=== PATIENT | female | born 1950 | race Caucasian/White ===

== ENCOUNTER → 2016-05-28 | Outpatient (CLI) | payer OTHER ==
[~2016-05-28] MED LIST: CITA20TA9 PO; CLOB-65 EXT; CLOB-77 TOP; DIPH-416 PO; KETO10TA PO; LAMO200T38 PO; LEVO112T2 PO; LORA-741 PO; LOSA50TA6 PO; LPT/40 PO; LSN20 PO; NITR1CAP16 PO; NRN600 PO; OMEP40CA36 PO; OMEP40CA41 PO; ONDA4TAB46 PO; ONDA8TAB12 PO; OXYC7.5T65 PO; TOPI25TA55 PO
[2016-05-28 17:25] LABS: ALT/SGPT 15 U/L (12-78); AST/SGOT 9 U/L (15-37); BLOOD UREA NITROGEN 18 mg/dl (7-18); CALCIUM 8.9 mg/dl (8.5-10.1); CARBON DIOXIDE 24 mmol/L (21-32); CHLORIDE 109 mmol/L (98-107); CHOLESTEROL 139 mg/dl (0-200); GLUCOSE 94 mg/dl (70-99); SODIUM 142 mmol/L (136-145)
[2016-05-28 17:28] LABS: HEMATOCRIT 41.9 % (37-47); MEAN CELL VOLUME 91.3 fL (80-100); MEAN CORPUSCULAR HEMOGLOBIN 28.8 pg (25-34); MEAN CORPUSCULAR HGB CONC 31.5 g/dl (32-36); MEAN PLATELET VOLUME 10.4 fL (7.4-10.4); PLATELET COUNT 156 K/uL (130-400); RED BLOOD COUNT 4.59 M/uL (4.2-5.4); WHITE BLOOD COUNT 7.18 K/uL (4.8-10.8)
[2016-05-28 17:36] LABS: ALB/GLOB RATIO 1.2 (0.9-2); ALKALINE PHOSPHATASE 97 U/L (45-117); CHOLESTEROL/HDL RATIO 3.1; HDL CHOLESTEROL 45 mg/dl; LDL CHOLESTEROL CALCULATED 78 mg/dl; TRIGLYCERIDES 80 mg/dl (0-150); VERY LOW DENSITY LIPOPROT CALC 16 mg/dl
[2016-05-28 17:59] LABS: RATIO 6.9 mcg/mg (0-30.0)
[2016-05-29 06:50] LABS: ESTIMATED AVERAGE GLUCOSE 108 mg/dl; HA1C FLAG Normal (Normal)
== END | disposition home or self-care (01) ==
LOC: C.LABBFT 12:12
PROVIDERS: ATTEND Internal Medicine
DX: I10 Essential (primary) hypertension (principal); E03.9 Hypothyroidism, unspecified; E78.5 Hyperlipidemia, unspecified; E11.9 Type 2 diabetes mellitus without complications; D69.6 Thrombocytopenia, unspecified

== ENCOUNTER → 2016-06-04 | Outpatient (CLI) | payer OTHER ==
--- NOTE | 2016-06-07 13:46 | MAMMOGRAPHY REPORT ---
BILATERAL DIGITAL SCREENING MAMMOGRAM WITH CAD: 06/04/2016 TECHNIQUE: Current study was also evaluated with a Computer Aided Detection (CAD) system. Bilatera l CC and MLO views were obtained. COMPARISON: Comparison is made to exams dated: 05/26/2015 mammogram, 04/23/2014 mammogram, 12/23/2011 mammogram, 09/24/2010 mammogram, and 11/21/2014 mammogram - [facility]. BREAST COMPOSITION: The tissue of both breasts is heterogeneously dense, which may obscure small ma sses. FINDINGS: No suspicious masses, calcifications, or areas of architectural distortion are noted in e ither breast. There has been no significant interval change compared to prior exams. Bilateral miguel gn-appearing calcifications are not significantly changed, including grouped calcifications in the l eft 12:00 breast which are stable dating back to at least the 2012 exam. Nodular asymmetry in the r ight medial breast is stable compared to prior exams dating back to 2007. IMPRESSION: ACR BI-RADS CATEGORY 2: BENIGN There is no mammographic evidence of malignancy. A 1 year screening mammogram is recommended. The p atient will receive written notification of the results. Approximately 10% of breast cancers are not detected with mammography. A negative mammographic repor t should not delay biopsy if a clinically suggestive mass is present. Roro Springer M.D. /:06/04/2016 15:29:37 Business Administration Instructor: Alina MYRICK)(James), [facility] letter sent: Normal 1/2 BI-RADS Code: ACR BI-RADS Category 2: Benign
== END | disposition home or self-care (01) ==
LOC: C.MAMM 13:16
PROVIDERS: ATTEND Internal Medicine
DX: Z12.31 Encounter for screening mammogram for malignant neoplasm of breast (principal)

== ENCOUNTER → 2016-06-08 | Outpatient (CLI) | payer OTHER ==
--- NOTE | 2016-06-08 10:44 | DIAGNOSTIC IMAGING REPORT ---
TWO VIEW CHEST CLINICAL HISTORY: Cough. FINDINGS: PA and lateral chest radiographs are compared to study dated 04/24/2015 and correlated with chest CT dated 10/02/2014. The cardiomediastinal silhouette is unremarkable. There is atherosclerotic calcification of the thoracic aorta. A large hiatal hernia is noted. The lungs and pleural spaces are clear. There is no pneumothorax. The skeletal structures are osteopenic. Degenerative change and mild hyperkyphosis are noted in the thoracic spine. IMPRESSION: 1. No active disease in the chest. 2. Hiatal hernia. Electronically signed by: Toan Conway M.D. 06/08/2016 10:43 AM Dictated Date/Time: 06/08/2016 10:39 AM
--- NOTE | 2016-06-11 07:20 | PULMONARY FUNCTION TEST ---
INTERPRETATION: The spirometry reveals mild obstruction with no change in the airflow with the use of albuterol.
== END | disposition home or self-care (01) ==
LOC: C.RC 09:27
PROVIDERS: ATTEND Internal Medicine
DX: R05 Cough (principal); K44.9 Diaphragmatic hernia without obstruction or gangrene

== ENCOUNTER → 2016-08-27 | Outpatient (CLI) | payer OTHER ==
[~2016-08-27] MED LIST changes: +AMOX875T PO; +NARA1TAB14 PO; +NF656 TD; +NRV/5 PO; +OXYC1TAB3 PO; +TPM25 PO
[2016-08-27 16:44] LABS: BASO % 0.1 %; BASO ABS # 0.01 K/uL (0-0.2); COMPLETE YES; EOS % 0.1 %; HEMATOCRIT 43.5 % (37-47); IG% 0.5 %; LYMPH % 10.2 %; LYMPH ABS # 0.82 K/uL (1.2-3.4); MEAN CORPUSCULAR HGB CONC 30.8 g/dl (32-36); MEAN PLATELET VOLUME 10.2 fL (7.4-10.4); MONO % 2.7 %; NEUT % 86.4 %; PLATELET COUNT 163 K/uL (130-400); RED BLOOD COUNT 4.78 M/uL (4.2-5.4); WHITE BLOOD COUNT 8.07 K/uL (4.8-10.8)
[2016-08-27 17:13] LABS: ALB/GLOB RATIO 1.4 (0.9-2); ALKALINE PHOSPHATASE 101 U/L (45-117); ALT/SGPT 19 U/L (12-78); AST/SGOT 8 U/L (15-37); BLOOD UREA NITROGEN 19 mg/dl (7-18); BUN/CREATININE RATIO 15.8 (10-20); CARBON DIOXIDE 27 mmol/L (21-32); CHLORIDE 113 mmol/L (98-107); GLUCOSE 127 mg/dl (70-99); POTASSIUM 4.1 mmol/L (3.5-5.1); SODIUM 145 mmol/L (136-145)
[2016-08-27 17:34] LABS: LYME DISEASE AB IGG NEG (NEG); LYME DISEASE AB IGM NEG (NEG)
[2016-09-01 12:42] LABS: GAMMA GLOBULIN 0.4 G/DL (0.8-1.7); TOTAL PROTEIN 6.1 G/DL (6.2-8.3)
== END | disposition home or self-care (01) ==
LOC: C.LABBFT 14:17
PROVIDERS: ATTEND Psychiatry & Neurology Neurology
DX: R51 Headache (principal); R26.89 Other abnormalities of gait and mobility

== ENCOUNTER → 2016-09-08 | Outpatient (CLI) | payer OTHER ==
--- NOTE | 2016-09-08 16:34 | DIAGNOSTIC IMAGING REPORT ---
LEFT LOWER EXTREMITY ULTRASOUND CLINICAL HISTORY: Left leg anterior lump. COMPARISON STUDY: No previous studies for comparison. TECHNIQUE: Sonography of the anterior left leg was performed at site of palpable abnormality. FINDINGS: No mass, fluid collection or other sonographic abnormality was identified within the left anterior leg at site of palpable abnormality. IMPRESSION: No sonographic abnormality within the left leg to correspond to the palpable abnormality. Clinical follow up to ensure stability is recommended. Electronically signed by: Yossi Chao M.D. 09/08/2016 4:32 PM Dictated Date/Time: 09/08/2016 4:19 PM
== END | disposition home or self-care (01) ==
LOC: C.ULTR 14:24
PROVIDERS: ATTEND Internal Medicine
DX: R60.0 Localized edema (principal); R22.42 Localized swelling, mass and lump, left lower limb

== ENCOUNTER → 2016-09-08 | Outpatient (CLI) | payer OTHER ==
--- NOTE | 2016-09-08 15:51 | DIAGNOSTIC IMAGING REPORT ---
MRI brain BRAIN W/O FOR SEIZURE CLINICAL HISTORY: R51 Worsening [id number] Balance [id number] seizure TECHNIQUE: Multi axial MRI acquisition COMPARISON STUDY: 02/21/2015 FINDINGS: Signal characteristics of the cerebellar as well as cerebral hemispheres are unremarkable. Ventricular system is midline. Internal auditory canals are symmetric. Sella and parasellar region is unremarkable. IMPRESSION: Negative study. No change from the prior exam. Electronically signed by: Michele Garcia M.D. 09/08/2016 3:50 PM Dictated Date/Time: 09/08/2016 3:46 PM
--- NOTE | 2016-09-16 12:37 | CODING QUERY MEDICAL NECESSITY ---
CQSUPPORTING DIAGNOSIS NEEDED A supporting diagnosis is required for the test/procedure performed on this patient in order for us to be reimbursed by the patient's insurance. Please provide a supporting diagnosis for the following test/procedure listed below next to the test name along with your signature. *If there is no additional diagnosis for this patient that would support the following test/procedure please document that below next to the test/procedure. Test(s)/Procedure(s) that require a supporting diagnosis: SHRAVAN 09/08/16 NONVASCULAR EXTREMITY ULTRASOUND Provider Signature: Date: Thank you Jesika Argueta Health Information Management Once completed, please kindly fax back to [phone] For questions please call [phone]
== END | disposition home or self-care (01) ==
LOC: C.MRI 14:20
PROVIDERS: ATTEND Psychiatry & Neurology Neurology
DX: R26.89 Other abnormalities of gait and mobility (principal); R51 Headache; R60.0 Localized edema; R22.42 Localized swelling, mass and lump, left lower limb

== ENCOUNTER → 2016-09-14 | Outpatient (CLI) | payer OTHER ==
[2016-09-14 12:40] LABS: URINE APPEARANCE CLEAR (CLEAR); URINE BILIRUBIN NEG (NEG); URINE COLOR YELLOW; URINE NITRITE NEG (NEG); URINE SPECIFIC GRAVITY 1.014 (1.000-1.030); UROBILINOGEN NEG (NEG)
[2016-09-14 12:44] LABS: MANUAL MICROSCOPIC REQUIRED? NO; REVIEW REQ? YES
== END | disposition home or self-care (01) ==
LOC: C.LABBFT 10:41
PROVIDERS: ATTEND Nurse Practitioner
DX: R39.9 Unspecified symptoms and signs involving the genitourinary system (principal); Z87.898 Personal history of other specified conditions

== ENCOUNTER 2016-09-17 13:25 | Emergency (ER) | payer OTHER ==
[~2016-09-17] VITALS: Ht 172.7 cm; Wt 97.5 kg
[~2016-09-17 13:25] MED LIST changes: -AMOX875T PO; -CLOB-77 TOP; -KETO10TA PO; -LOSA50TA6 PO; -NARA1TAB14 PO; -NF656 TD; -NITR1CAP16 PO; -NRN600 PO; -NRV/5 PO; -OMEP40CA41 PO; -ONDA8TAB12 PO; -OXYC1TAB3 PO; -OXYC7.5T65 PO; -TOPI25TA55 PO; -TPM25 PO
[2016-09-17] MEDS ORDERED: SODIUM CHLORIDE 0.9% 1000ML 1,000 ML IV STA (13:28)
[2016-09-17] MEDS ORDERED: ONDANSETRON INJ 2 MG/ML 2 ML VIAL IV STA (13:28)
[2016-09-17] MEDS ORDERED: KETOROLAC TROMETHAMINE 30 MG/ML VIAL IV STA (13:28)
[2016-09-17 13:34] VITALS: Ht 172.7 cm; Wt 97.5 kg
[2016-09-17 14:03] LABS: BASO % 0.1 %; BASO ABS # 0.01 K/uL (0-0.2); COMPLETE YES; EOS % 1.3 %; HEMATOCRIT 40.3 % (37-47); IG% 0.1 %; LYMPH % 18.2 %; LYMPH ABS # 1.23 K/uL (1.2-3.4); MEAN CELL VOLUME 91.2 fL (80-100); MEAN CORPUSCULAR HEMOGLOBIN 28.7 pg (25-34); MEAN CORPUSCULAR HGB CONC 31.5 g/dl (32-36); MEAN PLATELET VOLUME 9.4 fL (7.4-10.4); MONO % 8.2 %; NEUT % 72.1 %; PLATELET COUNT 140 K/uL (130-400); RED BLOOD COUNT 4.42 M/uL (4.2-5.4); WHITE BLOOD COUNT 6.74 K/uL (4.8-10.8)
--- NOTE | 2016-09-17 14:19 | DIAGNOSTIC IMAGING REPORT ---
ABDOMEN AND PELVIS CT WITHOUT CONTRAST CT DOSE: 1009.22 mGycm HISTORY: Flank pain flank pain TECHNIQUE: Multiaxial CT images of the abdomen and pelvis were performed without the use of intravenous and oral contrast according to the standard department stone protocol. COMPARISON STUDY: 04/24/2015 FINDINGS: Lung bases are clear. Fixed hiatal hernia. Gallstones within a somewhat contracted gallbladder. Bilateral extrarenal pelves of the kidneys. No evidence for hydronephrosis. Nonobstructive bowel pattern. Bladder is midline. Patient is status post total right arthroplasty the hip. IMPRESSION: No acute process of the abdomen or pelvis. Gallstones. Hiatal hernia. Electronically signed by: Michele Garcia M.D. 09/17/2016 2:18 PM Dictated Date/Time: 09/17/2016 2:13 PM
[2016-09-17 14:24] LABS: ALT/SGPT 24 U/L (12-78); BLOOD UREA NITROGEN 19 mg/dl (7-18); BUN/CREATININE RATIO 14.5 (10-20); CARBON DIOXIDE 24 mmol/L (21-32); CHLORIDE 111 mmol/L (98-107); GLUCOSE 127 mg/dl (70-99); POTASSIUM 3.9 mmol/L (3.5-5.1); SODIUM 144 mmol/L (136-145)
[2016-09-17 14:26] LABS: ALKALINE PHOSPHATASE 106 U/L (45-117); AST/SGOT 12 U/L (15-37)
[2016-09-17] MEDS ORDERED: KETO10TA PO (15:01)
--- NOTE | 2016-09-17 15:02 | EMERGENCY ROOM VISIT NOTE ---
History Report prepared by [place]: Stella Rizvi Under the Supervision of: Dr. Miguel Suarez D.O. First contact with patient: 13:27 Chief Complaint: FLANK PAIN Stated Complaint: FLANK PAIN History of Present Illness The patient is a 66 year old female who presents to the Emergency Room with complaints of severe and worsening left sided back pain starting 2 weeks ago. She has worsening pain with walking. 2 days ago, the patient was evaluated by her PCP and had a urinalysis which was negative for a UTI. She denies any urinary symptoms, or any other complaints. She denies any recent injuries, lifting, or straining. The patient has shingles on the left side of chest starting about 2 weeks ago. Source of History: patient Onset: 2 weeks ago Position: back (left sided) Symptom Intensity: severe Timing: worsening Modifying Factors (Worsening): other (walking) Associated Symptoms: No urinary symptoms Review of Systems See HPI for pertinent positives & negatives. A total of 10 systems reviewed and were otherwise negative. Past Medical & Surgical Medical Problems: (1) Anxiety State Nos (2) Arthritis of right hip (3) Esophageal Reflux (4) Migraine Unspecified W/O Intractable Migraine (5) Panic Disorder Without Agoraphobia Family History No significant family history Social History Smoking Status: Former Smoker Alcohol Use: occasionally Marital Status: Housing Status: lives with family Current/Historical Medications Scheduled Atorvastatin (Lipitor), 40 MG PO QPM Citalopram Hydrobromide (Celexa), 30 MG PO HS Clobetasol Propionate (Temovate), 1 APPLN TOP BID Gabapentin (Gabapentin), 1 TAB PO TID Lamotrigine (Lamictal), 200 MG PO BID Levothyroxine Sodium (Synthroid), 112 MCG PO QAM Losartan Potassium (Cozaar), 50 MG PO DAILY Nitrofurantoin Monohyd Macro (Macrobid), 100 MG PO BID Omeprazole (Prilosec), 40 MG PO DAILY Ondansetron Hcl (Zofran), 8 MG PO PRN Topiramate (Topamax), 75 MG PO BID Scheduled PRN Diphenoxylate/Atropine (Lomotil), 1 TAB PO BID PRN for PRN Ketorolac (Toradol), 10 MG PO Q6H PRN for Pain Lorazepam (Ativan), 0.5 MG PO BID PRN for Anxiety Ondansetron Hcl (Zofran), 4 MG PO Q6H PRN for Nausea Oxycodone/Acetaminophen 7.5MG/325MG (Percocet 7.5MG/325MG), 1 TAB PO Q12 PRN for Pain Allergies Coded Allergies: NO KNOWN DRUG ALLERGIES (Verified Allergy, Unknown, ., 09/17/16) Physical Exam Vital Signs Date Time Temp Pulse Resp B/P (MAP) Pulse Ox O2 Delivery O2 Flow Rate FiO2 09/17/16 15:20 36.6 64 18 105/54 94 09/17/16 13:34 36.6 72 18 108/49 97 Room Air Physical Exam CONSTITUTIONAL/VITAL SIGNS: Reviewed / noted above. GENERAL: Non-toxic in appearance. INTEGUMENTARY: Warm, dry, and [place]. HEAD: Normocephalic. EYES: without scleral icterus or trauma. ENT/OROPHARYNX: clear and moist. LYMPHADENOPATHY/NECK: Is supple without lymphadenopathy or meningismus. RESPIRATORY: Lungs clear and equal. CARDIOVASCULAR: Regular rate and rhythm. GI/ABDOMEN: Soft and nontender. No organomegaly or pulsatile mass. No rebound or guarding. Normal bowel sounds. EXTREMITIES: Warm and well perfused. BACK: No CVA tenderness. Tenderness to palpation of the paraspinal musculature of the left mid back. NEUROLOGICAL: Intact without focal deficits. PSYCHIATRIC: normal affect. MUSCULOSKELETAL: Normally developed with good muscle tone. Medical Decision & Procedures ER Provider Diagnostic Interpretation: CT results as stated below per my review and radiologist interpretation: ABDOMEN AND PELVIS CT WITHOUT CONTRAST CT DOSE: 1009.22 mGycm HISTORY: Flank pain flank pain TECHNIQUE: Multiaxial CT images of the abdomen and pelvis were performed without the use of intravenous and oral contrast according to the standard department stone protocol. COMPARISON STUDY: 04/24/2015 FINDINGS: Lung bases are clear. Fixed hiatal hernia. Gallstones within a somewhat contracted gallbladder. Bilateral extrarenal pelves of the kidneys. No evidence for hydronephrosis. Nonobstructive bowel pattern. Bladder is midline. Patient is status post total right arthroplasty the hip. IMPRESSION: No acute process of the abdomen or pelvis. Gallstones. Hiatal hernia. Electronically signed by: Michele Garcia M.D. 09/17/2016 2:18 PM Dictated Date/Time: 09/17/2016 2:13 PM Laboratory Results 09/17/16 13:30 Red Blood Count 4.42, Mean Corpuscular Volume 91.2, Mean Corpuscular Hemoglobin 28.7, Mean Corpuscular Hemoglobin Concent 31.5, Mean Platelet Volume 9.4, Neutrophils (%) (Auto) 72.1, Lymphocytes (%) (Auto) 18.2, Monocytes (%) (Auto) 8.2, Eosinophils (%) (Auto) 1.3, Basophils (%) (Auto) 0.1, Neutrophils # (Auto) 4.85, Lymphocytes # (Auto) 1.23, Monocytes # (Auto) 0.55, Eosinophils # (Auto) 0.09, Basophils # (Auto) 0.01 09/17/16 13:30 Test 09/17/16 13:30 White Blood Count 6.74 K/uL (4.8-10.8) Red Blood Count 4.42 M/uL (4.2-5.4) Hemoglobin 12.7 g/dL (12.0-16.0) Hematocrit 40.3 % (37-47) Mean Corpuscular Volume 91.2 fL (80-100) Mean Corpuscular Hemoglobin 28.7 pg (25-34) Mean Corpuscular Hemoglobin Concent 31.5 g/dl (32-36) Platelet Count 140 K/uL (130-400) Mean Platelet Volume 9.4 fL (7.4-10.4) Neutrophils (%) (Auto) 72.1 % Lymphocytes (%) (Auto) 18.2 % Monocytes (%) (Auto) 8.2 % Eosinophils (%) (Auto) 1.3 % Basophils (%) (Auto) 0.1 % Neutrophils # (Auto) 4.85 K/uL (1.4-6.5) Lymphocytes # (Auto) 1.23 K/uL (1.2-3.4) Monocytes # (Auto) 0.55 K/uL (0.11-0.59) Eosinophils # (Auto) 0.09 K/uL (0-0.5) Basophils # (Auto) 0.01 K/uL (0-0.2) RDW Standard Deviation 46.8 fL (36.4-46.3) RDW Coefficient of Variation 14.2 % (11.5-14.5) Immature Granulocyte % (Auto) 0.1 % Immature Granulocyte # (Auto) 0.01 K/uL (0.00-0.02) Anion Gap 9.0 mmol/L (3-11) Est Creatinine Clear Calc Drug Dose 50.6 ml/min Estimated GFR () 48.8 Estimated GFR (Non- 42.1 BUN/Creatinine Ratio 14.5 (10-20) Total Bilirubin 0.5 mg/dl (0.2-1) Direct Bilirubin < 0.1 mg/dl (0-0.2) Aspartate Amino Transf (AST/SGOT) 12 U/L (15-37) Alanine Aminotransferase (ALT/SGPT) 24 U/L (12-78) Alkaline Phosphatase 106 U/L (45-117) Total Protein 6.6 gm/dl (6.4-8.2) Albumin 3.5 gm/dl (3.4-5.0) Lipase 220 U/L (73-393) Laboratory results as stated above per my review. Medications Administered Medications (Trade) Dose Ordered Sig/Srikanth Route Start Time Stop Time Status Last Admin Dose Admin Sodium Chloride 1,000 ml @ 999 mls/hr Q1H1M STAT IV 09/17/16 13:28 09/17/16 14:28 DC 09/17/16 13:28 999 MLS/HR Ondansetron HCl (Zofran Inj) 4 mg NOW STAT IV 09/17/16 13:28 09/17/16 13:30 DC 09/17/16 13:51 4 MG Ketorolac Tromethamine (Toradol Inj) 30 mg NOW STAT IV 09/17/16 13:28 09/17/16 13:30 DC 09/17/16 13:51 30 MG ED Course 1327: Previous medical records were reviewed. The patient was evaluated in room B08. A complete history and physical examination was performed. 1328: Toradol Inj 30 mg IV, Zofran Inj 4 mg IV, Sodium Chloride 1000 ml @ 999 mls/hr IV 1504: On reevaluation, the patient is resting comfortably. I discussed the results and findings with the patient. She verbalized agreement of the treatment plan. She was discharged home. Medical Decision Differential considered: pancreatitis, hepatitis, acute cholecystitis, AAA, UTI , pyelonephritis, kidney stones, appendicitis, diverticulitis, shingles, bowel obstruction, mesenteric ischemia, intussusception,hernia. Medication Reconciliation: I attest that I have personally reviewed the patient' s current medication list. Blood pressure Screening: Patient was found to have normal blood pressure on screening and does not require follow-up. This is a 66-year-old female who presents to the ED with a chief complaint of side effects pain. The patient is currently undergoing treatment for shingles of her left breast. She states that she's been having some left-sided flank pain for the past couple of weeks. It seems to be worse with certain movements. It is progressively worsening little by little over time. Her vital signs are normal. The patient's exam was relatively unremarkable other than some tenderness to palpation the musculature of the left mid back region. CT scan of the an and pelvis did not reveal any left-sided abnormalities. She does have gallstones. CBC and complete metabolic panel were unremarkable. The BUN is 19 and creatinine is 1.3. Lipase was negative. She was treated with IV fluids and IV Toradol and IV Zofran. She will be discharged on Toradol. She was told to follow-up with her PCP for recheck and return for worsening. Impression Primary Impression: Left flank pain Additional Impression: Back muscle spasm Scribe Attestation The scribe's documentation has been prepared under my direction and personally reviewed by me in its entirety. I confirm that the note above accurately reflects all work, treatment, procedures, and medical decision making performed by me. Departure Information Dispostion Home / Self-Care Prescriptions Ketorolac (Toradol) 10 Mg Tab 10 MG PO Q6H Y for Pain, #20 TAB Prov: Miguel Suarez D.O. 09/17/16 Referrals Geovanni Riggs M.D. (PCP) Forms HOME CARE DOCUMENTATION FORM, IMPORTANT VISIT INFORMATION Patient Instructions Back Pain - [facility] Additional Instructions Follow-up with your doctor for further care and evaluation in 1-2 days. Return to the emergency department for worsening or new symptoms or any concerns. You have been examined and treated today on an emergency basis only. This is not a substitute for, or an effort to provide, complete comprehensive medical care. It is impossible to recognize and treat all injuries or illnesses in a single emergency department visit. It is therefore important that you follow up closely with your doctor. Call as soon as possible for an appointment. Toradol as prescribed. Problem Qualifiers
[2016-09-17] MEDS ORDERED: OXYC7.5T65 PO (15:12)
[2016-09-17] MEDS ORDERED: OMEP40CA41 PO (15:12)
[2016-09-17] MEDS ORDERED: LOSA50TA6 PO (15:12)
[2016-09-17] MEDS ORDERED: TOPI25TA55 PO (15:12)
[2016-09-17] MEDS ORDERED: NITR1CAP16 PO (15:12)
[2016-09-17] MEDS ORDERED: CLOB-77 TOP (15:12)
[2016-09-17] MEDS ORDERED: ONDA8TAB12 PO (15:12)
[2016-09-17] MEDS ORDERED: NRN600 PO (15:12)
[2016-09-17 15:20] VITALS: BP 105/54; PULSE 64; TEMP 36.6; O2SAT 94
[2016-09-17 17:15] LABS: CALCIUM 9.1 mg/dl (8.5-10.1)
[2017-02-07] MEDS ORDERED: NRV/5 PO (19:14)
[2017-02-07] MEDS ORDERED: NARA1TAB14 PO (19:14)
[2017-02-07] MEDS ORDERED: TPM25 PO (19:23)
[2017-02-07] MEDS ORDERED: OXYC1TAB3 PO (21:43)
[2017-02-07] MEDS ORDERED: NF656 TD (21:43)
[2017-02-08] MEDS ORDERED: AMOX875T PO (00:16)
== END 2016-09-17 15:21 | disposition home or self-care (01) ==
LOC: EDBD 13:25 → C.EDB 13:26
DX: R10.9 Unspecified abdominal pain (principal); M62.830 Muscle spasm of back; M16.11 Unilateral primary osteoarthritis, right hip; K21.9 Gastro-esophageal reflux disease without esophagitis; G43.909 Migraine, unspecified, not intractable, without status migrainosus; F41.0 Panic disorder [episodic paroxysmal anxiety]; Z87.891 Personal history of nicotine dependence; Z79.899 Other long term (current) drug therapy

== ENCOUNTER → 2016-09-21 | Outpatient (CLI) | payer OTHER ==
[~2016-09-21] MED LIST changes: +AMOX875T PO; -CLOB-65 EXT; +CLOB-77 TOP; +KETO10TA PO; +LOSA50TA6 PO; -LSN20 PO; +NARA1TAB14 PO; +NF656 TD; +NITR1CAP16 PO; +NRN600 PO; +NRV/5 PO; -OMEP40CA36 PO; +OMEP40CA41 PO; +ONDA8TAB12 PO; +OXYC1TAB3 PO; +OXYC7.5T65 PO; +TOPI25TA55 PO; +TPM25 PO
--- NOTE | 2016-09-21 14:25 | DIAGNOSTIC IMAGING REPORT ---
L-SPINE MIN 4 VIEWS ROUTINE CLINICAL HISTORY: M54.40 low back pain with sciatica COMPARISON STUDY: 08/26/2015 FINDINGS: There are 5 lumbar type vertebral bodies present. There are moderately advanced multilevel degenerative changes with disc space narrowing most pronounced the L1-2 level. No acute fractures are visualized. There is a grade 1 spondylolisthesis of L5 on S1. Incidental note is made of cholelithiasis. There is no pathologic bowel dilatation. IMPRESSION: 1. Moderate multilevel degenerative change. No acute fractures or traumatic subluxations 2. Cholelithiasis Electronically signed by: Ganesh Bennett M.D. 09/21/2016 2:23 PM Dictated Date/Time: 09/21/2016 2:23 PM
--- NOTE | 2016-09-21 14:25 | DIAGNOSTIC IMAGING REPORT ---
THORACIC SPINE 3 VIEWS ROUTINE CLINICAL HISTORY: M54.40 back pain with sciatica COMPARISON STUDY: No previous studies for comparison. FINDINGS: There are moderate multilevel degenerative changes. No acute fractures of genetic subluxations are visualized. The paraspinal line is not displaced. No destructive lesions are visualized on conventional radiographic imaging IMPRESSION: Moderate multilevel degenerative change. No fractures, subluxations, or destructive lesions are visualized Electronically signed by: Ganesh Bennett M.D. 09/21/2016 2:24 PM Dictated Date/Time: 09/21/2016 2:24 PM
[2016-09-21 15:33] LABS: BLOOD UREA NITROGEN 23 mg/dl (7-18); BUN/CREATININE RATIO 19.3 (10-20); CALCIUM 8.5 mg/dl (8.5-10.1); CARBON DIOXIDE 27 mmol/L (21-32); CHLORIDE 111 mmol/L (98-107); GLUCOSE 98 mg/dl (70-99); POTASSIUM 4.1 mmol/L (3.5-5.1); SODIUM 145 mmol/L (136-145)
== END | disposition home or self-care (01) ==
LOC: C.LAB 12:58
PROVIDERS: ATTEND Physician Assistant Medical
DX: M54.40 Lumbago with sciatica, unspecified side (principal)

== ENCOUNTER → 2016-10-07 | Outpatient (CLI) | payer OTHER ==
[~2016-10-07] MED LIST changes: -AMOX875T PO; -NARA1TAB14 PO; -NF656 TD; -NRV/5 PO; -OXYC1TAB3 PO; -TPM25 PO
[2016-10-07 16:37] LABS: BLOOD UREA NITROGEN 17 mg/dl (7-18); BUN/CREATININE RATIO 14.1 (10-20); CARBON DIOXIDE 24 mmol/L (21-32); CHLORIDE 112 mmol/L (98-107); GLUCOSE 89 mg/dl (70-99); POTASSIUM 3.9 mmol/L (3.5-5.1); SODIUM 143 mmol/L (136-145)
== END | disposition home or self-care (01) ==
LOC: C.LABBFT 13:05
PROVIDERS: ATTEND Physician Assistant Medical
DX: M54.40 Lumbago with sciatica, unspecified side (principal); N23 Unspecified renal colic

== ENCOUNTER → 2016-10-14 | Outpatient (CLI) | payer OTHER ==
[2016-10-14 17:30] LABS: BLOOD UREA NITROGEN 15 mg/dl (7-18); BUN/CREATININE RATIO 12.5 (10-20); CALCIUM 8.9 mg/dl (8.5-10.1); CARBON DIOXIDE 25 mmol/L (21-32); CHLORIDE 109 mmol/L (98-107); GLUCOSE 90 mg/dl (70-99); SODIUM 142 mmol/L (136-145)
== END | disposition home or self-care (01) ==
LOC: C.LABBFT 09:43
PROVIDERS: ATTEND Physician Assistant Medical
DX: I10 Essential (primary) hypertension (principal)

== ENCOUNTER → 2016-10-15 | Outpatient (CLI) | payer OTHER ==
--- NOTE | 2016-10-21 12:36 | CODING QUERY MEDICAL NECESSITY ---
SUPPORTING DIAGNOSIS NEEDED A supporting diagnosis is required for the test/procedure performed on this patient in order for us to be reimbursed by the patient's insurance. Please provide a supporting diagnosis for the following test/procedure listed below next to the test name along with your signature. *If there is no additional diagnosis for this patient that would support the following test/procedure please document that below next to the test/procedure. Test(s)/Procedure(s) that require a supporting diagnosis: * VITAMIN B12 DIAGNOSIS: Provider Signature: Date: Thank you Cira Waterford [employer] Information Management Once completed, please kindly fax back to [phone] For questions please call [phone]
== END | disposition home or self-care (01) ==
LOC: C.LABBFT 11:54
PROVIDERS: ATTEND Physician Assistant Medical
DX: G62.9 Polyneuropathy, unspecified (principal)

== ENCOUNTER → 2016-10-20 | Outpatient (CLI) | payer OTHER ==
--- NOTE | 2016-10-20 11:34 | DIAGNOSTIC IMAGING REPORT ---
(RENAL)RETROPERITON COMP HISTORY: 66 years Female N28.9 Renal insufficiency COMPARISON: CT abdomen and pelvis 09/17/2016 TECHNIQUE: Multiple real-time sonographic images of the bilateral kidneys and urinary bladder were obtained assessing grayscale appearance and color flow. FINDINGS: Right kidney measures 12.8 x 4.0 x 4.3 cm and is unremarkable without shadowing calculus or hydronephrosis. Extrarenal pelvis is redemonstrated. The left kidney measures 14.0 x 5.9 x 6.3 cm and is within normal limits without renal calculi or hydronephrosis. Extrarenal pelvis is again seen. Urinary bladder is mostly collapsed with ureteral jets not identified. Straightedge Machine Operator Helper reports patient tenderness over the region of the urinary bladder. IMPRESSION: 1. Normal sonographic appearance of the bilateral kidneys without renal calculi or hydronephrosis. 2. Collapsed urinary bladder. The above report was generated using voice recognition software. It may contain grammatical, syntax or spelling errors. Electronically signed by: Lev Ramey M.D. 10/20/2016 11:32 AM Dictated Date/Time: 10/20/2016 11:30 AM
== END | disposition home or self-care (01) ==
LOC: C.ULTR 10:41
PROVIDERS: ATTEND Physician Assistant Medical
DX: N28.9 Disorder of kidney and ureter, unspecified (principal)

== ENCOUNTER → 2016-11-19 | Outpatient (CLI) | payer OTHER ==
[2016-11-19 12:26] LABS: URINE APPEARANCE CLEAR (CLEAR); URINE BILIRUBIN NEG (NEG); URINE COLOR YELLOW; URINE EPITHELIAL CELL AUTO >30 /lpf (0-5); URINE NITRITE NEG (NEG); URINE PH 6.5 (4.5-7.5); URINE SPECIFIC GRAVITY 1.015 (1.000-1.030); UROBILINOGEN NEG (NEG)
[2016-11-19 12:31] LABS: MANUAL MICROSCOPIC REQUIRED? NO; REVIEW REQ? YES
== END | disposition home or self-care (01) ==
LOC: C.LABBFT 09:11
PROVIDERS: ATTEND Nurse Practitioner
DX: R39.9 Unspecified symptoms and signs involving the genitourinary system (principal)

== ENCOUNTER → 2016-12-02 | Outpatient (CLI) | payer OTHER ==
[2016-12-02 17:49] LABS: BASO % 0.3 %; BASO ABS # 0.02 K/uL (0-0.2); COMPLETE YES; EOS % 1.1 %; HEMATOCRIT 44.5 % (37-47); IG% 0.6 %; LYMPH % 16.2 %; LYMPH ABS # 1.13 K/uL (1.2-3.4); MEAN CELL VOLUME 92.7 fL (80-100); MEAN CORPUSCULAR HEMOGLOBIN 27.3 pg (25-34); MEAN CORPUSCULAR HGB CONC 29.4 g/dl (32-36); MEAN PLATELET VOLUME 10.3 fL (7.4-10.4); MONO % 6.9 %; NEUT % 74.9 %; PLATELET COUNT 165 K/uL (130-400); WHITE BLOOD COUNT 6.98 K/uL (4.8-10.8)
[2016-12-02 17:58] LABS: ALT/SGPT 15 U/L (12-78); AST/SGOT 6 U/L (15-37); BLOOD UREA NITROGEN 13 mg/dl (7-18); BUN/CREATININE RATIO 12.2 (10-20); CALCIUM 8.7 mg/dl (8.5-10.1); CARBON DIOXIDE 25 mmol/L (21-32); CHLORIDE 112 mmol/L (98-107); CHOLESTEROL 135 mg/dl (0-200); GLUCOSE 130 mg/dl (70-99); POTASSIUM 3.6 mmol/L (3.5-5.1); SODIUM 143 mmol/L (136-145); TRIGLYCERIDES 122 mg/dl (0-150); VERY LOW DENSITY LIPOPROT CALC 24 mg/dl
[2016-12-02 18:09] LABS: ALB/GLOB RATIO 1.3 (0.9-2); ALKALINE PHOSPHATASE 105 U/L (45-117); CHOLESTEROL/HDL RATIO 3.5; HDL CHOLESTEROL 39 mg/dl; LDL CHOLESTEROL CALCULATED 72 mg/dl
[2016-12-03 06:16] LABS: ESTIMATED AVERAGE GLUCOSE 111 mg/dl; HA1C FLAG Normal (Normal)
--- NOTE | 2016-12-13 10:05 | CODING QUERY MEDICAL NECESSITY ---
CQSUPPORTING DIAGNOSIS NEEDED A supporting diagnosis is required for the test/procedure performed on this patient in order for us to be reimbursed by the patient's insurance. Please provide a supporting diagnosis for the following test/procedure listed below next to the test name along with your signature. *If there is no additional diagnosis for this patient that would support the following test/procedure please document that below next to the test/procedure. Test(s)/Procedure(s) that require a supporting diagnosis: DOS 12/02/16 VITAMIN B12 ORDERED BY SHAHEEN HOLDEN (SEPARATE ACCOUNT FROM PREVIOUS QUERY) Provider Signature: Date: Thank you Jesika Argueta Health Information Management Once completed, please kindly fax back to [phone] For questions please call [phone]
== END | disposition home or self-care (01) ==
LOC: C.LABBFT 12:17
PROVIDERS: ATTEND Physician Assistant Medical
DX: R79.9 Abnormal finding of blood chemistry, unspecified (principal); E11.9 Type 2 diabetes mellitus without complications

== ENCOUNTER 2017-05-12 14:13 | Emergency (ER) | payer OTHER ==
[~2017-05-12] VITALS: Ht 172.7 cm; Wt 91.7 kg
[~2017-05-12 14:13] MED LIST changes: -CLOB-77 TOP; -KETO10TA PO; +LAMO200T35 PO; -LAMO200T38 PO; -LOSA50TA6 PO; +NARA1TAB14 PO; +NF656 TD; -NITR1CAP16 PO; -NRN600 PO; +NRV/5 PO; -ONDA8TAB12 PO; +OXYC1TAB3 PO; -OXYC7.5T65 PO; -TOPI25TA55 PO; +TPM25 PO
[2017-05-12 14:19] VITALS: TEMP 36.6; Ht 172.7 cm; Wt 91.7 kg
[2017-05-12] MEDS ORDERED: OSEL75CA16 PO (14:42)
[2017-05-12] MEDS ORDERED: KETOROLAC TROMETHAMINE 15 MG/ML VIAL IV ONE (14:45)
[2017-05-12] MEDS ORDERED: ACETAMINOPHEN IV 1,000 MG in EMPTY BAG 0 ML IV ONE (14:45)
[2017-05-12] MEDS ORDERED: ALBUT/IPRATROP 3MG/0.5MG NEB 3 ML VIAL INH ONE (14:45)
[2017-05-12] MEDS ORDERED: SODIUM CHLORIDE 0.9% 1000ML 1,000 ML IV ONE (14:45)
[2017-05-12] MEDS ORDERED: ONDANSETRON INJ 2 MG/ML 2 ML VIAL IV STA (14:52)
--- NOTE | 2017-05-12 15:34 | EMERGENCY ROOM VISIT NOTE ---
ED Visit Note First contact with patient: 14:34 This Patient was discussed with the physician senior office assistant, Nicolas Astorga PA-C. The pertinent historical and physical exam findings were confirmed. I agree with the studies ordered and with the interpretations of these studies. I agree with the disposition and care plan.
[2017-05-12 15:38] LABS: BASO % 0.3 %; BASO ABS # 0.01 K/uL (0-0.2); EOS % 1.6 %; EOS ABS # 0.06 K/uL (0-0.5); HEMATOCRIT 42.8 % (37-47); HEMOGLOBIN 13.8 g/dL (12.0-16.0); IG# 0.01 K/uL (0.00-0.02); LYMPH % 28.6 %; LYMPH ABS # 1.08 K/uL (1.2-3.4); MEAN CELL VOLUME 89.4 fL (80-100); MEAN CORPUSCULAR HEMOGLOBIN 28.8 pg (25-34); MEAN CORPUSCULAR HGB CONC 32.2 g/dl (32-36); MEAN PLATELET VOLUME 9.4 fL (7.4-10.4); MONO % 10.9 %; MONO ABS # 0.41 K/uL (0.11-0.59); NEUT % 58.3 %; PLATELET COUNT 115 K/uL (130-400); RED CELL DISTRIBUTION WIDTH CV 13.5 % (11.5-14.5); RED CELL DISTRIBUTION WIDTH SD 44.4 fL (36.4-46.3); WHITE BLOOD COUNT 3.77 K/uL (4.8-10.8)
[2017-05-12] MEDS ORDERED: DEXAMETHASONE **PF** INJ 10 MG/ML VIAL ONE (15:40)
[2017-05-12] MEDS ORDERED: KETOROLAC TROMETHAMINE 30 MG/ML VIAL ONE (15:40)
[2017-05-12 16:01] LABS: CREATININE 1.05 mg/dl (0.60-1.20)
[2017-05-12 16:02] LABS: ALBUMIN 3.4 gm/dl (3.4-5.0); CALCIUM 8.7 mg/dl (8.5-10.1); POTASSIUM 3.6 mmol/L (3.5-5.1)
[2017-05-12 16:04] LABS: TOTAL PROTEIN 6.3 gm/dl (6.4-8.2)
--- NOTE | 2017-05-12 16:51 | DIAGNOSTIC IMAGING REPORT ---
CHEST 2 VIEWS ROUTINE CLINICAL HISTORY: 66 years-old Female presenting with Cough. Flu like. . TECHNIQUE: PA and lateral views of the chest were obtained. COMPARISON: 06/08/[address] from 10/02/2014. FINDINGS: Atherosclerosis of the aortic arch. Cardiac silhouette top normal in size. Lungs and pleural spaces clear. Degenerative changes of the thoracic spine. Hiatal hernia suspected. IMPRESSION: 1. No acute cardiopulmonary disease. 2. Hiatal hernia. Electronically signed by: Rupesh Lees M.D. 05/12/2017 4:50 PM Dictated Date/Time: 05/12/2017 4:48 PM
[2017-05-12 17:24] VITALS: BP 131/78; PULSE 90; O2SAT 98
--- NOTE | 2017-05-12 21:44 | EMERGENCY ROOM VISIT NOTE ---
History First contact with patient: 14:34 Chief Complaint: FLU LIKE SX Stated Complaint: FLU History of Present Illness The patient is a 66 year old female who presents to the Emergency Room with complaints of persistent flu symptoms of weakness and fatigue for the past 3 days. The patient was diagnosed with influenza A at her primary care physician' s office 3 days ago. Since then she has felt weak and nauseated. She did start Tamiflu for the flu. She has had a fever at home, however this is generally controlled with Advil and Tylenol. She has decreased appetite but no significant pains otherwise. She rates her overall discomfort a 6/10. Review of Systems More than 10 systems were reviewed and otherwise negative with the exception of history of present illness. Past Medical/Surgical History Medical Problems: (1) Anxiety State Nos (2) Arthritis of right hip (3) Esophageal Reflux (4) Migraine Unspecified W/O Intractable Migraine (5) Panic Disorder Without Agoraphobia Family History No significant family history Social History Smoking Status: Former Smoker Alcohol Use: occasionally Marital Status: Housing Status: lives with family Current/Historical Medications Scheduled Amlodipine Besylate (Amlodipine Besylate), 5 MG PO DAILY Atorvastatin (Lipitor), 40 MG PO QPM Citalopram Hydrobromide (Celexa), 30 MG PO HS Lamotrigine (Lamictal), 200 MG PO BID Levothyroxine Sodium (Synthroid), 112 MCG PO QAM Naratriptan Hcl (Amerge), 2.5 MG PO DIRECTED Omeprazole (Prilosec), 40 MG PO DAILY Oseltamivir Phosphate (Oseltamivir Phosphate), 75 MG PO DAILY Topiramate (Topiramate), 75 MG PO BID Scheduled PRN Lorazepam (Ativan), 0.5 MG PO BID PRN for Anxiety Ondansetron Hcl (Zofran), 4 MG PO Q6H PRN for Nausea Physical Exam Vital Signs Date Time Temp Pulse Resp B/P (MAP) Pulse Ox O2 Delivery O2 Flow Rate FiO2 05/12/17 17:24 90 20 131/78 98 05/12/17 14:19 36.6 51 20 135/77 95 Room Air Physical Exam VITALS: Vitals are noted on the nurse's note and reviewed by myself. Vital signs stable. GENERAL: Well-developed, well-nourished, white female who appears ill but nontoxic. NECK: Supple without nuchal rigidity. No lymphadenopathy. No thyromegaly. Cervical spine is nontender. HEART: Regular rate and rhythm without murmurs gallops or rubs. LUNGS: Clear to auscultation bilaterally without wheezes, rales or rhonchi. No retractions or accessory muscle use. ABDOMEN: Positive normal bowel sounds x 4. Soft, nontender, without masses or organomegaly. No guarding or rebound tenderness. MUSCULOSKELETAL: No muscle atrophy, erythema, or edema noted. Full range of motion without joint tenderness in all extremities. Medical Decision & Procedures ER Provider Diagnostic Interpretation: CHEST 2 VIEWS ROUTINE CLINICAL HISTORY: 66 years-old Female presenting with Cough. Flu like. . TECHNIQUE: PA and lateral views of the chest were obtained. COMPARISON: 06/08/[address] from 10/02/2014. FINDINGS: Atherosclerosis of the aortic arch. Cardiac silhouette top normal in size. Lungs and pleural spaces clear. Degenerative changes of the thoracic spine. Hiatal hernia suspected. IMPRESSION: 1. No acute cardiopulmonary disease. 2. Hiatal hernia. Laboratory Results 05/12/17 15:30 Red Blood Count 4.79, Mean Corpuscular Volume 89.4, Mean Corpuscular Hemoglobin 28.8, Mean Corpuscular Hemoglobin Concent 32.2, Mean Platelet Volume 9.4, Neutrophils (%) (Auto) 58.3, Lymphocytes (%) (Auto) 28.6, Monocytes (%) (Auto) 10.9, Eosinophils (%) (Auto) 1.6, Basophils (%) (Auto) 0.3, Neutrophils # (Auto ) 2.20, Lymphocytes # (Auto) 1.08, Monocytes # (Auto) 0.41, Eosinophils # (Auto ) 0.06, Basophils # (Auto) 0.01 05/12/17 15:30 Test 05/12/17 15:30 05/12/17 16:00 White Blood Count 3.77 K/uL (4.8-10.8) Red Blood Count 4.79 M/uL (4.2-5.4) Hemoglobin 13.8 g/dL (12.0-16.0) Hematocrit 42.8 % (37-47) Mean Corpuscular Volume 89.4 fL (80-100) Mean Corpuscular Hemoglobin 28.8 pg (25-34) Mean Corpuscular Hemoglobin Concent 32.2 g/dl (32-36) Platelet Count 115 K/uL (130-400) Mean Platelet Volume 9.4 fL (7.4-10.4) Neutrophils (%) (Auto) 58.3 % Lymphocytes (%) (Auto) 28.6 % Monocytes (%) (Auto) 10.9 % Eosinophils (%) (Auto) 1.6 % Basophils (%) (Auto) 0.3 % Neutrophils # (Auto) 2.20 K/uL (1.4-6.5) Lymphocytes # (Auto) 1.08 K/uL (1.2-3.4) Monocytes # (Auto) 0.41 K/uL (0.11-0.59) Eosinophils # (Auto) 0.06 K/uL (0-0.5) Basophils # (Auto) 0.01 K/uL (0-0.2) RDW Standard Deviation 44.4 fL (36.4-46.3) RDW Coefficient of Variation 13.5 % (11.5-14.5) Immature Granulocyte % (Auto) 0.3 % Immature Granulocyte # (Auto) 0.01 K/uL (0.00-0.02) Anion Gap 9.0 mmol/L (3-11) Est Creatinine Clear Calc Drug Dose 60.7 ml/min Estimated GFR () 63.2 Estimated GFR (Non- 54.5 BUN/Creatinine Ratio 14.4 (10-20) Calcium Level 8.7 mg/dl (8.5-10.1) Total Bilirubin 0.4 mg/dl (0.2-1) Aspartate Amino Transf (AST/SGOT) 12 U/L (15-37) Alanine Aminotransferase (ALT/SGPT) 16 U/L (12-78) Alkaline Phosphatase 92 U/L (45-117) Total Protein 6.3 gm/dl (6.4-8.2) Albumin 3.4 gm/dl (3.4-5.0) Globulin 2.9 gm/dl (2.5-4.0) Albumin/Globulin Ratio 1.2 (0.9-2) Urine Color YELLOW Urine Appearance CLOUDY (CLEAR) Urine pH 7.5 (4.5-7.5) Urine Specific [place] 1.015 (1.000-1.030) Urine Protein NEG (NEG) Urine Glucose (UA) NEG (NEG) Urine Ketones NEG (NEG) Urine Occult Blood NEG (NEG) Urine Nitrite NEG (NEG) Urine Bilirubin NEG (NEG) Urine Urobilinogen NEG (NEG) Urine Leukocyte Esterase NEG (NEG) Urine WBC (Auto) 0 /hpf (0-5) Urine RBC (Auto) 0-4 /hpf (0-4) Urine Hyaline Casts (Auto) 1-5 /lpf (0-5) Urine Epithelial Cells (Auto) 10-20 /lpf (0-5) Urine Bacteria (Auto) NEG (NEG) Medications Administered Medications (Trade) Dose Ordered Sig/Srikanth Route Start Time Stop Time Status Last Admin Dose Admin Sodium Chloride 1,000 ml @ 999 mls/hr Q1H1M ONCE IV 05/12/17 14:45 05/12/17 15:45 DC 05/12/17 15:47 999 MLS/HR Acetaminophen 1000 mg/Empty Bag 100 ml @ 400 mls/hr NOW ONCE IV 05/12/17 14:45 05/12/17 14:59 DC 05/12/17 15:56 400 MLS/HR Albuterol/ Ipratropium (Duoneb) 3 ml NOW ONCE INH 05/12/17 14:45 05/12/17 14:47 DC 05/12/17 15:49 3 ML Ondansetron HCl (Zofran Inj) 4 mg NOW STAT IV 05/12/17 14:52 05/12/17 14:53 DC 05/12/17 15:48 4 MG Ketorolac Tromethamine (Toradol Inj) 30 mg STK-MED ONCE .ROUTE 05/12/17 15:40 05/12/17 15:41 DC 05/12/17 15:48 30 MG ED Course Physical exam and history were performed. Nursing notes, EMR, and Medication List were personally reviewed. Patient appears to have been diagnosed with the flu as an outpatient earlier this week. She does have a coarse cough on examination today. IV access was established and labs were obtained. Patient was hydrated and medicated as above. X-ray was performed. The patient does not have a significantly elevated white blood cell count, worsening anemia, bandemia, or significant electrolyte imbalance. X-ray does not show significant acute findings. She did feel much better after medication and a breathing treatment here in the department. I did review her case with my attending physician, Dr. Cavazos, who also independently evaluated the patient. We feel that she is well for discharge home, and is likely experiencing residual flu symptoms. They should improve over the next few days. The patient was invited back to the ER with any new, worsening, or concerning symptoms. She should otherwise follow with her primary care physician after the weekend. The patient was understanding and rated her discomfort a 2/10 at departure. The chart was completed utilizing [employer] English Speech Voice Recognition Software. Grammatical errors, random word insertions, pronoun errors, and incomplete sentences are an occasional consequence of this system due to software limitations, ambient noise, and hardware issues. Any formal questions or concerns about the content, text, or information contained within the body of this dictation should be directly addressed to the provider for clarification. . Medical Decision Differential diagnosis: Etiologies such as viral syndrome, otitis, pharyngitis, pneumonia, influenza, meningitis, urinary tract infection, sepsis, bacteremia, as well as others were entertained. Impression Primary Impression: Influenza-like symptoms Additional Impression: Upper respiratory infection Departure Information Dispostion Home / Self-Care Condition GOOD Referrals Geovanni Riggs M.D. (PCP) Forms HOME CARE DOCUMENTATION FORM, IMPORTANT VISIT INFORMATION Patient Instructions [facility] Additional Instructions You were seen and evaluated today on an emergency basis only. This is not a substitute for, or an effort to provide, complete comprehensive medical care. It is not possible to recognize and treat all injuries or illnesses in a single emergency department visit. For this reason it is recommended that you followup with your primary care physician on Tuesday or Tuesday for recheck of your condition. For baseline pain relief you may alternate ibuprofen and acetaminophen every 4 hours for pain control. Take 600 mg ibuprofen (Advil) and then 4 hours later take 1000 mg acetaminophen (Tylenol). Do not take more than 3000 mg acetaminophen in a single day. Drink plenty of fluids and remain well hydrated. You are welcome to return to the emergency department anytime with new, worsening, or concerning symptoms. Problem Qualifiers
== END 2017-05-12 17:26 | disposition home or self-care (01) ==
LOC: C.EDB 14:15
DX: J06.9 Acute upper respiratory infection, unspecified (principal); M16.11 Unilateral primary osteoarthritis, right hip; K21.9 Gastro-esophageal reflux disease without esophagitis; F41.0 Panic disorder [episodic paroxysmal anxiety]; Z87.891 Personal history of nicotine dependence; Z79.899 Other long term (current) drug therapy

== ENCOUNTER → 2017-06-06 | Outpatient (CLI) | payer OTHER ==
[~2017-06-06] MED LIST changes: -DIPH-416 PO; -NF656 TD; +OSEL75CA16 PO; -OXYC1TAB3 PO
--- NOTE | 2017-06-06 15:41 | MAMMOGRAPHY REPORT ---
BILATERAL DIGITAL SCREENING MAMMOGRAM TOMOSYNTHESIS WITH CAD: 06/06/2017 CLINICAL HISTORY: Routine screening. Patient has no complaints. TECHNIQUE: Breast tomosynthesis in addition to standard 2D mammography was performed. Current study was also evaluated with a Computer Aided Detection (CAD) system. COMPARISON: Comparison is made to exams dated: 06/04/2016 mammogram, 05/26/2015 mammogram, 11/21/2014 ma mmogram, 05/13/2014 mammogram, 04/23/2014 mammogram, and 12/23/2011 mammogram - [facility] ter. BREAST COMPOSITION: The tissue of both breasts is heterogeneously dense, which may obscure small mas ses. FINDINGS: There is a stable metallic biopsy marker clip in the lateral, posterior left breast. Scatt ered and grouped somewhat coarse calcifications throughout the left breast appear similar dating back to at least 2012, therefore likely benign. No new suspicious mass, architectural distortion or clus ter of new, suspicious microcalcifications is seen. IMPRESSION: ACR BI-RADS CATEGORY 1: NEGATIVE There is no mammographic evidence of malignancy. A 1 year screening mammogram is recommended. The pa tient will receive written notification of the results. Approximately 10% of breast cancers are not detected with mammography. A negative mammographic report should not delay biopsy if a clinically suggestive mass is present. Madeline Correa M.D. ay/:06/06/2017 12:41:33 Mechanical Manufacturing Engineer: Arleen Major, [facility] letter sent: Normal 1/2 BI-RADS Code: ACR BI-RADS Category 1: Negative
== END | disposition home or self-care (01) ==
LOC: C.MAMM 11:11
PROVIDERS: ATTEND Internal Medicine
DX: Z12.31 Encounter for screening mammogram for malignant neoplasm of breast (principal)

== ENCOUNTER → 2017-06-15 | Outpatient (CLI) | payer OTHER ==
[2017-06-15 12:16] LABS: BASO % 0.3 %; BASO ABS # 0.02 K/uL (0-0.2); EOS % 1.7 %; EOS ABS # 0.12 K/uL (0-0.5); HEMATOCRIT 42.8 % (37-47); HEMOGLOBIN 13.6 g/dL (12.0-16.0); IG# 0.03 K/uL (0.00-0.02); LYMPH % 17.5 %; LYMPH ABS # 1.23 K/uL (1.2-3.4); MEAN CELL VOLUME 89.7 fL (80-100); MEAN CORPUSCULAR HEMOGLOBIN 28.5 pg (25-34); MEAN CORPUSCULAR HGB CONC 31.8 g/dl (32-36); MEAN PLATELET VOLUME 9.7 fL (7.4-10.4); MONO ABS # 0.56 K/uL (0.11-0.59); NEUT % 72.1 %; NEUT ABS # 5.08 K/uL (1.4-6.5); PLATELET COUNT 153 K/uL (130-400); RED CELL DISTRIBUTION WIDTH CV 13.7 % (11.5-14.5); WHITE BLOOD COUNT 7.04 K/uL (4.8-10.8)
[2017-06-15 12:24] LABS: HEMOGLOBIN A1C 5.5 % (4.5-5.6)
[2017-06-15 12:26] LABS: ALBUMIN 3.7 gm/dl (3.4-5.0); ALT/SGPT 19 U/L (12-78); AST/SGOT 8 U/L (15-37); BLOOD UREA NITROGEN 17 mg/dl (7-18); CARBON DIOXIDE 24 mmol/L (21-32); CREATININE 1.12 mg/dl (0.60-1.20); GLUCOSE 101 mg/dl (70-99); POTASSIUM 3.7 mmol/L (3.5-5.1); SODIUM 142 mmol/L (136-145)
[2017-06-15 12:37] LABS: ALKALINE PHOSPHATASE 107 U/L (45-117); CHOLESTEROL 142 mg/dl (0-200); LDL CHOLESTEROL CALCULATED 78 mg/dl; TOTAL PROTEIN 6.6 gm/dl (6.4-8.2)
== END | disposition home or self-care (01) ==
LOC: C.LABBFT 10:17
PROVIDERS: ATTEND Internal Medicine
DX: D72.819 Decreased white blood cell count, unspecified (principal); E78.5 Hyperlipidemia, unspecified; E03.9 Hypothyroidism, unspecified; E11.9 Type 2 diabetes mellitus without complications

== ENCOUNTER 2017-07-04 18:39 | Inpatient (IN) | payer OTHER ==
[~2017-07-04] VITALS: Ht 172.7 cm; Wt 91.6 kg
[2017-07-04] MEDS ORDERED: ALBUT/IPRATROP 3MG/0.5MG NEB 3 ML VIAL INH STA ×3 (19:22→20:47)
[2017-07-04 19:47] LABS: BASO % 0.2 %; BASO ABS # 0.01 K/uL (0-0.2); EOS % 1.8 %; HEMATOCRIT 42.5 % (37-47); HEMOGLOBIN 13.7 g/dL (12.0-16.0); IG# 0.03 K/uL (0.00-0.02); LYMPH ABS # 1.52 K/uL (1.2-3.4); MEAN CELL VOLUME 88.9 fL (80-100); MEAN CORPUSCULAR HEMOGLOBIN 28.7 pg (25-34); MEAN CORPUSCULAR HGB CONC 32.2 g/dl (32-36); MEAN PLATELET VOLUME 9.2 fL (7.4-10.4); MONO % 10.5 %; MONO ABS # 0.59 K/uL (0.11-0.59); NEUT ABS # 3.39 K/uL (1.4-6.5); PLATELET COUNT 152 K/uL (130-400); RED CELL DISTRIBUTION WIDTH CV 13.5 % (11.5-14.5); RED CELL DISTRIBUTION WIDTH SD 43.9 fL (36.4-46.3); WHITE BLOOD COUNT 5.64 K/uL (4.8-10.8)
[2017-07-04 20:02] LABS: CALCIUM 8.3 mg/dl (8.5-10.1); CREATININE 1.31 mg/dl (0.60-1.20); POTASSIUM 3.5 mmol/L (3.5-5.1)
[2017-07-04 20:14] LABS: INFLUENZA B ANTIGEN Neg for Influ B (NEG)
--- NOTE | 2017-07-04 20:25 | DIAGNOSTIC IMAGING REPORT ---
CHEST 2 VIEWS ROUTINE CLINICAL HISTORY: Cough. Wheezing. COMPARISON STUDY: Chest radiograph May 12, 2017. FINDINGS: A large hiatal hernia is noted. No pneumothorax or pleural effusion is noted. There is no consolidation. Pulmonary vascularity is normal. There is no evidence for pulmonary edema. Appearance of the chest is unchanged. IMPRESSION: 1. No acute cardiopulmonary findings. 2. Large hiatal hernia. Electronically signed by: Yossi Chao M.D. 07/04/2017 8:24 PM Dictated Date/Time: 07/04/2017 8:23 PM
[2017-07-04] MEDS ORDERED: CLBPO15 TOP (21:01)
[2017-07-04] MEDS ORDERED: CLOB-77 TOP (21:01)
[2017-07-04] MEDS ORDERED: DIPH-416 PO (21:03)
--- NOTE | 2017-07-04 23:01 | History and Physical ---
History & Physical Date & Time of Service: Jul 04, 2017 at 23:01 Chief Complaint: Cough,Mucus Primary Care Physician: Geovanni Riggs M.D. History of Present Illness Source: patient, spouse The patient is a 66-year-old female presents to the emergency department with complaint of persistent severe cough that began about 1 week prior to arrival. The patient was seen by her PCP last week, who prescribed a Z-Russ, without significant improvement. She reports that she has pain across her chest and toward her shoulders when her coughing is severe, and can lose her breath at that time as well. She reports that she has not been told that she has COPD or asthma, but she does have an albuterol rescue inhaler which he has tried and has not helped. Past Medical/Surgical History Medical Problems: (1) Abdominal pain (2) Altered mental status (3) Anxiety State Nos (4) Arthritis of right hip (5) Back muscle spasm (6) Broken nose (7) Bronchitis (8) Constipation (9) COPD with acute exacerbation (10) Delusions (11) Depression (12) Epistaxis (13) Esophageal Reflux (14) Fall (15) Headache (16) Hiatal hernia (17) Hypoxia (18) Influenza-like symptoms (19) Influenza-like symptoms (20) Left flank pain (21) Low back pain with right-sided sciatica (22) Migraine Unspecified W/O Intractable Migraine (23) Nasal fracture (24) Neck injury (25) Neck pain (26) Panic Disorder Without Agoraphobia (27) Paranoia (28) Pneumonia (29) Upper respiratory infection (30) Upper respiratory infection Family History No significant family history Social History Smoking Status: Former Smoker Smokeless Tobacco Use: No Alcohol Use: none Drug Use: none Marital Status: Housing status: lives with family Occupational Status: retired ([employer]) Immunizations History of Influenza Vaccine: No History of Tetanus Vaccine?: Unknown History of Pneumococcal: No History of Hepatitis B Vaccine: No Allergies Coded Allergies: Gabapentin (Unverified Allergy, Unknown, BURNING OF FEET AND ANKLES, ) Lisinopril (Verified Adverse Reaction, Intermediate, COUGH, 07/04/17) Home Medications Scheduled Amlodipine Besylate (Amlodipine Besylate), 5 MG PO DAILY Atorvastatin (Lipitor), 40 MG PO QPM Citalopram Hydrobromide (Celexa), 30 MG PO HS Clobetasol Propionate (Clobetasol Propionate), 1 APPLN TOP BID Lamotrigine (Lamictal), 200 MG PO BID Levothyroxine Sodium (Synthroid), 112 MCG PO QAM Naratriptan Hcl (Amerge), 2.5 MG PO DIRECTED Omeprazole (Prilosec), 40 MG PO DAILY Oseltamivir Phosphate (Oseltamivir Phosphate), 75 MG PO DAILY Topiramate (Topiramate), 75 MG PO BID Scheduled PRN Diphenoxylate/Atropine (Lomotil), 1 TAB PO BID PRN for Diarrhea Lorazepam (Ativan), 0.5 MG PO BID PRN for Anxiety Ondansetron Hcl (Zofran), 4 MG PO Q6H PRN for Nausea Review of Systems The patient denies chest pain, palpitatiions, lower extremity swelling, sore throat, fevers, chills, sweats, weight change, fatigue, nausea, vomiting, diarrhea , constipation, abdominal pain, pelvic pain, blood in urine or stool, dysuria, urinary frequency or urgency, lightheadedness, dizziness, headache, memory loss, loss of consciousness, rash, abnormal bruising or bleeding, imbalance, focal or generalized weakness, numbness or tingling in arms or legs, generalized arthralgias or myalgias, back or neck pain, or night sweats. The review of systems is otherwise negative other than for that already noted above, and at least 10 systems have been reviewed. Physical Exam Vital Signs Date Time Temp Pulse Resp B/P (MAP) Pulse Ox O2 Delivery O2 Flow Rate FiO2 07/04/17 22:47 82 18 103/66 95 Room Air 07/04/17 21:00 78 22 117/61 96 Room Air 07/04/17 20:32 82 07/04/17 19:59 98 Room Air 07/04/17 19:41 79 18 129/76 93 Room Air 07/04/17 18:51 36.5 85 18 131/77 95 Room Air 07/04/17 18:51 95 Room Air The patient is awake, alert and oriented 3, well developed and well nourished, normocephalic and atraumatic, sitting upright in bed and in moderately severe distress during paroxysmal coughing. HEENT--PERRL, EOMI, mucous membranes and oropharynx normal. Neck--supple. No JVD. No bruits. Thyroid normal, trachea midline, no adenopathy. Heart--normal S1 and S2. No murmurs, rubs or gallops. Lungs--significantly decreased breath sounds throughout, no respiratory distress , no accessory muscle use unless she is coughing. Abdomen--normal bowel sounds and soft. Nontender. Nondistended, no hernias or masses, no organomegaly. Extremities--no cyanosis or clubbing. No edema. There are good distal pulses b/ l. Dermatologic--normal skin turgor, normal color, no abnormal lymph nodes, no rash. Neurologic--cranial nerves II through XII grossly intact. Rheumatologic--normal range of motion. Psychiatric--normal affect. Diagnostics Laboratory Results Results Past 24 Hours Test 07/04/17 19:31 07/04/17 19:35 07/04/17 19:53 Range/Units White Blood Count 5.64 4.8-10.8 K/uL Red Blood Count 4.78 4.2-5.4 M/uL Hemoglobin 13.7 12.0-16.0 g/dL Hematocrit 42.5 37-47 % Mean Corpuscular Volume 88.9 80-100 fL Mean Corpuscular Hemoglobin 28.7 25-34 pg Mean Corpuscular Hemoglobin Concent 32.2 32-36 g/dl Platelet Count 152 130-400 K/uL Mean Platelet Volume 9.2 7.4-10.4 fL Neutrophils (%) (Auto) 60.0 % Lymphocytes (%) (Auto) 27.0 % Monocytes (%) (Auto) 10.5 % Eosinophils (%) (Auto) 1.8 % Basophils (%) (Auto) 0.2 % Neutrophils # (Auto) 3.39 1.4-6.5 K/uL Lymphocytes # (Auto) 1.52 1.2-3.4 K/uL Monocytes # (Auto) 0.59 0.11-0.59 K/uL Eosinophils # (Auto) 0.10 0-0.5 K/uL Basophils # (Auto) 0.01 0-0.2 K/uL RDW Standard Deviation 43.9 36.4-46.3 fL RDW Coefficient of Variation 13.5 11.5-14.5 % Immature Granulocyte % (Auto) 0.5 % Immature Granulocyte # (Auto) 0.03 0.00-0.02 K/uL Sodium Level 144 136-145 mmol/L Potassium Level 3.5 3.5-5.1 mmol/L Chloride Level 111 98-107 mmol/L Carbon Dioxide Level 24 21-32 mmol/L Anion Gap 8.0 3-11 mmol/L Blood Urea Nitrogen 17 7-18 mg/dl Creatinine 1.31 0.60-1.20 mg/dl Est Creatinine Clear Calc Drug Dose 48.7 ml/min Estimated GFR () 48.4 Estimated GFR (Non- 41.7 BUN/Creatinine Ratio 13.0 10-20 Random Glucose 126 70-99 mg/dl Lactic Acid Level 1.4 0.4-2.0 mmol/L Calcium Level 8.3 8.5-10.1 mg/dl Influenza Type A Antigen Neg for Influ A NEG Influenza Type B Antigen Neg for Influ B NEG Venous Blood pH 7.39 7.36-7.41 Venous Blood Partial Pressure CO2 41 38.0-50.0 mmHg Venous Blood Partial Pressure O2 39 mmHg Venous Blood HCO3 25 mmol/L Venous Blood Oxygen Saturation 70.6 % Venous Blood Base Excess -0.4 mEq/L Diagnostic Radiology Patient Name: EVONNE SILVERIO Unit Number: [id number] Dictated: 07/04/172022 Transcribed: 07/04/172022 JA Printed Date/Time: [~ rep prt dt]/[~ rep prt tm] [~ rep ct labl] - [~ rep ct ivnm] [facility] Radiology Department [place] [id number] Dictated: 07/04/172022 Transcribed: 07/04/172022 JA Printed Date/Time: [~ rep prt dt]/[~ rep prt tm] [~ rep ct labl] - [~ rep ct ivnm] CHEST 2 VIEWS ROUTINE CLINICAL HISTORY: Cough. Wheezing. COMPARISON STUDY: Chest radiograph May 12, 2017. FINDINGS: A large hiatal hernia is noted. No pneumothorax or pleural effusion is noted. There is no consolidation. Pulmonary vascularity is normal. There is no evidence for pulmonary edema. Appearance of the chest is unchanged. IMPRESSION: 1. No acute cardiopulmonary findings. 2. Large hiatal hernia. Electronically signed by: Yossi Chao M.D. 07/04/2017 8:24 PM Dictated Date/Time: 07/04/2017 8:23 PM The status of this report is Signed. Draft = Not yet reviewed or approved by Radiologist. Signed = Reviewed and approved by Radiologist. <AttendingPhy></AttendingPhy> <FamilyPhy>Geovanni Riggs M.D.</FamilyPhy> < PrimaryPhy>Geovanni Riggs M.D.</PrimaryPhy> <UnitNumber>[id number]</UnitNumber > <VisitNumber>[id number]</VisitNumber> <PatientName>NUSRATEVONNE Shireen</ PatientName> <DateOfBirth>1950</DateOfBirth> <Location>[facility]</Location> < ServiceDate>07/04/17</ServiceDate> <MNE>ESINDI</MNE> <OrderingPhy>Poncho Sawyer M.D.</OrderingPhy> <OrderingPhyMNE>f rep ord dr addison</OrderingPhyMNE> < DictatingPhyMNE>f rep dict dr addison</DictatingPhyMNE> <CCListMNE>f rep ct azael</ CCListMNE> <AdmittingPhyMNE>f pt admit dr addison</AdmittingPhyMNE> <AttendingPhyMNE >f pt attend dr addison</AttendingPhyMNE> <ConsultingPhyMNE>f pt consult dr addison</ConsultingPhyMNE> <FamilyPhyMNE>f pt fam dr addison</FamilyPhyMNE> <OtherPhyMNE>f pt other dr addison</OtherPhyMNE> < PrimaryPhyMNE>f pt prim care dr addison</PrimaryPhyMNE> <ReferringPhyMNE>f pt referring dr addison</ReferringPhyMNE> EKG EKG shows normal sinus rhythm at 80 bpm, there are no acute ST-T changes. Impression Assessment and Plan COPD exacerbation/acute on chronic bronchitis-- Patient did later report that she has had a chronic cough intermittently for a long time, but this cough is significantly worse. Xopenex/Atrovent high flow nebulizer every 6 hours while awake and every 2 hours as needed. Guaifenesin extended release 600 mg p.o. twice daily. Pulmicort Restoril 0.5 mg inhaled twice daily. She did receive prednisone 60 mg orally in the ED. Solu-Medrol 40 mg IV every 8 hours. Ceftriaxone 1 g IV daily. I suspect that the patient will require nebulizers in the outpatient setting, as her symptoms at baseline are significantly worse than she would like to admit to and she cannot take a deep enough breath for albuterol HFA to work. Hypertension-- Continue amlodipine 5 mg daily. GERD-- Change omeprazole to pantoprazole 40 mg daily. Panic disorder without agoraphobia-- Continue citalopram 30 mg at bedtime, lamotrigine 200 mg p.o. twice daily, topiramate 75 mg p.o. twice daily. Migraine headache-- Continue Amerge or substitute as needed. Hypothyroidism-- Continue levothyroxine sodium 112 mcg p.o. every morning. Hyperlipidemia-- Continue atorvastatin 40 mg at bedtime. Advanced Directives Existing Advance Directive: No Existing Living Will: No Existing Power of Sky [place]iver: No Resuscitation Status VTE Prophylaxis Will order VTE Prophylaxis: Yes Social Service Consult None Apply
[2017-07-04] MEDS ORDERED: LEVALBUTEROL 1.25MG/0.5ML NEB INH PRN (23:15)
[2017-07-04] MEDS ORDERED: ACETAMINOPHEN 325 MG TAB PO PRN (23:15)
[2017-07-04] MEDS ORDERED: MAGNESIUM HYDROXIDE SUSP 30 ML UDC PO PRN (23:15)
[2017-07-04] MEDS ORDERED: IPRATROPIUM BROMIDE NEB SOLN 0.02% 2.5 ML VIAL INH PRN (23:15)
[2017-07-04] MEDS ORDERED: POLYETHYLENE (MIRALAX) 17 GM PACK PO PRN (23:15)
[2017-07-04] MEDS ORDERED: ALUMINUM/MAGNESIUM/SIMETH (MAALOX MAX) 30 ML UDC PO PRN (23:15)
[2017-07-04] MEDS ORDERED: LORAZEPAM 0.5 MG TAB PO PRN (23:15)
[2017-07-04 23:45] VITALS: BP 127/68; PULSE 85; TEMP 36.9; O2SAT 93; Ht 172.7 cm; Wt 91.6 kg
[2017-07-05] VITALS (10 sets, daily range): BP systolic 117–138; BP diastolic 51–80; PULSE 65–89; TEMP 36.3–36.7; O2SAT 91–97
[2017-07-05] MEDS ORDERED: CEFTRIAXONE SOD INJ 1 GM in DEXTROSE 5% ADD-VANTAGE 50ML 50 ML IV SCH ×2
--- NOTE | 2017-07-05 00:15 | EMERGENCY ROOM VISIT NOTE ---
History Report prepared by Isreal: Lonny Rice Under the Supervision of: Dr. Poncho Sawyer M.D. First contact with patient: 19:13 Chief Complaint: COUGH Stated Complaint: COUGH,MUCUS Nursing Triage Summary: Patient ambulatory to triage for evaluation of productive cough that began last week. Was seen by PCP and has completed a Z-Pack. Patient states, "I just feel like it's worse now." History of Present Illness The patient is a 66 year old female who presents to the Emergency Room with complaints of a persistent and severe cough that began one week ago. The patient states that when the cough is at its worst it causes associated pain across her chest into her shoulders, as well as in her bilateral sides. She does feel like she cannot get her breath when the cough onsets. The patient did visit with her PCP last week who prescribed her with a Z-Pac. There were no signs of pneumonia on this visit, but she has had pneumonia in the past. The cough does produce a mucous that is clear to dark yellow. There has not been any blood. The patient is a former smoker; she smoked 2 packs per day for 20 years. She denies any recent long travels or estrogen supplements. There is no reported history of COPD or Asthma, however she does have an albuterol rescue inhaler which she states has not been helping her cough or breathing.. Source of History: patient Onset: One week ago Position: chest Symptom Intensity: severe Quality: other (Cough) Timing: other (Persistent) Associated Symptoms: + chest pain, + abdominal pain (Bilateral side pain with cough) Review of Systems See HPI for pertinent positives and negatives. A total of ten systems were reviewed and were otherwise negative. Past Medical & Surgical Medical Problems: (1) Anxiety State Nos (2) Arthritis of right hip (3) Bronchitis (4) COPD with acute exacerbation (5) Esophageal Reflux (6) Migraine Unspecified W/O Intractable Migraine (7) Panic Disorder Without Agoraphobia Family History No significant family history Social History Smoking Status: Former Smoker Alcohol Use: occasionally Marital Status: Housing Status: lives with family Current/Historical Medications Scheduled Amlodipine Besylate (Amlodipine Besylate), 5 MG PO DAILY Atorvastatin (Lipitor), 40 MG PO QPM Citalopram Hydrobromide (Celexa), 30 MG PO HS Clobetasol Propionate (Clobetasol Propionate), 1 APPLN TOP BID Lamotrigine (Lamictal), 200 MG PO BID Levothyroxine Sodium (Synthroid), 112 MCG PO QAM Naratriptan Hcl (Amerge), 2.5 MG PO DIRECTED Omeprazole (Prilosec), 40 MG PO DAILY Oseltamivir Phosphate (Oseltamivir Phosphate), 75 MG PO DAILY Topiramate (Topiramate), 75 MG PO BID Scheduled PRN Diphenoxylate/Atropine (Lomotil), 1 TAB PO BID PRN for Diarrhea Lorazepam (Ativan), 0.5 MG PO BID PRN for Anxiety Ondansetron Hcl (Zofran), 4 MG PO Q6H PRN for Nausea Allergies Coded Allergies: Gabapentin (Unverified Allergy, Unknown, BURNING OF FEET AND ANKLES, ) Lisinopril (Verified Adverse Reaction, Intermediate, COUGH, 07/04/17) Physical Exam Vital Signs Date Time Temp Pulse Resp B/P (MAP) Pulse Ox O2 Delivery O2 Flow Rate FiO2 07/04/17 22:47 82 18 103/66 95 Room Air 07/04/17 21:00 78 22 117/61 96 Room Air 07/04/17 20:32 82 07/04/17 19:59 98 Room Air 07/04/17 19:41 79 18 129/76 93 Room Air 07/04/17 18:51 36.5 85 18 131/77 95 Room Air 07/04/17 18:51 95 Room Air Physical Exam Physical Exam GENERAL: She is oriented to person, place, and time. She appears well- developed and well-nourished. She does not appear distressed. ____ HENT: Exam performed. Head: Normocephalic and atraumatic. Right Ear: External ear normal. No mastoid tenderness. Left Ear: External ear normal. No mastoid tenderness. Mouth/Throat: The oropharynx is clear and moist. No trismus in the jaw. No dental abscesses or uvula swelling. No oropharyngeal exudate or tonsillar abscesses. ____ EYES: Conjunctivae and EOM are normal. Pupils are equal, round, and reactive to light. Right eye exhibits no discharge. Left eye exhibits no discharge. No scleral icterus. ____ NECK: Normal range of motion. Neck supple. No JVD present. No spinous process tenderness present. No carotid bruit present. No rigidity. No tracheal deviation and normal range of motion present. No Brudzinski's sign and no Kernig 's sign noted. ____ CV: Normal rate, regular rhythm, normal heart sounds and intact distal pulses. There is no peripheral edema. Palpable radial pulses bue. ____ PULM/CHEST: She has diffuse expiratory wheezes bilaterally. No respiratory distress. No stridor. She has no rales. Chest Wall: She exhibits no tenderness. ____ ABD: The abdomen is soft. Bowel sounds are normal. She has no distension. No mass is present. There is no tenderness. There is no rebound, no guarding, no Nino's sign and no tenderness at McBurney's point. Rovsig negative MUSC/SKEL: Normal range of motion. There is no peripheral edema, tenderness or deformity. LYMPH: No cervical adenopathy. ____ NEURO: She is alert and oriented to person, place, and time. She has normal strength. No cranial nerve deficit or sensory deficit. Coordination and gait normal. GCS eye subscore is 4. GCS verbal subscore is 5. GCS motor subscore is 6. Cerebellar tests wnl. ____ SKIN: Skin is warm and dry. Sh is not diaphoretic. ____ PSYCH: She has a normal mood and affect. She behavior is normal. Judgment and thought content normal. ____ Medical Decision & Procedures ER Provider Diagnostic Interpretation: Radiology results as stated below per my review and radiologist interpretation: CHEST 2 VIEWS ROUTINE CLINICAL HISTORY: Cough. Wheezing. COMPARISON STUDY: Chest radiograph May 12, 2017. FINDINGS: A large hiatal hernia is noted. No pneumothorax or pleural effusion is noted. There is no consolidation. Pulmonary vascularity is normal. There is no evidence for pulmonary edema. Appearance of the chest is unchanged. IMPRESSION: 1. No acute cardiopulmonary findings. 2. Large hiatal hernia. Electronically signed by: Yossi Chao M.D. 07/04/2017 8:24 PM Dictated Date/Time: 07/04/2017 8:23 PM Laboratory Results 07/04/17 19:31 Red Blood Count 4.78, Mean Corpuscular Volume 88.9, Mean Corpuscular Hemoglobin 28.7, Mean Corpuscular Hemoglobin Concent 32.2, Mean Platelet Volume 9.2, Neutrophils (%) (Auto) 60.0, Lymphocytes (%) (Auto) 27.0, Monocytes (%) (Auto) 10.5, Eosinophils (%) (Auto) 1.8, Basophils (%) (Auto) 0.2, Neutrophils # (Auto ) 3.39, Lymphocytes # (Auto) 1.52, Monocytes # (Auto) 0.59, Eosinophils # (Auto ) 0.10, Basophils # (Auto) 0.01 07/04/17 19:31 Test 07/04/17 19:31 07/04/17 19:35 07/04/17 19:53 White Blood Count 5.64 K/uL (4.8-10.8) Red Blood Count 4.78 M/uL (4.2-5.4) Hemoglobin 13.7 g/dL (12.0-16.0) Hematocrit 42.5 % (37-47) Mean Corpuscular Volume 88.9 fL (80-100) Mean Corpuscular Hemoglobin 28.7 pg (25-34) Mean Corpuscular Hemoglobin Concent 32.2 g/dl (32-36) Platelet Count 152 K/uL (130-400) Mean Platelet Volume 9.2 fL (7.4-10.4) Neutrophils (%) (Auto) 60.0 % Lymphocytes (%) (Auto) 27.0 % Monocytes (%) (Auto) 10.5 % Eosinophils (%) (Auto) 1.8 % Basophils (%) (Auto) 0.2 % Neutrophils # (Auto) 3.39 K/uL (1.4-6.5) Lymphocytes # (Auto) 1.52 K/uL (1.2-3.4) Monocytes # (Auto) 0.59 K/uL (0.11-0.59) Eosinophils # (Auto) 0.10 K/uL (0-0.5) Basophils # (Auto) 0.01 K/uL (0-0.2) RDW Standard Deviation 43.9 fL (36.4-46.3) RDW Coefficient of Variation 13.5 % (11.5-14.5) Immature Granulocyte % (Auto) 0.5 % Immature Granulocyte # (Auto) 0.03 K/uL (0.00-0.02) Anion Gap 8.0 mmol/L (3-11) Est Creatinine Clear Calc Drug Dose 48.7 ml/min Estimated GFR () 48.4 Estimated GFR (Non- 41.7 BUN/Creatinine Ratio 13.0 (10-20) Lactic Acid Level 1.4 mmol/L (0.4-2.0) Calcium Level 8.3 mg/dl (8.5-10.1) Influenza Type A Antigen Neg for Influ A (NEG) Influenza Type B Antigen Neg for Influ B (NEG) Venous Blood pH 7.39 (7.36-7.41) Venous Blood Partial Pressure CO2 41 mmHg (38.0-50.0) Venous Blood Partial Pressure O2 39 mmHg Venous Blood HCO3 25 mmol/L Venous Blood Oxygen Saturation 70.6 % Venous Blood Base Excess -0.4 mEq/L Laboratory results reviewed by me Medications Administered Medications (Trade) Dose Ordered Sig/Srikanth Route Start Time Stop Time Status Last Admin Dose Admin Albuterol/ Ipratropium (Duoneb) 3 ml NOW STAT INH 07/04/17 19:22 07/04/17 19:24 DC 07/04/17 19:43 3 ML Prednisone (PredniSONE TAB) 60 mg NOW STAT PO 07/04/17 19:22 07/04/17 19:24 DC 07/04/17 19:43 60 MG Albuterol/ Ipratropium (Duoneb) 3 ml NOW STAT INH 07/04/17 20:47 07/04/17 20:48 DC 07/04/17 20:59 3 ML Albuterol/ Ipratropium (Duoneb) 3 ml NOW STAT INH 07/04/17 20:47 07/04/17 20:48 DC 07/04/17 20:59 3 ML ECG Per My Interpretation Indication: chest pain Rate (beats per minute): 80 Rhythm: sinus rhythm Findings: other (No DONELL/STD, QRS, QTC, OR intervals within normal limits. ) ED Course 1914: The patient was evaluated in room C2B. A complete history and physical exam was performed. 1921: Ordered Prednisone 60 mg PO, Duoneb 3 mL INH. 2043: I updated the patient at this time. She is still wheezing, and still feeling short of breath. I will order further breathing treatments. 2046: Ordered Duoneb 3 mL INH. 2123: Labs and imaging within normal limits. I updated the patient. After breathing treatments she is not feeling any better and continues to have diffuse expiratory wheezing. Given the patient's long history of tobacco abuse , she is most likely having a COPD exacerbation even though COPD has never been formally diagnosed with pulmonary function tests. She does not feel comfortable going home and feels as though she will need further treatments. Will contact [facility] Hospitalist. 2132: I [facility] the [facility] He will evaluate the patient for further treatment. Medical Decision Labs and imaging within normal limits. I updated the patient. After breathing treatments she is not feeling any better and continues to have diffuse expiratory wheezing. Given the patient's long history of tobacco abuse, she is most likely having a COPD exacerbation even though COPD has never been formally diagnosed with pulmonary function tests. She does not feel comfortable going home and feels as though she will need further treatments. Will contact [facility] Hospitalist. Medication Reconcilliation Current Medication List: was personally reviewed by me Blood Pressure Screening Patient's blood pressure: Normal blood pressure Consults Time Called: 2129 Consulting Physician: [facility] Returned Call: 2132 I discussed the case with Dr. Dory CANNON Hospitalist. He will evaluate the patient for further treatment. Impression Primary Impression: COPD with acute exacerbation Scribe Attestation The scribe's documentation has been prepared under my direction and personally reviewed by me in its entirety. I confirm that the note above accurately reflects all work, treatment, procedures, and medical decision making performed by me. The chart was completed utilizing [employer] Speech voice recognition software. Grammatical errors, random word insertions, pronoun errors, and incomplete sentences are an occasional consequence of this system due to software limitations, ambient noise, and hardware issues. Any formal questions or concerns about the content, text, or information contained within the body of this dictation should be directly addressed to the physician for clarification. Departure Information Dispostion Being Evaluated By Hospitalist Referrals Geovanni Riggs M.D. (PCP) Patient Instructions [facility]
[2017-07-05] MEDS: METHYLPREDNISOLONE IV 40 MG in SYRINGE 0 ML IV SCH ×3 (00:45→16:01)
[2017-07-05] MEDS: ONDANSETRON 8MG OD TAB PO PRN ×3 (01:06→17:04)
[2017-07-05] MEDS: LEVALBUTEROL 1.25MG/0.5ML NEB INH SCH ×4 (01:39→19:19)
[2017-07-05] MEDS: IPRATROPIUM BROMIDE NEB SOLN 0.02% 2.5 ML VIAL INH SCH ×4 (01:39→19:19)
[2017-07-05] MEDS ORDERED: LEVALBUTEROL/IPRATROPIUM NEB INH SCH (03:00)
[2017-07-05] MEDS: LEVOTHYROXINE 112 MCG TAB PO SCH (07:06)
[2017-07-05] MEDS: BUDESONIDE 0.5 MG/2 ML VIAL (PULMICORT) INH SCH ×2 (07:10→19:19)
[2017-07-05 07:25] LABS: HEMATOCRIT 41.1 % (37-47); MEAN CELL VOLUME 89.2 fL (80-100); MEAN CORPUSCULAR HEMOGLOBIN 28.2 pg (25-34); MEAN CORPUSCULAR HGB CONC 31.6 g/dl (32-36); MEAN PLATELET VOLUME 9.6 fL (7.4-10.4); PLATELET COUNT 154 K/uL (130-400); RED CELL DISTRIBUTION WIDTH CV 13.5 % (11.5-14.5); WHITE BLOOD COUNT 6.36 K/uL (4.8-10.8)
[2017-07-05] MEDS: TOPIRAMATE 25 MG TAB PO SCH ×2 (07:32→20:43)
[2017-07-05] MEDS: GUAIFENESIN 600 MG TABCR PO SCH ×2 (07:33→20:42)
[2017-07-05] MEDS: AMLODIPINE BESYLATE 5 MG TAB PO SCH (07:33)
[2017-07-05 07:36] LABS: PTT PATIENT 24.6 SECONDS (21.0-31.0)
[2017-07-05 07:49] LABS: CALCIUM 8.5 mg/dl (8.5-10.1); CREATININE 1.25 mg/dl (0.60-1.20); POTASSIUM 3.8 mmol/L (3.5-5.1)
[2017-07-05 07:52] LABS: BASO % 0.2 %; BASO ABS # 0.01 K/uL (0-0.2); IG# 0.05 K/uL (0.00-0.02); LYMPH % 7.2 %; LYMPH ABS # 0.46 K/uL (1.2-3.4); MONO % 0.8 %; MONO ABS # 0.05 K/uL (0.11-0.59); NEUT ABS # 5.79 K/uL (1.4-6.5)
--- NOTE | 2017-07-05 08:34 | Hospitalist Progress Note ---
Hospitalist Progress Note Date of Service Jul 05, 2017. (Nadia Mg PA-C) Subjective Pt evaluation today including: conversation w/ patient, physical exam, chart review, lab review, review of studies Pain: Headache PO Intake: Good Voiding: no voiding problems The patient was seen and examined this morning. Pt reports doing slightly better this morning compared to yesterday. She does c/o headache, but reports hx of migraines at home. She thinks her breathing is slightly improved today: wore CPAP overnight, feels her mouth is dry from this. Pt admits to smoking for 20-25 years 1 ppd, and that her also smoked for 40+ years - both smoked in the home. She had PFTs done about 1 year ago and thinks results were "fine". Pt notes still having some shortness of breath when she is up ambulating, typically has no SOB at baseline. Additional Comments: Constitutional: No fever, sweats or chills, + headache Eyes: No diplopia, no worsening or blurred vision ENT: normal hearing, no trouble swallowing Respiratory: See HPI Cardiovascular: No chest pain, tightness or palpitations Abdomen: No pain, nausea, vomiting, diarrhea or constipation Musculoskeletal: No joint pain, calf pain, swelling Neurologic: No weakness, numbness/tingling, or balance problems Skin: No rash or itch (Nadia Mg, SHERRY) Objective Vital Signs Date Time Temp Pulse Resp B/P (MAP) Pulse Ox O2 Delivery O2 Flow Rate FiO2 07/05/17 07:11 71 16 96 Room Air 07/05/17 04:26 36.5 86 18 131/69 (89) 95 CPAP 07/05/17 04:00 Room Air 07/05/17 01:43 86 16 95 BiPAP/CPAP 07/05/17 00:16 21 07/04/17 23:45 36.9 85 18 127/68 93 Room Air 07/04/17 23:32 78 18 128/58 95 Room Air 07/04/17 22:47 82 18 103/66 95 Room Air 07/04/17 21:00 78 22 117/61 96 Room Air 07/04/17 20:32 82 07/04/17 19:59 98 Room Air 07/04/17 19:41 79 18 129/76 93 Room Air 07/04/17 18:51 36.5 85 18 131/77 95 Room Air 07/04/17 18:51 95 Room Air (Nadia Mg PA-C) Physical Exam Notes: General: awake, alert, no apparent distress, obese Head: Normocephalic, atraumatic ENT: PERRL, EOMI, no pharyngeal exudate, mucous membranes moist Chest: + Slightly diminished breath sounds throughout, expiratory wheeze heard in the left lower lobe, on room air Cardiac: Regular rate and rhythm, no murmur, no JVD, normal peripheral pulses, good capillary refill Abdominal: NABS x 4 quadrants, soft, nontender to palpation, no rebound, guarding or tenderness Extremities: Normal inspection, + BLE trace edema, no erythema, calfs slightly tender to palpation but patient reports is chronic Psych: Normal mood and affect Neuro: AAO x 3, speech is clear, no peripheral sensory deficits (Nadia Mg PA-C) Laboratory Results Last 24 Hours Test 07/04/17 19:31 07/04/17 19:35 07/04/17 19:53 07/05/17 07:02 White Blood Count 5.64 K/uL 6.36 K/uL Red Blood Count 4.78 M/uL 4.61 M/uL Hemoglobin 13.7 g/dL 13.0 g/dL Hematocrit 42.5 % 41.1 % Mean Corpuscular Volume 88.9 fL 89.2 fL Mean Corpuscular Hemoglobin 28.7 pg 28.2 pg Mean Corpuscular Hemoglobin Concent 32.2 g/dl 31.6 g/dl Platelet Count 152 K/uL 154 K/uL Mean Platelet Volume 9.2 fL 9.6 fL Neutrophils (%) (Auto) 60.0 % 91.0 % Lymphocytes (%) (Auto) 27.0 % 7.2 % Monocytes (%) (Auto) 10.5 % 0.8 % Eosinophils (%) (Auto) 1.8 % 0.0 % Basophils (%) (Auto) 0.2 % 0.2 % Neutrophils # (Auto) 3.39 K/uL 5.79 K/uL Lymphocytes # (Auto) 1.52 K/uL 0.46 K/uL Monocytes # (Auto) 0.59 K/uL 0.05 K/uL Eosinophils # (Auto) 0.10 K/uL 0.00 K/uL Basophils # (Auto) 0.01 K/uL 0.01 K/uL RDW Standard Deviation 43.9 fL 44.0 fL RDW Coefficient of Variation 13.5 % 13.5 % Immature Granulocyte % (Auto) 0.5 % 0.8 % Immature Granulocyte # (Auto) 0.03 K/uL 0.05 K/uL Sodium Level 144 mmol/L 141 mmol/L Potassium Level 3.5 mmol/L 3.8 mmol/L Chloride Level 111 mmol/L 109 mmol/L Carbon Dioxide Level 24 mmol/L 23 mmol/L Anion Gap 8.0 mmol/L 9.0 mmol/L Blood Urea Nitrogen 17 mg/dl 17 mg/dl Creatinine 1.31 mg/dl 1.25 mg/dl Est Creatinine Clear Calc Drug Dose 48.7 ml/min 51.0 ml/min Estimated GFR () 48.4 51.2 Estimated GFR (Non- 41.7 44.2 BUN/Creatinine Ratio 13.0 13.4 Random Glucose 126 mg/dl 212 mg/dl Lactic Acid Level 1.4 mmol/L Calcium Level 8.3 mg/dl 8.5 mg/dl Influenza Type A Antigen Neg for Influ A Influenza Type B Antigen Neg for Influ B Venous Blood pH 7.39 Venous Blood Partial Pressure CO2 41 mmHg Venous Blood Partial Pressure O2 39 mmHg Venous Blood HCO3 25 mmol/L Venous Blood Oxygen Saturation 70.6 % Venous Blood Base Excess -0.4 mEq/L Prothrombin Time 10.4 SECONDS Prothromb Time International Ratio 1.0 Activated Partial Thromboplast Time 24.6 SECONDS Partial Thromboplastin Ratio 0.9 Magnesium Level 2.2 mg/dl (Nadia Mg, PAShelbyC) Assessment and Plan 66 yo F with PMHx of COPD, HTN, GERD, hx of tobacco smoking (20-25 yrs 1ppd, quit 12 yrs ago), HLD, hypothyroidism, COPD exacerbation/acute on chronic bronchitis Hx chronic tobacco abuse/second hand exposure - Xopenex/Atrovent high flow nebulizer QID and Q2H prn, Guaifenesin, Pulmicort Restoril 0.5 mg inhaled BID - Transition from Solu-Medrol to oral prednisone 60 mg starting tomorrow - dc Ceftriaxone 1 g IV - recently finished 5d azithromycin course on Monday 07/03 - Patient seems to be in denial that she has any chronic pulmonary disease, last PFTs were completed [address] Baumann and showed mild obstruction. There are no specific FEV, FEV TV, etc that I am able to find in her outpatient records. Likely will require nebulizers in the outpatient setting, as her symptoms at baseline are significantly worse than she would like to admit to Will ask pulmonology to see the patient. Hypertension-- Continue amlodipine 5 mg daily GERD-- Change omeprazole to pantoprazole 40 mg daily Panic disorder without agoraphobia-- Continue citalopram 30 mg at bedtime, lamotrigine 200 mg p.o. twice daily, topiramate 75 mg p.o. twice daily. Migraine headache- - Amerge not on formulary - Given one dose of Fioricet this morning as tylenol was not enough Hypothyroidism-- Continue levothyroxine sodium 112 mcg p.o. QAM Hyperlipidemia-- Continue atorvastatin 40 mg at bedtime DVT ppx: heparin subq Code Status: Full code Disposition: From home, move off [place], dc possibly tomorrow. (Nadia Mg PA-C) Reviewed: Pt Seen/Exam by Me (Cira Forrest DO) History Pt feels a bit improved. I saw her just after coming back from the bathroom and she says that she was SOB with this exertion, but better than [employer]. No SOB at rest. No chest pain. Tolerating PO without issue after having poor appetite [employer]. Pt states she has never been told she has COPD or had inhalers prescribed. She states she had some sort of PFTs done with PCP and they were "fine" but this was several years ago. She smoked until about 16 years ago. also smokes and quit in the last few years, but smoked in the home. Agree with HPI/ROS as noted by PA. (Cira Forrest DO) General Appearance: WD/WN, no apparent distress Eye Exam: bilateral eye normal inspection, bilateral eye other (nml sclera) Respiratory: no respiratory distress, wheezing (scant) Cardiovascular: normal peripheral pulses, regular rate, rhythm Gastrointestinal: non tender, soft Extremities: non-tender, no pedal edema Neurologic/Psychiatric: alert, normal mood/affect, oriented x 3 Skin Characteristics: normal color, warm/dry (Cira Forrest, DO) Assessment/Plan Agree with plan as outlined above COPD exacerbation, improving Denies hx of COPD and will need PFTs once recovered from acute illness d/c ceftriaxone given no PNA noted, afebrile, WBC WNL Seen by pulm. Concern for possible interference from hiatal hernia CT surg c/s pending (Cira Forrest, DO)
[2017-07-05] MEDS ORDERED: PANTOprazole SOD 40 MG TAB PO SCH (09:00)
[2017-07-05] MEDS: HEPARIN SOD 5000 UNIT/0.5 ML CARP SQ SCH ×2 (10:32→20:47)
[2017-07-05] MEDS ORDERED: BUTALBITAL/ACETAMIN/CAFFEINE TAB PO ONE (10:45)
[2017-07-05] MEDS: METOCLOPRAMIDE HCL 10 MG TAB PO SCH ×2 (16:15→17:02)
[2017-07-05] MEDS ORDERED: METOCLOPRAMIDE HCL 5 MG TAB PO SCH (16:15)
--- NOTE | 2017-07-05 16:19 | Pulmonary Consultation ---
History General Date of Service: Jul 05, 2017. Stated Complaint: Bronchitis, Copd W/ Acute Exacerbation HPI Dear Dr. Forrest: Thank you for your kind referral of Mrs. reyes to pulmonary service. This is a 66-year-old female with a history of COPD, has been treated by Dr. Riggs as an outpatient, the patient was given an inhaler in the past but she did not use it, the patient had similar episode 2 years ago for COPD exacerbation as well. Patient presented to the hospital after a prolonged course and outpatient settings with influenza bronchitis, her and her both had similar symptoms. The patient after she took Tamiflu, she started to have increasing cough without any sputum production. The cough was worsened in supine position. She did not have any nocturnal symptoms. No increased swelling in her lower extremities was reported. But she did have occasional heartburn treated with lansoprazole. The patient did not have any chest pain, minimal epigastric pain, she could not tolerate the food and she felt nauseous but without any vomiting. No hematemesis or hematochezia. No sputum production and no hemoptysis. She had pulmonary function test done as an outpatient which I do not have the results of it. The rest of her review of system was unremarkable. Historian: patient, other (Records) Onset: just prior to arrival Complaint Status: persistent Review of Systems Constitutional: reports: malaise, weakness, denies: no symptoms, as stated in HPI, chills, diaphoresis, fever, weight gain, weight loss, other Eyes: denies: no symptoms, as stated in HPI, eye pain, tearing, itching, redness, discharge, double vision, visual changes, blurred vision, photophobia, other ENT: reports: nasal pain, nasal congestion Cardiovascular: denies: no symptoms, as stated in HPI, chest pain, chest pressure, chest tightness, diaphoresis, edema, intermittent claudication, orthopnea, palpitations, syncope, other Respiratory: reports: cough, other (The patient walks over half a mile a day, her exercise tolerance has been great.) Gastrointestinal: reports: nausea, other (Epigastric pain.) Genitourinary - Female: reports: no symptoms Musculoskeletal: reports: no symptoms Integumentary: reports: no symptoms Neurologic: reports: no symptoms Psychiatric: reports: no symptoms Allergic / Immunologic: no symptoms Past Medical History Past Medical History: See H&P. Family History No significant family history Social History Hx Tobacco Use In Past Year?: No (QUIT OVER 10 YEARS AGO) Smoking Status: Former Smoker Marital status: Housing status: lives with family Occupational Status: retired ([employer]) Immunizations History of Influenza Vaccine: No History of Tetanus Vaccine?: Unknown History of Pneumococcal: No History of Hepatitis B Vaccine: No History of MDRO History of MDRO: No Allergies Coded Allergies: Gabapentin (Unverified Allergy, Unknown, BURNING OF FEET AND ANKLES, ) Lisinopril (Verified Adverse Reaction, Intermediate, COUGH, 07/04/17) Current Medications Reported Home Medications Medications Dose Route/Sig Max Daily Dose Days Date Category Dose Instructions Lomotil (Diphenoxylate HCl/Atropine) Tab 1 Tab PO BID PRN 07/04/17 Reported Clobetasol Propionate 45 Appln/15 Gm Oint 1 Appln TOP BID 07/04/17 Reported Oseltamivir Phosphate 75 Mg Cap 75 Mg PO DAILY 05/12/17 Reported Topiramate 25 Mg Tab 75 Mg PO BID 02/07/17 Reported Amerge (Naratriptan Hcl) 2.5 Mg Tab 2.5 Mg PO DIRECTED 02/07/17 Reported TAKE ONE TABLET AT ONSET OF HEADACHE,MAY REPEAT ONCE IN 4 HOURS. LIMIT TO 3 DAYS PER WEEK. Amlodipine Besylate 5 Mg Tab 5 Mg PO DAILY 02/07/17 Reported Prilosec (Omeprazole) 40 Mg Cap 40 Mg PO DAILY 09/17/16 Reported Lamictal (Lamotrigine) 200 Mg Tab 200 Mg PO BID 03/30/16 Reported Zofran (Ondansetron HCl) 4 Mg Tab 4 Mg PO Q6H PRN 09/17/15 Reported Ativan (Lorazepam) 0.5 Mg Tab 0.5 Mg PO BID PRN 02/16/14 Reported Lipitor (Atorvastatin) 40 Mg Tab 40 Mg PO QPM 02/16/14 Reported Synthroid (Levothyroxine Sodium) 112 Mcg Tab 112 Mcg PO QAM 02/16/14 Reported Celexa (Citalopram Hydrobromide) 20 Mg Tab 30 Mg PO HS 10/23/12 Reported TAKES 1 1/2 TABS. Physical Physical Exam Vital Signs: Date Time Temp Pulse Resp B/P (MAP) Pulse Ox O2 Delivery O2 Flow Rate FiO2 07/05/17 15:54 36.5 82 20 120/51 (74) 91 Room Air 07/05/17 14:18 88 16 96 Room Air 07/05/17 12:00 Room Air 07/05/17 10:59 36.3 65 20 121/68 (85) 92 Room Air 07/05/17 08:00 Room Air 07/05/17 07:39 36.4 84 20 117/73 (88) 93 Room Air 07/05/17 07:11 71 16 96 Room Air 07/05/17 04:26 36.5 86 18 131/69 (89) 95 CPAP 07/05/17 04:00 Room Air 07/05/17 01:43 86 16 95 BiPAP/CPAP 07/05/17 00:16 21 07/04/17 23:45 36.9 85 18 127/68 93 Room Air 07/04/17 23:32 78 18 128/58 95 Room Air 07/04/17 22:47 82 18 103/66 95 Room Air 07/04/17 21:00 78 22 117/61 96 Room Air 07/04/17 20:32 82 07/04/17 19:59 98 Room Air 07/04/17 19:41 79 18 129/76 93 Room Air 07/04/17 18:51 36.5 85 18 131/77 95 Room Air 07/04/17 18:51 95 Room Air General Appearance: WELL-APPEARING, NO APPARENT DISTRESS Eyes: PERRLA, EOMI ENT: NORMAL NASAL EXAM, NORMAL MOUTH EXAM, NORMAL THROAT EXAM Neck: NO TENDERNESS Respiratory: BREATH SOUNDS NORMAL, CLEAR TO AUSCULTATION Cardiovasular: REGULAR RATE/RHYTHM, NORMAL S1S2, NO M/G/R, NO MURMUR, NO GALLOP Abdomen: NON TENDER, NO MASSES, NO GUARDING, NO ORGANOMEGALY Lower Extremities: NO EDEMA Neuro: ALERT, ORIENTED x 3, NORMAL MOTOR EXAM, other (Somewhat anxious) Psychiatric: NORMAL AFFECT Diagnostics Labs Results Past 24 Hours Test 07/04/17 19:31 07/04/17 19:35 07/04/17 19:53 07/05/17 07:02 Range/Units White Blood Count 5.64 6.36 4.8-10.8 K/uL Red Blood Count 4.78 4.61 4.2-5.4 M/uL Hemoglobin 13.7 13.0 12.0-16.0 g/dL Hematocrit 42.5 41.1 37-47 % Mean Corpuscular Volume 88.9 89.2 80-100 fL Mean Corpuscular Hemoglobin 28.7 28.2 25-34 pg Mean Corpuscular Hemoglobin Concent 32.2 31.6 32-36 g/dl Platelet Count 152 154 130-400 K/uL Mean Platelet Volume 9.2 9.6 7.4-10.4 fL Neutrophils (%) (Auto) 60.0 91.0 % Lymphocytes (%) (Auto) 27.0 7.2 % Monocytes (%) (Auto) 10.5 0.8 % Eosinophils (%) (Auto) 1.8 0.0 % Basophils (%) (Auto) 0.2 0.2 % Neutrophils # (Auto) 3.39 5.79 1.4-6.5 K/uL Lymphocytes # (Auto) 1.52 0.46 1.2-3.4 K/uL Monocytes # (Auto) 0.59 0.05 0.11-0.59 K/uL Eosinophils # (Auto) 0.10 0.00 0-0.5 K/uL Basophils # (Auto) 0.01 0.01 0-0.2 K/uL RDW Standard Deviation 43.9 44.0 36.4-46.3 fL RDW Coefficient of Variation 13.5 13.5 11.5-14.5 % Immature Granulocyte % (Auto) 0.5 0.8 % Immature Granulocyte # (Auto) 0.03 0.05 0.00-0.02 K/uL Sodium Level 144 141 136-145 mmol/L Potassium Level 3.5 3.8 3.5-5.1 mmol/L Chloride Level 111 109 98-107 mmol/L Carbon Dioxide Level 24 23 21-32 mmol/L Anion Gap 8.0 9.0 3-11 mmol/L Blood Urea Nitrogen 17 17 7-18 mg/dl Creatinine 1.31 1.25 0.60-1.20 mg/dl Est Creatinine Clear Calc Drug Dose 48.7 51.0 ml/min Estimated GFR () 48.4 51.2 Estimated GFR (Non- 41.7 44.2 BUN/Creatinine Ratio 13.0 13.4 10-20 Random Glucose 126 212 70-99 mg/dl Lactic Acid Level 1.4 0.4-2.0 mmol/L Calcium Level 8.3 8.5 8.5-10.1 mg/dl Influenza Type A Antigen Neg for Influ A NEG Influenza Type B Antigen Neg for Influ B NEG Venous Blood pH 7.39 7.36-7.41 Venous Blood Partial Pressure CO2 41 38.0-50.0 mmHg Venous Blood Partial Pressure O2 39 mmHg Venous Blood HCO3 25 mmol/L Venous Blood Oxygen Saturation 70.6 % Venous Blood Base Excess -0.4 mEq/L Prothrombin Time 10.4 9.0-12.0 SECONDS Prothromb Time International Ratio 1.0 0.9-1.1 Activated Partial Thromboplast Time 24.6 21.0-31.0 SECONDS Partial Thromboplastin Ratio 0.9 Magnesium Level 2.2 1.8-2.4 mg/dl Hepatitis C Antibody Screen NEG NEG Diagnostic Radiology Chest x-ray has been reviewed, showing mild hyperinflation, cardiac silhouette appeared normal, hiatal hernia noted also on previous chest x-rays from 2015. The patient had a CAT scan of the chest in 2014 which was reviewed personally, showing hiatal hernia that appeared to be paraesophageal extending up to the level of T4. Previous CAT scan showed left lower lobe infiltrate likely from aspiration. Impression Assessment and Plan 1. Although the patient might have COPD, I do not have the actual PFT to confirm it. Patient is not on any medications. 2. The patient current symptoms explained by the presence of significant hiatal hernia causing the patient chronic cough. 3. Recent influenza bronchitis. 4. GERD. Plan: 1. I will start the patient empirically on twice a day PPI. 2. I will start the patient on Reglan 10 mg before meals. 3. Continue with current bronchodilators. 4. Keep prednisone only for 5 days given her reactive airways. Then stop it. 5. Consult Dr. Lehman for evaluation of Bridgette procedure. 6. I will attempt to obtain a copy of her PFTs. 7. Case discussed with the staff and details. Thank you for the kind referral , will follow.
--- NOTE | 2017-07-05 16:35 | DIAGNOSTIC IMAGING REPORT ---
(CHEST) THORAX WITHOUT CT DOSE: 451.90 mGy.cm HISTORY: progressing hiatal hernia TECHNIQUE: Multiaxial CT images of the chest were performed without contrast. A dose lowering technique was utilized adhering to the principles of ALARA. COMPARISON: Chest CT 10/02/2014. FINDINGS: No pneumothorax. No pleural effusions. The central airways are patent. Calcified right hilar lymph node. Few punctate calcified granulomas within the right middle lobe. A few tiny nodular densities within the right lower lobe in a tree-in-bud pattern. These also remain unchanged and are consistent with chronic inflammatory change. This is of doubtful clinical significance. Mild emphysema. No new focal lung consolidations. No suspicious lytic or blastic osseous lesions. A few calcified granulomas within the liver. There are 2 hypodense lesions within the liver the largest measuring 13 mm in the right hepatic lobe. These favor cysts. There are few calcified granulomas within the spleen. Cholelithiasis. Normal adrenal glands. There is again noted a large hiatus hernia containing the proximal two thirds of the stomach. Technically, this hernia is unchanged in size. However, this is more distended at this time due to the increased gastric contents. The heart is normal in size. Normal caliber thoracic aorta with mild calcified plaque. No mediastinal or hilar lymphadenopathy. IMPRESSION: 1. There is again noted a large hiatus hernia containing the proximal two thirds of the stomach. Technically, this hernia is unchanged in size. However, this is more distended at this time due to the increased gastric contents compared to the prior study. 2. Cholelithiasis. 3. Mild emphysema. Electronically signed by: Jorge Luis Manuel M.D. 07/05/2017 4:34 PM Dictated Date/Time: 07/05/2017 4:20 PM
[2017-07-05] MEDS ORDERED: COUGH DROP (SUGAR FREE) LOZ 24 LOZ/1 BOX LOZ ONE (16:43)
[2017-07-05] MEDS ORDERED: COUGH DROP (SUGAR FREE) LOZ 24 LOZ/1 BOX LOZ PRN (17:15)
[2017-07-05] MEDS ORDERED: NARATRIPTAN HCL 2.5 MG PO PRN (18:15)
[2017-07-05] MEDS: PANTOprazole SOD 40 MG TAB PO SCH (20:43)
[2017-07-05] MEDS ORDERED: CITALOPRAM 20 MG TAB PO SCH (21:00)
[2017-07-05] MEDS ORDERED: ATORVASTATIN 20 MG TAB PO SCH (21:00)
[2017-07-06 01:48] VITALS: PULSE 78; O2SAT 96
[2017-07-06] MEDS: LEVALBUTEROL 1.25MG/0.5ML NEB INH SCH ×3 (01:48→14:22)
[2017-07-06] MEDS: IPRATROPIUM BROMIDE NEB SOLN 0.02% 2.5 ML VIAL INH SCH ×3 (01:48→14:22)
[2017-07-06] MEDS: LEVOTHYROXINE 112 MCG TAB PO SCH (06:25)
[2017-07-06] MEDS: METOCLOPRAMIDE HCL 10 MG TAB PO SCH ×2 (06:25→10:25)
[2017-07-06 06:49] LABS: BASO % 0.1 %; BASO ABS # 0.01 K/uL (0-0.2); HEMATOCRIT 39.8 % (37-47); HEMOGLOBIN 12.8 g/dL (12.0-16.0); IG# 0.08 K/uL (0.00-0.02); LYMPH % 9.8 %; LYMPH ABS # 1.15 K/uL (1.2-3.4); MEAN CORPUSCULAR HEMOGLOBIN 28.6 pg (25-34); MEAN CORPUSCULAR HGB CONC 32.2 g/dl (32-36); MEAN PLATELET VOLUME 9.3 fL (7.4-10.4); MONO % 7.2 %; MONO ABS # 0.84 K/uL (0.11-0.59); NEUT % 82.2 %; PLATELET COUNT 151 K/uL (130-400); RED CELL DISTRIBUTION WIDTH CV 13.9 % (11.5-14.5); RED CELL DISTRIBUTION WIDTH SD 45.3 fL (36.4-46.3); WHITE BLOOD COUNT 11.68 K/uL (4.8-10.8)
[2017-07-06 07:00] LABS: PTT PATIENT 23.7 SECONDS (21.0-31.0)
[2017-07-06 07:06] VITALS: PULSE 68; O2SAT 96
[2017-07-06] MEDS: BUDESONIDE 0.5 MG/2 ML VIAL (PULMICORT) INH SCH (07:06)
[2017-07-06 07:26] LABS: CALCIUM 9.2 mg/dl (8.5-10.1); CREATININE 1.12 mg/dl (0.60-1.20); POTASSIUM 3.8 mmol/L (3.5-5.1)
[2017-07-06 08:00] VITALS: BP 134/82; PULSE 78; TEMP 36.7; O2SAT 95
[2017-07-06 08:23] VITALS: O2SAT 95
[2017-07-06] MEDS: HEPARIN SOD 5000 UNIT/0.5 ML CARP SQ SCH (08:49)
--- NOTE | 2017-07-06 10:05 | DIAGNOSTIC IMAGING REPORT ---
(BARIUM SWALLOW) ESOPHAGUS CLINICAL HISTORY: Hiatal hernia. COMPARISON STUDY: Chest CT July 05, 2017. FLUOROSCOPY TIME: 2 minutes. FINDINGS: A large sliding type hiatal hernia with partially intrathoracic stomach is noted. The gastroesophageal junction, gastric cardia, fundus and proximal to mid body of the stomach were located above the diaphragm. There was moderate esophageal dysmotility. Gastroesophageal reflux was elicited. No esophageal mass or stricture was identified. IMPRESSION: 1. Large sliding type hiatal hernia with partially intrathoracic stomach. 2. Moderate esophageal dysmotility. 3. Moderate gastroesophageal reflux. Electronically signed by: Yossi Chao M.D. 07/06/2017 10:03 AM Dictated Date/Time: 07/06/2017 10:02 AM
[2017-07-06] MEDS: GUAIFENESIN 600 MG TABCR PO SCH (10:15)
[2017-07-06] MEDS: TOPIRAMATE 25 MG TAB PO SCH (10:16)
[2017-07-06] MEDS: AMLODIPINE BESYLATE 5 MG TAB PO SCH (10:16)
[2017-07-06] MEDS: PANTOprazole SOD 40 MG TAB PO SCH (10:17)
[2017-07-06] MEDS: ONDANSETRON 8MG OD TAB PO PRN (10:24)
[2017-07-06] MEDS ORDERED: PRT40 PO (13:54)
[2017-07-06] MEDS ORDERED: PRD20 PO (13:54)
[2017-07-06] MEDS ORDERED: ATRINS INH (13:54)
--- NOTE | 2017-07-06 14:03 | Discharge Instructions ---
Discharge Instructions Date of Service Jul 06, 2017. Admission Reason for Admission: Bronchitis, Copd W/ Acute Exacerbation Discharge Discharge Diagnosis / Problem: COPD w acute exacerbation, bronchitis Discharge Goals Goal(s): Decrease discomfort, Improve function, Increase independence, Improve disease control Activity Recommendations Activity Limitations: resume your previous activity Lifting Limitations: no more than 25 pounds, gradually increase as tolerated Exercise/Sports Limitations: as tolerated, rest today May Resume Sexual Activity: when tolerated Shower/Bathe: no limitations Driving or Machine Use: no limitations . Instructions / Follow-Up Instructions / Follow-Up You were admitted to [facility] with shortness of breath, cough, and hypoxia and diagnosed with COPD acute exacerbation and bronchitis. During your stay here you were treated with supportive care including oxygen, steroids, antibiotics, and nebulizer treatments. You were evaluated by Pulmonology and thoracic surgery during your stay here. Formal PFTs (pulmonary function tests) should be done as an outpatient, please discuss this with pulmonology at follow up appointment. Thoracic surgery saw you for large hiatal hernia, and will possible perform surgical fixation in the future. Please discuss this at follow up appointment. Medications: Continue taking your medications as prescribed. Continue prednisone taper as follows: Take 40 mg (2tabs) x 2 days, then 20 mg (1 tab) x 2 days and stop. Finish on 07/10. Continue Reglan before meals to help with bowel motility. Continue Symbicort inhaler as directed. You have been set up to have a nebulizer and duonebs sent to your home through [facility], please use the nebulizer four times daily. Continue using medication until seen by pulmonology. Appointments: Follow up with PCP within 1 week. Follow up with pulmonology within 1-2 weeks. Follow up with thoracic surgery within 1-2 weeks. Current Hospital Diet Patient's current hospital diet: Regular Diet Discharge Diet Recommended Diet: Regular Diet Pending Studies Studies pending at discharge: no Laboratory Results Hemoglobin A1c Test 06/15/17 10:37 Range/Units Estimated Average Glucose 111 mg/dl Hemoglobin A1c 5.5 4.5-5.6 % Lipid Panel Test 06/15/17 10:37 Range/Units Triglycerides Level 111 0-150 mg/dl Cholesterol Level 142 0-200 mg/dl HDL Cholesterol 42 mg/dl Cholesterol/HDL Ratio 3.4 LDL Cholesterol, Calculated 78 mg/dl Medical Emergencies . Who to Call and When: Medical Emergencies: If at any time you feel your situation is an emergency, please call 911 immediately. . Non-Emergent Contact Non-Emergency issues call your: Primary Care Provider Call Non-Emergent contact if: you have a fever, temperature is above 100.5, your pain is not controlled, your pain is worsening, your pain is unusual for you, your pain is concerning you, you have any medication questions other concerns with your health. Call 911 or go directly to the Emergency Department if you experience any of the following: Chest pain, chest tightness, shortness of breath, abdominal pain , lightheadedness, dizziness, gastrointestinal bleeding, or have any other concerns regarding your health. . Past History Medical & Surgical History: (1) COPD with acute exacerbation (2) Hiatal hernia (3) Hypoxia (4) Bronchitis (5) Esophageal Reflux . "Provider Documentation" section prepared by Jessie Mg. . [place] Drug Monitoring Program Search Results: no issues identified
[2017-07-06 14:24] VITALS: PULSE 88; O2SAT 93
--- NOTE | 2017-07-06 14:28 | Pulmonology Progress Note ---
Pulmonary Progress Note Date of Service Jul 06, 2017. Attending Dr. Hope Subjective No events overnight, the patient continued to have cough, denies any increased shortness of breath, minimal sputum production, no hemoptysis. Objective Physical exam revealed S1-S2, regular rate and rhythm, distant breath sounds bilaterally, abdomen is benign, no epigastric pain, no edema in the periphery. No new imaging. Assessment & Plan 1. Cough secondary to hiatal hernia. 2. Significant hiatal hernia that has been chronic and causing the patient's above symptoms. 3. Mild COPD, gold level 1. 4. GERD. Plan: 1. I would continue with PPI twice daily for at least 28 days then once daily at at bedtime. 2. I will continue with Reglan 10 mg before meals. 3. Given the patient had mild history of COPD, I will start her on maintenance inhaler with Symbicort 2 puffs twice daily or comparable inhaler based on her insurability. 4. Appreciate Dr. Lehman input. 5. Patient can be discharged home. 6. Follow-up with pulmonary and with thoracic surgery. 7. Definitive therapy for her hiatal hernia per thoracic. And GI. Thank you for the kind referral. Will follow as needed. Data Medications: Current Inpatient Medications Medications (Trade) Dose Ordered Sig/Srikanth Route Start Time Stop Time Status Last Admin Dose Admin Heparin Sodium (Porcine) (Heparin Sq 5000 Unit/0.5ml) 5,000 unit Q12 SQ 07/05/17 09:00 08/04/17 08:59 07/06/17 08:49 5,000 UNIT Acetaminophen (Tylenol Tab) 650 mg Q4H PRN PO 07/04/17 23:15 08/03/17 23:14 07/05/17 07:27 650 MG Al Hydrox/Mg Hydrox/Simethicone (Maalox Max Susp) 15 ml Q4H PRN PO 07/04/17 23:15 08/03/17 23:14 Magnesium Hydroxide (Milk Of Magnesia Susp) 30 ml Q12H PRN PO 07/04/17 23:15 08/03/17 23:14 Polyethylene (Miralax Powder Packet) 17 gm DAILY PRN PO 07/04/17 23:15 08/03/17 23:14 Amlodipine Besylate (Norvasc Tab) 5 mg DAILY PO 4/3/18 09:00 08/04/17 08:59 07/06/17 10:16 5 MG Atorvastatin Calcium (Lipitor Tab) 40 mg QPM PO 07/05/17 21:00 08/04/17 20:59 07/05/17 20:42 40 MG Citalopram Hydrobromide (celeXA TAB) 30 mg HS PO 07/05/17 21:00 08/04/17 20:59 07/05/17 21:12 30 MG Lamotrigine (Lamictal Tab) 200 mg BID PO 07/05/17 09:00 08/04/17 08:59 07/06/17 10:16 200 MG Levothyroxine Sodium (Synthroid Tab) 112 mcg DAILYBB PO 07/05/17 06:00 08/04/17 05:59 07/06/17 06:25 112 MCG Lorazepam (Ativan Tab) 0.5 mg BID PRN PO 07/04/17 23:15 08/03/17 23:14 Topiramate (Topamax Tab) 75 mg BID PO 07/05/17 09:00 08/04/17 08:59 07/06/17 10:16 75 MG Ondansetron HCl (Zofran Odt) 8 mg Q6H PRN PO 07/04/17 23:15 08/03/17 23:14 07/06/17 10:24 8 MG Budesonide (Pulmicort Respules 0.5MG/ 2ML Neb Soln) 0.5 mg BIDR INH 07/05/17 08:00 08/04/17 07:59 07/06/17 07:06 0.5 MG Guaifenesin (Mucinex Contr Rel Tab) 600 mg Q12 PO 07/05/17 09:00 08/04/17 08:59 07/06/17 10:15 600 MG Ipratropium Jefferson (Atrovent 0.02% 0.5MG/2.5ML Neb) 0.5 mg Q6R INH 07/05/17 03:00 08/04/17 02:59 07/06/17 14:22 0.5 MG Levalbuterol (Xopenex 1.25MG/ 0.5ML Neb) 1.25 mg Q6R INH 07/05/17 03:00 08/04/17 02:59 07/06/17 14:22 1.25 MG Ipratropium Jefferson (Atrovent 0.02% 0.5MG/2.5ML Neb) 0.5 mg Q2H PRN INH 07/04/17 23:15 08/03/17 23:14 Levalbuterol (Xopenex 1.25MG/ 0.5ML Neb) 1.25 mg Q2H PRN INH 07/04/17 23:15 08/03/17 23:14 Prednisone (PredniSONE TAB) 60 mg QAM PO 07/06/17 08:00 08/05/17 08:59 07/06/17 10:15 60 MG Pantoprazole Sodium (Protonix Tab) 40 mg BID PO 07/05/17 20:00 08/04/17 08:59 07/06/17 10:17 40 MG Metoclopramide HCl (Reglan Tab) 10 mg AC PO 07/05/17 16:15 08/04/17 16:14 07/06/17 10:25 10 MG Menthol (Nice Makayla) 1 makayla PRN PRN MAKAYLA 07/05/17 17:15 08/04/17 17:14 Naratriptan HCl (Naratriptan HCl) 2.5 mg UD PRN PO 07/05/17 18:15 08/04/17 18:14 I & O: 24-Hour Column 07/07/17 08:00 Intake Total 880 ml Balance 880 ml Vital Signs: Date Time Temp Pulse Resp B/P (MAP) Pulse Ox O2 Delivery O2 Flow Rate FiO2 07/06/17 08:23 95 Room Air 07/06/17 08:00 36.7 78 12 134/82 (99) 95 Room Air 07/06/17 07:06 68 20 96 Room Air 07/06/17 01:48 78 20 96 BiPAP/CPAP 21 07/06/17 00:00 Room Air 07/05/17 23:16 36.7 69 16 123/76 (92) 95 Room Air 07/05/17 21:00 Room Air 07/05/17 19:19 89 20 96 Room Air 07/05/17 17:10 Room Air 07/05/17 16:31 36.5 72 20 138/80 (99) 97 Room Air 07/05/17 15:54 36.5 82 20 120/51 (74) 91 Room Air Laboratory Results: Last 24 Hours Test 07/06/17 06:04 White Blood Count 11.68 K/uL Red Blood Count 4.47 M/uL Hemoglobin 12.8 g/dL Hematocrit 39.8 % Mean Corpuscular Volume 89.0 fL Mean Corpuscular Hemoglobin 28.6 pg Mean Corpuscular Hemoglobin Concent 32.2 g/dl Platelet Count 151 K/uL Mean Platelet Volume 9.3 fL Neutrophils (%) (Auto) 82.2 % Lymphocytes (%) (Auto) 9.8 % Monocytes (%) (Auto) 7.2 % Eosinophils (%) (Auto) 0.0 % Basophils (%) (Auto) 0.1 % Neutrophils # (Auto) 9.60 K/uL Lymphocytes # (Auto) 1.15 K/uL Monocytes # (Auto) 0.84 K/uL Eosinophils # (Auto) 0.00 K/uL Basophils # (Auto) 0.01 K/uL RDW Standard Deviation 45.3 fL RDW Coefficient of Variation 13.9 % Immature Granulocyte % (Auto) 0.7 % Immature Granulocyte # (Auto) 0.08 K/uL Prothrombin Time 10.1 SECONDS Prothromb Time International Ratio 1.0 Activated Partial Thromboplast Time 23.7 SECONDS Partial Thromboplastin Ratio 0.9 Sodium Level 145 mmol/L Potassium Level 3.8 mmol/L Chloride Level 114 mmol/L Carbon Dioxide Level 24 mmol/L Anion Gap 7.0 mmol/L Blood Urea Nitrogen 19 mg/dl Creatinine 1.12 mg/dl Est Creatinine Clear Calc Drug Dose 56.9 ml/min Estimated GFR () 58.5 Estimated GFR (Non- 50.4 BUN/Creatinine Ratio 16.6 Random Glucose 122 mg/dl Calcium Level 9.2 mg/dl Magnesium Level 2.5 mg/dl
--- NOTE | 2017-07-06 14:33 | Discharge Summary ---
Discharge Summary Date of Service Jul 06, 2017. Discharge Summary Admission Date: Jul 04, 2017 at 23:01 Discharge Date: Jul 06, 2017 Discharge Disposition: Home Principal Diagnosis: COPD exacerbation, bronchitis Problems/Secondary Diagnoses: Medical Problems: (1) Anxiety State Nos (2) Arthritis of right hip (3) Esophageal Reflux (4) Hiatal hernia (5) Migraine Unspecified W/O Intractable Migraine (6) Panic Disorder Without Agoraphobia Immunizations: Have You Had Influenza Vaccine: No History of Tetanus Vaccine?: Unknown History of Pneumococcal: No History of Hepatitis B Vaccine: No Procedures: CHEST 2 VIEWS ROUTINE 07/04/17 IMPRESSION: 1. No acute cardiopulmonary findings. 2. Large hiatal hernia. (CHEST) THORAX WITHOUT 07/05/17 IMPRESSION: 1. There is again noted a large hiatus hernia containing the proximal two thirds of the stomach. Technically, this hernia is unchanged in size. However, this is more distended at this time due to the increased gastric contents compared to the prior study. 2. Cholelithiasis. 3. Mild emphysema. (BARIUM SWALLOW) ESOPHAGUS 07/06/17 IMPRESSION: 1. Large sliding type hiatal hernia with partially intrathoracic stomach. 2. Moderate esophageal dysmotility. 3. Moderate gastroesophageal reflux. Consultations: Pulmonology Thoracic surgery Medication Reconciliation New Medications: Ipratropium-Albuterol (Duoneb) 3 Ml Nebu 1 TREATMENT INH QID for 30 Days, #120 VIAL Budesonide (Inhalation) (Pulmicort Respules 0.5MG/2ML) 0.5 Mg/2 Ml Diana 0.5 MG INH BIDR for 30 Days, #60 DOSE Metoclopramide HCl (Metoclopramide HCl) 10 Mg Tab 10 MG PO AC for 30 Days, #90 TAB Pantoprazole (Pantoprazole Sodium) 40 Mg Tab 40 MG PO BID for 30 Days, #60 TAB Prednisone (Prednisone) 20 Mg Tab 60 MG PO QAM for 4 Days, #6 TAB Take 40 mg (2tabs) x 2 days, then 20 mg (1 tab) x 2 days and stop. Finish on 07/10. Continued Medications: Amlodipine Besylate (Amlodipine Besylate) 5 Mg Tab 5 MG PO DAILY Atorvastatin (Lipitor) 40 Mg Tab 40 MG PO QPM Citalopram Hydrobromide (Celexa) 20 Mg Tab 30 MG PO HS TAKES 1 1/2 TABS. Clobetasol Propionate (Clobetasol Propionate) 45 Appln/15 Gm Oint 1 APPLN TOP BID, GM Diphenoxylate/Atropine (Lomotil) Tab 1 TAB PO BID PRN for Diarrhea, TAB Lamotrigine (Lamictal) 200 Mg Tab 200 MG PO BID, TAB Levothyroxine Sodium (Synthroid) 112 Mcg Tab 112 MCG PO QAM Lorazepam (Ativan) 0.5 Mg Tab 0.5 MG PO BID PRN for Anxiety Naratriptan Hcl (Amerge) 2.5 Mg Tab 2.5 MG PO DIRECTED TAKE ONE TABLET AT ONSET OF HEADACHE,MAY REPEAT ONCE IN 4 HOURS. LIMIT TO 3 DAYS PER WEEK. Omeprazole (Prilosec) 40 Mg Cap 40 MG PO DAILY, CAP Ondansetron Hcl (Zofran) 4 Mg Tab 4 MG PO Q6H PRN for Nausea, TAB Topiramate (Topiramate) 25 Mg Tab 75 MG PO BID Discontinued Medications: Oseltamivir Phosphate (Oseltamivir Phosphate) 75 Mg Cap 75 MG PO DAILY Discharge Exam The patient was seen and examined this morning. Pt reports doing better today. She underwent the barium swallow study this morning and was told that she would likely need hiatal hernia to be surgically corrected later. She occasionally has difficulty with swallowing foods like pasta. She denies choking on food or aspiration hx. She reports her breathing overall is improved, and that she does not feel like she is wheezing. Pt has been ambulating about the room without difficulty, and has not required supplemental O2, overnight she tolerated her cpap without difficulty. Pt denies fever, chills or sweats. ROS: Constitutional: No fever, sweats or chills Eyes: No diplopia, no worsening or blurred vision ENT: normal hearing, no trouble swallowing Respiratory: See HPI Cardiovascular: No chest pain, tightness or palpitations Abdomen: No pain, nausea, vomiting, diarrhea or constipation Musculoskeletal: No joint pain, calf pain, swelling Neurologic: No weakness, numbness/tingling, or balance problems Skin: No rash or itch PE: General: awake, alert, no apparent distress, obese Head: Normocephalic, atraumatic ENT: PERRL, EOMI, no pharyngeal exudate, mucous membranes moist Chest: Improved aeration, faint expiratory wheeze heard in the left lower lobe, on room air, no other adventitious breath sounds Cardiac: Regular rate and rhythm, no murmur, no JVD, normal peripheral pulses, good capillary refill Abdominal: NABS x 4 quadrants, soft, nontender to palpation, no rebound, guarding or tenderness Extremities: Normal inspection, + BLE trace edema, no erythema, calfs nontender. Psych: Normal mood and affect Neuro: AAO x 3, speech is clear, no peripheral sensory deficits Hospital Course 66 yo F with PMHx of COPD, HTN, GERD, hx of tobacco smoking (20-25 yrs 1ppd, quit 12 yrs ago), HLD, hypothyroidism, COPD exacerbation, mild COPD Acute on chronic bronchitis Hx chronic tobacco abuse/second hand exposure - Xopenex/Atrovent high flow nebulizer QID and Q2H prn, Guaifenesin, Pulmicort Restoril 0.5 mg inhaled BID Pt set up with [facility] for home nebulizer and duoneb treatmets QID with CM. This service will deliver the nebulizer to her home. - Transition from Solu-Medrol to oral prednisone during hospital stay: Continue total 5d prednisone taper with 40 mg x 2d, then 20 mg x 2 days. Finish on 07/10. - dc Ceftriaxone 1 g IV - recently finished 5d azithromycin course on Monday 07/03 - no need for further abx - Patient seems to be in denial that she has any chronic pulmonary disease, last PFTs were completed June [address] Baumann and showed mild obstruction. There are no specific FEV, FEV TV, etc that I am able to find in her outpatient records. Pulm consulted - follow up arranged, should have PFTs conducted as an outpatient Large Hiatal Hernia - Thoracic surgery consulted and pt was determined to have a large hiatal hernia , pt will ultimately need surgical fixation in the future. F/u with thoracic surg as an outpatient. - Continue on PPI and reglan as started during this admission Hypertension-- Continue amlodipine 5 mg daily GERD-- Change omeprazole to pantoprazole 40 mg daily Panic disorder without agoraphobia-- Continue citalopram 30 mg at bedtime, lamotrigine 200 mg p.o. twice daily, topiramate 75 mg p.o. twice daily. Migraine headache- - Amerge not on formulary - Given one dose of Fioricet this morning as tylenol was not enough Hypothyroidism-- Continue levothyroxine sodium 112 mcg p.o. QAM Hyperlipidemia-- Continue atorvastatin 40 mg at bedtime DVT ppx: heparin subq Code Status: Full code Disposition: From home, discharge today. Total Time Spent: Greater than 30 minutes This includes examination of the patient, discharge planning, medication reconciliation, and communication with other providers. Discharge Instructions Please refer to the electronic Patient Visit Report (Discharge Instructions) for additional information. Follow-Up Follow up with your Primary Care Provider within 1 week. Follow up with pulmonology within 1-2 weeks. Follow up with thoracic surgery within 1-2 weeks. Additional Copies To Geovanni Riggs M.D.
[2017-07-06 14:37] VITALS: BP 134/82; PULSE 88; TEMP 36.7; O2SAT 93
[2017-07-06] MEDS ORDERED: PLMINS INH (14:53)
[2017-07-06] MEDS ORDERED: RGL10 PO (14:53)
--- NOTE | 2017-07-06 15:09 | SURGICAL CONSULTATION ---
DATE OF CONSULTATION: 07/06/2017 REASON FOR CONSULTATION: Large hiatal hernia. HISTORY OF PRESENT ILLNESS: Shi Govea is a very nice 66-year-old female who has a history of cigarette smoking in the past. She presented with signs and symptoms consistent with bronchitis and acute exacerbation of underlying chronic obstructive pulmonary disease. It is felt she probably had an episode of influenza bronchitis and took Tamiflu. She does have gastroesophageal reflux disease and a hiatal hernia. She has been treated with proton pump inhibitors. She denied chest pain but came in with a persistent cough. I was asked to see her after CT scan showed a large hiatal hernia. The patient does not sleep in upright position. She has been using the proton pump inhibitors but really does not have terrible reflux, although she does describe pain in her epigastric area recently after eating. I have been asked to comment on this hiatal hernia. PAST MEDICAL HISTORY: 1. History of cigarette smoking (quit several years ago). 2. Gastroesophageal reflux disease. 3. Hypothyroidism. 4. Hyperlipidemia. 5. Chronic obstructive pulmonary disease. 6. Migraine headaches. 7. Depression. 8. Anxiety. 9. Herpes zoster with involvement of left eye. 10. Hypertension. PAST SURGICAL HISTORY: 1. Keratectomy with EDTA chelation, left eye. 2. Total hip arthroplasty. 3. Right cataract extraction with lens implantation. 4. Left cataract extraction with lens implant. 5. 2, para 2. MEDICATIONS: 1. Amlodipine. 2. Lipitor. 3. Celexa. 4. Lamictal. 5. Synthroid. 6. Ativan. 7. Amerge. 8. Zofran. 9. Prilosec. 10. Oseltamivir. 11. Pantoprazole. 12. Prednisone (tapering dose). 13. Topiramate. ALLERGIES: 1. LISINOPRIL. 2. GABAPENTIN. SOCIAL HISTORY: The patient lives with her of many years. She grew up in [place], in the [employer]. She smoked cigarettes but quit more than 10 years ago. She has had multiple jobs and worked at [employer] for 18 years. She lives at home with her . She has 2 daughters and a single granddaughter and a great granddaughter. She is independent in her activities of daily living, although she does not drive. FAMILY MEDICAL HISTORY: The patient's father at 63 from a stroke and her mother from myocardial infarction in her mid 70s. Her 2 daughters are healthy as are her granddaughter and great granddaughter. She does have a sister and developed multiple sclerosis in her late 40s. REVIEW OF SYSTEMS: The patient's weight has been relatively stable. She does complain of some fatigue. 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 She has been treated for this by [facility]. She has had no nasal drainage. She denies any epistaxis. She denies pharyngitis type symptoms. She really does not have much in the way of dyspnea. She can walk over half a mile and puts upon herself to move. She denies chest pain or palpitations. She had some nausea with some epigastric pain and lower pain above her xiphoid area but no sweating or nausea with these symptoms. She denies any vomiting or diarrhea. She has had no focal deficits. She has had no skin breakdown. She has had no claudication. She denies any hearing abnormalities. Her left eye has been relatively stable since she lost sight. PHYSICAL EXAMINATION: GENERAL: This is a 5 feet 8 inches, 202-pound female who is awake, alert and oriented. HEENT: Her extraocular movements are intact. Her left eye has some injection on the sclera, but the lens is completely opacified. She has no nasolabial flattening. She has denture plates top and bottom, but I see no pharyngeal lesions. There are no oral mucosal lesions. NECK: Supple. She has no neck vein distention or thyromegaly. I detect no carotid bruits. She is actually moving air fairly well. HEART: She has regular rate and rhythm of her heart. ABDOMEN: Obese but soft, nontender with no surgical incisions. She has good femoral pulses. She has easily palpable dorsalis pedis pulses bilaterally and has no joint effusions or peripheral edema. NEUROLOGIC: She is awake, alert and oriented. IMAGING DATA: I reviewed a CT scan which was impressive and that there is a large hiatal hernia with about 2/3 of the stomach in her chest. She also had some cholelithiasis. In addition, we ordered a barium swallow today which was interesting that showed some esophageal dysmotility with reflux and a large hiatal hernia with intrathoracic stomach. ASSESSMENT AND PLAN: Large type 1 sliding esophageal hernia. There is no evidence of volvulus. I had a long discussion with the patient. We are going to have her see Dr. Beach, again as she has seen him in the past. I would like for her to get an upper endoscopy. I will see her back in the office to make a decision about whether or not to offer her any type of antireflux procedure. We will also have her see Dr. Rodney, as an outpatient from a pulmonary standpoint to see whether he thinks this hiatal hernia is contributing to her respiratory symptoms.
[2017-07-06] MEDS ORDERED: IPRASOL4 INH (15:46)
== END 2017-07-06 15:20 | disposition home or self-care (01) | DRG 392 ==
LOC: C.EDB 18:40 → C.2T 23:01 → ENRESERV 23:22 → C.4E 07-05 16:24
PROVIDERS: ADMIT Hospitalist; ATTEND Internal Medicine
DX: K44.9 Diaphragmatic hernia without obstruction or gangrene (principal); J44.1 Chronic obstructive pulmonary disease with (acute) exacerbation; J44.0 Chronic obstructive pulmonary disease with (acute) lower respiratory infection; J20.9 Acute bronchitis, unspecified; I10 Essential (primary) hypertension; K21.9 Gastro-esophageal reflux disease without esophagitis; F41.0 Panic disorder [episodic paroxysmal anxiety]; G43.909 Migraine, unspecified, not intractable, without status migrainosus; E03.9 Hypothyroidism, unspecified; E78.5 Hyperlipidemia, unspecified; Z87.891 Personal history of nicotine dependence; Z77.22 Contact with and (suspected) exposure to environmental tobacco smoke (acute) (chronic); Z79.899 Other long term (current) drug therapy; Z88.8 Allergy status to other drugs, medicaments and biological substances; Z96.649 Presence of unspecified artificial hip joint; Z98.41 Cataract extraction status, right eye; Z98.42 Cataract extraction status, left eye; Z82.3 Family history of stroke; Z82.49 Family history of ischemic heart disease and other diseases of the circulatory system; Z82.0 Family history of epilepsy and other diseases of the nervous system

== ENCOUNTER → 2017-07-28 | Day surgery (SDC) | payer OTHER ==
[2017-07-26 13:51] VITALS: Ht 172.7 cm; Wt 93.2 kg
[~2017-07-28] VITALS: Ht 172.7 cm; Wt 93.2 kg
[~2017-07-28] MED LIST changes: +CLBPO15 TOP; +DIPH-416 PO; +IPRASOL4 INH; +LIDOCAINE HCL 2% 2 ML VIAL (20MG/ML) ONE; -OMEP40CA41 PO; -OSEL75CA16 PO; +PLMINS INH; +PROPOFOL IV EMULSION 10 MG/ML 20 ML VIAL IV ONE; +PRT40 PO; +RGL10 PO; +SODIUM CHLORIDE 0.9% 500ML 500 ML IV ONE
--- NOTE | 2017-07-28 13:51 | Endo History and Physical ---
History & Physical Date of Service: Jul 28, 2017. Chief Complaint: GERD, Dysphagia Referring Physician: Dr. Riggs History of Present Illness 66 yo CF who presents for EGD secondary to GERD and dysphagia. Past Medical History Reflux, Hypertension, Thyroid Disease Past Surgical History Hx Cardiac Surgery: No Hx Internal Defibrillator: No Hx Pacemaker: No Hx Abdominal Surgery: Yes (TUBAL LIGATION, APPY, HYSTERECTOMY) Hx of Implantable Prosthesis: No Hx Post-Op Nausea and Vomiting: No Hx Cancer Surgery: No Hx Thoracic Surgery: No Hx Orthopedic: Yes (B/L FEET BUNIONECTOMY, RTHA) Hx Urinary Tract Surgery: Yes (BLADDER TACK) Family History None Social History Smoking Status: Former Smoker Hx Substance Use: No Hx Alcohol Use: No Allergies Coded Allergies: Gabapentin (Verified Allergy, Unknown, BURNING OF FEET AND ANKLES, 07/26/17 ) Lisinopril (Verified Adverse Reaction, Intermediate, COUGH, 07/26/17) Current Medications Reported Home Medications Medications Dose Route/Sig Max Daily Dose Days Date Category Dose Instructions Duoneb (Ipratropium-Albuterol) 3 Ml Nebu 1 Treatment INH QID 30 07/06/17 Rx Pulmicort Respules 0.5MG/2ML (Budesonide (Inhalation)) 0.5 Mg/2 Ml Diana 0.5 Mg INH BIDR 30 07/06/17 Rx Metoclopramide HCl 10 Mg Tab 10 Mg PO AC 30 07/06/17 Rx Pantoprazole Sodium (Pantoprazole) 40 Mg Tab 40 Mg PO BID 30 07/06/17 Rx Lomotil (Diphenoxylate HCl/Atropine) Tab 1 Tab PO BID PRN 07/04/17 Reported Clobetasol Propionate 45 Appln/15 Gm Oint 1 Appln TOP BID 07/04/17 Reported Topiramate 25 Mg Tab 75 Mg PO BID 02/07/17 Reported Amerge (Naratriptan Hcl) 2.5 Mg Tab 2.5 Mg PO DIRECTED 02/07/17 Reported TAKE ONE TABLET AT ONSET OF HEADACHE,MAY REPEAT ONCE IN 4 HOURS. LIMIT TO 3 DAYS PER WEEK. Amlodipine Besylate 5 Mg Tab 5 Mg PO DAILY 02/07/17 Reported Lamictal (Lamotrigine) 200 Mg Tab 200 Mg PO BID 03/30/16 Reported Zofran (Ondansetron HCl) 4 Mg Tab 4 Mg PO Q6H PRN 09/17/15 Reported Ativan (Lorazepam) 0.5 Mg Tab 0.5 Mg PO BID PRN 02/16/14 Reported Lipitor (Atorvastatin) 40 Mg Tab 40 Mg PO QPM 02/16/14 Reported Synthroid (Levothyroxine Sodium) 112 Mcg Tab 112 Mcg PO QAM 02/16/14 Reported Celexa (Citalopram Hydrobromide) 20 Mg Tab 30 Mg PO HS 10/23/12 Reported TAKES 1 1/2 TABS. Vital Signs Weight (Kilograms): 93.18 Height (Feet): 5 Height (Inches): 8 Physical Exam General Appearance: WD/WN, no apparent distress Respiratory/Chest: Auscultation: breath sounds normal Cardiovascular: Heart Auscultation: RRR Abdomen: Bowel Sounds: normal Inspection & Palpation: soft, non-distended, no tenderness, guarding & rebound Assessment and Plan Assessment: 66 yo CF who presents for EGD secondary to GERD and dysphagia. Plan: Proceed with colonoscopy.
--- NOTE | 2017-07-28 14:50 | Discharge Instructions ---
Endoscopy Patient Instructions Date / Procedure(s) Performed Jul 28, 2017. EGD Allergy Information Coded Allergies: Gabapentin (Verified Allergy, Unknown, BURNING OF FEET AND ANKLES, 07/26/17 ) Lisinopril (Verified Adverse Reaction, Intermediate, COUGH, 07/26/17) Discharge Date / Findings Jul 28, 2017. Fixed hiatal hernia Schatzki's ring s/p dilation Medication Instructions OK to resume all medications today as prescribed Reported Home Medications Medications Dose Route/Sig Max Daily Dose Days Date Category Dose Instructions Duoneb (Ipratropium-Albuterol) 3 Ml Nebu 1 Treatment INH QID 30 07/06/17 Rx Pulmicort Respules 0.5MG/2ML (Budesonide (Inhalation)) 0.5 Mg/2 Ml Diana 0.5 Mg INH BIDR 30 07/06/17 Rx Metoclopramide HCl 10 Mg Tab 10 Mg PO AC 30 07/06/17 Rx Pantoprazole Sodium (Pantoprazole) 40 Mg Tab 40 Mg PO BID 30 07/06/17 Rx Lomotil (Diphenoxylate HCl/Atropine) Tab 1 Tab PO BID PRN 07/04/17 Reported Clobetasol Propionate 45 Appln/15 Gm Oint 1 Appln TOP BID 07/04/17 Reported Topiramate 25 Mg Tab 75 Mg PO BID 02/07/17 Reported Amerge (Naratriptan Hcl) 2.5 Mg Tab 2.5 Mg PO DIRECTED 02/07/17 Reported TAKE ONE TABLET AT ONSET OF HEADACHE,MAY REPEAT ONCE IN 4 HOURS. LIMIT TO 3 DAYS PER WEEK. Amlodipine Besylate 5 Mg Tab 5 Mg PO DAILY 02/07/17 Reported Lamictal (Lamotrigine) 200 Mg Tab 200 Mg PO BID 03/30/16 Reported Zofran (Ondansetron HCl) 4 Mg Tab 4 Mg PO Q6H PRN 09/17/15 Reported Ativan (Lorazepam) 0.5 Mg Tab 0.5 Mg PO BID PRN 02/16/14 Reported Lipitor (Atorvastatin) 40 Mg Tab 40 Mg PO QPM 02/16/14 Reported Synthroid (Levothyroxine Sodium) 112 Mcg Tab 112 Mcg PO QAM 02/16/14 Reported Celexa (Citalopram Hydrobromide) 20 Mg Tab 30 Mg PO HS 10/23/12 Reported TAKES 1 1/2 TABS. Provider Instructions Activity Restrictions - No exercising or heavy lifting for 24 hours. - Do not drink alcohol the day of the procedure. - Do not drive a car or operate machinery until the day after the procedure. - Do not make any important decisions or sign important papers in 24 hours after the procedure. Following Day: - Return to full activity which may include returning to work/school. Diet Start your diet with liquids and light foods (jello, soup, juice, toast). Then eat your usual diet if not nauseated. Treatment For Common After Affects For mild abdominal pain, bloating, or excessive gas: - Rest - Eat lightly - Lie on right side Follow-Up Information Follow-up with Dr Dominik Gonsalves as scheduled Anesthesia Information What You Should Know You have had a procedure that required some medicine to reduce anxiety and discomfort. This treatment is called moderate sedation. After receiving the treatment, you may be sleepy, but you will be able to breathe on your own. The effects of the treatment may last for several hours. Follow these instructions along with Activity/Diet recommendations noted above: * Do NOT do anything where dizziness or clumsiness would be dangerous. * Rest quietly at home today, then you can be up and about tomorrow. * Have a responsible person stay with you the rest of today. * You may have had an I.V. today. If so, you may take the dressing off later today. Recommendations Call your doctor if: * Trouble breathing * Continuous vomiting for more than 24 hours * Temperature above 101 degrees * Severe abdominal pain or bloating * Pain not relieved by pain medicine ordered * There is increased drainage or redness from any incision * A large amount of rectal bleeding greater than 2-3 tablespoons. (If you had a polyp/s removed or have hemorrhoids, a small amount of blood - from the rectum is to be expected.) * You have any unanswered questions or concerns. IN THE EVENT OF A SERIOUS EMERGENCY, GO TO THE NEAREST EMERGENCY ROOM Your discharge instructions were prepared by provider Jemal Betts. Patient Instructions Signature Page Shi Govea Patient (or Guardian) Signature/Date: I have read and understand the instructions given to me by my caregivers. Caregiver/RN/Doctor Signature/Date: The above-named patient and/or guardian has received patient instructions on this date. + Original Patient Signature Page (only) stays with chart. Please make copy for patient.
--- NOTE | 2017-07-28 14:54 | GI REPORT ---
Patient Name: Shi Govea Procedure Date: 07/28/2017 1:59 PM Date of : 1950 Admit Type: Outpatient Age: 66 Gender: Female Attending MD: Jemal Betts DO Procedure: Upper GI endoscopy Providers: Jemal Betts DO Referring MD: Renee Ge Indications: Dysphagia, Unexplained chest pain Medicines: Monitored Anesthesia Care Complications: No immediate complications. Estimated Blood Loss: Estimated blood loss: none. Procedure: Pre-Anesthesia Assessment: - Prior to the procedure, a History and Physical was performed, and patient medications and allergies were reviewed. The patient's tolerance of previous anesthesia was also reviewed. The risks and benefits of the procedure and the sedation options and risks were discussed with the patient. All questions were answered, and informed consent was obtained. Prior Anticoagulants: The patient has taken no previous anticoagulant or antiplatelet agents. ASA Grade Assessment: III - A patient with severe systemic disease. After reviewing the risks and benefits, the patient was deemed in satisfactory condition to undergo the procedure. After obtaining informed consent, the endoscope was passed under direct vision. Throughout the procedure, the patient's blood pressure, pulse, and oxygen saturations were monitored continuously. The scope was introduced through the mouth, and advanced to the second part of duodenum. The upper GI endoscopy was accomplished without difficulty. The patient tolerated the procedure well. Findings: A non-obstructing Schatzki ring (acquired) was found at the gastroesophageal junction. A TTS dilator was passed through the scope. Dilation with an 18-19-20 mm balloon dilator was performed to 20 mm. The dilation site was examined and showed no change. A large hiatal hernia was present. The examined duodenum was normal. Impression: - Non-obstructing Schatzki ring. Dilated. - Large hiatal hernia. - Normal examined duodenum. - No specimens collected. Recommendation: - Resume previous diet. - Continue present medications. - Return to primary care physician as previously scheduled. - Refer to a surgeon at appointment to be scheduled. Jemal Betts DO 07/28/2017 2:53:40 PM This report has been signed electronically. Note Initiated On: 07/28/2017 1:59 PM Number of Addenda: 0 I attest to the content of the Intraoperative Record and orders documented therein, exceptions below {[id number]}
[2017-07-28 15:16] VITALS: BP 129/73; PULSE 67; O2SAT 99
--- NOTE | 2017-07-28 15:36 | Anesthesiology Progress Note ---
Anesthesia Post Op Note Date & Time Jul 28, 2017 at 15:36 Vital Signs Pain Intensity: 0 Vital Signs Past 12 Hours Date Time Temp Pulse Resp B/P (MAP) Pulse Ox O2 Delivery O2 Flow Rate FiO2 07/28/17 15:16 67 18 129/73 (91) 99 Room Air 07/28/17 15:01 65 18 110/77 (88) 98 Room Air 07/28/17 14:46 67 16 107/58 (74) 96 Room Air 07/28/17 14:08 37.2 67 18 152/80 (104) 95 Room Air Notes Mental Status: alert / awake / arousable, participated in evaluation Pt Amnestic to Procedure: Yes Nausea / Vomiting: adequately controlled Pain: adequately controlled Airway Patency, RR, SpO2: stable & adequate BP & HR: stable & adequate Hydration State: stable & adequate Anesthetic Complications: no major complications apparent
== END | disposition home or self-care (01) ==
LOC: C.GI 13:18
PROVIDERS: ATTEND Internal Medicine
DX: R13.10 Dysphagia, unspecified (principal); K22.2 Esophageal obstruction; K21.9 Gastro-esophageal reflux disease without esophagitis; J44.9 Chronic obstructive pulmonary disease, unspecified; K44.9 Diaphragmatic hernia without obstruction or gangrene; I10 Essential (primary) hypertension; E78.5 Hyperlipidemia, unspecified; Z90.49 Acquired absence of other specified parts of digestive tract; Z90.710 Acquired absence of both cervix and uterus; Z96.641 Presence of right artificial hip joint; Z87.891 Personal history of nicotine dependence

== ENCOUNTER → 2017-08-03 | Outpatient (CLI) | payer OTHER ==
[~2017-08-03] MED LIST changes: -LIDOCAINE HCL 2% 2 ML VIAL (20MG/ML) ONE; -PROPOFOL IV EMULSION 10 MG/ML 20 ML VIAL IV ONE; -SODIUM CHLORIDE 0.9% 500ML 500 ML IV ONE
== END | disposition home or self-care (01) ==
LOC: C.LABBFT 15:13
PROVIDERS: ATTEND Internal Medicine
DX: E03.9 Hypothyroidism, unspecified (principal)

== ENCOUNTER 2017-08-26 12:24 | Emergency (ER) | payer OTHER ==
[~2017-08-26] VITALS: Ht 172.7 cm; Wt 92.0 kg
[~2017-08-26 12:24] MED LIST changes: +B-COTAB18 PO; +CYAN500T13 PO; -IPRASOL4 INH; +OMEP-334 PO; -PLMINS INH; -PRT40 PO; +PRVIN525 NEB
[2017-08-26 12:34] VITALS: Ht 172.7 cm; Wt 92.0 kg
[2017-08-26 13:33] LABS: BASO % 0.2 %; BASO ABS # 0.01 K/uL (0-0.2); EOS % 0.9 %; EOS ABS # 0.06 K/uL (0-0.5); HEMOGLOBIN 13.3 g/dL (12.0-16.0); IG# 0.01 K/uL (0.00-0.02); LYMPH % 17.8 %; LYMPH ABS # 1.14 K/uL (1.2-3.4); MEAN CELL VOLUME 88.6 fL (80-100); MEAN CORPUSCULAR HEMOGLOBIN 28.7 pg (25-34); MEAN CORPUSCULAR HGB CONC 32.4 g/dl (32-36); MEAN PLATELET VOLUME 9.3 fL (7.4-10.4); MONO % 5.9 %; MONO ABS # 0.38 K/uL (0.11-0.59); NEUT ABS # 4.81 K/uL (1.4-6.5); PLATELET COUNT 132 K/uL (130-400); RED CELL DISTRIBUTION WIDTH CV 13.6 % (11.5-14.5); WHITE BLOOD COUNT 6.41 K/uL (4.8-10.8)
[2017-08-26 13:41] LABS: PTT PATIENT 25.6 SECONDS (21.0-31.0)
[2017-08-26 13:53] LABS: ALBUMIN 3.6 gm/dl (3.4-5.0); CALCIUM 8.7 mg/dl (8.5-10.1); CREATININE 1.12 mg/dl (0.60-1.20); POTASSIUM 3.8 mmol/L (3.5-5.1); TOTAL PROTEIN 6.6 gm/dl (6.4-8.2)
--- NOTE | 2017-08-26 14:12 | DIAGNOSTIC IMAGING REPORT ---
ABDOMEN 2VIEW W/PA CHEST RTN CLINICAL HISTORY: 66 years-old Female presenting with eval for obstruction, abdominal pain, weakness. TECHNIQUE: PA view of the chest and supine and upright views of the abdomen were obtained. COMPARISON: Portable chest 05/2017. FINDINGS: Atherosclerosis of the aortic arch. Cardiac silhouette normal in size. No focal opacity. No large effusion or pneumothorax. White hernia suggested. Cholelithiasis. Nonobstructive bowel gas pattern. No gross pneumoperitoneum. The spleen shadow is mildly enlarged. Allowing for bowel gas and stool, no calcifications to suggest nephrolithiasis. Multiple pelvic phleboliths. Degenerative changes of the spine. Total right hip arthroplasty. IMPRESSION: 1. No acute cardiopulmonary disease. 2. No radiographic evidence of acute intra-abdominal pathology. 3. Cholelithiasis. 4. Possible splenomegaly though this could be affected by magnification due to technique. Electronically signed by: Rupesh Lees M.D. 08/26/2017 2:10 PM Dictated Date/Time: 08/26/2017 2:08 PM
--- NOTE | 2017-08-26 15:25 | DIAGNOSTIC IMAGING REPORT ---
ABDOMEN AND PELVIS CT WITHOUT CONTRAST CT DOSE: 749.21 mGy.cm HISTORY: Weakness. Generalized abdominal pain. eval for obstruction/divertic TECHNIQUE: Multiaxial CT images of the abdomen and pelvis were performed without contrast. A dose lowering technique was utilized adhering to the principles of ALARA. COMPARISON STUDY: Abdomen and pelvis CT 09/17/2016. FINDINGS: Small nodular density within the base of the lingula which measures 7 mm. This likely represents a small focus of atelectasis. Large hiatus hernia again noted. Punctate focus of gas within the bladder lumen. No pneumoperitoneum. No pneumatosis. Right hip prosthesis is noted. No acute fractures within the visualized osseous structures. Tiny fat-containing umbilical hernia. Cholelithiasis. The unenhanced liver demonstrates a stable 1.9 cm hypodense lesion within the right hepatic lobe. This favors a cyst. The spleen, adrenal glands, and pancreas are unremarkable. No renal or ureteral stones. No hydronephrosis. No retroperitoneal lymphadenopathy. Stable small linear calcification with in the mid abdominal aorta suggestive of a chronic dissection. The aorta is normal in caliber. Pelvic floor collapse. Hysterectomy. Suboptimal evaluation for bowel pathology due to the lack of intravenous and oral contrast. However, there is no definite bowel wall thickening or obstruction. The appendix is not identified and is likely surgically absent. Tiny fat-containing umbilical hernia. IMPRESSION: 1. No bowel wall thickening or obstruction. 2. No renal or ureteral calculi. No hydronephrosis. 3. Cholelithiasis. 4. Punctate focus of gas within the bladder. This is nonspecific but may be secondary to prior catheterization. 5. Large hiatus hernia, unchanged. 6. A 7 mm nodular density within the base of the lingula. This favors atelectasis. This was not present on the recent chest CT. 8. 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 Electronically signed by: Jorge Luis Manuel M.D. 08/26/2017 3:23 PM Dictated Date/Time: 08/26/2017 3:06 PM
[2017-08-26 15:47] VITALS: BP 126/69; PULSE 68; TEMP 37; O2SAT 91
--- NOTE | 2017-08-26 18:29 | EMERGENCY ROOM VISIT NOTE ---
History Report prepared by [place]: Deena Roy Under the Supervision of: Dr. Selvin Briones M.D. First contact with patient: 12:40 Chief Complaint: WEAKNESS Stated Complaint: WEAK,SICK History of Present Illness The patient is a 66 year old female who presents to the Emergency Room with complaints of weakness over the last two days. The patient states that she has been leaking stool since the end of July and that she is having a colonoscopy done in 5 days. She denies having black or bloody stool, and states that she has not had a full bowel movement since she has been leaking stool. She states that she has been very fatigued over the last 3 weeks, which worsened over the last 2 days. The patient states that she has not been eating that much and has lost weight. She reports having crampy abdominal pain but denies having chest pain and fevers. She also reports having some shortness of breath but states that she takes Albuterol as needed and that she has COPD. She reports that she does not wear oxygen at home. The patient also states that she is having surgery for a hiatal hernia. The patient states that she has not smoked in 13 years. Source of History: patient Onset: the last 2 days Position: other (generalized ) Quality: other (weakness) Associated Symptoms: + SOB, + abdominal pain (crampy), + fatigue, No fevers , No chest pain Note: additional symptom: leaking stool denies: black or bloody stool Review of Systems See HPI for pertinent positives & negatives. A total of 10 systems reviewed and were otherwise negative. Past Medical & Surgical Medical Problems: (1) Anxiety State Nos (2) Arthritis of right hip (3) COPD (chronic obstructive pulmonary disease) (4) Esophageal Reflux (5) Hiatal hernia (6) Migraine Unspecified W/O Intractable Migraine (7) Panic Disorder Without Agoraphobia Family History No significant family history Social History Smoking Status: Former Smoker Alcohol Use: occasionally Drug Use: none Marital Status: Housing Status: lives with family Occupation Status: retired Current/Historical Medications Scheduled Amlodipine Besylate (Amlodipine Besylate), 5 MG PO QAM Atorvastatin (Lipitor), 40 MG PO HS B-Complex Vitamins (Vitamin B Complex), 1 TAB PO QAM Citalopram Hydrobromide (Celexa), 30 MG PO HS Cyanocobalamin (Vitamin B12 500MCG), 500 MCG PO BID Lamotrigine (Lamictal), 200 MG PO BID Levothyroxine Sodium (Synthroid), 112 MCG PO QAM Metoclopramide HCl (Metoclopramide HCl), 10 MG PO AC Naratriptan Hcl (Amerge), 2.5 MG PO DIRECTED Omeprazole (Omeprazole Dr), 40 MG PO BID Topiramate (Topiramate), 75 MG PO BID Scheduled PRN Albuterol Sulf (Albuterol Sulfate), 1 DOSE NEB BID PRN for Shortness of Breath Diphenoxylate/Atropine (Lomotil), 1 TAB PO BID PRN for Diarrhea Lorazepam (Ativan), 0.5 MG PO BID PRN for Anxiety Ondansetron Hcl (Zofran), 4 MG PO Q6H PRN for Nausea Allergies Coded Allergies: Gabapentin (Verified Allergy, Unknown, BURNING OF FEET AND ANKLES, 08/26/17 ) Lisinopril (Verified Adverse Reaction, Intermediate, COUGH, 08/26/17) Physical Exam Vital Signs Date Time Temp Pulse Resp B/P (MAP) Pulse Ox O2 Delivery O2 Flow Rate FiO2 08/26/17 15:47 37.0 68 17 126/69 91 08/26/17 15:31 68 17 126/69 91 Room Air 08/26/17 14:01 67 131/78 95 Room Air 69 126/71 79 124/70 08/26/17 13:03 63 08/26/17 12:34 37.0 71 20 125/74 97 Room Air Physical Exam Constitutional: Vital signs reviewed. Eyes: Left eye shows post-surgical changes. Right pupil round and reactive. Conjunctiva are noninjected. ENT: Pharynx is clear without erythema or exudate. Mucous membranes are moist. Neck supple without meningeal signs. Respiratory: Clear to auscultation bilaterally. Breath sounds are equal bilaterally. Cardiovascular: Regular rate and rhythm. No rubs or gallops. GI: Soft, nondistended. Minimal suprapubic tenderness. Bowel sounds are present. Musculoskeletal: No peripheral edema. No lower extremity tenderness. Integumentary: No cyanosis. Neurological: The patient is awake and alert. Blind left eye and hearing impairment. Psychiatric: Normal affect. Medical Decision & Procedures ER Provider Diagnostic Interpretation: Radiology results as stated below per my review and the radiologist's interpretation: ABDOMEN 2VIEW W/PA CHEST RTN CLINICAL HISTORY: 66 years-old Female presenting with eval for obstruction, abdominal pain, weakness. TECHNIQUE: PA view of the chest and supine and upright views of the abdomen were obtained. COMPARISON: Portable chest 05/2017. FINDINGS: Atherosclerosis of the aortic arch. Cardiac silhouette normal in size. No focal opacity. No large effusion or pneumothorax. White hernia suggested. Cholelithiasis. Nonobstructive bowel gas pattern. No gross pneumoperitoneum. The spleen shadow is mildly enlarged. Allowing for bowel gas and stool, no calcifications to suggest nephrolithiasis. Multiple pelvic phleboliths. Degenerative changes of the spine. Total right hip arthroplasty. IMPRESSION: 1. No acute cardiopulmonary disease. 2. No radiographic evidence of acute intra-abdominal pathology. 3. Cholelithiasis. 4. Possible splenomegaly though this could be affected by magnification due to technique. Electronically signed by: Rupesh Lees M.D. 08/26/2017 2:10 PM Dictated Date/Time: 08/26/2017 2:08 PM ABDOMEN AND PELVIS CT WITHOUT CONTRAST CT DOSE: 749.21 mGy.cm HISTORY: Weakness. Generalized abdominal pain. eval for obstruction/divertic TECHNIQUE: Multiaxial CT images of the abdomen and pelvis were performed without contrast. A dose lowering technique was utilized adhering to the principles of ALARA. COMPARISON STUDY: Abdomen and pelvis CT 09/17/2016. FINDINGS: Small nodular density within the base of the lingula which measures 7 mm. This likely represents a small focus of atelectasis. Large hiatus hernia again noted. Punctate focus of gas within the bladder lumen. No pneumoperitoneum. No pneumatosis. Right hip prosthesis is noted. No acute fractures within the visualized osseous structures. Tiny fat-containing umbilical hernia. Cholelithiasis. The unenhanced liver demonstrates a stable 1.9 cm hypodense lesion within the right hepatic lobe. This favors a cyst. The spleen, adrenal glands, and pancreas are unremarkable. No renal or ureteral stones. No hydronephrosis. No retroperitoneal lymphadenopathy. Stable small linear calcification with in the mid abdominal aorta suggestive of a chronic dissection. The aorta is normal in caliber. Pelvic floor collapse. Hysterectomy. Suboptimal evaluation for bowel pathology due to the lack of intravenous and oral contrast. However, there is no definite bowel wall thickening or obstruction. The appendix is not identified and is likely surgically absent. Tiny fat-containing umbilical hernia. IMPRESSION: 1. No bowel wall thickening or obstruction. 2. No renal or ureteral calculi. No hydronephrosis. 3. Cholelithiasis. 4. Punctate focus of gas within the bladder. This is nonspecific but may be secondary to prior catheterization. 5. Large hiatus hernia, unchanged. 6. A 7 mm nodular density within the base of the lingula. This favors atelectasis. This was not present on the recent chest CT. 8. 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 Electronically signed by: Jorge Luis Manuel M.D. 08/26/2017 3:23 PM Dictated Date/Time: 08/26/2017 3:06 PM Laboratory Results 08/26/17 13:15 Red Blood Count 4.63, Mean Corpuscular Volume 88.6, Mean Corpuscular Hemoglobin 28.7, Mean Corpuscular Hemoglobin Concent 32.4, Mean Platelet Volume 9.3, Neutrophils (%) (Auto) 75.0, Lymphocytes (%) (Auto) 17.8, Monocytes (%) (Auto) 5.9, Eosinophils (%) (Auto) 0.9, Basophils (%) (Auto) 0.2, Neutrophils # (Auto) 4.81, Lymphocytes # (Auto) 1.14, Monocytes # (Auto) 0.38, Eosinophils # (Auto) 0.06, Basophils # (Auto) 0.01 08/26/17 13:15 Test 08/26/17 13:15 08/26/17 13:26 White Blood Count 6.41 K/uL (4.8-10.8) Red Blood Count 4.63 M/uL (4.2-5.4) Hemoglobin 13.3 g/dL (12.0-16.0) Hematocrit 41.0 % (37-47) Mean Corpuscular Volume 88.6 fL (80-100) Mean Corpuscular Hemoglobin 28.7 pg (25-34) Mean Corpuscular Hemoglobin Concent 32.4 g/dl (32-36) Platelet Count 132 K/uL (130-400) Mean Platelet Volume 9.3 fL (7.4-10.4) Neutrophils (%) (Auto) 75.0 % Lymphocytes (%) (Auto) 17.8 % Monocytes (%) (Auto) 5.9 % Eosinophils (%) (Auto) 0.9 % Basophils (%) (Auto) 0.2 % Neutrophils # (Auto) 4.81 K/uL (1.4-6.5) Lymphocytes # (Auto) 1.14 K/uL (1.2-3.4) Monocytes # (Auto) 0.38 K/uL (0.11-0.59) Eosinophils # (Auto) 0.06 K/uL (0-0.5) Basophils # (Auto) 0.01 K/uL (0-0.2) RDW Standard Deviation 44.0 fL (36.4-46.3) RDW Coefficient of Variation 13.6 % (11.5-14.5) Immature Granulocyte % (Auto) 0.2 % Immature Granulocyte # (Auto) 0.01 K/uL (0.00-0.02) Prothrombin Time 10.4 SECONDS (9.0-12.0) Prothromb Time International Ratio 1.0 (0.9-1.1) Activated Partial Thromboplast Time 25.6 SECONDS (21.0-31.0) Partial Thromboplastin Ratio 1.0 Urine Color YELLOW Urine Appearance CLEAR (CLEAR) Urine pH 7.5 (4.5-7.5) Urine Specific [place] 1.011 (1.000-1.030) Urine Protein NEG (NEG) Urine Glucose (UA) NEG (NEG) Urine Ketones NEG (NEG) Urine Occult Blood NEG (NEG) Urine Nitrite NEG (NEG) Urine Bilirubin NEG (NEG) Urine Urobilinogen NEG (NEG) Urine Leukocyte Esterase NEG (NEG) Anion Gap 6.0 mmol/L (3-11) Est Creatinine Clear Calc Drug Dose 57.0 ml/min Estimated GFR () 58.5 Estimated GFR (Non- 50.4 BUN/Creatinine Ratio 12.7 (10-20) Calcium Level 8.7 mg/dl (8.5-10.1) Magnesium Level 2.2 mg/dl (1.8-2.4) Total Bilirubin 0.4 mg/dl (0.2-1) Direct Bilirubin 0.1 mg/dl (0-0.2) Aspartate Amino Transf (AST/SGOT) 13 U/L (15-37) Alanine Aminotransferase (ALT/SGPT) 19 U/L (12-78) Alkaline Phosphatase 98 U/L (45-117) Total Protein 6.6 gm/dl (6.4-8.2) Albumin 3.6 gm/dl (3.4-5.0) Bedside Troponin I < 0.030 ng/ml (0-0.045) Laboratory results as reviewed by me. ECG Per My Interpretation Indication: weakness Rate (beats per minute): 63 Rhythm: normal sinus Findings: other (no ST elevation, no PVCs) ED Course 1243: The patient was evaluated in room B11B. A complete history and physical exam was performed. 1308: I checked on the patient. 1420: I spoke to the patient about her test results. I recommended a rectal examination for ruling out disimpaction. I brought the nurse Terence in and we had a discussion with the patient. She refused the procedure because she is too embarrassed that she may have stool all over the bed. We tried to reassure her but she refused the rectal exam. She is still having pain in her abdomen. I offered a CT scan to rule out diverticulitis. She understands the risks of ionizing radiation and would have rather have a CT than a diagnostic rectal exam at this time. 1530: Upon reevaluation, the patient appeared to have improvement of her symptoms. I discussed carlitos's findings with her. She verbalized agreement of the treatment plan. She was discharged home. Medical Decision This is a 66-year-old female presents with lower abdominal pain and generalized weakness. Differential diagnosis includes partial bowel obstruction, mass, diverticulitis, food intolerance, UTI, metabolic derangement, pneumonia, cardiac. I did perform a limited focused review of portions of the patient's old chart on the electronic medical record. The patient had an EGD done on July 28 and had a nonobstructive Schatzki ring which was dilated. She was admitted on July 04 for a COPD exacerbation and bronchitis. I did evaluate the patient as noted above. The patient is presenting with generalized fatigue and weakness. She states that she has been sleeping a lot and does not have energy but she also states that she has not been eating very much. She has been having issues with anal leakage and is scheduled for a colonoscopy in 5 days. She does complain of some lower abdominal pain. IV access was established. The patient was placed on a continuous teletypesetter monitor. I did order and personally review the patient's 12-lead EKG and abdominal/chest x-ray as described above. Her x-ray does not show any signs of obstruction. I did order and review the patient's blood work as noted in the electronic medical record. She is not anemic. Electrolytes are unremarkable. Troponin is negative. I did wish to perform a rectal examination to evaluate for fecal impaction. She did not wish to have this done. After discussion, I did order a CT of the abdomen and pelvis. I did review the images myself as well as the radiology report as described above. There is no evidence of fecal impaction, obstruction or diverticulitis. I did discuss the test results with the patient. She was advised to follow-up closely with her doctor to continue with her colonoscopy. She was discharged in good condition and given return instructions as outlined below. Medication Reconcilliation Current Medication List: was personally reviewed by me Blood Pressure Screening Patient's blood pressure: Normal blood pressure Impression Primary Impression: Lower abdominal pain Additional Impression: Generalized weakness Scribe Attestation The scribe's documentation has been prepared under my direct and personally reviewed by me in its entirety. I confirm that the note above accurately reflects all work, treatment, procedures, and medical decision making performed by me. Departure Information Dispostion Home / Self-Care Referrals Geovanni Riggs M.D. (PCP) Forms HOME CARE DOCUMENTATION FORM, IMPORTANT VISIT INFORMATION Patient Instructions ED Abdominal Pain Unkn Cause, ED Weakness [facility], My [facility] Additional Instructions You have been examined and treated today on an emergency basis only. This is not a substitute for, or an effort to provide, complete comprehensive medical care. It is impossible to recognize and treat all injuries or illnesses in a single emergency department visit. It is therefore important that you follow up closely with your physician. Call as soon as possible for an appointment. Return for worsening symptoms or if you develop fever, vomiting, rectal bleeding , chest pain or any other concerning symptoms. Problem Qualifiers
== END 2017-08-26 15:48 | disposition home or self-care (01) ==
LOC: C.EDB 12:25
DX: R10.30 Lower abdominal pain, unspecified (principal); R53.1 Weakness; F41.9 Anxiety disorder, unspecified; J44.9 Chronic obstructive pulmonary disease, unspecified; K21.9 Gastro-esophageal reflux disease without esophagitis; Z87.891 Personal history of nicotine dependence; Z88.8 Allergy status to other drugs, medicaments and biological substances

== ENCOUNTER → 2017-10-20 | Outpatient (CLI) | payer OTHER ==
[~2017-10-20] MED LIST changes: +ACET-1047 PO; -CLBPO15 TOP; -RGL10 PO
--- NOTE | 2017-10-20 08:57 | DIAGNOSTIC IMAGING REPORT ---
CHEST 2 VIEWS ROUTINE CLINICAL HISTORY: GERD without esophagitis. Dysphagia. COMPARISON STUDY: Chest CT September 20, 2017 and chest radiograph September 23, 2017. FINDINGS: Bilateral pleural effusions shown on exam of September 23, 2017 have resolved. There is no pneumothorax or evidence for pulmonary edema. Cardiac size is normal. Lateral view demonstrates possible hazy opacity posterior to the heart and anterior to the thoracic spine. IMPRESSION: 1. Interval resolution of bilateral pleural effusions. No pneumothorax. 2. Possible hazy opacity anterior to the thoracic spine shown on the lateral projection. This may reflect artifact, airspace opacity or mediastinal abnormality. Electronically signed by: Yossi Chao M.D. 10/20/2017 8:55 AM Dictated Date/Time: 10/20/2017 8:45 AM
== END | disposition home or self-care (01) ==
LOC: C.RAD 08:24
PROVIDERS: ATTEND Physician Assistant
DX: K21.9 Gastro-esophageal reflux disease without esophagitis (principal); R13.10 Dysphagia, unspecified

== ENCOUNTER → 2017-11-18 | Outpatient (CLI) | payer OTHER | END | disposition home or self-care (01) | LOC: C.LABBFT 08:13 | PROVIDERS: ATTEND Registered Nurse | DX: R19.7 Diarrhea, unspecified (principal) ==

== ENCOUNTER 2022-03-17 13:40 | Observation (INO) ==
--- NOTE | 2022-03-17 14:38 | Emergency Department Note ---
History of Present Illness General Chief complaint: Fall Stated complaint: FALL, NECK & HEAD PAIN, L HAND ABRASION Time Seen by Provider: 03/17/22 14:08 History of Present Illness This is a 71-year-old female that presents to the emergency department via EMS with complaints of "fall, head/neck pain, left hand abrasion". The patient notes that earlier today just prior to arrival she was at [facility]. She was gett ing out of the car and then as she went to step around the car and walk towards the store and she felt like she was "staggering" as if she was "drunk". Patient denies being intoxicated or drinking alcohol. Patient states that she was not necessarily dizzy but is not entirely sure why she fell. She had trouble walking in a straight line. She notes that she fell at the entrance to the store striking the wall. She notes pain to the front of her head, neck, left shoulder, left hip, left hand. Patient notes all of her discomfort is pretty much on the left-hand side. Patient denies any speech trouble or weakness. Patient notes recent UTI but notes she has finished appropriate antibiotic th erapy without issue. Home Medications Medication Instructions Recorded Confirmed Type bromfenac 0.09 % eye drops 1 drp OPR UD PRN Eye Irritation 12/20/19 03/17/22 History mupirocin 2 % topical ointment 1 applic topical BID PRN nasal sore 07/18/20 03/17/22 History ondansetron 4 mg disintegrating 4 mg PO Q6H PRN Nausea #30 tabs 12/15/20 03/17/22 Rx tablet ipratropium 0.5 mg-albuterol 3 mg 3 ml inhalation Q6H PRN Shortness 03/30/21 03/17/22 Rx (2.5 mg base)/3 mL nebulization Of Breath Or Wheezing #360 mL soln atorvastatin 40 mg tablet 40 mg PO HS #90 tabs 05/04/21 03/17/22 Rx diaper,brief,adult,disposable #180 ea 06/10/21 03/04/22 Rx omeprazole 40 mg capsule,delayed 40 mg PO DAILY #90 caps 07/06/21 03/17/22 Rx release Wheeled Walker #1 ea 07/23/21 03/04/22 Rx levothyroxine 112 mcg tablet 112 mcg PO QAM #90 tabs 08/12/21 03/17/22 Rx lorazepam 0.5 mg tablet 0.5 mg PO DAILY PRN Anxiety #30 10/09/21 03/17/22 Rx tabs linaclotide 145 mcg capsule 145 mcg PO DAILY #30 caps 10/26/21 03/17/22 Rx (Linzess) lamotrigine 200 mg tablet 200 mg PO BID 90 days #180 tabs 11/04/21 03/17/22 Rx aripiprazole 2 mg tablet 2 mg PO DAILY 11/26/21 03/17/22 History losartan 25 mg tablet 25 mg PO DAILY #90 tabs 12/15/21 03/17/22 Rx metoprolol succinate 25 mg 25 mg PO DAILY #30 tabs 12/15/21 03/17/22 Rx tablet,extended release 24 hr erenumab-aooe 140 mg/mL 140 mg subcut MONTHLY 30 days #1 mL 12/17/21 03/17/22 Rx subcutaneous auto-injector (Aimovig Autoinjector) [id number] 2 tab PO Q6H PRN pain #12 tabs 01/26/22 03/17/22 Rx 50 mg-325 mg-40 mg tablet citalopram 20 mg tablet 20 mg PO HS #90 tabs 02/10/22 03/17/22 Rx citalopram 10 mg tablet 10 mg PO HS 03/17/22 03/17/22 History rimegepant 75 mg disintegrating 75 mg PO PRN PRN Migraine Headache 03/17/22 03/17/22 History tablet (Nurtec ODT) Allergies Allergy/AdvReac Type Severity Reaction Status Date / Time sumatriptan [From Imitrex] Allergy Severe itching Verified 03/17/22 17:48 gabapentin Allergy Intermediate BURNING OF Verified 03/17/22 17:48 FEET AND ANKLES lisinopril AdvReac Intermediate COUGH Verified 03/17/22 17:48 Past Med/Surg History Medical History Arthritis of right hip Blindness of left eye CKD (chronic kidney disease) stage 3, GFR 30-59 ml/min Common migraine without aura Complex partial seizure "mini seizure" last was 02/08/19--"stand and stare, can hear people talking but I can't respond", never had a grand mal--follows with Dr. Kinsey Betts--on lamictal (Pt stable per 03/2019 neuro note) COPD (chronic obstructive pulmonary disease) nebulizer prn Deafness in right ear Difficulty swallowing Esophageal dysphagia GERD (gastroesophageal reflux disease) Hiatal hernia History of esophageal dilatation Hypercholesteremia Hypertension (Unknown) Hypothyroidism Memory loss ? had for awhile Neuropathy Osteoarthritis Paranoia Schatzki's ring Sleep apnea cpap Tremor Urinary incontinence Vertigo Surgical History History of appendectomy History of bilateral cataract extraction History of bilateral tubal ligation History of bladder suspension procedure History of bunionectomy of left great toe History of bunionectomy of right great toe History of colonoscopy (~08/31/17) repeat in 5 years History of dilatation and curettage History of esophagogastroduodenoscopy (EGD) (~09/03/19) History of intraocular lens implant right eye History of left breast biopsy benign History of repair of hiatal hernia History of total hysterectomy with bilateral salpingo-oophorectomy (BSO) History of total replacement of right hip Status post laparoscopic Bridgette fundoplication (~09/14/17) Family History Father Myocardial infarction Sister Multiple sclerosis Mother Stroke Other No family history of adverse response to anesthesia Denies family history of Ovarian cancer Prostate cancer Breast cancer Colorectal cancer Social History Smoking Status: Former smoker Tobacco Type: Cigarettes Age Started Using Tobacco: 30; Age Quit Using Tobacco: 55; packs per day: 1.5; Cigarettes Per Day: 1 Pack A Day; Second Hand Exposure: No; Hx Alcohol Use: No Hx Substance Use: No Preferred Language: Stateless Communication Ability: Effective Visual Impairment: No Limitations Hearing Ability: Use of Hearing Aid Building Certifier Required: No Beliefs That Will Affect Care: None marital status: Current Living Situation: Spouse current occupational status: retired Feels Safe at Home: Yes Dental Care, Regularly: No Physical Activity Frequency: Does not Exercise Seatbelt Use: always Assistive Devices: Cane, CPAP, Denture - Upper, Glasses, Hearing Aid - Bilateral and Nebulizer Review of Systems A total of 10 systems reviewed and were otherwise negative Physical Exam Vital Signs Vital Signs - 24 hr 03/17/22 13:45 03/17/22 15:04 03/17/22 15:10 Temperature 36.2 C L Temperature Source Temporal Artery Scan Pulse Rate 63 56 L 58 L Pulse Rate from SpO2 Sensor 57 L 57 L Pulse Rhythm Regular Pulse Strength Normal Respiratory Rate 20 14 21 Respiratory Effort / Characteristics Non-Labored Spontaneous Respiratory Depth Normal Respiratory Pattern Regular Blood Pressure 142/89 H Blood Pressure Mean 106 Blood Pressure Position Sitting Pulse Oximetry 100 98 98 Oxygen Delivery Method Room Air Room Air Room Air Sepsis Recent Fever Within 48 Hours No Sepsis New/Unexplained Change in Mental Status No Sepsis Action Taken by Nursing No Action Required 03/17/22 15:20 03/17/22 15:30 03/17/22 15:40 Temperature Temperature Source Pulse Rate 58 L 58 L 57 L Pulse Rate from SpO2 Sensor 58 L 57 L 57 L Pulse Rhythm Pulse Strength Respiratory Rate 15 16 17 Respiratory Effort / Characteristics Respiratory Depth Respiratory Pattern Blood Pressure 163/86 H Blood Pressure Mean 111 Blood Pressure Position Pulse Oximetry 98 98 98 Oxygen Delivery Method Room Air Room Air Room Air Sepsis Recent Fever Within 48 Hours Sepsis New/Unexplained Change in Mental Status Sepsis Action Taken by Nursing 03/17/22 15:50 03/17/22 16:00 03/17/22 16:10 Temperature Temperature Source Pulse Rate 52 L 54 L 54 L Pulse Rate from SpO2 Sensor Pulse Rhythm Pulse Strength Respiratory Rate 13 19 Respiratory Effort / Characteristics Respiratory Depth Respiratory Pattern Blood Pressure Blood Pressure Mean Blood Pressure Position Pulse Oximetry Oxygen Delivery Method Sepsis Recent Fever Within 48 Hours Sepsis New/Unexplained Change in Mental Status Sepsis Action Taken by Nursing 03/17/22 16:20 Temperature Temperature Source Pulse Rate 55 L Pulse Rate from SpO2 Sensor Pulse Rhythm Pulse Strength Respiratory Rate 13 Respiratory Effort / Characteristics Respiratory Depth Respiratory Pattern Blood Pressure Blood Pressure Mean Blood Pressure Position Pulse Oximetry Oxygen Delivery Method Sepsis Recent Fever Within 48 Hours Sepsis New/Unexplained Change in Mental Status Sepsis Action Taken by Nursing VITAL SIGNS - Vital signs and nursing notes were reviewed. Stable and afebrile. GENERAL -71-year-old female appearing her stated age who is in no acute distress. Communicates well with provider and answers questions appropriately. SKIN -small contusion to the forehead as well as abrasions to the left hand without evidence of repairable laceration. Small bandage overlying finger. 2 rings are present on the left hand HEAD - No Alvarez's Sign or Raccoon's Eyes. No depressed skull fractures palpable. EYES - PERRL with EOMI bilaterally. Without subconjunctival hemorrhage. Palpebral conjunctiva pink and moist with no injection. EARS - No deformities of external structures noted on gross examination bilaterally. No hemotympanum present. No tympanic perforation noted. Handle of malleus, umbo, cone of light, pars tensa/flaccid all easily visualized. NOSE - Midline and without cyanosis. No epistaxis or clear watery discharge noted. Septum midline without deviation. No septal hematoma noted. No overlying ecchymosis noted. MOUTH/OROPHARYNX - Without perioral cyanosis. Tongue midline with equal elevation of palate bilaterally. No blood noted in the oropharynx. No tonsillar hypertrophy, erythema, or exudates noted. No dental fractures noted. NECK - No tenderness to palpation over the cervical spinous processes. Mild cervical paraspinal muscle tenderness noted. LUNGS - Chest wall symmetric without accessory muscle use, intercostals retractions, or central cyanosis. No flail chest or depressed fractures noted. Normal vesicular breath sounds CTA B/L. No wheezes, rales, or rhonchi appreciated. CARDIAC - RRR with S1/S2. No murmur, rubs, or gallops appreciated. EXTREMITIES - No gross deformities noted of the extremities. Left lateral shoulder tenderness to palpation, mild tenderness to the left lateral hip. +5/5 strength noted in UE/LE bilaterally. NEUROLOGIC - Cranial nerves II through XII grossly intact. PSYCH - A&O, and cooperates fully with examiner. Pt is very pleasant and interacts well with examiner. Course Administered Medications Acetaminophen (Acetaminophen 325 Mg Tab) 650 mg PO Q6 GEORGINA Stop: 04/16/22 21:29 Last Admin: 03/18/22 05:52 Dose: 650 mg Documented By: Admin: 03/17/22 23:27 Dose: 650 mg Documented By: TMD Aripiprazole (Aripiprazole 1 Mg/Ml Oral Soln 150 Ml Btl) 2 mg PO DAILY GEORGINA Stop: 04/17/22 08:59 Last Admin: 03/18/22 08:06 Dose: 2 mg Documented By: BT Atorvastatin Calcium (Atorvastatin 40 Mg Tab) 40 mg PO HS GEORGINA Stop: 04/16/22 21:17 Last Admin: 03/17/22 23:25 Dose: 40 mg Documented By: TMD Citalopram Hydrobromide (Citalopram 20 Mg Tab) 30 mg PO HS [facility] Stop: 04/16/22 22:59 Last Admin: 03/18/22 00:44 Dose: 30 mg Documented By: TMD Lamotrigine (Lamotrigine 100 Mg Tab) 200 mg PO BID GEORGINA Stop: 04/16/22 21:17 Last Admin: 03/18/22 08:06 Dose: 200 mg Documented By: Admin: 03/17/22 23:26 Dose: 200 mg Documented By: TMD Levothyroxine Sodium (Levothyroxine Sodium 112 Mcg Tablet) 112 mcg PO DAILYBB [facility] Stop: 04/17/22 06:29 Last Admin: 03/18/22 05:53 Dose: 112 mcg Documented By: TMD Lidocaine (Lidocaine 5% 1 Patch) 1 patch TD HS [facility] Stop: 04/16/22 21:29 Last Admin: 03/18/22 00:06 Dose: Not Given Documented By: TMD Linaclotide (Linaclotide 145 Mcg Capsule) 145 mcg PO DAILY GEORGINA Stop: 04/17/22 08:59 Last Admin: 03/18/22 08:06 Dose: 145 mcg Documented By: BT Losartan Potassium (Losartan Potassium 25 Mg Tab) 25 mg PO DAILY [facility] Stop: 04/17/22 08:59 Last Admin: 03/18/22 08:06 Dose: 25 mg Documented By: BT Metoprolol Succinate (Metoprolol Succ 25mg Ext Rel Tab) 25 mg PO DAILY GEORGINA Stop: 04/17/22 08:59 Last Admin: 03/18/22 08:06 Dose: 25 mg Documented By: NHI Miscellaneous (Remove Lidoderm Patch) 1 each N/A QAM GEORGINA Stop: 04/17/22 08:59 Last Admin: 03/18/22 08:07 Dose: 1 each Documented By: NHI Miscellaneous (Nurtec~Order Awaiting Action) 1 each N/A QS [facility] Stop: 04/17/22 00:00 Last Admin: 03/18/22 08:07 Dose: Not Given Documented By: Admin: 03/18/22 00:44 Dose: Not Given Documented By: TMD Pantoprazole Sodium (Pantoprazole 40 Mg Tab) 40 mg PO DAILY GEORGINA Stop: 04/17/22 08:59 Last Admin: 03/18/22 08:06 Dose: 40 mg Documented By: BT Discontinued Medications Acetaminophen (Acetaminophen 500 Mg Tab) 500 mg PO NOW STA Stop: 03/17/22 16:19 Last Admin: 03/17/22 16:38 Dose: 500 mg Documented By: [id number] Fentanyl Citrate (Fentanyl Citrate 100 Mcg/2 Ml Vial) 25 mcg IV NOW STA Stop: 03/17/22 15:05 Last Admin: 03/17/22 15:16 Dose: 25 mcg Documented By: [id number] Fentanyl Citrate (Fentanyl Citrate 100 Mcg/2 Ml Vial) 25 mcg IV NOW ONE Stop: 03/17/22 16:19 Last Admin: 03/17/22 16:39 Dose: 25 mcg Documented By: [id number] Ibuprofen (Ibuprofen 600 Mg Tab) 600 mg PO NOW STA Stop: 03/18/22 01:16 Last Admin: 03/18/22 02:35 Dose: 600 mg Documented By: LALO Lidocaine (Lidocaine 5% 1 Patch) 1 patch TD ONE STA Stop: 03/17/22 20:18 Last Admin: 03/17/22 23:22 Dose: 1 patch Documented By: LALO Medical Decision Making Laboratory Data Result diagrams: 03/18/22 09:15 03/18/22 09:15 Lab Results 03/17/22 03/17/22 03/17/22 Range/Units 14:58 14:58 15:02 WBC 9.06 (4.8-10.8) K/ul RBC 4.93 (3.93-5.22) M/uL Hgb 14.3 (12.0-16.0) g/dl Hct 44.4 (34.1-44.9) % MCV 90.1 (80.0-100.0) fL MCH 29.0 (25.0-34.0) pg MCHC 32.2 (32.0-36.0) g/dL RDW Std Deviation 46.2 (36.4-46.3) fL RDW Coeff of Taisha 14.0 (11.5-14.5) % Plt Count 218 (130-400) K/uL MPV 9.7 (9.4-12.3) fL Immature Gran % (Auto) 0.9 % Neut % (Auto) 73.5 % Lymph % (Auto) 15.0 % [place] % (Auto) 8.5 % Eos % (Auto) 1.7 % Baso % (Auto) 0.4 % Neut # (Auto) 6.66 H (1.4-6.5) K/uL Lymph # (Auto) 1.36 (1.2-3.4) K/uL [place] # (Auto) 0.77 (0.24-0.82) K/uL Eos # (Auto) 0.15 (0-0.50) K/uL Baso # (Auto) 0.04 (0-0.2) K/uL Immature Gran # (Auto) 0.08 H (0.00-0.02) K/uL Sodium (136-145) mmol/L Potassium (3.5-5.1) mmol/L Chloride (98-107) mmol/L Carbon Dioxide (21-32) mmol/L Anion Gap (3-11) BUN (6-23) mg/dl Creatinine (0.6-1.2) mg/dl Est Cr Clr Drug Dosing Est GFR ( Amer) ml/min Est GFR (Non-Af Amer) ml/min BUN/Creatinine Ratio (10-20) Glucose (70-99(Fasting)) mg/dl Calcium (8.5-10.1) mg/dl Total Bilirubin (0.2-1.0) mg/dl AST (13-39) U/L ALT (7-52) U/L Alkaline Phosphatase (34-104) U/L Troponin I High Sens (0-14) pg/ml Total Protein (6.0-8.3) gm/dl Albumin (3.4-5.0) gm/dl Globulin (2.5-4.0) gm/dl Albumin/Globulin Ratio (0.9-2) Urine Color Yellow Urine Appearance Clear (Clear) Urine pH 7.5 (4.5-7.5) Ur Specific [place] 1.008 (1.000-1.030) Urine Protein Negative (Negative) Urine Glucose (UA) Negative (Negative) Urine Ketones Negative (Negative) Urine Blood Negative (Negative) Urine Nitrite Negative (Negative) Urine Bilirubin Negative (Negative) Urine Urobilinogen Negative (Negative) Ur Leukocyte Esterase Negative (Negative) Urine Opiates Screen Neg (Neg) Ur Methadone, Qual Neg (Neg) Urine Barbiturates Pos H (Neg) Ur Phencyclidine (PCP) Neg (Neg) U Amphetamin/Meth Scrn Neg (Neg) MDMA (Ecstasy) Screen Neg (Neg) U Benzodiazepines Scrn Neg (Neg) Ur Cocaine Metabolite Neg (Neg) U Marijuana (THC) Screen Neg (Neg) SARS-CoV-2, RNA, NAAT (NEGATIVE) 03/17/22 03/17/22 Range/Units 15:02 17:50 WBC (4.8-10.8) K/ul RBC (3.93-5.22) M/uL Hgb (12.0-16.0) g/dl Hct (34.1-44.9) % MCV (80.0-100.0) fL MCH (25.0-34.0) pg MCHC (32.0-36.0) g/dL RDW Std Deviation (36.4-46.3) fL RDW Coeff of Taisha (11.5-14.5) % Plt Count (130-400) K/uL MPV (9.4-12.3) fL Immature Gran % (Auto) % Neut % (Auto) % Lymph % (Auto) % [place] % (Auto) % Eos % (Auto) % Baso % (Auto) % Neut # (Auto) (1.4-6.5) K/uL Lymph # (Auto) (1.2-3.4) K/uL [place] # (Auto) (0.24-0.82) K/uL Eos # (Auto) (0-0.50) K/uL Baso # (Auto) (0-0.2) K/uL Immature Gran # (Auto) (0.00-0.02) K/uL Sodium 141 (136-145) mmol/L Potassium 4.2 (3.5-5.1) mmol/L Chloride 106 (98-107) mmol/L Carbon Dioxide 26 (21-32) mmol/L Anion Gap 9 (3-11) BUN 17 (6-23) mg/dl Creatinine 1.16 (0.6-1.2) mg/dl Est Cr Clr Drug Dosing Not Reportable Est GFR ( Amer) 54.1 ml/min Est GFR (Non-Af Amer) 46.7 ml/min BUN/Creatinine Ratio 14.7 (10-20) Glucose 93 (70-99(Fasting)) mg/dl Calcium 8.9 (8.5-10.1) mg/dl Total Bilirubin 0.7 (0.2-1.0) mg/dl AST 15 (13-39) U/L ALT 13 (7-52) U/L Alkaline Phosphatase 114 H (34-104) U/L Troponin I High Sens 7.3 (0-14) pg/ml Total Protein 7.1 (6.0-8.3) gm/dl Albumin 4.2 (3.4-5.0) gm/dl Globulin 2.9 (2.5-4.0) gm/dl Albumin/Globulin Ratio 1.4 (0.9-2) Urine Color Urine Appearance (Clear) Urine pH (4.5-7.5) Ur Specific [place] (1.000-1.030) Urine Protein (Negative) Urine Glucose (UA) (Negative) Urine Ketones (Negative) Urine Blood (Negative) Urine Nitrite (Negative) Urine Bilirubin (Negative) Urine Urobilinogen (Negative) Ur Leukocyte Esterase (Negative) Urine Opiates Screen (Neg) Ur Methadone, Qual (Neg) Urine Barbiturates (Neg) Ur Phencyclidine (PCP) (Neg) U Amphetamin/Meth Scrn (Neg) MDMA (Ecstasy) Screen (Neg) U Benzodiazepines Scrn (Neg) Ur Cocaine Metabolite (Neg) U Marijuana (THC) Screen (Neg) SARS-CoV-2, RNA, NAAT NEGATIVE (NEGATIVE) Imaging Data Radiologist's Impression: Cervical Spine CT 03/17/22 14:21 CT cervical spine wo con CT DOSE: 1001.85 mGy.cm CLINICAL HISTORY: 71 years-old Female with fall. Acute neck pain status post fall COMPARISON: Head CT of same day, CTA neck 03/08/2022 TECHNIQUE: Multiple axial CT images of the cervical spine were obtained without contrast. A dose lowering technique was utilized adhering to the principles of ALARA. FINDINGS: Demineralized appearance of the bones. Mild to moderate multilevel intervertebral disc space narrowing and spondylitic spurring with severe facet arthrosis. Severe degeneration at C1-C2 articulation. Multilevel neural foraminal narrowing. 1.7 x 1.4 x 4.0 cm lipoma is noted within the left longus colli muscle. Atherosclerosis of the carotid bulbs. No prevertebral edema. The visualized lung apices appear clear. IMPRESSION: No acute cervical spine fracture or subluxation identified. ACT 112: Negative or not required by law. The above report was generated using voice recognition software. It may contain grammatical, syntax or spelling errors. Electronically signed by: Rohan Ramey M.D. 03/17/2022 3:06 PM Chest X-Ray 03/17/22 14:21 XR chest 1V portable HISTORY: fall COMPARISON: Chest 03/07/2022. FINDINGS: No pneumothorax. No pleural effusions. The cardiac silhouette remains mildly enlarged. There are calcifications within the aortic knob. No acute fractures identified. No focal lung consolidations to suggest a pneumonia. No evidence for pulmonary edema. IMPRESSION: No significant change compared to the prior study. No acute process. ACT 112: Negative or not required by law. Electronically signed by: Jorge Luis Manuel M.D. 03/17/2022 3:[address] 03/17/22 14:21 CT OF THE HEAD WITHOUT CONTRAST CLINICAL HISTORY: Fall. COMPARISON STUDY: Head CT March 08, 2022. TECHNIQUE: Helical axial images of the head were obtained without IV contrast. Automated exposure control was utilized for the study. A dose lowering technique was utilized adhering to the principles of ALARA. FINDINGS: No acute intracranial hemorrhage, midline shift or mass effect is present. The ventricular system is unremarkable. The basal cisterns are patent. No extra-axial collections are present. There are no findings to suggest acute dural sinus thrombosis or acute territorial infarct. Frontal scalp contusion is present. There is no acute calvarial fracture. Left posterior ethmoid air cell is opacified. This is unchanged. IMPRESSION: 1. No acute intracranial findings. 2. Frontal scalp contusion. No acute calvarial fracture. ACT 112: Negative or not required by law. Electronically signed by: Yossi Chao M.D. 03/17/2022 3:03 PM Hip/Pelvis X-Ray 03/17/22 14:21 XR hip LT 2V w pelvis CLINICAL HISTORY: fall. Hip pain. COMPARISON STUDY: Pelvis and left hip 01/15/2020. FINDINGS: No acute fracture or dislocation within the pelvis or hips. There is a right total hip arthroplasty again noted. The hardware is intact. Mild deformity within the left medial pubic bones remains stable. The sacrum appears intact. Mild osteoarthritis within the left hip. Mild vascular calcifications. IMPRESSION: No acute fracture or dislocation within the pelvis or hips. ACT 112: Negative or not required by law. Electronically signed by: Jorge Luis Manuel M.D. 03/17/2022 3:57 PM Shoulder X-Ray 03/17/22 14:21 XR shoulder LT min 2V routine CLINICAL HISTORY: fall. Left shoulder pain. COMPARISON STUDY: Left shoulder 11/25/2018. FINDINGS: No acute fracture or dislocation within the left shoulder. The left clavicle is intact. Moderate AC joint and mild glenohumeral joint osteoarthritis again noted. This is similar to the prior study. Soft tissues are unremarkable. IMPRESSION: No fracture or dislocation within the left shoulder. ACT 112: Negative or not required by law. Electronically signed by: Jorge Luis Manuel M.D. 03/17/2022 3:50 PM Hand X-Ray 03/17/22 16:18 XR hand LT min 3V routine HISTORY: 71 years-old Female Fall, pain acute left hand pain status post fall COMPARISON: None TECHNIQUE: 3 views of the left and FINDINGS: No acute fracture, dislocation, osseous erosion or opaque foreign body. Multifocal osteoarthritis, moderate to severe within the first carpal metacarpal joint. IMPRESSION: No acute fracture or dislocation. ACT 112: Negative or not required by law. The above report was generated using voice recognition software. It may contain grammatical, syntax or spelling errors. Electronically signed by: Rohan Ramey M.D. 03/17/2022 4:53 PM [facility] Narrative Patient was seen and evaluated as above in room D05. Review was performed of nursing notes and vital signs. I did review pertinent previous visits and patient history. After obtaining a thorough history and physical examination the above work up was performed. Patient presents to us today for evaluation of injury status post fall. She notes that she was having trouble walking in a straight line when this occurred. She clinically appears well and nontoxic. No deficits on examination. Options of care were discussed with the patient. IV access was established. Labs were drawn. CT imaging of the head and C-spine were obtained. No indication for CTAs at this time but will note she had CTAs performed about 10 days ago. Left hand x-ray negative for acute process. Left shoulder x-ray negative for acute process. Left hip x-ray negative for acute process. Chest x-ray negative for acute process. Patient did ask for some pain medication. She was provided IV fentanyl x2 with some relief of her symptoms. Acetaminophen was also ordered. Laboratory studies are without significant process or emergent disturbance. Urinalysis does not suggest infection. COVID testing negative. Options in regard to inpatient versus outpatient management discussed with the patient. With the patient having some ambulatory issues that led to her fall today from a safety standpoint I do believe that further evaluation and management is warranted in the inpatient setting. Patient in agreement with this plan. Do not suspect CVA at this time from a clinical standpoint. Case discussed with the hospitalist service. Please refer to further documentation regarding her stay. In regard to the abrasions, I did place an order for clean and bandaged wounds and also verbally relayed this to RN. EKG reveals sinus bradycardia at a rate of 59 bpm. QTc 461. QRS 88. No ST elevation. Case was discussed with the attending physician. GCS: 15 In the evaluation and treatment of this patient the following differential diagnoses were entertained: CVA, TIA, dehydration, UTI, electrolyte disturbance, fracture, dislocation, subluxation, contusion, intracranial hemorrhage, among others. Impression & Plan Balance problems, Headache, Fall, Acute pain of left shoulder, Abrasion of hand, left Discharge Plan Visit Data Chief Complaint: Fall Stated Complaint: FALL, NECK & HEAD PAIN, L HAND ABRASION ED Provider: Matthew Cavazos ED Midlevel Provider: Ezio Fam Discharge Problem: Balance problems, Headache, Fall, Acute pain of left shoulder, Abrasion of hand, left Patient Disposition: Admitted As Inpatient Condition: Good Discharge Instructions Interventions: ED Discharge Assessment Last Done: 03/17/22 19:44
[2022-03-17] MEDS ORDERED: fentaNYL citrate 100 MCG/2 ML VIAL IV STA (15:04)
--- NOTE | 2022-03-17 15:04 | CT Scan Report ---
CT OF THE HEAD WITHOUT CONTRAST CLINICAL HISTORY: Fall. COMPARISON STUDY: Head CT March 08, 2022. TECHNIQUE: Helical axial images of the head were obtained without IV contrast. Automated exposure con trol was utilized for the study. A dose lowering technique was utilized adhering to the principles o f ALARA. FINDINGS: No acute intracranial hemorrhage, midline shift or mass effect is present. The ventricular system is unremarkable. The basal cisterns are patent. No extra-axial collections are present. There are no findings to suggest acute dural sinus thrombosis or acute territorial infarct. Frontal scalp c ontusion is present. There is no acute calvarial fracture. Left posterior ethmoid air cell is opacifi ed. This is unchanged. IMPRESSION: 1. No acute intracranial findings. 2. Frontal scalp contusion. No acute calvarial fracture. ACT 112: Negative or not required by law. Electronically signed by: Yossi Chao M.D. 03/17/2022 3:03 PM
--- NOTE | 2022-03-17 15:08 | CT Scan Report ---
CT cervical spine wo con CT DOSE: 1001.85 mGy.cm CLINICAL HISTORY: 71 years-old Female with fall. Acute neck pain status post fall COMPARISON: Head CT of same day, CTA neck 03/08/2022 TECHNIQUE: Multiple axial CT images of the cervical spine were obtained without contrast. A dose low ering technique was utilized adhering to the principles of ALARA. FINDINGS: Demineralized appearance of the bones. Mild to moderate multilevel intervertebral disc spac e narrowing and spondylitic spurring with severe facet arthrosis. Severe degeneration at C1-C2 articu lation. Multilevel neural foraminal narrowing. 1.7 x 1.4 x 4.0 cm lipoma is noted within the left longus consuelo i muscle. Atherosclerosis of the carotid bulbs. No prevertebral edema. The visualized lung apices ap pear clear. IMPRESSION: No acute cervical spine fracture or subluxation identified. ACT 112: Negative or not required by law. The above report was generated using voice recognition software. It may contain grammatical, syntax o r spelling errors. Electronically signed by: Rohan Ramey M.D. 03/17/2022 3:06 PM
[2022-03-17 15:15] LABS: Basophils # (auto) 0.04 K/uL (0-0.2); Basophils % (auto) 0.4 %; Eosinophils # (auto) 0.15 K/uL (0-0.50); Eosinophils % (auto) 1.7 %; Hematocrit (blood only) 44.4 % (34.1-44.9); Hemoglobin 14.3 g/dl (12.0-16.0); Immature Granulocytes # (auto) 0.08 K/uL (0.00-0.02); Immature Granulocytes % (auto) 0.9 %; Lymphocytes # (auto) 1.36 K/uL (1.2-3.4); Mean Corpuscular Hgb Conc 32.2 g/dL (32.0-36.0); Mean Corpuscular Volume 90.1 fL (80.0-100.0); Mean Platelet Volume 9.7 fL (9.4-12.3); Monocytes # (auto) 0.77 K/uL (0.24-0.82); Monocytes % (auto) 8.5 %; Neutrophils # (auto) 6.66 K/uL (1.4-6.5); Neutrophils % (auto) 73.5 %; Platelet Count 218 K/uL (130-400); RDW Standard Deviation 46.2 fL (36.4-46.3); Red Blood Count 4.93 M/uL (3.93-5.22); White Blood Count 9.06 K/ul (4.8-10.8)
[2022-03-17 15:35] LABS: Alanine Aminotransferase 13 U/L (7-52); Albumin Globulin Ratio 1.4 (0.9-2); Albumin Level 4.2 gm/dl (3.4-5.0); Alkaline Phosphatase 114 U/L (34-104); Anion Gap 9 (3-11); Aspartate Aminotransferase 15 U/L (13-39); BUN Creatinine Ratio 14.7 (10-20); Bilirubin,Total 0.7 mg/dl (0.2-1.0); Blood Urea Nitrogen 17 mg/dl (6-23); Calcium 8.9 mg/dl (8.5-10.1); Carbon Dioxide 26 mmol/L (21-32); Chloride 106 mmol/L (98-107); Est GFR (African American) 54.1 ml/min; Est GFR (Non-African American) 46.7 ml/min; Globulin 2.9 gm/dl (2.5-4.0); Glucose 93 mg/dl (70-99(Fasting)); Potassium 4.2 mmol/L (3.5-5.1); Sodium 141 mmol/L (136-145); Total Protein 7.1 gm/dl (6.0-8.3)
[2022-03-17 15:40] LABS: Troponin I High Sensitivity 7.3 pg/ml (0-14)
--- NOTE | 2022-03-17 15:52 | XRay Report ---
XR shoulder LT min 2V routine CLINICAL HISTORY: fall. Left shoulder pain. COMPARISON STUDY: Left shoulder 11/25/2018. FINDINGS: No acute fracture or dislocation within the left shoulder. The left clavicle is intact. Mod erate AC joint and mild glenohumeral joint osteoarthritis again noted. This is similar to the prior s tudy. Soft tissues are unremarkable. IMPRESSION: No fracture or dislocation within the left shoulder. ACT 112: Negative or not required by law. Electronically signed by: Jorge Luis Manuel M.D. 03/17/2022 3:50 PM
--- NOTE | 2022-03-17 15:54 | XRay Report ---
XR chest 1V portable HISTORY: fall COMPARISON: Chest 03/07/2022. FINDINGS: No pneumothorax. No pleural effusions. The cardiac silhouette remains mildly enlarged. Ther e are calcifications within the aortic knob. No acute fractures identified. No focal lung consolidati ons to suggest a pneumonia. No evidence for pulmonary edema. IMPRESSION: No significant change compared to the prior study. No acute process. ACT 112: Negative or not required by law. Electronically signed by: Jorge Luis Manuel M.D. 03/17/2022 3:52 PM
--- NOTE | 2022-03-17 15:58 | XRay Report ---
XR hip LT 2V w pelvis CLINICAL HISTORY: fall. Hip pain. COMPARISON STUDY: Pelvis and left hip 01/15/2020. FINDINGS: No acute fracture or dislocation within the pelvis or hips. There is a right total hip arth roplasty again noted. The hardware is intact. Mild deformity within the left medial pubic bones remai ns stable. The sacrum appears intact. Mild osteoarthritis within the left hip. Mild vascular calcific ations. IMPRESSION: No acute fracture or dislocation within the pelvis or hips. ACT 112: Negative or not required by law. Electronically signed by: Jorge Luis Manuel M.D. 03/17/2022 3:57 PM
[2022-03-17] MEDS ORDERED: ACETAMINOPHEN 500 MG TAB PO STA (16:18)
[2022-03-17] MEDS ORDERED: fentaNYL citrate 100 MCG/2 ML VIAL IV ONE (16:18)
--- NOTE | 2022-03-17 16:27 | Electrocardiogram Report ---
Test Reason : Blood Pressure : / mmHG Vent. Rate : 059 BPM Atrial Rate : 059 BPM P-R Int : 150 ms QRS Dur : 088 ms QT Int : 466 ms P-R-T Axes : 047 030 052 degrees QTc Int : 461 ms Poor data quality, interpretation may be adversely affected Sinus bradycardia Normal ECG When compared with ECG of 08-MAR-2022 00:00, No significant change was found Confirmed by Ezekiel Denney ([id number]) on 03/17/2022 4:26:59 PM Referred By: REFERRED SELF Confirmed By:Ezekiel Denney
--- NOTE | 2022-03-17 16:55 | XRay Report ---
XR hand LT min 3V routine HISTORY: 71 years-old Female Fall, pain acute left hand pain status post fall COMPARISON: None TECHNIQUE: 3 views of the left and FINDINGS: No acute fracture, dislocation, osseous erosion or opaque foreign body. Multifocal osteoarthritis, mo derate to severe within the first carpal metacarpal joint. IMPRESSION: No acute fracture or dislocation. ACT 112: Negative or not required by law. The above report was generated using voice recognition software. It may contain grammatical, syntax o r spelling errors. Electronically signed by: Rohan Ramey M.D. 03/17/2022 4:53 PM
[2022-03-17 17:44] LABS: Appearance Urine Clear (Clear); Bilirubin Urine Negative (Negative); Blood Urine Negative (Negative); Color Urine Yellow; Glucose Urine UA Negative (Negative); Ketones Urine Negative (Negative); Leukocyte Esterase Urine Negative (Negative); Nitrite Urine Negative (Negative); Protein Urine Negative (Negative); Specific Gravity Urine 1.008 (1.000-1.030); Urobilinogen Urine Negative (Negative); pH Urine 7.5 (4.5-7.5)
--- NOTE | 2022-03-17 18:56 | History & Physical Report ---
Date of Service March 17, 2022 Assessment & Plan (1) Ambulatory dysfunction: Plan: -Admit to med/tele -Patient is currently afebrile, hemodynamically stable, and stable on RA -The etiology of the patient's sensation of being off balance and fall today are unknown at this time but the differential includes but is not limited to vertigo, orthostatic hypotension, stroke, mechanical fall, anxiety, and arrhythmia -Large trauma workup in the ED was negative, patient had recent TTE and CTA of the head/neck without major complications, patient was noted to be bradycardic on ECG today so there may be a component of symptomatic bradycardia? -Will obtain MRI of the brain WO contrast as she has no contraindications, will also obtain orthostatic vitals -PT/OT consults placed -Will order PRN meclizine for recurrent dizziness to see if it helps her symptoms -Tylenol, lidocaine patch, heat, and morphine for pain -AM CBC and CMP -DVT PPX with BL SCDs (2) Recurrent major depression resistant to treatment: Plan: -Continue ativan, lamictal, citalopram, and abilify (3) Hypothyroidism: Plan: -Continue levothyroxine (4) Hypertension: Plan: -Continue metoprolol but monitor for bradycardia on tele -Continue losartan (5) Hypercholesteremia: Plan: -Continue statin (6) COPD (chronic obstructive pulmonary disease): Plan: -Continue breathing treatments (7) GERD (gastroesophageal reflux disease): Plan: -Continue omeprazole Plan The patient was discussed with Dr. Valenzuela at the time of the admission History of Present Illness Chief Complaint: Fall from standing Primary Care Provider: Krysta Donald MD Shi is a 71 year old female with a PMH significant for HTN, hypothyroidism, hyperlipidemia, CKD, complex partial seizures, COPD, GERD, esophageal dysphagia, memory loss, BARBARA, and vertigo who presented to the [facility] ED on 03/17/22 after sustaining a fall walking into [employer]. In the Ed the patient was found to be afebrile, hemodynamically stable, and stable on RA. Labs including CBC, CMP, troponin, UA, and covid swab were unrema rkable. They patient underwent extensive imaging. CT of the head showed her frontal scalp contusion otherwise no acute findings. CT of the cervical spine was negative for acute findings. Xrays of the left shoulder and left hand were also negative. Finally, xray of the hips/pelvis and chest xray were negative for acute findings. The patient recently underwent CTA of the head and neck on 03/08/22 for atypical headache and nausea. They showed "1. Mild to moderate atherosclerotic plaque. No stenosis or dissection within the major vessels of the neck. 2. Mild fusiform dilatation of the distal right cervical internal carotid artery, measuring 7 mm. This is unchanged since CTA of July 04, 2015.". The patient underwent an ambulation trial after her workup but still felt uneasy on her feet, we were asked to admit for further evaluation of her ambulatory dysfunction. At the time of the exam the patient was resting comfortably in bed in no acute distress. She states that she was in her normal state of health this am when her dropped her off in front of [employer]. She states that she got out of the car and felt fine initially but as she started to walk towards the store she started feeling off balance, she states "it felt like I was drunk, I kept wobbling from side to side". She denies having the sensation that the world around her was spinning and denies chest pain, lightheadedness, dizziness, and any changes in her vision during this episode. She eventually fell forward, hitting the right side of her head and torso on the store window. She is unsure if she actually lost consciousness and denies being on anticoagulants. I asked her about a history of vertigo and she states that she had it in the past but this does not feel like her previous episodes of vertigo. She told me that when she was changing positions down at CT she experienced the sensation of being off balance again. We discussed code status, the patient is a full code and her would make decisions for her if she could not make them herself. Per chart review, the patient had a TTE performed on 12/14/21 due to a recent history of convulsions. She was found to have a LVEF of 40-45%, mild global hypokinesis, grade I diastolic dysfunction, and no significant valvular pathology. Please reder to Dr. Parsons's attestation for any changes to the treatment plan. Allergies Allergy/AdvReac Type Severity Reaction Status Date / Time sumatriptan [From Imitrex] Allergy Severe itching Verified 03/23/22 10:24 gabapentin Allergy Intermediate BURNING OF Verified 03/23/22 10:24 FEET AND ANKLES lisinopril AdvReac Intermediate COUGH Verified 03/23/22 10:24 prochlorperazine AdvReac Verified 03/23/22 10:24 [From Compazine] Home Medications Medication Instructions Recorded Confirmed Type mupirocin 2 % topical ointment 1 applic topical BID PRN nasal sore 07/18/20 03/23/22 History ondansetron 4 mg disintegrating 4 mg PO Q6H PRN Nausea #30 tabs 12/15/20 03/23/22 Rx tablet ipratropium 0.5 mg-albuterol 3 mg 3 ml inhalation Q6H PRN Shortness 03/30/21 03/23/22 Rx (2.5 mg base)/3 mL nebulization Of Breath Or Wheezing #360 mL soln atorvastatin 40 mg tablet 40 mg PO HS #90 tabs 05/04/21 03/23/22 Rx diaper,brief,adult,disposable #180 ea 06/10/21 03/23/22 Rx omeprazole 40 mg capsule,delayed 40 mg PO DAILY #90 caps 07/06/21 03/23/22 Rx release Wheeled Walker #1 ea 07/23/21 03/23/22 Rx levothyroxine 112 mcg tablet 112 mcg PO QAM #90 tabs 08/12/21 03/23/22 Rx lorazepam 0.5 mg tablet 0.5 mg PO DAILY PRN Anxiety #30 10/09/21 03/23/22 Rx tabs linaclotide 145 mcg capsule 145 mcg PO DAILY #30 caps 10/26/21 03/23/22 Rx (Linzess) lamotrigine 200 mg tablet 200 mg PO BID 90 days #180 tabs 11/04/21 03/23/22 Rx aripiprazole 2 mg tablet 2 mg PO DAILY 11/26/21 03/23/22 History losartan 25 mg tablet 25 mg PO DAILY #90 tabs 12/15/21 03/23/22 Rx metoprolol succinate 25 mg 25 mg PO DAILY #30 tabs 12/15/21 03/23/22 Rx tablet,extended release 24 hr erenumab-aooe 140 mg/mL 140 mg subcut MONTHLY 30 days #1 mL 12/17/21 03/23/22 Rx subcutaneous auto-injector (Aimovig Autoinjector) mbgktbfwic-hvbcxkbwvcanq-oshhxktc 2 tab PO Q6H PRN pain #12 tabs 01/26/22 03/23/22 Rx 50 mg-325 mg-40 mg tablet citalopram 20 mg tablet 20 mg PO HS #90 tabs 02/10/22 03/23/22 Rx citalopram 10 mg tablet 10 mg PO HS 03/17/22 03/23/22 History rimegepant 75 mg disintegrating 75 mg PO PRN PRN Migraine Headache 03/17/22 03/23/22 History tablet (Nurtec ODT) tramadol 50 mg tablet 50 mg PO Q12H PRN pain #10 tabs 03/22/22 03/23/22 Rx Past Med/Surg History Medical History Arthritis of right hip Blindness of left eye CKD (chronic kidney disease) stage 3, GFR 30-59 ml/min Common migraine without aura Complex partial seizure "mini seizure" last was 02/08/19--"stand and stare, can hear people talking but I can't respond", never had a grand mal--follows with Dr. Kinsey Betts--on lamictal (Pt stable per 03/2019 neuro note) COPD (chronic obstructive pulmonary disease) nebulizer prn Deafness in right ear Difficulty swallowing Esophageal dysphagia GERD (gastroesophageal reflux disease) Hiatal hernia History of esophageal dilatation Hypercholesteremia Hypertension (Unknown) Hypothyroidism Memory loss ? had for awhile Neuropathy Osteoarthritis Paranoia Schatzki's ring Sleep apnea cpap Tremor Urinary incontinence Vertigo Surgical History History of appendectomy History of bilateral cataract extraction History of bilateral tubal ligation History of bladder suspension procedure History of bunionectomy of left great toe History of bunionectomy of right great toe History of colonoscopy (~08/31/17) repeat in 5 years History of dilatation and curettage History of esophagogastroduodenoscopy (EGD) (~09/03/19) History of intraocular lens implant right eye History of left breast biopsy benign History of repair of hiatal hernia History of total hysterectomy with bilateral salpingo-oophorectomy (BSO) History of total replacement of right hip Status post laparoscopic Bridgette fundoplication (~09/14/17) Family History Father Myocardial infarction Sister Multiple sclerosis Mother Stroke Other No family history of adverse response to anesthesia Denies family history of Ovarian cancer Prostate cancer Breast cancer Colorectal cancer Social History Smoking Status: Former smoker Tobacco Type: Cigarettes Age Started Using Tobacco: 30; Age Quit Using Tobacco: 55; packs per day: 1.5; Cigarettes Per Day: 1 Pack A Day; Second Hand Exposure: No; Hx Alcohol Use: No Hx Substance Use: No Preferred Language: Kyrgyz Communication Ability: Effective Visual Impairment: No Limitations Hearing Ability: Use of Hearing Aid Pre Planning Advisor Required: No Beliefs That Will Affect Care: Muslim marital status: Current Living Situation: Spouse current occupational status: retired Feels Safe at Home: Yes Dental Care, Regularly: No Physical Activity Frequency: Does not Exercise Seatbelt Use: always Assistive Devices: Cane, CPAP and Walker Review of Systems Review of Systems: Denies current fever, chills, headache, changes in vision, hearing, taste, and smell, chest pain, SOB, cough, abdominal pain, nausea, vomiting, diarrhea, hematemesis, melena, dysuria, hematuria All systems have been reviewed and are otherwise negative. Physical Exam Physical Exam: Physical Exam: General: In no acute distress, stated age, well-nourished, good hygiene HEENT: Normocephalic, atraumatic, no scleral icterus, patient with hazy left pupil/cornea due to previous shingles infection, right pupil is round and reactive to light, moist mucus membranes, trachea midline, no thyromegaly Chest/Pulm: No respiratory distress, symmetrical chest expansion, clear breath sounds throughout Cardiac: RRR, no murmurs noted Abdomen: Negative for ascites and bruising, normoactive bowel sounds, soft, non-tender to palpation throughout Musculoskeletal: patient wihtout trauma to the face, intact ROM of the neck, UE's, and LE's. Patient with non-bleeding skin abrasions on the BL hands Extremities: Radial, dorsalis pedis, and posterior tibial pulses are intact and symmetrical, no edema noted in the BL LE's Skin: Warm, dry, no rashes , lesions, or scars noted Neuro: Alert and oriented to person, place, month, year, and president, no focal defects, CN II-XII tested and intact, finger to nose test negative, no tremors noted Psych: No acute distress, calm and cooperative during the exam Results & Data Results & Data ([facility]) Vital Signs (Past 12 Hours) Vital Signs Temp Pulse Resp BP Pulse Ox O2 Del Method 03/17/22 16:20 55 L 13 03/17/22 16:10 54 L 03/17/22 16:00 54 L 19 03/17/22 15:50 52 L 13 03/17/22 15:40 57 L 17 163/86 H 98 Room Air 03/17/22 15:30 58 L 16 98 Room Air 03/17/22 15:20 58 L 15 98 Room Air 03/17/22 15:10 58 L 21 98 Room Air 03/17/22 15:04 56 L 14 98 Room Air 03/17/22 13:45 36.2 C L 63 20 142/89 H 100 Room Air Laboratory Results Abnormal lab results 03/17/22 03/17/22 Range/Units 15:02 15:02 Neut # (Auto) 6.66 H (1.4-6.5) K/uL Immature Gran # (Auto) 0.08 H (0.00-0.02) K/uL Alkaline Phosphatase 114 H (34-104) U/L Diagnostic Findings Cervical Spine CT 03/17/22 14:21 CT cervical spine wo con CT DOSE: 1001.85 mGy.cm CLINICAL HISTORY: 71 years-old Female with fall. Acute neck pain status post fall COMPARISON: Head CT of same day, CTA neck 03/08/2022 TECHNIQUE: Multiple axial CT images of the cervical spine were obtained without contrast. A dose lowering technique was utilized adhering to the principles of ALARA. FINDINGS: Demineralized appearance of the bones. Mild to moderate multilevel intervertebral disc space narrowing and spondylitic spurring with severe facet arthrosis. Severe degeneration at C1-C2 articulation. Multilevel neural foraminal narrowing. 1.7 x 1.4 x 4.0 cm lipoma is noted within the left longus colli muscle. Atherosclerosis of the carotid bulbs. No prevertebral edema. The visualized lung apices appear clear. IMPRESSION: No acute cervical spine fracture or subluxation identified. ACT 112: Negative or not required by law. The above report was generated using voice recognition software. It may contain grammatical, syntax or spelling errors. Electronically signed by: Rohan Ramey M.D. 03/17/2022 3:06 PM Chest X-Ray 03/17/22 14:21 XR chest 1V portable HISTORY: fall COMPARISON: Chest 03/07/2022. FINDINGS: No pneumothorax. No pleural effusions. The cardiac silhouette remains mildly enlarged. There are calcifications within the aortic knob. No acute fractures identified. No focal lung consolidations to suggest a pneumonia. No evidence for pulmonary edema. IMPRESSION: No significant change compared to the prior study. No acute process. ACT 112: Negative or not required by law. Electronically signed by: Jorge Luis Manuel M.D. 03/17/2022 3:[address] 03/17/22 14:21 CT OF THE HEAD WITHOUT CONTRAST CLINICAL HISTORY: Fall. COMPARISON STUDY: Head CT March 08, 2022. TECHNIQUE: Helical axial images of the head were obtained without IV contrast. Automated exposure control was utilized for the study. A dose lowering technique was utilized adhering to the principles of ALARA. FINDINGS: No acute intracranial hemorrhage, midline shift or mass effect is present. The ventricular system is unremarkable. The basal cisterns are patent. No extra-axial collections are present. There are no findings to suggest acute dural sinus thrombosis or acute territorial infarct. Frontal scalp contusion is present. There is no acute calvarial fracture. Left posterior ethmoid air cell is opacified. This is unchanged. IMPRESSION: 1. No acute intracranial findings. 2. Frontal scalp contusion. No acute calvarial fracture. ACT 112: Negative or not required by law. Electronically signed by: Yossi Chao M.D. 03/17/2022 3:03 PM Hip/Pelvis X-Ray 03/17/22 14:21 XR hip LT 2V w pelvis CLINICAL HISTORY: fall. Hip pain. COMPARISON STUDY: Pelvis and left hip 01/15/2020. FINDINGS: No acute fracture or dislocation within the pelvis or hips. There is a right total hip arthroplasty again noted. The hardware is intact. Mild deformity within the left medial pubic bones remains stable. The sacrum appears intact. Mild osteoarthritis within the left hip. Mild vascular calcifications. IMPRESSION: No acute fracture or dislocation within the pelvis or hips. ACT 112: Negative or not required by law. Electronically signed by: Jorge Luis Manuel M.D. 03/17/2022 3:57 PM Shoulder X-Ray 03/17/22 14:21 XR shoulder LT min 2V routine CLINICAL HISTORY: fall. Left shoulder pain. COMPARISON STUDY: Left shoulder 11/25/2018. FINDINGS: No acute fracture or dislocation within the left shoulder. The left clavicle is intact. Moderate AC joint and mild glenohumeral joint osteoarthritis again noted. This is similar to the prior study. Soft tissues are unremarkable. IMPRESSION: No fracture or dislocation within the left shoulder. ACT 112: Negative or not required by law. Electronically signed by: Jorge Luis Manuel M.D. 03/17/2022 3:50 PM Hand X-Ray 03/17/22 16:18 XR hand LT min 3V routine HISTORY: 71 years-old Female Fall, pain acute left hand pain status post fall COMPARISON: None TECHNIQUE: 3 views of the left and FINDINGS: No acute fracture, dislocation, osseous erosion or opaque foreign body. Multifocal osteoarthritis, moderate to severe within the first carpal metacarpal joint. IMPRESSION: No acute fracture or dislocation. ACT 112: Negative or not required by law. The above report was generated using voice recognition software. It may contain grammatical, syntax or spelling errors. Electronically signed by: Rohan Ramey M.D. 03/17/2022 4:53 PM ECG Additional Comments: Poor data quality, interpretation may be adversely affected Sinus bradycardia Normal ECG When compared with ECG of 08-MAR-2022 00:00, No significant change was found Confirmed by Ezekiel Denney ([id number]) on 03/17/2022 4:26:59 PM Code Status & VTE Plan Code Status Full code VTE Prophylaxis Plan VTE Prophylaxis will be ordered: Yes Supervising Physician Co-Signing Physician Notes Patient seen and examined by bedside. I obtained a history and physical examination during face to face encounter. I discussed plan of care with patient and APC Peno. I reviewed above note and agree with it. Patient will be admitted for ambulatory dysfunction. will obtain PT/OT, and possible neurology consult. PG Care Time/CCT Total # of Minutes Spent Total Time Spent with Patient: Total time spent is greater than 50% in coordination of care (as documented) at patient's floor/unit and/or counseling patient: Coding Level of Care Code Established Pt INT OBSERVATION CARE 50M LVL 2 Patient Type Established Medical Decision Making Moderate Complexity Diagnoses Ambulatory dysfunction R26.2 Recurrent major depression resistant to treatment F33.9 Hypothyroidism E03.9 Hypothyroidism type: unspecified Hypertension I10 Hypercholesteremia E78.00 COPD (chronic obstructive pulmonary disease) J44.9 GERD (gastroesophageal reflux disease) K21.9 (1) Hypothyroidism Hypothyroidism type: unspecified Qualified Code(s): E03.9 - Hypothyroidism, unspecified
[2022-03-17] MEDS ORDERED: LIDOCAINE 5% 1 PATCH TD STA (20:17)
[2022-03-17] MEDS ORDERED: ALBUT/IPRATROP 3MG/0.5MG NEB 3 ML VIAL INH PRN (21:18)
[2022-03-17 21:52] LABS: Amphetamines+Metham, Urine Neg (Neg); Barbiturates, Urine Pos (Neg); Benzodiazepine, Urine Neg (Neg); Cocaine, Urine Neg (Neg); MDMA (Ecstacy), Urine Neg (Neg); Methadone, Urine Neg (Neg); Opiate, Urine Neg (Neg); Phencyclidine, Urine Neg (Neg)
[2022-03-17] MEDS: ATORVASTATIN 40 MG TAB PO SCH (23:25)
[2022-03-17] MEDS: lamoTRIgine 100 MG TAB PO SCH (23:26)
[2022-03-17] MEDS: ACETAMINOPHEN 325 MG TAB PO SCH (23:27)
[2022-03-18] MEDS: LIDOCAINE 5% 1 PATCH TD SCH ×2 (00:06→20:20)
[2022-03-18] MEDS: CITALOPRAM 20 MG TAB PO SCH ×2 (00:44→20:16)
[2022-03-18] MEDS ORDERED: IBUPROFEN 600 MG TAB PO STA (01:15)
[2022-03-18] MEDS: ACETAMINOPHEN 325 MG TAB PO SCH ×4 (05:52→23:38)
[2022-03-18] MEDS: LEVOTHYROXINE SODIUM 112 MCG TABLET PO SCH (05:53)
--- NOTE | 2022-03-18 07:54 | Magnetic Resonance Report ---
MR brain wo con HISTORY: 71 years-old Female dizziness acute dizziness with loss of consciousness and head trauma COMPARISON: Head CT 03/17/2022 TECHNIQUE: Multiplanar multisequence MRI of the brain was obtained without the use of IV contrast. FINDINGS: The horticultural technical officer localizer images demonstrate no gross extracranial abnormality. No restricted diffusion to suggest acute or subacute infarct. The midline structures appear unremarkable with a partially empty sella. Degenerative changes of the cervical spine. No acute intracranial hemorrhage, midline shift, a bnormal extra-axial collection, hydrocephalus or intracranial mass. No pathologic blooming artifact. Mild involutional changes. Minimal T2/FLAIR hyperintense foci throughout the white matter may represe nt a degree of chronic microvascular ischemic disease. No acute calvarial fracture identified. Prior bilateral lens repair. Small left frontal scalp contusi on anteriorlyr measuring up to approximately 3.5 cm. The mastoid air cells and paranasal sinuses are clear. IMPRESSION: 1. No acute intracranial abnormality. No acute or subacute infarct. 2. Small frontal scalp contusion. ACT 112: Negative or not required by law. The above report was generated using voice recognition software. It may contain grammatical, syntax o r spelling errors. Electronically signed by: Rohan Ramey M.D. 03/18/2022 7:53 AM
[2022-03-18] MEDS: LINACLOTIDE 145 MCG CAPSULE PO SCH (08:06)
[2022-03-18] MEDS: lamoTRIgine 100 MG TAB PO SCH ×2 (08:06→20:18)
[2022-03-18] MEDS: LOSARTAN POTASSIUM 25 MG TAB PO SCH (08:06)
[2022-03-18] MEDS: PANTOprazole 40 MG TAB PO SCH (08:06)
[2022-03-18] MEDS: METOPROLOL SUCC 25MG EXT REL TAB PO SCH (08:06)
[2022-03-18] MEDS: ARIPIprazole 1 MG/ML ORAL SOLN 150 ML BTL PO SCH (08:06)
[2022-03-18 09:51] LABS: Hematocrit (blood only) 40.7 % (34.1-44.9); Hemoglobin 12.9 g/dl (12.0-16.0); Mean Corpuscular Hemoglobin 29.1 pg (25.0-34.0); Mean Corpuscular Hgb Conc 31.7 g/dL (32.0-36.0); Mean Corpuscular Volume 91.9 fL (80.0-100.0); Mean Platelet Volume 9.9 fL (9.4-12.3); Platelet Count 160 K/uL (130-400); RDW Coefficient of Variation 14.1 % (11.5-14.5); RDW Standard Deviation 47.6 fL (36.4-46.3); Red Blood Count 4.43 M/uL (3.93-5.22)
[2022-03-18 10:23] LABS: Albumin Globulin Ratio 1.9 (0.9-2); Albumin Level 3.7 gm/dl (3.4-5.0); Bilirubin,Total 0.7 mg/dl (0.2-1.0); Calcium 8.9 mg/dl (8.5-10.1); Creatinine Clr Calc Pharmacy 49.7 ml/min; Est GFR (African American) 48.5 ml/min; Est GFR (Non-African American) 41.8 ml/min; Globulin 1.9 gm/dl (2.5-4.0); Potassium 4.4 mmol/L (3.5-5.1); Total Protein 5.6 gm/dl (6.0-8.3)
[2022-03-18] MEDS ORDERED: LACTATED RINGER'S 1,000 ML IV SCH (12:45)
[2022-03-18] MEDS ORDERED: KETOROLAC TROMETHAMINE 15 MG/ML VIAL IV ONE (17:13)
[2022-03-18] MEDS: ATORVASTATIN 40 MG TAB PO SCH (20:17)
--- NOTE | 2022-03-18 22:32 | Hospitalist Progress Note ---
Date of Service March 18, 2022 Assessment & Plan (1) Ambulatory dysfunction: Plan: -Admit to med/tele -Patient is currently afebrile, hemodynamically stable, and stable on RA -The etiology of the patient's sensation of being off balance and fall today are unknown at this time but the differential includes but is not limited to vertigo, orthostatic hypotension, stroke, mechanical fall, anxiety, and arrhythmia -Large trauma workup in the ED was negative, patient had recent TTE and CTA of the head/neck without major complications, patient was noted to be bradycardic on ECG today so there may be a component of symptomatic bradycardia? -MR brain is negative. -likely peripheral vertigo. -Patient requests to consult neurology. -PT/OT consults placed -Will order PRN meclizine for recurrent dizziness to see if it helps her symptoms (2) Recurrent major depression resistant to treatment: Plan: -Continue ativan, lamictal, citalopram, and abilify (3) Hypothyroidism: Plan: -Continue levothyroxine (4) Hypertension: Plan: -Continue metoprolol but monitor for bradycardia on tele -Continue losartan (5) Hypercholesteremia: Plan: -Continue statin (6) COPD (chronic obstructive pulmonary disease): Plan: -Continue breathing treatments (7) GERD (gastroesophageal reflux disease): Plan: -Continue omeprazole Plan The patient was discussed with Dr. Valenzuela at the time of the admission Admission and Anticipated Discharge Date Admission Date: March 17, 2022 Subjective 71 yo female reports feeling well. She still drifts towards the left when she ambulates. Review of Systems Review of Systems: All systems reviewed & are unremarkable except as noted in HPI & below Physical Exam Physical Exam: General: In no acute distress, stated age, well-nourished, good hygiene HEENT: Normocephalic, atraumatic, no scleral icterus, patient with hazy left pupil/cornea due to previous shingles infection, right pupil is round and reactive to light, moist mucus membranes, trachea midline, no thyromegaly Chest/Pulm: No respiratory distress, symmetrical chest expansion, clear breath sounds throughout Cardiac: RRR, no murmurs noted Abdomen: Negative for ascites and bruising, normoactive bowel sounds, soft, non- tender to palpation throughout Musculoskeletal: patient wihtout trauma to the face, intact ROM of the neck, UE's, and LE's. Patient with non-bleeding skin abrasions on the BL hands Extremities: Radial, dorsalis pedis, and posterior tibial pulses are intact and symmetrical, no edema noted in the BL LE's Skin: Warm, dry, no rashes , lesions, or scars noted Neuro: Alert and oriented to person, place, month, year, and president, no focal defects, CN II-XII tested and intact, finger to nose test negative, no tremors noted Psych: No acute distress, calm and cooperative during the exam Results & Data Results & Data ([facility]) Vital Signs (Past 12 Hours) Vital Signs Temp Pulse Pulse Resp BP Pulse Ox O2 Del Method 03/18/22 19:50 36.8 C 55 L 18 132/77 93 Room Air 03/18/22 15:23 58 L 03/18/22 15:12 36.8 C 53 L 20 129/83 96 Room Air 03/18/22 11:38 36.5 C 56 L 20 161/94 H 95 Room Air PG Care Time/CCT Total # of Minutes Spent Total Time Spent with Patient: Total time spent is greater than 50% in coordination of care (as documented) at patient's floor/unit and/or counseling patient: Coding Level of Care Code 59624 Subseq Obs Care Lvl 3 Diagnoses Ambulatory dysfunction R26.2 Recurrent major depression resistant to treatment F33.9 Hypothyroidism E03.9 Hypothyroidism type: unspecified Hypertension I10 Hypercholesteremia E78.00 COPD (chronic obstructive pulmonary disease) J44.9 GERD (gastroesophageal reflux disease) K21.9 (1) Hypothyroidism Hypothyroidism type: unspecified Qualified Code(s): E03.9 - Hypothyroidism, unspecified
[2022-03-18] MEDS ORDERED: BACITRACIN OINT 15 GM TUBE EXT ONE (23:12)
[2022-03-19] MEDS: ACETAMINOPHEN 325 MG TAB PO SCH ×4 (06:10→23:14)
[2022-03-19] MEDS: LEVOTHYROXINE SODIUM 112 MCG TABLET PO SCH (06:11)
--- NOTE | 2022-03-19 08:35 | Neurology Consultation ---
Date of Consultation March 19, 2022 Assessment & Plan (1) BPPV (benign paroxysmal positional vertigo): Plan Neurology Consultation Assessment: overall appears to be peripheral vertigo problem, likely improving BPPV. Recommendations: -no further work up needed from neurology at this point. -avoid sudden positional change. no bending down. try to sleep with head position up at least 30 degrees. -she can f/u with her planned neurology appointment as before. will sign off. please call again if new question. todd aguilar MD neurologist [facility] neurology HPI: pt this morning feeling better. still some positional dizziness but not spinning anymore. able to sit up without much problem. MRI brain negative. no other complaints. Admission/prior HPI note:Shi is a 71 year old female with a PMH significant for HTN, hypothyroidism, hyperlipidemia, CKD, complex partial seizures, COPD, GERD, esophageal dysphagia, memory loss, BARBARA, and vertigo who presented to the [facility] ED on 03/17/22 after sustaining a fall walking into [employer]. In the Ed the patient was found to be afebrile, hemodynamically stable, and stable on RA. Labs including CBC, CMP, troponin, UA, and covid swab were unremarkable. They patient underwent extensive imaging. CT of the head showed her frontal scalp contusion otherwise no acute findings. CT of the cervical spine was negative for acute findings. Xrays of the left shoulder and left hand were also negative. Finally, xray of the hips/pelvis and chest xray were negative for acute findings. The patient recently underwent CTA of the head and neck on 03/08/22 for atypical headache and nausea. They showed "1. Mild to moderate atherosclerotic plaque. No stenosis or dissection within the major vessels of the neck. 2. Mild fusiform dilatation of the distal right cervical internal carotid artery, measuring 7 mm. This is unchanged since CTA of July 04, 2015.". The patient underwent an ambulation trial after her workup but still felt uneasy on her feet, we were asked to admit for further evaluation of her ambulatory dysfunction. At the time of the exam the patient was resting comfortably in bed in no acute distress. She states that she was in her normal state of health this am when her dropped her off in front of [employer]. She states that she got out of the car and felt fine initially but as she started to walk towards the store she started feeling off balance, she states "it felt like I was drunk, I kept wobbling from side to side". She denies having the sensation that the world around her was spinning and denies chest pain, lightheadedness, dizziness, and any changes in her vision during this episode. She eventually fell forward, hitting the right side of her head and torso on the store window. She is unsure if she actually lost consciousness and denies being on anticoagulants. I asked her about a history of vertigo and she states that she had it in the past but this does not feel like her previous episodes of vertigo. She told me that when she was changing positions down at CT she experienced the sensation of being off balance again. We discussed code status, the patient is a full code and her would make decisions for her if she could not make them herself. Per chart review, the patient had a TTE performed on 12/14/21 due to a recent history of convulsions. She was found to have a LVEF of 40-45%, mild global hypokinesis, grade I diastolic dysfunction, and no significant valvular pathology. ROS: per HPI Med list: see chart PMHx/SHx: see chart Neuro Exam: Mental: AOx3, Fluent speech, normal comprehension, no apraxia, no neglect. CN: PERRL, Full EOM, symmetric face, tongue midline. SCM/Traps 5/5 angeles-hallpike: slight feeling dizzy to rt side head turning. Motor: 5/5 t/o symmetric bilaterally. Normal tone and bulk. No abnormal movements. Sens: intact to touch b/l Coord: intact DTR: toes down b/l History of Present Illness Attending Physician: Brant Valenzuela Allergies Allergy/AdvReac Type Severity Reaction Status Date / Time sumatriptan [From Imitrex] Allergy Severe itching Verified 03/17/22 17:48 gabapentin Allergy Intermediate BURNING OF Verified 03/17/22 17:48 FEET AND ANKLES lisinopril AdvReac Intermediate COUGH Verified 03/17/22 17:48 Home Medications Medication Instructions Recorded Confirmed Type bromfenac 0.09 % eye drops 1 drp OPR UD PRN Eye Irritation 12/20/19 03/17/22 History mupirocin 2 % topical ointment 1 applic topical BID PRN nasal sore 07/18/20 03/17/22 History ondansetron 4 mg disintegrating 4 mg PO Q6H PRN Nausea #30 tabs 12/15/20 03/17/22 Rx tablet ipratropium 0.5 mg-albuterol 3 mg 3 ml inhalation Q6H PRN Shortness 03/30/21 03/17/22 Rx (2.5 mg base)/3 mL nebulization Of Breath Or Wheezing #360 mL soln atorvastatin 40 mg tablet 40 mg PO HS #90 tabs 05/04/21 03/17/22 Rx diaper,brief,adult,disposable #180 ea 06/10/21 03/04/22 Rx omeprazole 40 mg capsule,delayed 40 mg PO DAILY #90 caps 07/06/21 03/17/22 Rx release Wheeled Walker #1 ea 07/23/21 03/04/22 Rx levothyroxine 112 mcg tablet 112 mcg PO QAM #90 tabs 08/12/21 03/17/22 Rx lorazepam 0.5 mg tablet 0.5 mg PO DAILY PRN Anxiety #30 10/09/21 03/17/22 Rx tabs linaclotide 145 mcg capsule 145 mcg PO DAILY #30 caps 10/26/21 03/17/22 Rx (Linzess) lamotrigine 200 mg tablet 200 mg PO BID 90 days #180 tabs 11/04/21 03/17/22 Rx aripiprazole 2 mg tablet 2 mg PO DAILY 11/26/21 03/17/22 History losartan 25 mg tablet 25 mg PO DAILY #90 tabs 12/15/21 03/17/22 Rx metoprolol succinate 25 mg 25 mg PO DAILY #30 tabs 12/15/21 03/17/22 Rx tablet,extended release 24 hr erenumab-aooe 140 mg/mL 140 mg subcut MONTHLY 30 days #1 mL 12/17/21 03/17/22 Rx subcutaneous auto-injector (Aimovig Autoinjector) [id number] 2 tab PO Q6H PRN pain #12 tabs 01/26/22 03/17/22 Rx 50 mg-325 mg-40 mg tablet citalopram 20 mg tablet 20 mg PO HS #90 tabs 02/10/22 03/17/22 Rx citalopram 10 mg tablet 10 mg PO HS 03/17/22 03/17/22 History rimegepant 75 mg disintegrating 75 mg PO PRN PRN Migraine Headache 03/17/22 03/17/22 History tablet (Nurtec ODT) Patient History Medical History Arthritis of right hip Blindness of left eye CKD (chronic kidney disease) stage 3, GFR 30-59 ml/min Common migraine without aura Complex partial seizure "mini seizure" last was 02/08/19--"stand and stare, can hear people talking but I can't respond", never had a grand mal--follows with Dr. Kinsey Betts--on lamictal (Pt stable per 03/2019 neuro note) COPD (chronic obstructive pulmonary disease) nebulizer prn Deafness in right ear Difficulty swallowing Esophageal dysphagia GERD (gastroesophageal reflux disease) Hiatal hernia History of esophageal dilatation Hypercholesteremia Hypertension (Unknown) Hypothyroidism Memory loss ? had for awhile Neuropathy Osteoarthritis Paranoia Schatzki's ring Sleep apnea cpap Tremor Urinary incontinence Vertigo Surgical History History of appendectomy History of bilateral cataract extraction History of bilateral tubal ligation History of bladder suspension procedure History of bunionectomy of left great toe History of bunionectomy of right great toe History of colonoscopy (~08/31/17) repeat in 5 years History of dilatation and curettage History of esophagogastroduodenoscopy (EGD) (~09/03/19) History of intraocular lens implant right eye History of left breast biopsy benign History of repair of hiatal hernia History of total hysterectomy with bilateral salpingo-oophorectomy (BSO) History of total replacement of right hip Status post laparoscopic Bridgette fundoplication (~09/14/17) Family History Father Myocardial infarction Sister Multiple sclerosis Mother Stroke Other No family history of adverse response to anesthesia Denies family history of Ovarian cancer Prostate cancer Breast cancer Colorectal cancer Social History Smoking Status: Former smoker Tobacco Type: Cigarettes Age Started Using Tobacco: 30; Age Quit Using Tobacco: 55; packs per day: 1.5; Cigarettes Per Day: 1 Pack A Day; Second Hand Exposure: No; Hx Alcohol Use: No Hx Substance Use: No Preferred Language: Swedish Communication Ability: Effective Visual Impairment: No Limitations Hearing Ability: Use of Hearing Aid Retrofit Installer Required: No Beliefs That Will Affect Care: Sabianism marital status: Current Living Situation: Spouse current occupational status: retired Feels Safe at Home: Yes Dental Care, Regularly: No Physical Activity Frequency: Does not Exercise Seatbelt Use: always Assistive Devices: Cane, CPAP and Walker Results & Data ([facility]) Vital Signs (Past 12 Hours) Vital Signs Temp Pulse Pulse Resp BP Pulse Ox O2 Del Method 03/19/22 08:00 36.5 C 59 L 20 116/62 93 Room Air 03/19/22 02:46 36.3 C L 55 L 18 133/81 94 Room Air 03/19/22 00:35 58 L 03/18/22 23:14 36.6 C 55 L 18 113/55 L 95 Room Air
[2022-03-19] MEDS: METOPROLOL SUCC 25MG EXT REL TAB PO SCH (09:05)
[2022-03-19] MEDS: PANTOprazole 40 MG TAB PO SCH (09:05)
[2022-03-19] MEDS: LINACLOTIDE 145 MCG CAPSULE PO SCH ×2 (09:05→09:13)
[2022-03-19] MEDS: lamoTRIgine 100 MG TAB PO SCH ×2 (09:05→20:43)
[2022-03-19] MEDS: LOSARTAN POTASSIUM 25 MG TAB PO SCH (09:05)
[2022-03-19] MEDS: ARIPIprazole 1 MG/ML ORAL SOLN 150 ML BTL PO SCH (09:07)
[2022-03-19 09:08] LABS: Hematocrit (blood only) 44.7 % (34.1-44.9); Hemoglobin 14.2 g/dl (12.0-16.0); Mean Corpuscular Hgb Conc 31.8 g/dL (32.0-36.0); Mean Corpuscular Volume 91.2 fL (80.0-100.0); Platelet Count 175 K/uL (130-400); RDW Standard Deviation 47.5 fL (36.4-46.3); White Blood Count 10.51 K/ul (4.8-10.8)
[2022-03-19 09:40] LABS: Alanine Aminotransferase 16 U/L (7-52); Albumin Globulin Ratio 1.5 (0.9-2); Alkaline Phosphatase 98 U/L (34-104); Anion Gap 6 (3-11); BUN Creatinine Ratio 14.5 (10-20); Bilirubin,Total 0.7 mg/dl (0.2-1.0); Blood Urea Nitrogen 18 mg/dl (6-23); Calcium 8.8 mg/dl (8.5-10.1); Carbon Dioxide 29 mmol/L (21-32); Chloride 106 mmol/L (98-107); Creatinine Clr Calc Pharmacy 51.1 ml/min; Est GFR (African American) 49.9 ml/min; Est GFR (Non-African American) 43.1 ml/min; Globulin 2.7 gm/dl (2.5-4.0); Glucose 109 mg/dl (70-99(Fasting)); Sodium 141 mmol/L (136-145); Total Protein 6.7 gm/dl (6.0-8.3)
--- NOTE | 2022-03-19 10:06 | Cardiology Consultation ---
Date of Consultation March 19, 2022 Assessment & Plan (1) Fall: This does not seem to represent a syncopal episode. No evidence of CVA. Neurology suspects vertigo. Minimal trauma based on imaging. Also, patient states this is different than prior neurologic events. However, arrhythmia at the time of the event cannot be excluded. Holter was previously unrevealing. At this time, I feel it is reasonable for her to undergo implantable loop recorder so that we may monitor her cardiac rhythm for the next 3 years. We should then be able to identify or exclude cardiac arrhythmia which may be precipitating these events. This has been discussed with Dr. Lorenzo from electrophysiology. (2) Cardiomyopathy: Mild LV systolic dysfunction with grade 1 diastolic dysfunction. Last ejection fraction noted to be 40 to 45%. She was placed on losartan and metoprolol succinate to initiate chronic therapy for systolic heart failure. She has been on this treatment for 3 months. We should reassess her LV function by echocardiogram. Plan Loop recorder and echocardiogram. Then, she will be appropriate for discharge from a cardiovascular standpoint. History of Present Illness Reason for Consultation: Possible syncope Attending Physician: Brant Valenzuela History of Present Illness 71-year-old female known to me from the office. I was recently asked to see her in December for newly identified cardiomyopathy and possible syncope. I had her undergo limited echo to evaluate for PFO/intracardiac shunt and this was found to be negative. She previously had a Holter in November which showed rare PACs and rare PVCs. There were no significant arrhythmias. No bradycardia, pauses, or high-grade AV block. Her "staring" episodes were not consistent with syncope. She follows regularly with neurology ([facility]) and is reported to have complex partial seizures, migraines, polyneuropathy, and vertigo. Most often seen by Cornelia Nino. I am asked to see her at this time for an episode of loss of balance where she struck her head and cannot recall if she lost consciousness. Patient describes walking into a department store but "zigzagging", stumbling, and feeling like she was "top-heavy". She hit her head on a window or wall and then slid down onto the concrete. She states she did not feel like the earth was spinning. She also did not feel like she developed tunnel vision or closing in of her peripheral vision. She denies chest pain, heaviness, or tightness. There was no associated shortness of breath or diaphoresis. No nausea or vomiting. She denies racing heartbeat or palpitations. She does not believe she lost consciousness but is not certain regarding this. She has had no edema and we have never needed to utilize loop diuretic for volume overload. She has been on the monitor while hospitalized and this demonstrates sinus rhythm with significant artifact. No significant tachycardia or bradycardia arrhythmias. CT scan of the head was performed and did not show bleed. Was within normal limits. MRI of the head was also performed and was also within normal limits. She was seen by neurology who felt this represented a vertigo episode. Previous "staring episodes" were observed while she was at [facility]. At that time she did not lose consciousness but could hear others speaking. However, she was unable to respond for up to about 1 minute. Neurology there felt that this did not represent absence seizure's. Today she voices no other complaints or concerns. Allergies Allergy/AdvReac Type Severity Reaction Status Date / Time sumatriptan [From Imitrex] Allergy Severe itching Verified 03/17/22 17:48 gabapentin Allergy Intermediate BURNING OF Verified 03/17/22 17:48 FEET AND ANKLES lisinopril AdvReac Intermediate COUGH Verified 03/17/22 17:48 Home Medications Medication Instructions Recorded Confirmed Type bromfenac 0.09 % eye drops 1 drp OPR UD PRN Eye Irritation 12/20/19 03/17/22 History mupirocin 2 % topical ointment 1 applic topical BID PRN nasal sore 07/18/20 03/17/22 History ondansetron 4 mg disintegrating 4 mg PO Q6H PRN Nausea #30 tabs 12/15/20 03/17/22 Rx tablet ipratropium 0.5 mg-albuterol 3 mg 3 ml inhalation Q6H PRN Shortness 03/30/21 03/17/22 Rx (2.5 mg base)/3 mL nebulization Of Breath Or Wheezing #360 mL soln atorvastatin 40 mg tablet 40 mg PO HS #90 tabs 05/04/21 03/17/22 Rx diaper,brief,adult,disposable #180 ea 06/10/21 03/04/22 Rx omeprazole 40 mg capsule,delayed 40 mg PO DAILY #90 caps 07/06/21 03/17/22 Rx release Wheeled Walker #1 ea 07/23/21 03/04/22 Rx levothyroxine 112 mcg tablet 112 mcg PO QAM #90 tabs 08/12/21 03/17/22 Rx lorazepam 0.5 mg tablet 0.5 mg PO DAILY PRN Anxiety #30 10/09/21 03/17/22 Rx tabs linaclotide 145 mcg capsule 145 mcg PO DAILY #30 caps 10/26/21 03/17/22 Rx (Linzess) lamotrigine 200 mg tablet 200 mg PO BID 90 days #180 tabs 11/04/21 03/17/22 Rx aripiprazole 2 mg tablet 2 mg PO DAILY 11/26/21 03/17/22 History losartan 25 mg tablet 25 mg PO DAILY #90 tabs 12/15/21 03/17/22 Rx metoprolol succinate 25 mg 25 mg PO DAILY #30 tabs 12/15/21 03/17/22 Rx tablet,extended release 24 hr erenumab-aooe 140 mg/mL 140 mg subcut MONTHLY 30 days #1 mL 12/17/21 03/17/22 Rx subcutaneous auto-injector (Aimovig Autoinjector) [id number] 2 tab PO Q6H PRN pain #12 tabs 01/26/22 03/17/22 Rx 50 mg-325 mg-40 mg tablet citalopram 20 mg tablet 20 mg PO HS #90 tabs 02/10/22 03/17/22 Rx citalopram 10 mg tablet 10 mg PO HS 03/17/22 03/17/22 History rimegepant 75 mg disintegrating 75 mg PO PRN PRN Migraine Headache 03/17/22 03/17/22 History tablet (Nurtec ODT) Patient History Medical History Arthritis of right hip Blindness of left eye CKD (chronic kidney disease) stage 3, GFR 30-59 ml/min Common migraine without aura Complex partial seizure "mini seizure" last was 02/08/19--"stand and stare, can hear people talking b ut I can't respond", never had a grand mal--follows with Dr. Kinsey Betts--on lamictal (Pt stable per 03/2019 neuro note) COPD (chronic obstructive pulmonary disease) nebulizer prn Deafness in right ear Difficulty swallowing Esophageal dysphagia GERD (gastroesophageal reflux disease) Hiatal hernia History of esophageal dilatation Hypercholesteremia Hypertension (Unknown) Hypothyroidism Memory loss ? had for awhile Neuropathy Osteoarthritis Paranoia Schatzki's ring Sleep apnea cpap Tremor Urinary incontinence Vertigo Surgical History History of appendectomy History of bilateral cataract extraction History of bilateral tubal ligation History of bladder suspension procedure History of bunionectomy of left great toe History of bunionectomy of right great toe History of colonoscopy (~08/31/17) repeat in 5 years History of dilatation and curettage History of esophagogastroduodenoscopy (EGD) (~09/03/19) History of intraocular lens implant right eye History of left breast biopsy benign History of repair of hiatal hernia History of total hysterectomy with bilateral salpingo-oophorectomy (BSO) History of total replacement of right hip Status post laparoscopic Bridgette fundoplication (~09/14/17) Family History Father Myocardial infarction Sister Multiple sclerosis Mother Stroke Other No family history of adverse response to anesthesia Denies family history of Ovarian cancer Prostate cancer Breast cancer Colorectal cancer Social History Smoking Status: Former smoker Tobacco Type: Cigarettes Age Started Using Tobacco: 30; Age Quit Using Tobacco: 55; packs per day: 1.5; Cigarettes Per Day: 1 Pack A Day; Second Hand Exposure: No; Hx Alcohol Use: No Hx Substance Use: No Preferred Language: Indonesian Communication Ability: Effective Visual Impairment: No Limitations Hearing Ability: Use of Hearing Aid Insurance Counsel Required: No Beliefs That Will Affect Care: Yazidi marital status: Current Living Situation: Spouse current occupational status: retired Feels Safe at Home: Yes Dental Care, Regularly: No Physical Activity Frequency: Does not Exercise Seatbelt Use: always Assistive Devices: Cane, CPAP and Walker Review of Systems Review of Systems: Recent UTI completed antibiotic therapy. Denies fevers, chills, cough, sputum production, hemoptysis, hematemesis, hematochezia, melena, dysuria, hematuria, GI complaints. The remainder of her 12 point review of systems is negative except as per HPI. Physical Exam Constitutional: WD/WN, vitals as above Eyes: Extraocular muscles intact. ENMT: Oral mucosa is pink, moist, and intact. Neck: Thick. No JVD. Respiratory: Clear to auscultation bilaterally. No wheezing, rhonchi, or rales. Cardiovascular: Regular rate and rhythm. S4 gallop. No rubs or murmurs. 2+ pulses. No edema. Gastrointestinal (Abdomen): Normal active bowel sounds Musculoskeletal: no cyanosis or clubbing, extremities motor strength 5/5 Neurologic: Cognition is intact. Speech is fluent. No focal deficits. Mildly tremulous. Psychiatric: A+Ox3, euthymic affect Results & Data ([facility]) Vital Signs (Past 12 Hours) Vital Signs Temp Pulse Pulse Resp BP Pulse Ox O2 Del Method 03/19/22 08:00 36.5 C 59 L 20 116/62 93 Room Air 03/19/22 02:46 36.3 C L 55 L 18 133/81 94 Room Air 03/19/22 00:35 58 L 03/18/22 23:14 36.6 C 55 L 18 113/55 L 95 Room Air PG Care Time/CCT Total # of Minutes Spent Total Time Spent with Patient: Total time spent is greater than 50% in coordination of care (as documented) at patient's floor/unit and/or counseling patient: [place] [address] Initial Inpt Care Lvl 2 Patient Type New History Comprehensive Exam Comprehensive Medical Decision Making Moderate Complexity Diagnoses Fall W19.XXXA Cardiomyopathy I42.9
[2022-03-19 11:00] LABS: Potassium 4.2 mmol/L (3.5-5.1)
--- NOTE | 2022-03-19 13:17 | Electrophysiology Report ---
Date of Service March 19, 2022 Electrophysiology Procedure Electrophysiology Procedure Report The procedure performed: Implantation of patient activated loop recorder Staff barrel rifler hook: Oracio Lorenzo MD Indication: the patient is a 71-year-old woman with repeated episodes of falling, dizziness and possible syncope. Despite outpatient monitoring no specific diagnosis has been made. Procedure in detail: The patient was informed of the risks benefits and alternatives to the intended procedure. They understood such and wished to proceed. The patient was taken to the electrophysiology suite where the upper chest area was prepped and draped in the usual sterile fashion. An area left lateral to the sternum in the 4th intercostal space was subsequently anesthetized using subcutaneous administration of lidocaine solution. A small incision was made at this site and implantation of the loop recorder was accomplished using a proprietary implantation tool. The small incision was subsequently closed using a single 4 0 Vicryl suture. Steri-Strips and a sterile dressing were then applied. The patient tolerated the procedure well. There were no immediate complications. The device was tested noninvasively prior to conclusion of the procedure. Equipment used: Patient activated loop recorder: Active Directory Specialist [employer]. Model number LNQ2. Serial number [id number] Electrophysiology codes Implantable Monitors Procedure 1: Implantable Monitors: [id number] Loop Recorder Implant
--- NOTE | 2022-03-19 15:18 | XCELERA ---
[id number]
[2022-03-19] MEDS: MoRPHine SULFATE 2 MG/ML CARP IV PRN (16:15)
--- NOTE | 2022-03-19 16:48 | XRay Report ---
KUB CLINICAL HISTORY: Diarrhea. FINDINGS: 2 AP supine abdominal radiographs are compared to study dated 02/22/2022 and correlated wit h abdominal CT dated 12/02/2017. There is a nonobstructed abdominal bowel gas pattern. Moderate fecal retention is seen throughout the colon. No evidence of intraperitoneal free air is seen on these supi ne images. Calcified gallstones are again seen in the right upper quadrant. Phlebolith are noted in t he pelvis. The skeletal structures are osteopenic and appear intact. There is lumbosacral spondylosis . A right hip arthroplasty is in place. IMPRESSION: 1. Moderate constipation. 2. Cholelithiasis. Electronically signed by: Toan Conway M.D. 03/19/2022 4:46 PM
[2022-03-19] MEDS ORDERED: Nursing to Pharmacy Communication SCH ×2 (17:00→17:15)
[2022-03-19] MEDS: POLYETHYLENE (MIRALAX) 17 GM PACK PO SCH (17:55)
[2022-03-19] MEDS ORDERED: ONDANSETRON INJ 2 MG/ML 2 ML VIAL IV PRN (19:54)
[2022-03-19] MEDS ORDERED: BACITRACIN OINT 0.9 GM PKT EXT PRN (20:00)
[2022-03-19] MEDS: ATORVASTATIN 40 MG TAB PO SCH (20:43)
[2022-03-19] MEDS: CITALOPRAM 20 MG TAB PO SCH (20:43)
[2022-03-19] MEDS: LIDOCAINE 5% 1 PATCH TD SCH (20:45)
--- NOTE | 2022-03-19 22:40 | Hospitalist Progress Note ---
Date of Service March 19, 2022 Assessment & Plan (1) Ambulatory dysfunction: Plan: -Admit to med/tele -Patient is currently afebrile, hemodynamically stable, and stable on RA -The etiology of the patient's sensation of being off balance and fall today are unknown at this time but the differential includes but is not limited to vertigo, orthostatic hypotension, stroke, mechanical fall, anxiety, and arrhythmia -Large trauma workup in the ED was negative, patient had recent TTE and CTA of the head/neck without major complications, patient was noted to be bradycardic on ECG today so there may be a component of symptomatic bradycardia? -MR brain is negative. -likely peripheral vertigo. -Patient requests to consult neurology. -confirm BPPV. _patient on 03/19 does not feel steady on her feet. -Patient reports she is having diarrhea. KUB: shows large amount of stool in her colon. -Patient will be treated with miralax and linzess and will monitor. (2) Recurrent major depression resistant to treatment: Plan: -Continue ativan, lamictal, citalopram, and abilify (3) Hypothyroidism: Plan: -Continue levothyroxine (4) Hypertension: Plan: -Continue metoprolol but monitor for bradycardia on tele -Continue losartan (5) Hypercholesteremia: Plan: -Continue statin (6) COPD (chronic obstructive pulmonary disease): Plan: -Continue breathing treatments (7) GERD (gastroesophageal reflux disease): Plan: -Continue omeprazole Plan The patient was discussed with Dr. Valenzuela at the time of the admission Admission and Anticipated Discharge Date Admission Date: March 19, 2022 Subjective 71 yo female reports feeling better today. Her main complaint is that she is having diarrhea and with her recent syncope episode is worried about discharge. Review of Systems Review of Systems: All systems reviewed & are unremarkable except as noted in HPI & below Physical Exam Physical Exam: General: In no acute distress, stated age, well-nourished, good hygiene HEENT: Normocephalic, atraumatic, no scleral icterus, patient with hazy left pupil/cornea due to previous shingles infection, right pupil is round and react chelsey to light, moist mucus membranes, trachea midline, no thyromegaly Chest/Pulm: No respiratory distress, symmetrical chest expansion, clear breath sounds throughout Cardiac: RRR, no murmurs noted Abdomen: Negative for ascites and bruising, normoactive bowel sounds, soft, non- tender to palpation throughout Musculoskeletal: patient wihtout trauma to the face, intact ROM of the neck, UE's, and LE's. Patient with non-bleeding skin abrasions on the BL hands Extremities: Radial, dorsalis pedis, and posterior tibial pulses are intact and symmetrical, no edema noted in the BL LE's Skin: Warm, dry, no rashes , lesions, or scars noted Neuro: Alert and oriented to person, place, month, year, and president, no focal defects, CN II-XII tested and intact, finger to nose test negative, no tremors noted Psych: No acute distress, calm and cooperative during the exam Results & Data Results & Data ([facility]) Vital Signs (Past 12 Hours) Vital Signs Temp Pulse Pulse Resp BP BP Pulse Ox 03/19/22 19:24 36.8 C 73 20 132/80 94 03/19/22 14:06 60 03/19/22 15:00 36.6 C 61 18 127/64 93 03/19/22 12:00 03/19/22 12:34 70 18 143/59 H 97 03/19/22 11:41 36.6 C 61 18 134/60 95 O2 Del Method 03/19/22 19:24 Room Air 03/19/22 14:06 03/19/22 15:00 Room Air 03/19/22 12:00 Room Air 03/19/22 12:34 Room Air 03/19/22 11:41 Room Air PG Care Time/CCT Total # of Minutes Spent Total Time Spent with Patient: Total time spent is greater than 50% in coordination of care (as documented) at patient's floor/unit and/or counseling patient: Coding Level of Care Code 86804 Subseq Hosp Care Lvl 2 Diagnoses Ambulatory dysfunction R26.2 Recurrent major depression resistant to treatment F33.9 Hypothyroidism E03.9 Hypothyroidism type: unspecified Hypertension I10 Hypercholesteremia E78.00 COPD (chronic obstructive pulmonary disease) J44.9 GERD (gastroesophageal reflux disease) K21.9 Time Spent (min) 25 (1) Hypothyroidism Hypothyroidism type: unspecified Qualified Code(s): E03.9 - Hypothyroidism, unspecified
[2022-03-20] MEDS: BUTALBITAL/ACETAMIN/CAFFEINE TAB PO PRN ×3 (02:19→22:24)
[2022-03-20 05:56] LABS: Hematocrit (blood only) 39.9 % (34.1-44.9); Hemoglobin 12.7 g/dl (12.0-16.0); Mean Corpuscular Hemoglobin 28.7 pg (25.0-34.0); Mean Corpuscular Hgb Conc 31.8 g/dL (32.0-36.0); Mean Corpuscular Volume 90.3 fL (80.0-100.0); Mean Platelet Volume 9.8 fL (9.4-12.3); Platelet Count 155 K/uL (130-400); RDW Standard Deviation 46.4 fL (36.4-46.3); Red Blood Count 4.42 M/uL (3.93-5.22); White Blood Count 7.78 K/ul (4.8-10.8)
[2022-03-20 06:27] LABS: Albumin Globulin Ratio 1.8 (0.9-2); Albumin Level 3.7 gm/dl (3.4-5.0); BUN Creatinine Ratio 15.4 (10-20); Bilirubin,Total 0.6 mg/dl (0.2-1.0); Calcium 8.2 mg/dl (8.5-10.1); Creatinine Clr Calc Pharmacy 51.6 ml/min; Est GFR (African American) 50.4 ml/min; Est GFR (Non-African American) 43.5 ml/min; Globulin 2.1 gm/dl (2.5-4.0); Potassium 4.2 mmol/L (3.5-5.1); Total Protein 5.8 gm/dl (6.0-8.3)
[2022-03-20] MEDS: ACETAMINOPHEN 325 MG TAB PO SCH ×3 (06:33→18:59)
[2022-03-20] MEDS: LEVOTHYROXINE SODIUM 112 MCG TABLET PO SCH (06:33)
[2022-03-20] MEDS: PANTOprazole 40 MG TAB PO SCH (08:18)
[2022-03-20] MEDS: LINACLOTIDE 145 MCG CAPSULE PO SCH ×2 (08:18→08:23)
[2022-03-20] MEDS: LOSARTAN POTASSIUM 25 MG TAB PO SCH (08:18)
[2022-03-20] MEDS: METOPROLOL SUCC 25MG EXT REL TAB PO SCH (08:18)
[2022-03-20] MEDS: ARIPIprazole 1 MG/ML ORAL SOLN 150 ML BTL PO SCH (08:18)
[2022-03-20] MEDS: lamoTRIgine 100 MG TAB PO SCH ×2 (08:18→20:29)
[2022-03-20] MEDS: POLYETHYLENE (MIRALAX) 17 GM PACK PO SCH (08:19)
[2022-03-20 11:45] LABS: Amobarbital, Urine Conf NEGATIVE ng/mL (<100); Butalbital, Urine 549 ng/mL (<100); Pentobarbital, Urine Conf NEGATIVE ng/mL (<100); Phenobarbital, Urine NEGATIVE ng/mL (<100); Secobarbital, Urine Conf NEGATIVE ng/mL (<100)
[2022-03-20] MEDS: LORazepam 0.5 MG TAB PO PRN (14:07)
--- NOTE | 2022-03-20 17:09 | XRay Report ---
KUB CLINICAL HISTORY: Diarrhea. FINDINGS: 2 AP supine abdominal radiographs are compared to study dated 03/19/2022 and correlated wit h abdominal CT dated 12/02/2017. There is a nonobstructed abdominal bowel gas pattern. There is only m ild fecal retention noted in the colon. No evidence of intraperitoneal free air is seen on these supi ne images. Calcified gallstones are again seen in the right upper quadrant. Phlebolith are noted in t he pelvis. The skeletal structures are osteopenic and appear intact. There is lumbosacral spondylosis . A right hip arthroplasty is in place. IMPRESSION: 1. Nonobstructed bowel gas pattern. Fecal retention has decreased from yesterday. 2. Cholelithiasis. Electronically signed by: Toan Conway M.D. 03/20/2022 5:07 PM
[2022-03-20] MEDS: LIDOCAINE 5% 1 PATCH TD SCH (20:28)
[2022-03-20] MEDS: ATORVASTATIN 40 MG TAB PO SCH (20:29)
[2022-03-20] MEDS: CITALOPRAM 20 MG TAB PO SCH (20:30)
--- NOTE | 2022-03-20 22:09 | Hospitalist Progress Note ---
Date of Service March 20, 2022 Assessment & Plan (1) Ambulatory dysfunction: Plan: -Admit to med/tele -Patient is currently afebrile, hemodynamically stable, and stable on RA -The etiology of the patient's sensation of being off balance and fall today are unknown at this time but the differential includes but is not limited to vertigo, orthostatic hypotension, stroke, mechanical fall, anxiety, and arrhythmia -Large trauma workup in the ED was negative, patient had recent TTE and CTA of the head/neck without major complications, patient was noted to be bradycardic on ECG today so there may be a component of symptomatic bradycardia? -MR brain is negative. -likely peripheral vertigo. -Patient requests to consult neurology. -confirm BPPV. _patient on 03/19 does not feel steady on her feet. On 03/20 -Patient reports she is having diarrhea. -she received miralax as her KUB showed large amount of stool. -Patient will be treated with miralax and linzess. carlota need to followup with GI as an outpatient. (2) Recurrent major depression resistant to treatment: Plan: -Continue ativan, lamictal, citalopram, and abilify (3) Hypothyroidism: Plan: -Continue levothyroxine (4) Hypertension: Plan: -Continue metoprolol but monitor for bradycardia on tele -Continue losartan (5) Hypercholesteremia: Plan: -Continue statin (6) COPD (chronic obstructive pulmonary disease): Plan: -Continue breathing treatments (7) GERD (gastroesophageal reflux disease): Plan: -Continue omeprazole Admission and Anticipated Discharge Date Admission Date: March 19, 2022 Subjective 71 yo female reports having diarrhea today. SHe does not feel ready for discharge. She blames this on her miralax. Review of Systems Review of Systems: All systems reviewed & are unremarkable except as noted in HPI & below Physical Exam Physical Exam: General: In no acute distress, stated age, well-nourished, good hygiene HEENT: Normocephalic, atraumatic, no scleral icterus, patient with hazy left pupil/cornea due to previous shingles infection, right pupil is round and reactive to light, moist mucus membranes, trachea midline, no thyromegaly Chest/Pulm: No respiratory distress, symmetrical chest expansion, clear breath sounds throughout Cardiac: RRR, no murmurs noted Abdomen: Negative for ascites and bruising, normoactive bowel sounds, soft, non- tender to palpation throughout Musculoskeletal: patient wihtout trauma to the face, intact ROM of the neck, UE's, and LE's. Patient with non-bleeding skin abrasions on the BL hands Extremities: Radial, dorsalis pedis, and posterior tibial pulses are intact and symmetrical, no edema noted in the BL LE's Skin: Warm, dry, no rashes , lesions, or scars noted Neuro: Alert and oriented to person, place, month, year, and president, no focal defects, CN II-XII tested and intact, finger to nose test negative, no tremors noted Psych: No acute distress, calm and cooperative during the exam Results & Data Results & Data ([facility]) Vital Signs (Past 12 Hours) Vital Signs Temp Pulse Pulse Resp BP BP Pulse Ox 03/20/22 19:14 36.4 C L 59 L 18 138/84 97 03/20/22 15:43 64 03/20/22 15:38 36.8 C 61 20 127/79 94 03/20/22 11:44 36.3 C L 58 L 20 168/84 H 93 O2 Del Method 03/20/22 19:14 Room Air 03/20/22 15:43 03/20/22 15:38 Room Air 03/20/22 11:44 Room Air PG Care Time/CCT Total # of Minutes Spent Total Time Spent with Patient: Total time spent is greater than 50% in coordination of care (as documented) at patient's floor/unit and/or counseling patient: Coding Level of Care Code 72572 Subseq Hosp Care Lvl 2 Diagnoses Ambulatory dysfunction R26.2 Recurrent major depression resistant to treatment F33.9 Hypothyroidism E03.9 Hypothyroidism type: unspecified Hypertension I10 Hypercholesteremia E78.00 COPD (chronic obstructive pulmonary disease) J44.9 GERD (gastroesophageal reflux disease) K21.9 (1) Hypothyroidism Hypothyroidism type: unspecified Qualified Code(s): E03.9 - Hypothyroidism, unspecified
[2022-03-21] MEDS: ACETAMINOPHEN 325 MG TAB PO SCH ×5 (01:18→23:44)
[2022-03-21] MEDS: BUTALBITAL/ACETAMIN/CAFFEINE TAB PO PRN ×2 (05:10→21:24)
[2022-03-21] MEDS: LEVOTHYROXINE SODIUM 112 MCG TABLET PO SCH (05:41)
[2022-03-21] MEDS: LINACLOTIDE 145 MCG CAPSULE PO SCH (08:09)
[2022-03-21] MEDS: POLYETHYLENE (MIRALAX) 17 GM PACK PO SCH (08:09)
[2022-03-21] MEDS: LOSARTAN POTASSIUM 25 MG TAB PO SCH (08:10)
[2022-03-21] MEDS: ARIPIprazole 1 MG/ML ORAL SOLN 150 ML BTL PO SCH (08:10)
[2022-03-21] MEDS: METOPROLOL SUCC 25MG EXT REL TAB PO SCH (08:10)
[2022-03-21] MEDS: PANTOprazole 40 MG TAB PO SCH (08:10)
[2022-03-21] MEDS: lamoTRIgine 100 MG TAB PO SCH ×2 (08:10→21:27)
--- NOTE | 2022-03-21 08:14 | Hospitalist Progress Note ---
Date of Service March 21, 2022 Assessment & Plan (1) Ambulatory dysfunction: Plan: -Admit to med/tele -Patient is currently afebrile, hemodynamically stable, and stable on RA -The etiology of the patient's sensation of being off balance and fall today are unknown at this time but the differential includes but is not limited to vertigo, orthostatic hypotension, stroke, mechanical fall, anxiety, and arrhythmia -Large trauma workup in the ED was negative, patient had recent TTE and CTA of the head/neck without major complications, patient was noted to be bradycardic on ECG today so there may be a component of symptomatic bradycardia? -MR brain is negative. -likely peripheral vertigo. -Patient requests to consult neurology. -confirm BPPV. _patient on 03/19 does not feel steady on her feet. On 03/20 -Patient reports she is having diarrhea. -she received miralax as her KUB showed large amount of stool. -Patient will be treated with miralax and linzess. will need to followup with GI as an outpatient. On 03/21 -Diarrhea resolved last night -Decreased Firicet to q 12 hours for severe pain -Patient to take Tylenol routine q 6 hours today - could bring in Nurtec (not available here in hosptial) -Long discussion with patient regarding healthier diet choices, increasing po water intake, decreasing diet soda, taking a daily fiber supplement -Hope to have PT evaluate later today or tomorrow AM and anticipate discharge to home (2) Recurrent major depression resistant to treatment: Plan: -Continue ativan, lamictal, citalopram, and abilify (3) Hypothyroidism: Plan: -Continue levothyroxine (4) Hypertension: Plan: -Continue metoprolol but monitor for bradycardia on tele -Continue losartan (5) Hypercholesteremia: Plan: -Continue statin (6) COPD (chronic obstructive pulmonary disease): Plan: -Continue breathing treatments (7) GERD (gastroesophageal reflux disease): Plan: -Continue omeprazole Admission and Anticipated Discharge Date Admission Date: March 19, 2022 Subjective Patient was awake in bed. She is still complaining or a headache in the top of her head. She denies any vision changes (she is blind in left eye) or photophobia. She has a history of migraine HAs and takes Amovig monthly on the and also Nurtec as needed. She states that she doesn't feel she can go home today with her headache. Per nursing she has been refusing the routine tylenol. I advised the patient that the fioricet will make her constipation worse so I wanted her to do the Tylenol routine today. She denies any nausea or vomiting. She tells me she had 10+ loose stools yesterday after the miralax. She has not had any further diarrhea since 8 PM last night. She admits to not drinking any water and only drinks diet soda and gatorade at home along with alot of "junk" food. Review of Systems Review of Systems: All other ROS negative unless stated above Constitutional: + body aches and + fatigue; no fever and no chills Eyes: no diplopia, no eye pain and no photophobia Ear, Nose, Mouth, Throat: blind left eye Respiratory: + cough; no chest congestion, no dyspnea, no pain on inspiration and no pain with cough Cardiovascular: no chest pain, no palpitations and no edema Gastrointestinal: + constipation; no abdominal pain, no nausea, no vomiting and no blood in stools Genitourinary: no dysuria, no urinary frequency, no urinary hesitancy and no flank pain Musculoskeletal: + back pain, + neck pain, + joint pain and + stiffness Integumentary: no rash, no lesions and no new lesions Neurologic: + falls and + headache(s); no numbness, no paresthesia, no syncope and no confusion Psychiatric: + anxiety; no confusion, no hallucinations and no auditory hallucinations Physical Exam Constitutional: WD/WN, vitals as above Eyes: ecchymoses left eye secondary to fall ENMT: external ear and nose normal, oropharynx normal Neck: trachea midline, no thyromegaly Respiratory: normal respiratory effort, lungs clear to auscultation Cardiovascular: RRR, no murmur, no edema Gastrointestinal (Abdomen): normal bowel sounds, soft, nontender, no hepatosplenomegaly Musculoskeletal: Head/Neck/Chest: neck supple and + scalp tenderness Spine: + cervical muscular tenderness, + cervical spasm, thoracic spine normal to inspection and lumbar spine normal to inspection; normal cervical ROM, normal thoraco-lumbar ROM and no pain with cervical ROM Neurologic: patellar DTR's 2+ bilat, sensation intact and PERRL, EOMI, accommodation nl, no face palsy, no dysarthria Psychiatric: Orientation: alert, oriented x 3 and cooperative Eye Contact: good eye contact Affect: + anxious affect and + tearful affect Results & Data Results & Data ([facility]) Vital Signs (Past 12 Hours) Vital Signs Temp Pulse Resp BP Pulse Ox O2 Del Method 03/21/22 07:53 36.5 C 65 20 135/82 95 Room Air 03/21/22 03:45 36.4 C L 64 18 101/70 96 Room Air 03/20/22 22:15 36.4 C L 61 18 140/79 92 Room Air Laboratory Results Abnormal lab results 03/17/22 Range/Units 14:58 Urine Butalbital 549 H (<100) ng/mL Diagnostic Findings KUB X-Ray 03/20/22 15:46 KUB CLINICAL HISTORY: Diarrhea. FINDINGS: 2 AP supine abdominal radiographs are compared to study dated 03/19/2022 and correlated with abdominal CT dated 12/02/2017. There is a nonobstructed abdominal bowel gas pattern. There is only mild fecal retention noted in the colon. No evidence of intraperitoneal free air is seen on these supine images. Calcified gallstones are again seen in the right upper quadrant. Phlebolith are noted in the pelvis. The skeletal structures are osteopenic and appear intact. There is lumbosacral spondylosis. A right hip arthroplasty is in place. IMPRESSION: 1. Nonobstructed bowel gas pattern. Fecal retention has decreased from yesterday. 2. Cholelithiasis. Electronically signed by: Toan Conway M.D. 03/20/2022 5:07 PM PG Care Time/CCT Total # of Minutes Spent Total Time Spent with Patient: Total time spent is greater than 50% in coordination of care (as documented) at patient's floor/unit and/or counseling patient: Coding Level of Care Code 56774 Subseq Hosp Care Lvl 2 Diagnoses Ambulatory dysfunction R26.2 Recurrent major depression resistant to treatment F33.9 Hypothyroidism E03.9 Hypothyroidism type: unspecified Hypertension I10 Hypercholesteremia E78.00 COPD (chronic obstructive pulmonary disease) J44.9 GERD (gastroesophageal reflux disease) K21.9 Time Spent (min) 20 (1) Hypothyroidism Hypothyroidism type: unspecified Qualified Code(s): E03.9 - Hypothyroidism, unspecified
[2022-03-21] MEDS: LORazepam 0.5 MG TAB PO PRN (09:34)
[2022-03-21] MEDS: MoRPHine SULFATE 2 MG/ML CARP IV PRN (13:22)
[2022-03-21] MEDS: CITALOPRAM 20 MG TAB PO SCH (21:26)
[2022-03-21] MEDS: LIDOCAINE 5% 1 PATCH TD SCH (21:26)
[2022-03-21] MEDS: ATORVASTATIN 40 MG TAB PO SCH (21:27)
[2022-03-22] MEDS: MoRPHine SULFATE 2 MG/ML CARP IV PRN (00:20)
[2022-03-22] MEDS: LEVOTHYROXINE SODIUM 112 MCG TABLET PO SCH (05:59)
[2022-03-22] MEDS: ACETAMINOPHEN 325 MG TAB PO SCH ×2 (05:59→11:27)
[2022-03-22 07:39] LABS: Hemoglobin 12.7 g/dl (12.0-16.0); Mean Corpuscular Hgb Conc 31.8 g/dL (32.0-36.0); Mean Corpuscular Volume 91.3 fL (80.0-100.0); Mean Platelet Volume 9.9 fL (9.4-12.3); Platelet Count 144 K/uL (130-400); RDW Coefficient of Variation 13.9 % (11.5-14.5); RDW Standard Deviation 46.7 fL (36.4-46.3); Red Blood Count 4.38 M/uL (3.93-5.22); White Blood Count 6.28 K/ul (4.8-10.8)
[2022-03-22 08:05] LABS: BUN Creatinine Ratio 16.1 (10-20); Calcium 8.1 mg/dl (8.5-10.1); Creatinine Clr Calc Pharmacy 55.6 ml/min; Est GFR (African American) 56.4 ml/min; Est GFR (Non-African American) 48.7 ml/min; Potassium 3.9 mmol/L (3.5-5.1)
[2022-03-22] MEDS: PANTOprazole 40 MG TAB PO SCH (08:32)
[2022-03-22] MEDS: LOSARTAN POTASSIUM 25 MG TAB PO SCH (08:32)
[2022-03-22] MEDS: lamoTRIgine 100 MG TAB PO SCH (08:32)
[2022-03-22] MEDS: ARIPIprazole 1 MG/ML ORAL SOLN 150 ML BTL PO SCH (08:32)
[2022-03-22] MEDS: METOPROLOL SUCC 25MG EXT REL TAB PO SCH (08:33)
[2022-03-22] MEDS: POLYETHYLENE (MIRALAX) 17 GM PACK PO SCH (08:36)
[2022-03-22] MEDS: LINACLOTIDE 145 MCG CAPSULE PO SCH (08:37)
[2022-03-22] MEDS: BUTALBITAL/ACETAMIN/CAFFEINE TAB PO PRN (10:21)
--- NOTE | 2022-03-22 11:45 | Discharge Summary ---
Date of Service March 22, 2022 Admission HPI Per Admitting Provider Shi is a 71 year old female with a PMH significant for HTN, hypothyroidism, hyperlipidemia, CKD, complex partial seizures, COPD, GERD, esophageal dysphagia, memory loss, BARBARA, and vertigo who presented to the [facility] ED on 03/17/22 after sustaining a fall walking into [employer]. In the Ed the patient was found to be afebrile, hemodynamically stable, and stable on RA. Labs including CBC, CMP, troponin, UA, and covid swab were unremarkable. They patient underwent extensive imaging. CT of the head showed her frontal scalp contusion otherwise no acute findings. CT of the cervical spine was negative for acute findings. Xrays of the left shoulder and left hand were also negative. Finally, xray of the hips/pelvis and chest xray were negative for acute findings. The patient recently underwent CTA of the head and neck on 03/08/22 for atypical headache and nausea. They showed "1. Mild to moderate atherosclerotic plaque. No stenosis or dissection within the major vessels of the neck. 2. Mild fusiform dilatation of the distal right cervical internal carotid artery, measuring 7 mm. This is unchanged since CTA of July 04, 2015.". The patient underwent an ambulation trial after her workup but still felt uneasy on her feet, we were asked to admit for further evaluation of her ambulatory dysfunction. At the time of the exam the patient was resting comfortably in bed in no acute distress. She states that she was in her normal state of health this am when her dropped her off in front of [employer]. She states that she got out of the car and felt fine initially but as she started to walk towards the store she started feeling off balance, she states "it felt like I was drunk, I kept wobbling from side to side". She denies having the sensation that the world around her was spinning and denies chest pain, lightheadedness, dizziness, and any changes in her vision during this episode. She eventually fell forward, hitting the right side of her head and torso on the store window. She is unsure if she actually lost consciousness and denies being on anticoagulants. I asked her about a history of vertigo and she states that she had it in the past but this does not feel like her previous episodes of vertigo. She told me that when she was changing positions down at CT she experienced the sensation of being off balance again. We discussed code status, the patient is a full code and her would make decisions for her if she could not make them herself. Per chart review, the patient had a TTE performed on 12/14/21 due to a recent history of convulsions. She was found to have a LVEF of 40-45%, mild global hypokinesis, grade I diastolic dysfunction, and no significant valvular pathology. Admission Exam Per Admitting Provider General:In no acute distress, stated age, well-nourished, good hygiene HEENT:Normocephalic, atraumatic, no scleral icterus, patient with hazy left pupil/cornea due to previous shingles infection, right pupil is round and reactive to light, moist mucus membranes, trachea midline, no thyromegaly Chest/Pulm:No respiratory distress, symmetrical chest expansion, clear breath sounds throughout Cardiac:RRR, no murmurs noted Abdomen:Negative for ascites and bruising, normoactive bowel sounds, soft, non-tender to palpation throughout Musculoskeletal:patient wihtout trauma to the face, intact ROM of the neck, UE's, and LE's. Patient with non-bleeding skin abrasions on the BL hands Extremities:Radial, dorsalis pedis, and posterior tibial pulses are intact and symmetrical, no edema noted in the BL LE's Skin:Warm, dry, no rashes , lesions, or scars noted Neuro:Alert and oriented to person, place, month, year, and president, no focal defects, CN II-XII tested and intact, finger to nose test negative, no tremors noted Psych:No acute distress, calm and cooperative during the exam Principal Diagnosis ambulatory dysfunction Discharge Exam Constitutional WD/WN, vitals as above ENMT external ear and nose normal, oropharynx normal Neck trachea midline, no thyromegaly Respiratory normal respiratory effort, lungs clear to auscultation Cardiovascular RRR, no murmur, no edema Gastrointestinal (Abdomen) normal bowel sounds, soft, nontender, no hepatosplenomegaly Musculoskeletal Head/Neck/Chest: neck supple and + scalp tenderness Spine: + cervical muscular tenderness, + cervical spasm, thoracic spine normal to inspection and lumbar spine normal to inspection; normal cervical ROM, normal thoraco-lumbar ROM and no pain with cervical ROM Skin no rashes, warm and dry Neurologic patellar DTR's 2+ bilat, sensation intact and PERRL, EOMI, accommodation nl, no face palsy, no dysarthria Psychiatric Orientation: alert, oriented x 3 and cooperative Eye Contact: good eye contact Discharge Data Allergies Allergy/AdvReac Type Severity Reaction Status Date / Time sumatriptan [From Imitrex] Allergy Severe itching Verified 03/17/22 17:48 gabapentin Allergy Intermediate BURNING OF Verified 03/17/22 17:48 FEET AND ANKLES lisinopril AdvReac Intermediate COUGH Verified 03/17/22 17:48 Consultations 03/17/22 17:37 ED Decision to Admit Stat 03/18/22 15:55 Consult Cardiology Routine -Consult for possible syncope Placed a loop recorder Echo 03/19/22 EF 50-55% Continue Losartan and Metoprolol Succinate 03/18/22 16:49 Consult Neurology Routine [place] that patient had a peripheral vertigo problem, likely improving BPPV Recommended to avoid sudden positional change, no bending down, and try to sleep with head at least 30 degrees. Patient to follow up with her planned outpatient neurology visit Procedures Performed Operation Date: 03/19/22 13:00 Actual Procedures p Implant Cardiac Event Recorder - Oracio Lorenzo MD Ordered Studies 03/17/22 14:21 CT cervical spine wo con Stat CT head/brain wo con Stat IMPRESSION: 1. No acute intracranial findings. 2. Frontal scalp contusion. No acute calvarial fracture. IMPRESSION: No acute cervical spine fracture or subluxation identified. 03/17/22 Xray left hand, Hip/pelvis and left shoulder 03/17/22 19:17 MRI Brain [MR brain wo con] Urgent FINDINGS: The oil scout localizer images demonstrate no gross extracranial abnormality. No restricted diffusion to suggest acute or subacute infarct. The midline structures appear unremarkable with a partially empty sella. Degenerative changes of the cervical spine. No acute intracranial hemorrhage, midline shift, abnormal extra-axial collection, hydrocephalus or intracranial mass. No pathologic blooming artifact. Mild involutional changes. Minimal T2/FLAIR hyperintense foci throughout the white matter may represent a degree of chronic microvascular ischemic disease. No acute calvarial fracture identified. Prior bilateral lens repair. Small left frontal scalp contusion anteriorlyr measuring up to approximately 3.5 cm. The mastoid air cells and paranasal sinuses are clear. IMPRESSION: 1. No acute intracranial abnormality. No acute or subacute infarct. 2. Small frontal scalp contusion. 03/19/22 KUB FINDINGS: 2 AP supine abdominal radiographs are compared to study dated 03/19/2022 and correlated with abdominal CT dated 12/02/2017. There is a nonobstructed abdominal bowel gas pattern. There is only mild fecal retention noted in the colon. No evidence of intraperitoneal free air is seen on these supine images. Calcified gallstones are again seen in the right upper quadrant. Phlebolith are noted in the pelvis. The skeletal structures are osteopenic and appear intact. There is lumbosacral spondylosis. A right hip arthroplasty is in place. IMPRESSION: 1. Nonobstructed bowel gas pattern. Fecal retention has decreased from yesterday. Hospital Course (1) Ambulatory dysfunction: -Admit to med/tele -Patient continued to be afebrile, hemodynamically stable, and stable on RA -Large trauma workup in the ED was negative, patient had recent TTE and CTA of the head/neck without major complications, patient was noted to be bradycardic on ECG today so there may be a component of symptomatic bradycardia? -MR brain was negative. -likely peripheral vertigo per cardiology and neurology (2) BPPV (benign paroxysmal positional vertigo): -Encouraged patient to have slower position changes, avoid sudden positional change, no bending down, and try to sleep with head at least 30 degrees. -Patient to follow up with her planned outpatient neurology visit (3) Recurrent major depression resistant to treatment: -Continue ativan, lamictal, citalopram, and abilify (4) Hypothyroidism: -Continue levothyroxine (5) Hypertension: -Continue metoprolol succinate -Continue losartan (6) Hypercholesteremia: -Continue statin (7) COPD (chronic obstructive pulmonary disease): -Continue breathing treatments (8) GERD (gastroesophageal reflux disease): -Continue omeprazole (9) Irritable bowel syndrome with predominant constipation: -Miralax as needed. Also has Linzess rx by GI at home and to take as directed. -Long discussion with patient regarding healthier diet choices, increasing po water intake, decreasing diet soda and diet iced tea, taking a daily fiber supplement (10) Headache: Patient has a history of migraine headaches for many years Continue to follow with neurology Suggest to follow up also with headache clinic Continue Amovig injections monthly Nurtec, Tylenol and Tramadol as needed Discussed diet, good sleep hygiene with patient Total Time Total Time Spent Total Time Spent (In Minutes): 35 Discharge Plan Discharge Items Patient Disposition: Home - Self-Care Reason For Visit: FALL, NECK & HEAD PAIN, L HAND ABRASION Discharge Diagnosis: ambulatory dysfunction peripheral vertigo Condition on Discharge: Good Activity: Per Instructions section Activity Comment: Increase activity slowly. Slow position changes, no bending down Lifting: Gradually increase as tolerated and No more than 5 pounds Bathing: Keep incision dry Bathing Comment: keep wound dry and Steri-Strips intact until follow-up Exercise/Sports: None Exercise Comment: wait till has follow up with neurology Weightbearing: Full weightbearing Non-emergency contact: Primary Care Provider Call non-emergency contact if: you have any medication questions, your symptoms worsen, your wound has increased redness, your wound has increased drainage and your wound pain has increased Follow-up/Referrals: Krysta Donald MD [Primary Care Provider] - 03/31/22 3:00 pm Diet: Heart Healthy Addtl Attending Provider Instructions: may remove outer bulky dressing in the morning Pending Studies at Discharge: Yes Studies:: Has loop recorder in place Stand-Alone Forms: My [facility] Dick or Bro Medications and DC Order Prescriptions: New tramadol 50 mg tablet 50 mg PO Q12H MDD 100mg PRN (Reason: pain) Qty: 10 0RF Continued ondansetron 4 mg tablet,disintegrating 4 mg PO Q6H PRN (Reason: Nausea) Qty: 30 5RF ipratropium-albuterol 0.5 mg-3 mg(2.5 mg base)/3 mL solution for nebulization 3 ml Inhalation Q6H PRN (Reason: Shortness Of Breath Or Wheezing) Qty: 360 5RF atorvastatin 40 mg tablet 40 mg PO HS Qty: 90 3RF (DME) diaper,brief,adult,disposable Misc See Rx Instructions .Route Qty: 180 11RF Rx Instructions: Pullups Size M - 2 per day omeprazole 40 mg capsule,delayed release(DR/EC) 40 mg PO DAILY Qty: 90 3RF levothyroxine 112 mcg tablet 112 mcg PO QAM Qty: 90 3RF lorazepam 0.5 mg tablet 0.5 mg PO DAILY PRN (Reason: Anxiety) Qty: 30 0RF Linzess 145 mcg capsule 145 mcg PO DAILY Qty: 30 2RF lamotrigine 200 mg tablet 200 mg PO BID 90 Days Qty: 180 1RF kcvlxlstou-foespfxihbovu-cfwd 50-325-40 mg tablet 2 tab PO Q6H PRN (Reason: pain) Qty: 12 0RF citalopram 20 mg tablet 20 mg PO HS Qty: 90 3RF Label Comments: with 10mg to equal 30mg Rx Instructions: TOTAL DOSE 30 MG--TAKE WITH 10 MG TAB Aimovig Autoinjector 140 mg/mL auto-injector 140 mg subcut MONTHLY 30 Days Qty: 1 5RF aripiprazole 2 mg tablet 2 mg PO DAILY metoprolol succinate 25 mg tablet extended release 24 hr 25 mg PO DAILY Qty: 30 11RF losartan 25 mg tablet 25 mg PO DAILY Qty: 90 3RF (DME) [facility] [place] See Rx Instructions .MEDSUPPLY Qty: 1 0RF Rx Instructions: As directed bromfenac 0.09 % drops 1 drp OPR UD PRN (Reason: Eye Irritation) mupirocin 2 % ointment 1 applic topical BID PRN (Reason: nasal sore) Rx Instructions: APPLY TO BOTH NOSTRILS TWICE DAILY FOR 2 WEEKS citalopram 10 mg tablet 10 mg PO HS Rx Instructions: TOTAL DOSE 30 MG--TAKES WITH 20 MG TAB. Nurtec ODT 75 mg tablet,disintegrating 75 mg PO PRN PRN (Reason: Migraine Headache) Discharge Orders: Discharge Order (Routine); Ordered 03/22/22 Ordered By: Sharee Raymond Admission Data Admit Date/Time: 03/19/22 15:36 Attending Provider: Selvin Sanchez Admit Provider: Brant Valenzuela Primary Care Provider: Krysta Donald Other Providers: Ruperto Thomas ; Ezekiel Denney ; Matthew Toscano ; Nicolas Shelby ; Singh Lewis ; Ronald Kennedy Jr ; Jeremie Banuelos ; Julia Zuniga ; Madeline Trent ; Kanu Boland ; Oracio Lorenzo ; Dharmesh Whipple ; Chanell Jackson ; Angeli Navarrete ; Jose De Souza ; Cooper Fuentes ; Javier Guaman ; Nicolas Arenas V. ; Duane Hernandez ; Brant Valenzuela ; [facility] Other Interventions: Discharge Summary Assessment (RN) Last Done: 03/22/22 11:01 Coding Level of Care Code D/C DAY MANAGEMENT >30 MINS Diagnoses Ambulatory dysfunction R26.2 BPPV (benign paroxysmal positional vertigo) H81.10 Recurrent major depression resistant to treatment F33.9 Hypothyroidism E03.9 Hypothyroidism type: unspecified Hypertension I10 Hypercholesteremia E78.00 COPD (chronic obstructive pulmonary disease) J44.9 GERD (gastroesophageal reflux disease) K21.9 Irritable bowel syndrome with predominant constipation K58.1 Headache R51.9 Time Spent (min) 40
[2022-03-22] MEDS: LORazepam 0.5 MG TAB PO PRN (12:43)
[2022-03-22] MEDS ORDERED: MAGNESIUM SULFATE / D5W 1 GM/100 ML BAG IV ONE (13:49)
[2022-03-22] MEDS ORDERED: MoRPHine SULFATE 2 MG/ML CARP IV STA (13:52)
== END 2022-03-22 17:20 | disposition home or self-care (01) ==
LOC: 2N 13:40 → ED 13:40 → 2N 19:44 → SUATTDRO 03-19 15:36
DX: Z20.822 Contact with and (suspected) exposure to COVID-19; Z79.899 Other long term (current) drug therapy; Z79.890 Hormone replacement therapy; I13.0 Hypertensive heart and chronic kidney disease with heart failure and stage 1 through stage 4 chronic kidney disease, or unspecified chronic kidney disease; G47.33 Obstructive sleep apnea (adult) (pediatric); G43.909 Migraine, unspecified, not intractable, without status migrainosus; I50.20 Unspecified systolic (congestive) heart failure; R00.1 Bradycardia, unspecified; E78.00 Pure hypercholesterolemia, unspecified; Z87.891 Personal history of nicotine dependence; M25.512 Pain in left shoulder; W01.198A Fall on same level from slipping, tripping and stumbling with subsequent striking against other object, initial encounter; J44.9 Chronic obstructive pulmonary disease, unspecified; S60.512A Abrasion of left hand, initial encounter; Z88.6 Allergy status to analgesic agent; Y93.01 Activity, walking, marching and hiking; K58.1 Irritable bowel syndrome with constipation; R41.9 Unspecified symptoms and signs involving cognitive functions and awareness; I42.9 Cardiomyopathy, unspecified; Y92.512 Supermarket, store or market as the place of occurrence of the external cause; S00.03XA Contusion of scalp, initial encounter; G40.209 Localization-related (focal) (partial) symptomatic epilepsy and epileptic syndromes with complex partial seizures, not intractable, without status epilepticus; Z88.8 Allergy status to other drugs, medicaments and biological substances; M25.552 Pain in left hip; K21.9 Gastro-esophageal reflux disease without esophagitis; H81.10 Benign paroxysmal vertigo, unspecified ear; F33.9 Major depressive disorder, recurrent, unspecified; N18.9 Chronic kidney disease, unspecified; E03.9 Hypothyroidism, unspecified

== ENCOUNTER 2022-10-26 08:27 | Observation (INO) ==
--- NOTE | 2022-10-18 12:12 | PAT Medication Instructions ---
Medication Instructions Date of Service October 18, 2022 Home Medications Medication Instructions Recorded ipratropium 0.5 mg-albuterol 3 mg 3 ml inhalation Q6H PRN Shortness 03/30/21 (2.5 mg base)/3 mL nebulization Of Breath Or Wheezing #360 mL soln diaper,brief,adult,disposable #180 ea 06/10/21 Wheeled Walker #1 ea 07/23/21 citalopram 20 mg tablet 20 mg PO HS #90 tabs 02/10/22 lamotrigine 200 mg tablet 200 mg PO BID #180 tabs 04/15/22 atorvastatin 40 mg tablet 40 mg PO HS #90 tabs 05/07/22 nystatin 100,000 unit/gram topical 1 applic topical BID #15 grams 06/08/22 powder hydroxyzine HCl 50 mg tablet 50 mg PO ONCE anxiety #30 tabs 07/29/22 citalopram 10 mg tablet 10 mg PO HS #90 tabs 08/09/22 erenumab-aooe 140 mg/mL 140 mg subcut MONTHLY 30 days #1 mL 08/17/22 subcutaneous auto-injector (Aimovig Autoinjector) rimegepant 75 mg disintegrating 75 mg PO ONCE PRN Migraine 08/17/22 tablet (Nurtec ODT) Headache #9 tabs aiqbhqljyh-udlsmnbnfosdi-fayfcajq 1 tab PO DAILY PRN pain #10 tabs 08/23/22 50 mg-325 mg-40 mg tablet levothyroxine 112 mcg tablet 112 mcg PO QAM #90 tabs 08/24/22 ipratropium 0.5 mg-albuterol 3 mg (2.5 mg base)/3 mL nebulization soln 3 ml inhalation Q6H PRN citalopram 20 mg tablet 20 mg PO HS lamotrigine 200 mg tablet 200 mg PO BID atorvastatin 40 mg tablet 40 mg PO HS nystatin 100,000 unit/gram topical powder 1 applic topical BID hydroxyzine HCl 50 mg tablet 50 mg PO ONCE citalopram 10 mg tablet 10 mg PO HS erenumab-aooe 140 mg/mL subcutaneous auto-injector (Aimovig Autoinjector) 140 mg subcut MONTHLY rimegepant 75 mg disintegrating tablet (Nurtec ODT) 75 mg PO ONCE PRN rucombkjpf-qqgbwerplteie-vmexuxub 50 mg-325 mg-40 mg tablet 1 tab PO DAILY PRN levothyroxine 112 mcg tablet 112 mcg PO QAM aripiprazole 2 mg tablet 2 mg PO QAM cholecalciferol (vitamin D3) 25 mcg (1,000 unit) tablet (Vitamin D3) 25 mcg PO QAM linaclotide 145 mcg capsule (Linzess) 145 mcg PO DAILY PRN lorazepam 0.5 mg tablet 0.5 mg PO DAILY PRN losartan 25 mg tablet 25 mg PO QAM metoprolol succinate 25 mg tablet,extended release 24 hr 25 mg PO QAM omeprazole 40 mg capsule,delayed release 40 mg PO QAM peg [id number] 1 %-0.2 %-0.2 % eye drops (Dry Eye Relief) 1 drp ophthalmic (eye) BID PRN topiramate 50 mg tablet 50 mg PO QAM Check if prescriber provider has ana-operative recommendations, otherwise continue as normal aripiprazole 2 mg tablet 2 mg PO QAM Continue as directed hydroxyzine HCl 50 mg tablet 50 mg PO ONCE erenumab-aooe 140 mg/mL subcutaneous auto-injector (Aimovig Autoinjector) 140 mg subcut MONTHLY lorazepam 0.5 mg tablet 0.5 mg PO DAILY PRN(if needed) rimegepant 75 mg disintegrating tablet (Nurtec ODT) 75 mg PO ONCE PRN(if needed) ASK your surgeon for instructions xvmqwrioiy-wzrydyirwcirh-sgphdktt 50 mg-325 mg-40 mg tablet 1 tab PO DAILY PRN STOP taking 24 hours before surgery nystatin 100,000 unit/gram topical powder 1 applic topical BID DO NOT take the morning of surgery cholecalciferol (vitamin D3) 25 mcg (1,000 unit) tablet (Vitamin D3) 25 mcg PO QAM linaclotide 145 mcg capsule (Linzess) 145 mcg PO DAILY PRN losartan 25 mg tablet 25 mg PO QAM Take morning of surgery With a small sip of water, OTHERWISE NOTHING TO EAT OR DRINK AFTER MIDNIGHT: ipratropium 0.5 mg-albuterol 3 mg (2.5 mg base)/3 mL nebulization soln 3 ml inhalation Q6H PRN(if needed) lamotrigine 200 mg tablet 200 mg PO BID levothyroxine 112 mcg tablet 112 mcg PO QAM metoprolol succinate 25 mg tablet,extended release 24 hr 25 mg PO QAM omeprazole 40 mg capsule,delayed release 40 mg PO QAM peg [id number]-ogrjkiqa 1 %-0.2 %-0.2 % eye drops (Dry Eye Relief) 1 drp ophthalmic (eye) BID PRN(if needed) topiramate 50 mg tablet 50 mg PO QAM Take evening before surgery ipratropium 0.5 mg-albuterol 3 mg (2.5 mg base)/3 mL nebulization soln 3 ml inhalation Q6H PRN(if needed) citalopram 20 mg tablet 20 mg PO HS lamotrigine 200 mg tablet 200 mg PO BID atorvastatin 40 mg tablet 40 mg PO HS citalopram 10 mg tablet 10 mg PO HS peg [id number] 1 %-0.2 %-0.2 % eye drops (Dry Eye Relief) 1 drp ophthalmic (eye) BID PRN(if needed) Other Notes If you have any questions please call us at [phone] or [phone] or [phone] or [phone]
--- NOTE | 2022-10-21 14:07 | Anesthesiology Consultation ---
Date of Service October 21, 2022 Assessment & Plan (1) Encounter for pre-operative examination: - awaiting neurology pre-op notation. - case discussed with Dr. Gillette who advised patient will need neurology to comment if patient is acceptable to undergo surgery or if further evaluation/te sting/intervention will be needed. Patient and surgeon's office made aware. Workload note sent to [place] neurology. - neurology 08/17/22 [place]: "...Migraine: continue topamax 50mg daily. use nurtec, fioricet sparingly. keep track of episodes and headaches. Seizure disorder...sz vs nonepileptic events. continue lamictal. keep track of symptoms. may improve with better hydration and daily exercises..." - cardiology 07/26/22 [place]: "...Hypertension: Blood pressure is at target. Continue losartan 25 mg daily and metoprolol succinate ER 25 mg daily...Cardiomyopathy...No evidence of volume overload. EF improved on losartan and metoprolol succinate. No changes..." - EP 06/28/22 [place]: "...Loop recorder: Patient activated episodes with no arrhythmia correlate. 1 recorded "pause" was actually just undersensing. No true arrhythmias recorded. Good battery longevity. Will continue to monitor for arrhythmia with the loop recorder. Cardiomyopathy: Hx of mild cardiomyopathy. Normal LV systolic function by most recent echo on 03/19/22. Continue metoprolol succinate and losartan. Altered level of consciousness: She has had "spells" since device insertion but no arrhythmia has been recorded with her device...Follow-up in 1 year for device interrogation..." - Outpatient joint assessment: Patient is currently scheduled for inpatient pathway. If re-evaluated pending system levels during current pandemic/surgeon requests outpatient pathway, patient is not recommended candidate for outpatient joint program from anesthesia standpoint. Chart Review Chart Review: Pending: Refer to Additional Notes / Consult section and Patient seen in Pre Admission Testing Teaching & Discussion Pre-Anesthesia Teaching/Discussion Notes: Instructed NPO after midnight before surgery, except medications with 15 cc of water. Medication instructions provided according to the PAT guidelines. History Surgery Operation Date: 10/26/22 07:00 Proposed Procedures p Left Total Knee Arthroplasty - Nicolas Gamboa MD Height/Weight Height: 5 ft 8 in Weight: 93.1 kg Allergies Allergy/AdvReac Type Severity Reaction Status Date / Time sumatriptan [From Imitrex] Allergy Severe itching Verified 10/15/22 11:19 gabapentin Allergy Intermediate BURNING OF Verified 10/15/22 11:19 FEET AND ANKLES lisinopril AdvReac Intermediate COUGH Verified 10/15/22 11:19 prochlorperazine AdvReac Intermediate "jaw lock" Verified 10/15/22 11:19 [From Compazine] Medications Home Medications Medication Instructions Recorded Confirmed Last Taken ipratropium 0.5 mg-albuterol 3 mg 3 ml inhalation Q6H PRN Shortness 03/30/21 10/15/22 Unknown (2.5 mg base)/3 mL nebulization Of Breath Or Wheezing #360 mL soln diaper,brief,adult,disposable #180 ea 06/10/21 09/21/22 Unknown Wheeled Walker #1 ea 07/23/21 09/21/22 Unknown lamotrigine 200 mg tablet 200 mg PO BID #180 tabs 04/15/22 10/15/22 Unknown atorvastatin 40 mg tablet 40 mg PO HS #90 tabs 05/07/22 10/15/22 Unknown nystatin 100,000 unit/gram topical 1 applic topical BID #15 grams 06/08/22 10/15/22 Unknown powder hydroxyzine HCl 50 mg tablet 50 mg PO ONCE anxiety #30 tabs 07/29/22 10/15/22 Unknown citalopram 10 mg tablet 10 mg PO HS #90 tabs 08/09/22 10/15/22 Unknown erenumab-aooe 140 mg/mL 140 mg subcut MONTHLY 30 days #1 mL 08/17/22 10/15/22 Unknown subcutaneous auto-injector (Aimovig Autoinjector) rimegepant 75 mg disintegrating 75 mg PO ONCE PRN Migraine 08/17/22 10/15/22 Unknown tablet (Nurtec ODT) Headache #9 tabs bsttnajghy-cbwozhpxibpax-flnpbudd 1 tab PO DAILY PRN pain #10 tabs 08/23/22 10/15/22 Unknown 50 mg-325 mg-40 mg tablet levothyroxine 112 mcg tablet 112 mcg PO QAM #90 tabs 08/24/22 10/15/22 Unknown aripiprazole 2 mg tablet 2 mg PO QAM 10/15/22 10/15/22 Unknown cholecalciferol (vitamin D3) 25 25 mcg PO QAM 10/15/22 10/15/22 Unknown mcg (1,000 unit) tablet (Vitamin D3) linaclotide 145 mcg capsule 145 mcg PO DAILY PRN Constipation 10/15/22 10/15/22 Unknown (Linzess) lorazepam 0.5 mg tablet 0.5 mg PO DAILY PRN Anxiety 10/15/22 10/15/22 Unknown losartan 25 mg tablet 25 mg PO QAM 10/15/22 10/15/22 Unknown metoprolol succinate 25 mg 25 mg PO QAM 10/15/22 10/15/22 Unknown tablet,extended release 24 hr omeprazole 40 mg capsule,delayed 40 mg PO QAM 10/15/22 10/15/22 Unknown release peg 149-[id number]-aksrgyfo 1 1 drp ophthalmic (eye) BID PRN Dry 10/15/22 10/15/22 Unknown %-0.2 %-0.2 % eye drops (Dry Eye Eyes Relief) topiramate 50 mg tablet 50 mg PO QAM 10/15/22 10/15/22 Unknown citalopram 20 mg tablet 20 mg PO HS #90 tabs 10/20/22 Unknown Past Medical History Medical History (Updated 10/21/22 @ 14:37 by Glendy Buitrago PA-C) Ambulatory dysfunction Blindness of left eye R/t cliff (1999) Cardiomyopathy EF 50-55% on 03/2022 echo CKD (chronic kidney disease) stage 3, GFR 30-59 ml/min no specialist Common migraine without aura Complex partial seizure "mini seizure" last episode was 10/19, lasts for approx 30 seconds --"stand and stare, can hear people talking but I can't respond", never had a grand mal--follows with Dr. Kinsey Betts--on lamictal COPD (chronic obstructive pulmonary disease) controlled Deafness in right ear Esophageal dysphagia GERD (gastroesophageal reflux disease) controlled, stable per pt Hiatal hernia s/p Bridgette fundoplication History of COVID-21 July 2021 > not hospitalized Hypercholesteremia Hypertension controlled, stable per pt Hypothyroidism Memory loss ongoing issue Polyneuropathy Schatzki's ring Sleep apnea CPAP Tremor Urinary incontinence Vertigo Patient denies h/o stroke, heart attack, heart failure, DM, blood clots or blood transfusions. Exercise / Class Metabolic Activity III < 4 Walking/Shop/Light housework (ambulates with cane, denies chest discomfort or shortness of breath with usual activities) Past Family History Family History Father Myocardial infarction Sister Multiple sclerosis Mother Stroke Other No family history of adverse response to anesthesia Denies family history of Ovarian cancer Prostate cancer Breast cancer Colorectal cancer Past Surgical History Surgical History History of appendectomy History of bilateral cataract extraction History of bilateral tubal ligation History of bladder suspension procedure History of bunionectomy of left great toe History of bunionectomy of right great toe History of colonoscopy History of dilatation and curettage History of esophageal dilatation History of esophagogastroduodenoscopy (EGD) History of intraocular lens implant right eye History of left breast biopsy benign History of loop recorder Placed 03/2022 History of total hysterectomy with bilateral salpingo-oophorectomy (BSO) History of total replacement of right hip Status post laparoscopic Bridgette fundoplication Past Anesthesia History No Hx of Anesthesia Complications and No Family Hx of Anesthesia Complications History of PONV No Hx of PONV and No Hx of Motion Sickness Social History Smoking Status: Former smoker tobacco type: cigarettes Smoking cigarettes per day: 1 Pack A Day Do You Dip or Chew Tobacco: No Smoking End Date: 2004 Hx Alcohol Use: No Hx Substance Use: No substance use type: does not use Review of Systems Patient denies chest pain, shortness of breath, dyspnea on exertion, fever, chills, cough, wheezing, or palpitations. Physical Exam Vital Signs Vitals BP 134/77 P 65 TEMP 97.6 SP02 97% on RA RESP 17 Physical Full cervical extension range of motion without pain TMD 3.5 finger breadths Mallampati Score 3 Dentition: full upper dentures, denies chipped or loose teeth, caps/crowns, implants or bridges Lungs: normal respiratory effort. Good air movement, clear throughout to auscultation, no adventitious breath sounds Cardiac: regular rate and rhythm, no murmurs noted Carotid arteries: negative bruit bilat Lab Results Anesthesia Preop Results Results Anesthesia Widget: WBC 7.82 K/ul (4.8-10.8) 10/21/22 Hgb 13.8 g/dl (12.0-16.0) 10/21/22 Hct 43.3 % (37.0-47.0) 10/21/22 Plt 169 K/uL (130-400) 10/21/22 Na 141 mmol/L (136-145) 10/21/22 K 4.5 mmol/L (3.5-5.1) 10/21/22 Cl 106 mmol/L (98-107) 10/21/22 CO2 27 mmol/L (21-32) 10/21/22 BUN 18 mg/dl (6-23) 10/21/22 Creat 1.15 mg/dl (0.6-1.2) 10/21/22 Glucose Level 107 mg/dl (70-99(Fasting)) H 10/21/22 PT 10.9 Seconds (9.0-12.0) 10/21/22 PTT 26.9 Seconds (21.0-31.0) 10/21/22 INR 1.0 (0.9-1.1) 10/21/22 Blood Type A Positive 10/21/22 Antibody Screen NEGATIVE 10/21/22 Testing Electrocardiogram Date: 03/17/22 Poor data quality Sinus bradycardia, rate 59 bpm Chest X-Ray Date: 04/09/22 No acute cardiopulmonary findings Echocardiogram Date: 03/17/22 EF 50-55% Borderline cLVH Septal motion is consistent with conduction abnormality Mildly dilated LA Cervical Spine Date: 03/17/22 CT No acute cervical spine fracture or subluxation Other Testing Loop recorder 08/19/22 [employer] Sinus bradycardia presenting rhythm Brain MRI 03/17/22 1. No acute intracranial abnormality. No acute or subacute infarct. 2. Small frontal scalp contusion. Neck CTA 03/08/22 1. Mild to moderate atherosclerotic plaque. No stenosis or dissection within the major vessels of the neck. 2. Mild fusiform dilatation of the distal right cervical internal carotid artery, measuring 7 mm. This is unchanged since CTA of July 04, 2015. EEG 11/18/21 3 day stay in EMU, two typical clinical events were recorded...video-EEG evaluation confirms presence of non epileptic events. Normal interictal EEG does not exclude epilepsy COVID-19 Risk Screen Screening Information COVID-19 Screen Date: 10/21/22 Exposure 21 Days Family/Household +COVID Last 21 Days: No Exposure 10 Days Any COVID Exposure Last 10 Days: No Symptoms Last 10 Days Experienced COVID Sx Last 10 Days: No + COVID 0-90 Days COVID + in Last 0-90 Days: No
[~2022-10-26 08:27] MED LIST changes: -ACET-1047 PO; +ACETAMINOPHEN 500 MG TAB PO SCH; -B-COTAB18 PO; +BUPIVACAINE LIPOSOME/PF 266 MG, BUPIVACAINE/EPINEPHRINE 50 ML, SODIUM CHLORIDE 0.9% PF ... INFIL SCH; -CITA20TA9 PO; -CYAN500T13 PO; +CeleBREX 200 MG CAP PO SCH; -DIPH-416 PO; +FAMOTIDINE 20 MG TAB PO SCH; -LAMO200T35 PO; -LEVO112T2 PO; -LORA-741 PO; -LPT/40 PO; +LR 500ML BOLUS, THEN 15ML/HR IV SCH; +LR 60ML/HR IV SCH; +METOCLOPRAMIDE HCL 10 MG TABLET PO SCH; -NARA1TAB14 PO; -NRV/5 PO; -OMEP-334 PO; -ONDA4TAB46 PO; -PRVIN525 NEB; +ROPIVACAINE 0.5% 5 MG/ML 30 ML VIAL ONE; -TPM25 PO; +TRANEXAMIC ACID 1,000 MG **IV Intra-op IV SCH; +ceFAZolin 2000MG 2,000 MG/15 ML SYR IV SCH; +dexAMETHasone**PF** 10 MG/ML VIAL IV SCH
--- NOTE | 2022-10-26 08:46 | History & Physical Bridge Note ---
Date of Service October 26, 2022 History & Physical Bridge Note I have examined the patient, reviewed the History & Physical and in the interval since the performance of the History & Physical I have noted the following changes of clinical significance: no changes noted
[2022-10-26] MEDS ORDERED: MIDAZOLAM HCL 1 MG/ML 2ML VIAL ONE (09:21)
[2022-10-26] MEDS ORDERED: ATROPINE SULFATE 0.1 MG/ML 10ML SYR IV PRN (09:52)
[2022-10-26] MEDS ORDERED: HYDROmorphone INJ 2 MG/ML SYR/VIAL IV PRN (09:52)
[2022-10-26] MEDS ORDERED: ONDANSETRON INJ 2 MG/ML 2 ML VIAL IV PRN ×2 (09:52→14:42)
[2022-10-26] MEDS ORDERED: fentaNYL citrate PF 100 MCG/2 ML VIAL IV PRN (09:52)
[2022-10-26] MEDS ORDERED: ePHEDrine sulfate 50 MG/ML AMP IV PRN (09:52)
[2022-10-26] MEDS ORDERED: SODIUM CHLORIDE 0.9% PF 50 ML VIAL ONE (10:56)
[2022-10-26] MEDS ORDERED: BUPIVACAINE LIPOSOME 1.3% 266 MG/20 ML VIAL ONE (10:57)
[2022-10-26] MEDS ORDERED: BUPIVACAINE/EPINEPHRINE 0.25% 1:200,000 30 ML VIAL ONE (10:57)
[2022-10-26] MEDS ORDERED: BUPIVACAINE/EPINEPHRINE 0.5% MPF 1:200,000 30 ML VIAL ONE (10:57)
[2022-10-26] MEDS ORDERED: ONDANSETRON INJ 2 MG/ML 2 ML VIAL ONE (11:36)
[2022-10-26] MEDS ORDERED: PROPOFOL IV EMULSION 10 MG/ML 20 ML VIAL IV ONE ×2 (11:36→12:23)
--- NOTE | 2022-10-26 13:28 | Operative Report ---
PG Post Operative Report Pre & Post Diagnosis Operation Date: 10/26/22 10:35 Pre-Op Diagnosis: Left Knee Degenerative Joint Disease Post-Op Diagnosis: Left Knee Degenerative Joint Disease I identified the patient and participated in the time-out.: Yes Procedure Operation Date: 10/26/22 10:35 Actual Procedures p Left Total Knee Arthroplasty(Left) - Nicolas Gamboa MD Surgeon Nicolas Gamboa MD [employer] Duane Reyes PA-C Estimated Blood Loss 50 Findings Consistent with Post-Op Diagnosis Operative findings reveal advanced left knee DJD. She had grade 4 voyo-mx-bcpt disease primarily the medial compartment. She had a varus deformity to her knee and I 10 to 15 degree flexion contracture. Moderate-sized joint effusion. Specimens Left knee sent for pathology Anesthesia Type Spinal MAC Complications none Disposition Accompanied Patient To Recovery: No Indications Patient is a 72-year-old female with multiple medical comorbidities said several year history of increasing left knee pain discomfort. She failed all conservative measures. X-rays show advanced left knee DJD. She elected proceed with total knee arthroplasty. Description of Procedure Operative implants consist of: 1. Biomet Vanguard size 70 left posterior stabilized femoral component. 2. Biomet size 75 tibial tray. 3. 12 mm posterior stabilized polyethylene insert. 4. 34 x 8 and half all poly patella. The patient was taken to the operating room, identified, and placed on the operating table supine position. All contact areas were appropriately padded. IV antibiotics tried by anesthesia team. A spinal anesthetic and abductor canal block had provided in the holding area. Burton catheter was placed in sterile fashion. Left thigh tent was then placed. Left lower extremities then prepped and draped in usual sterile fashion. The left leg was elevated and exsanguinated with use of an Esmarch in terms playset 300 mmHg. An anterior approach left knee was then performed to longitudinal incision centered over the patella. Sharp dissection was carried through subcutaneous tissue down the extensor mechanism. A medial parapatellar arthrotomy incision was made. Some subperiosteal dissection was carried out medially. The fat pad was resected from Neath patella tendon. Lateral patellofemoral ligament was released. Patella subluxated laterally and the knee was flexed. The osteophytes taken off distal femur. The ACL and PCL were then released from distal femur the tibia subluxated anteriorly. The external tibial alignment jig was then placed the interface the tibia and adjusted 14 mm medially. Proximal tibial cut was made to remove about 2 mm of bone from the medial side. The tibia sized to a size 75. Attention drawn the femur. The distal femur examined the sharp drill. Intramedullary canal was suction. A left 5 degree valgus cutting guide was placed. Distal femoral cutting block was pinned in place. Distal femoral cut was made to take an additional 3 mm of bone off distal femur. The femur was then sized to a size 70. The AP cutting block was pinned parallel to the epicondylar axis which was 5 degrees of external rotation. Anterior cut, anterior chamfer, posterior cut, posterior chamfer cuts were made. The box cutting guide was placed in just slight lateral and the box cut was made. The knee was flexed. The remnants of the medial and lateral menisci were excised. The osteophytes taken off the posterior aspect the femur. A trial femoral component was placed. The tibial tray was pinned in maximum external rotation and the drill and stem punch were used to create defect in proximal tibia for the tibial tray. The knee was then trialed and the 12 mm insert fit most appropriately. Attention drawn the patella. The patella was cleaned of all soft tissues. Patella thickness measured 23 mm in thickness was cut down to 14. Was sized to a size 34 patella. The lug holes were drilled for the 34 patella. The lateral osteophyte was removed. Patella button was placed. Knee was taken through range of motion and the patella tracked nicely with no thumbs test. Attention drawn to placing permanent components. All trial components were removed. Bone plug was placed in the distal femur limit blood loss. Double batch Palacos G cement was mixed. A Biomet Vanguard size 70 left posterior stabilized femoral component, size 75 tibial tray, a 12 mm post stabilized polyethylene insert, and a 34 x 8 and half all poly patella were then cemented in place. Knee was brought out into full extension till cement hardened. Final cement check was then performed. The pericapsular tissues were injected with total of 100 cc of combination of 20 cc of Exparel, 30 cc normal saline, 50 cc of quarter percent Marcaine with epinephrine. Patient did receive 1 g tranexamic acid. The tourniquet was then let down for final tourniquet time of 63 minutes. Hemostasis assured use electrocautery. Extensor mechanism then closed with combination 1 PDS suture #1 Vicryl suture in a [id number]-hk-xptsd fashion. Extensor mechanism checked found to be intact and the subcutaneous tissues then closed with 2 Dexon suture in a buried interrupted fashion skin was closed skin liu. Leg was then cleaned and dried and sterile dressed with Xeroform, 4 fours, sterile cast padding, Elfego bandage were applied. Patient then transferred to the recovery room in stable condition. Patient tolerated procedure well and there were no complications. Duane Reyes, my physician medical support assistant, was present for the entire procedure. His assistance was required for proper patient positioning, prepping and draping, surgical exposure, retraction, perform the technical details of the operation, placement of the implants, closure of the incision site, and placement of the sterile bandage. I attest to the content of the Intraoperative Record and any orders documented therein. Any exceptions are noted below.
--- NOTE | 2022-10-26 14:06 | XRay Report ---
XR knee LT 1 or 2V routine CLINICAL HISTORY: Postoperative evaluation. COMPARISON: Left knee radiographs October 04, 2022. FINDINGS: Alignment of the total left knee arthroplasty is anatomic. There is no periprosthetic frac ture or unexpected radiopaque foreign body. There are skin liu. IMPRESSION: Expected findings following total left knee arthroplasty. ACT 112: Negative or not required by law. Electronically signed by: Yossi Chao M.D. 10/26/2022 2:04 PM
--- NOTE | 2022-10-26 14:11 | Anesthesiology Progress Note ---
Date of Service October 26, 2022 Anesthesia Post Procedure Vital Signs Vital Signs: Temp Pulse Pulse Resp BP Pulse Ox O2 Del Method 10/26/22 14:00 97.5 F L 71 23 130/76 93 Room Air 10/26/22 13:50 67 14 116/76 95 Room Air 10/26/22 13:40 71 17 132/59 L 93 Room Air 10/26/22 13:30 72 15 117/71 99 Oxymask 10/26/22 13:21 96.8 F L 81 21 139/72 97 Oxymask 10/26/22 08:35 97.9 F 75 20 127/95 95 Room Air O2 Flow Rate 10/26/22 14:00 10/26/22 13:50 10/26/22 13:40 10/26/22 13:30 4 10/26/22 13:21 4 10/26/22 08:35 Transfer of Care Handoff Completed per policy Notes Mental Status: alert / awake / arousable and participated in evaluation Patient Amnestic to Procedure: Yes Nausea / Vomiting: adequately controlled Pain: adequately controlled Airway Patency, RR, SpO2: stable & adequate BP & HR: stable & adequate Hydration State: stable & adequate Neuraxial Anesthesia: was administered and sensory block is resolving Anesthetic Complications: no major complications apparent and Pt Satisfied with anesthetic care Notes: In PACU, the patient stated having substernal pain that was reproducible with palpation. The patient denied trouble breathing or any other complaints. VSS throughout. The patient was stable for discharge to the floor.
[2022-10-26] MEDS ORDERED: NALOXONE HCL 0.4 MG/1 ML VIAL/CARP IV PRN (14:42)
[2022-10-26] MEDS ORDERED: HYDROmorphone INJ 0.5 MG/0.5 ML SYR IV PRN (14:42)
[2022-10-26] MEDS ORDERED: bisacodyL 10 MG SUPP PR PRN (14:42)
[2022-10-26] MEDS ORDERED: METOCLOPRAMIDE HCL INJ 5 MG/ML 2 ML VIAL IV PRN (14:42)
[2022-10-26] MEDS ORDERED: BUTALBITAL/ACETAMIN/CAFFEINE TAB PO PRN (14:42)
[2022-10-26] MEDS ORDERED: ALUMINUM/MAGNESIUM SUSP 30 ML UDC PO PRN (14:42)
[2022-10-26] MEDS ORDERED: MAGNESIUM HYDROXIDE SUSP 30 ML UDC PO PRN (14:42)
[2022-10-26] MEDS ORDERED: ALBUT/IPRATROP 3MG/0.5MG NEB 3 ML VIAL INH PRN (14:42)
[2022-10-26] MEDS ORDERED: ARTIFICIAL TEARS OP PRN (15:09)
[2022-10-26] MEDS: ACETAMINOPHEN 500 MG TAB PO SCH ×2 (15:11→21:33)
[2022-10-26] MEDS: SODIUM CHLORIDE 0.9% 1000ML 1,000 ML IV SCH (15:12)
[2022-10-26] MEDS: LINACLOTIDE 145 MCG CAPSULE PO SCH (15:18)
[2022-10-26] MEDS: KETOROLAC TROMETHAMINE 15 MG/ML VIAL IV SCH ×2 (15:25→21:34)
[2022-10-26] MEDS: oxyCODONE HCL IR 5 MG TAB (IMMEDIATE RELEASE) PO PRN ×2 (17:42→18:03)
[2022-10-26] MEDS: ASCORBIC ACID 500 MG TAB PO SCH (17:51)
[2022-10-26] MEDS: ceFAZolin 2000MG 2,000 MG/15 ML SYR IV SCH (18:15)
[2022-10-26] MEDS ORDERED: TRANEXAMIC ACID / 0.7% NACL 1,000 MG/100 ML BAG IV SCH (19:00)
[2022-10-26] MEDS: ASPIRIN 81 MG ECTAB PO SCH (19:49)
[2022-10-26] MEDS: NYSTATIN POWDER 15GM BTL EXT SCH (19:49)
[2022-10-26] MEDS: SENNA 8.6 MG TAB PO SCH (19:50)
[2022-10-26] MEDS: DOCUSATE SODIUM 100 MG CAP PO SCH (19:50)
[2022-10-26] MEDS: ATORVASTATIN 40 MG TAB PO SCH (19:52)
[2022-10-26] MEDS: lamoTRIgine 100 MG TAB PO SCH (19:52)
[2022-10-26] MEDS ORDERED: NON-FORMULARY MEDICATION (Citalopram 10 mg tablet) PO SCH (21:00)
[2022-10-26] MEDS ORDERED: CITALOPRAM 20 MG TAB PO SCH (21:00)
[2022-10-26] MEDS: CITALOPRAM 20 MG TAB PO SCH (21:33)
[2022-10-26] MEDS: LORazepam 0.5 MG TAB PO PRN (21:35)
[2022-10-27] MEDS: SODIUM CHLORIDE 0.9% 1000ML 1,000 ML IV SCH (01:44)
[2022-10-27] MEDS: ceFAZolin 2000MG 2,000 MG/15 ML SYR IV SCH (03:45)
[2022-10-27] MEDS: KETOROLAC TROMETHAMINE 15 MG/ML VIAL IV SCH ×4 (03:46→21:03)
[2022-10-27] MEDS: LEVOTHYROXINE SODIUM 112 MCG TABLET PO SCH (05:32)
[2022-10-27] MEDS: ACETAMINOPHEN 500 MG TAB PO SCH ×3 (05:32→21:02)
[2022-10-27] MEDS: LINACLOTIDE 145 MCG CAPSULE PO SCH (07:23)
[2022-10-27] MEDS: DOCUSATE SODIUM 100 MG CAP PO SCH ×2 (07:25→19:46)
[2022-10-27] MEDS: NYSTATIN POWDER 15GM BTL EXT SCH ×2 (07:27→20:35)
[2022-10-27] MEDS: METOPROLOL SUCC 25MG EXT REL TAB PO SCH (07:28)
[2022-10-27] MEDS: LOSARTAN POTASSIUM 25 MG TAB PO SCH (07:28)
[2022-10-27] MEDS: MULTIVITAMIN TAB PO SCH (07:28)
[2022-10-27] MEDS: ARIPIprazole 1 MG/ML ORAL SOLN 150 ML BTL PO SCH (07:28)
[2022-10-27] MEDS: ASCORBIC ACID 500 MG TAB PO SCH ×2 (07:28→17:05)
[2022-10-27] MEDS: PANTOprazole 40 MG TAB PO SCH (07:28)
[2022-10-27] MEDS: TOPIRAMATE 50 MG TAB PO SCH (07:28)
[2022-10-27] MEDS: lamoTRIgine 100 MG TAB PO SCH ×2 (07:28→19:49)
[2022-10-27] MEDS: CHOLECALCIFEROL 1,000 UNITS 25 MCG TAB PO SCH (07:28)
[2022-10-27] MEDS: ASPIRIN 81 MG ECTAB PO SCH ×2 (07:29→19:48)
[2022-10-27 07:49] LABS: Hematocrit (blood only) 34.2 % (37.0-47.0); Hemoglobin 11.2 g/dl (12.0-16.0); Mean Corpuscular Hemoglobin 30.1 pg (25.0-34.0); Mean Corpuscular Hgb Conc 32.7 g/dL (32.0-36.0); Mean Corpuscular Volume 91.9 fL (80.0-100.0); Mean Platelet Volume 10.3 fL (9.4-12.4); Platelet Count 147 K/uL (130-400); RDW Coefficient of Variation 13.1 % (11.5-14.5); Red Blood Count 3.72 M/uL (4.20-5.40); White Blood Count 11.85 K/ul (4.8-10.8)
[2022-10-27] MEDS ORDERED: dexAMETHasone 10 MG in SYRINGE 0 ML IV SCH (08:00)
[2022-10-27 08:10] LABS: BUN Creatinine Ratio 15.5 (10-20); Calcium 8.2 mg/dl (8.6-10.3); Creatinine Clr Calc Pharmacy 50.3 ml/min; Est GFR (African American) 53.7 ml/min; Est GFR (Non-African American) 46.3 ml/min
[2022-10-27] MEDS ORDERED: hydrOXYzine HCl 25 MG TAB PO PRN (09:00)
[2022-10-27] MEDS ORDERED: ARIPIprazole 1 MG/ML ORAL SOLN 150 ML BTL PO SCH (09:00)
--- NOTE | 2022-10-27 12:11 | Orthopedic Progress Note ---
Date of Service October 27, 2022 Assessment & Plan (1) Status post left knee replacement: 72-year-old female with multiple medical comorbidities postop day 1 from left knee replacement doing pretty well. Pain is controlled. She is neurologically intact. Plan: 1 DVT prophylaxis including thigh-high teds SCDs and aspirin twice a day. 2. Pain control doing well with current pain regimen. 3. PT OT. Weight-bear as tolerated. Left total knee protocol. 4. Disposition she was hoping to go to [facility] for rehab. Were it has not that she has been denied. She is looking at alternatives around the [facility] like a long-term facility such as [facility]. Results of this are pending. Subjective . 72-year-old female postop day 1 from left total knee replacement. She is doing quite well. Pain is controlled. She is currently working with a physical therapist. No chest pain or shortness of breath. Not feeling dizzy or lightheaded. As she was hoping to go to [facility] and feels like that is been denied and disappointed by that. Review of Systems All systems reviewed & are unremarkable except as noted in HPI & below. Physical Exam . Physical examination of the left leg reveals patient is dangling her legs over the edge of the bed. Examination of the leg reveals the dressing clean dry and intact. She can dorsiflex and plantarflex her foot appropriately. Dressing is clean dry and intact. She is neurologically intact. Respiratory normal respiratory effort, lungs clear to auscultation Cardiovascular RRR, no murmur, no edema Gastrointestinal (Abdomen) normal bowel sounds, soft, nontender, no hepatosplenomegaly Results & Data Results & Data Laboratory Results . Hemoglobin 11.2. Hematocrit 34.2. Electrolytes are stable. Diagnostic Findings . PG Care Time/CCT Total # of Minutes Spent Total Time Spent with Patient: Total time spent is greater than 50% in coordination of care (as documented) at patient's floor/unit and/or counseling patient: Coding Level of Care Code 45418 Post Operative Follow-Up Diagnoses Status post left knee replacement Z96.652
[2022-10-27] MEDS: oxyCODONE HCL IR 5 MG TAB (IMMEDIATE RELEASE) PO PRN ×2 (12:43→19:24)
[2022-10-27] MEDS: CITALOPRAM 20 MG TAB PO SCH (19:48)
[2022-10-27] MEDS: ATORVASTATIN 40 MG TAB PO SCH (19:48)
[2022-10-27] MEDS: SENNA 8.6 MG TAB PO SCH (20:35)
[2022-10-28] MEDS: oxyCODONE HCL IR 5 MG TAB (IMMEDIATE RELEASE) PO PRN ×2 (01:40→21:10)
[2022-10-28] MEDS: ACETAMINOPHEN 500 MG TAB PO SCH ×3 (04:46→21:06)
[2022-10-28] MEDS: KETOROLAC TROMETHAMINE 15 MG/ML VIAL IV SCH ×2 (04:47→09:41)
[2022-10-28] MEDS: LEVOTHYROXINE SODIUM 112 MCG TABLET PO SCH (05:51)
[2022-10-28] MEDS: LOSARTAN POTASSIUM 25 MG TAB PO SCH (07:31)
[2022-10-28] MEDS: METOPROLOL SUCC 25MG EXT REL TAB PO SCH (07:31)
[2022-10-28] MEDS: ASPIRIN 81 MG ECTAB PO SCH ×2 (07:31→21:06)
[2022-10-28] MEDS: MULTIVITAMIN TAB PO SCH (07:31)
[2022-10-28] MEDS: TOPIRAMATE 50 MG TAB PO SCH (07:32)
[2022-10-28] MEDS: ASCORBIC ACID 500 MG TAB PO SCH ×2 (07:32→16:59)
[2022-10-28] MEDS: PANTOprazole 40 MG TAB PO SCH (07:32)
[2022-10-28] MEDS: ARIPIprazole 1 MG/ML ORAL SOLN 150 ML BTL PO SCH (07:32)
[2022-10-28] MEDS: lamoTRIgine 100 MG TAB PO SCH ×2 (07:32→21:06)
[2022-10-28] MEDS: CHOLECALCIFEROL 1,000 UNITS 25 MCG TAB PO SCH (07:32)
[2022-10-28] MEDS: DOCUSATE SODIUM 100 MG CAP PO SCH ×2 (07:32→21:06)
[2022-10-28] MEDS: NYSTATIN POWDER 15GM BTL EXT SCH ×2 (07:33→21:06)
[2022-10-28] MEDS: LORazepam 0.5 MG TAB PO PRN (10:39)
--- NOTE | 2022-10-28 12:05 | Orthopedic Progress Note ---
Date of Service October 28, 2022 Assessment & Plan (1) Status post left knee replacement: 72-year-old female with multiple medical comorbidities postop day 2 from left knee replacement doing remarkably well. She has apparently been denied rehab. She is still hoping to go to a care home facility as she does not feel comfortable going home. Her pain is controlled. She is neurologically intact. Plan: 1. DVT prophylaxis including thigh-high teds SCDs and aspirin twice a day. 2. Pain control doing well with current pain regimen. 3. PT/OT. Weight-bear as tolerated. Left total knee protocol. 4. Disposition she is still hoping to go to a care home facility. There is [facility] requests out. No beds available at [facility]. She is looking into other options. Subjective . 72-year-old female with multiple medical comorbidities now postop day 2 from left knee replacement. She is doing pretty well. Pain is reasonably well controlled. Therapy is going pretty good. No chest pain or shortness of breath. Not feeling dizzy or lightheaded. She is still hoping to go to rehab versus care home facility. As she has been denied rehab. Pretty disappointed by this. Review of Systems All systems reviewed & are unremarkable except as noted in HPI & below. Physical Exam . Physical examination was a pleasant elderly female. She was walk around her room reasonably well this afternoon. Examination of the left leg reveals incision to be clean dry and intact. No second drainage. Some mild swelling. She can do a straight leg raise. She can dorsiflex and plantarflex her foot appropriately. Results & Data Results & Data Laboratory Results . Diagnostic Findings . PG Care Time/CCT Total # of Minutes Spent Total Time Spent with Patient: Total time spent is greater than 50% in coordination of care (as documented) at patient's floor/unit and/or counseling patient: Coding Level of Care Code 07931 Post Operative Follow-Up Diagnoses Status post left knee replacement Z96.652
[2022-10-28] MEDS: CITALOPRAM 20 MG TAB PO SCH (21:06)
[2022-10-28] MEDS: ATORVASTATIN 40 MG TAB PO SCH (21:06)
[2022-10-28] MEDS: SENNA 8.6 MG TAB PO SCH (21:06)
[2022-10-29] MEDS: ACETAMINOPHEN 500 MG TAB PO SCH (05:40)
[2022-10-29] MEDS: LEVOTHYROXINE SODIUM 112 MCG TABLET PO SCH (05:40)
--- NOTE | 2022-10-29 07:20 | Orthopedic Progress Note ---
Date of Service October 29, 2022 Assessment & Plan (1) Status post left knee replacement: 72-year-old female with multiple medical comorbidities now 3 days out from a total knee replacement. She is doing quite well. She has been denied to rehab and longterm. Frustrated by this but willing to go home with home health. Plan: 1. DVT prophylax include Thiede teds SCDs and aspirin twice a day. 2. Pain control doing well with current pain regimen. 3. PT OT. Weight-bear as tolerated left total knee protocol. 4. Disposition plan to discharge to home with home health today. Subjective . 72-year-old female postop day 3 from a left knee replacement. She is doing pretty well. She is pretty frustrated by not getting into a rehab or longterm facility. She is decided to go home with some home health. Review of Systems All systems reviewed & are unremarkable except as noted in HPI & below. Physical Exam . Physical examination reveals a pleasant elderly female. She is walking around the room quite well even without the walker. Her knee incisions healed nicely. No drainage. Mild swelling. She can do a good straight leg raise. She is neurologically intact Results & Data Results & Data Laboratory Results . Diagnostic Findings . PG Care Time/CCT Total # of Minutes Spent Total Time Spent with Patient: Total time spent is greater than 50% in coordination of care (as documented) at patient's floor/unit and/or counseling patient: Coding Level of Care Code 94271 Post Operative Follow-Up Diagnoses Status post left knee replacement Z96.652
[2022-10-29] MEDS: CHOLECALCIFEROL 1,000 UNITS 25 MCG TAB PO SCH (07:27)
[2022-10-29] MEDS: PANTOprazole 40 MG TAB PO SCH (07:27)
[2022-10-29] MEDS: LOSARTAN POTASSIUM 25 MG TAB PO SCH (07:27)
[2022-10-29] MEDS: lamoTRIgine 100 MG TAB PO SCH (07:27)
[2022-10-29] MEDS: ASPIRIN 81 MG ECTAB PO SCH (07:28)
[2022-10-29] MEDS: ASCORBIC ACID 500 MG TAB PO SCH (07:28)
[2022-10-29] MEDS: MULTIVITAMIN TAB PO SCH (07:28)
[2022-10-29] MEDS: ARIPIprazole 1 MG/ML ORAL SOLN 150 ML BTL PO SCH (07:28)
[2022-10-29] MEDS: METOPROLOL SUCC 25MG EXT REL TAB PO SCH (07:28)
[2022-10-29] MEDS: NYSTATIN POWDER 15GM BTL EXT SCH (07:29)
[2022-10-29] MEDS: DOCUSATE SODIUM 100 MG CAP PO SCH (07:29)
[2022-10-29] MEDS: TOPIRAMATE 50 MG TAB PO SCH (08:44)
[2022-10-29] MEDS: oxyCODONE HCL IR 5 MG TAB (IMMEDIATE RELEASE) PO PRN (10:30)
--- NOTE | 2022-11-08 15:54 | Discharge Summary ---
Date of Service October 26, 2022 Admission HPI Per Admitting Provider Grade 4 left knee osteoarthritis Discharge Data Procedures Performed Operation Date: 10/26/22 10:35 Actual Procedures p Left Total Knee Arthroplasty(Left) - Nicolas Gamboa MD Hospital Course (1) Status post left knee replacement: Plan This is a 72 y/o female admitted on 10/26/22 and underwent a left total knee arthroplasty. She tolerated the procedure well and there were no complications. Transferred to the PACU post op and later to the orthopedic floor for further care. Patient was given ancef for antibiotic prophylaxis. She was was also given HOWARD stockings, SCDs, and aspirin for DVT prophylaxis. Hemoglobin, hematocrit, and vital signs were monitored during their hospital stay and remained stable. Did not require any blood transfusions. There were no complications during their hospital stay. By post op day #2 the patient was tolerating a regular diet, pain was reasonably controlled with oral pain medicine, and she was participating in physical therapy. On post op day #2 the patient was discharged home and set up with home health care. Shi was given printed discharge instructions including prescriptions for extra strength tylenol, aspirin, and percocet. Continue physical therapy, weight bearing as tolerated. Continue HOWARD stockings. Follow up approximately 2 weeks post op or sooner if there are problems or concerns.
== END 2022-10-29 11:34 | disposition home health service (06) ==
LOC: ASU 08:27 → 3E 13:24 → INTOOBSV 13:24

== ENCOUNTER 2024-01-04 21:12 | Observation (INO) ==
[2024-01-04] MEDS: ONDANSETRON INJ 2 MG/ML 2 ML VIAL IV STA (22:22)
[2024-01-04] MEDS: HYDROmorphone INJ 0.5 MG/0.5 ML SYR IV PRN (22:23)
[2024-01-04] MEDS: SODIUM CHLORIDE 0.9% 1,000 ML IV SCH (22:24)
[2024-01-04 22:28] LABS: Basophils # (auto) 0.03 K/uL (0.00-0.20); Basophils % (auto) 0.3 %; Eosinophils # (auto) 0.07 K/uL (0.00-0.50); Eosinophils % (auto) 0.7 %; Hematocrit (blood only) 39.4 % (37.0-47.0); Immature Granulocytes # (auto) 0.07 K/uL (0.01-0.20); Immature Granulocytes % (auto) 0.7 %; Lymphocytes # (auto) 1.56 K/uL (1.20-3.40); Lymphocytes % (auto) 16.1 %; Mean Corpuscular Hemoglobin 30.7 pg (25.0-34.0); Mean Corpuscular Volume 93.1 fL (80.0-100.0); Mean Platelet Volume 10.1 fL (9.4-12.4); Monocytes # (auto) 1.03 K/uL (0.11-0.59); Monocytes % (auto) 10.6 %; Neutrophils # (auto) 6.94 K/uL (1.40-6.50); Neutrophils % (auto) 71.6 %; Platelet Count 160 K/uL (130-400); RDW Coefficient of Variation 13.6 % (11.5-14.5); RDW Standard Deviation 45.9 fL (36.4-46.3); Red Blood Count 4.23 M/uL (4.20-5.40)
[2024-01-04 22:30] LABS: Albumin Globulin Ratio 1.7 (0.9-2); Albumin Level 3.9 gm/dl (3.4-5.0); BUN Creatinine Ratio 15.5 (10-20); Bilirubin,Total 0.5 mg/dl (0.2-1.0); Calcium 8.9 mg/dl (8.6-10.3); Creatinine Clr Calc Pharmacy 44.5 ml/min; Globulin 2.3 gm/dl (2.5-4.0); Potassium 3.8 mmol/L (3.5-5.1); Total Protein 6.2 gm/dl (6.0-8.3)
[2024-01-04 22:41] LABS: Partial Thromboplastin Ratio 0.9; Partial Thromboplastin Time 25 Seconds (21-31); Prothrombin Time 10.6 Seconds (9.0-12.0)
[2024-01-05] MEDS ORDERED: ONDANSETRON INJ 2 MG/ML 2 ML VIAL IV STA (00:17)
[2024-01-05] MEDS: METOCLOPRAMIDE HCL INJ 5 MG/ML 2 ML VIAL IV ONE (00:29)
[2024-01-05] MEDS: ACETAMINOPHEN 500 MG TAB PO STA (00:35)
[2024-01-05 02:06] LABS: Appearance Urine Clear (Clear); Bacteria Urine Automated None Seen (None Seen); Bilirubin Urine Negative (Negative); Blood Urine Negative (Negative); Cast Urine Automated 0-2 /lpf (0-2); Color Urine Yellow; Epithelial Cell Urine Auto 0-2 /hpf (0-2); Glucose Urine UA Negative (Negative); Ketones Urine Negative (Negative); Leukocyte Esterase Urine Negative (Negative); Nitrite Urine Negative (Negative); Protein Urine Trace (Negative); RBC Urine Automated 0-2 /hpf (0-2); Specific Gravity Urine 1.019 (1.000-1.030); Urobilinogen Urine Negative (Negative); WBC Urine Automated 0-5 /hpf (0-5)
--- NOTE | 2024-01-05 02:20 | Emergency Department Note ---
Impression & Plan Acute hip pain, Acute pain of left knee, Fall, Ambulatory dysfunction ED Provider Note NAME: EVONNE SILVERIO AGE: 73 SEX: Female INFORMANT: Patient and ED PROVIDER(S): Ramu Montoya MD CHIEF COMPLAINT: Fall and hip pain PLAN: Disposition: Admitted Outpatient prescription management: none Referral: None MEDICAL DECISION MAKING: Patient presented because of a fall and left hip pain. She had a workup initiated. She was treated with IV Zofran and a dose of Dilaudid for pain. She underwent x-ray imaging of the knee, hip and pelvis. The x-ray imaging did not reveal any evidence of acute fracture or dislocation. Degenerative changes noted. Patient had unremarkable labs. Urinalysis was ordered but is pending. Patient was feeling very weak and shaky. She felt like she could not walk well and did not think she could go home. Ambulatory trial was attempted and patient did not do well with this. is requesting admission. Patient was monitored and she had a dose of Reglan and Tylenol administered for additional symptom control. She was reassessed still feeling capable of ambulating safely and still request admission. Consultation was made with Dr. Gamboa of the [facility] service. Patient was graciously evaluated in the ER for further management. Care/management discussed with: none Level of care consideration(s): After review of the information above and other included data, I feel the patient requires escalation of care to admission Triage Nursing notes: reviewed and agree them. Vital Signs: reviewed and remarkable for no significant abnormalities Additional History obtained from: none Chronic Medical/Social Conditions affecting care: Seizure disorder, migraine, major depression Prior/ Outside/ External records reviewed: none Differential Diagnosis: Fracture, dislocation, neurovascular compromise, compartment syndrome, soft tissue injury, as well as other pathologies. Diagnostics, independently interpreted by me: ECG: Twelve-lead ECG reveals normal sinus rhythm at 60 bpm. Low-voltage QRS. No ST elevation or depression. No PACs or PVCs. Cardiac Monitoring: Cardiac monitoring ordered by me: The patient was placed on continuous cardiac monitoring and observed. It revealed a normal sinus rhythm at 65 beats per minute without ectopy or evidence of dysrhythmia. Medical decision rules: none Imaging studies: X-ray imaging of the left hip, left knee, and pelvis did not reveal any evidence of fracture or dislocation. Orthopedic hardware noted. There is no evidence of hardware compromise. Degenerative changes noted. HPI: 73 year old Female arrives for evaluation of hip pain. This started just prior to arrival and is from a fall. The patient also notes the following associated symptoms, left knee pain. Patient notes that she lost her balance and landed on her left hip. She did not suffer any other injury. She had pain in the left hip and knee. She did note to nursing that she had an absence seizure prior, about 30 minutes, to the episode of the fall. Patient gets these seizure-like spells on and off for many years. She is followed by neurology. No change in her typical pattern. She has been taking her medications including her Lamictal. The patient has took Zofran for relieving factors. Current pain is rated as 8/10. Pt denies LOC, headache, visual changes, neck pain, chest pain, breathing difficulties, nausea, vomiting, abdominal pain, back pain, other extremity pain, numbness, weakness, open wounds, active bleeding, or other complaints. PAST MEDICAL HISTORY: See Below, anxiety, seizure, CKD PAST SURGICAL HISTORY: See Below, SOCIAL HISTORY: See Below, HOME MEDICATIONS: See Below ALLERGIES: See Below VITALS: See Below PHYSICAL EXAMINATION: GENERAL: Awake, alert, uncomfortable-appearing, in no distress HENT: Normocephalic, atraumatic. Oropharynx unremarkable. EYES: Normal conjunctiva. Sclera non-icteric. NECK: Inspection normal. Non-tender. Supple. No nuchal rigidity. FROM. No masses. RESPIRATORY: Clear to auscultation. No wheezes. No rales. Normal respiratory effort. CARDIAC: Normal rate. Normal rhythm. No murmurs. No rubs. Extremities warm and well perfused. Pulses equal. No JVD. GI: Soft, non-distended. No tenderness to palpation. No rebound or guarding. No masses. RECTAL: Deferred. MUSCULOSKELETAL: Upper extremities are atraumatic. Right lower extremity is atraumatic. There is no shortening or external rotation of the left lower extremity. Patient has tenderness about the left hip joint with limited range of motion. She also has tenderness and a contusion noted around the left knee. No laxity to valgus or valgus strain. No joint effusion. Chest examination reveals no tenderness. The back is symmetrical on inspection without obvious abnormality. There is no CVA tenderness to palpation. No joint edema. LOWER EXTREMITIES: Calves are equal size bilaterally and non-tender. 1+ edema. No discoloration. NEURO: Normal sensorium. No sensory or motor deficits noted. SKIN: No rash or jaundice noted. PROCEDURES: none CRITICAL CARE: none OBSERVATION NOTE: none Past Med/Surg History Problem List (Updated 01/05/24 @ 02:20 by Ramu Montoya MD) Ambulatory dysfunction (Acute) Fall (Acute) Acute pain of left knee (Acute) Acute hip pain (Acute) Vitamin D deficiency Epigastric pain Left knee pain History of colon polyps Urinary incontinence, mixed Prolapse of female pelvic organs Overflow stress incontinence of urine in female Impacted cerumen of both ears Generalized anxiety disorder with panic attacks Status post left knee replacement Hypovitaminosis D History of stress fracture (~07/09/21) left knee Intertrigo Irritable bowel syndrome with predominant constipation BPPV (benign paroxysmal positional vertigo) Low back pain Lumbosacral spondylosis Cardiomyopathy (Acute) EF 50-55% on 03/2022 echo Seizure (Chronic) Arthritis of both knees Effusion, left knee Left knee DJD Urinary incontinence CKD (chronic kidney disease) stage 3, GFR 30-59 ml/min (Chronic) no specialist Lumbar spondylosis Obesity (BMI 30.0-34.9) Recurrent major depression resistant to treatment Impacted cerumen, right ear Chronic rhinitis Acquired deviated nasal septum Dyspnea Dysphagia Rectal pain Lesion of female perineum Nasal vestibulitis Lumbosacral radiculopathy at S1 Idiopathic polyneuropathy Gait disorder Migraine Seizure disorder 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 Esophageal dysphagia Anxiety Insomnia Fatigue Arthralgia of multiple sites Balance problems (Acute) Depression with anxiety Focal epilepsy with impairment of consciousness Irritable bowel syndrome Obstructive sleep apnea Panic disorder without agoraphobia Renal insufficiency (Unknown) Schatzki's ring Status post laparoscopic Bridgette fundoplication Dyssynergic defecation Delayed gastric emptying Esophageal dysphagia Chronic diarrhea Hypercholesteremia Complex partial seizure per pt gets "mini seizure" lasts for approx 30 seconds --"stand and stare, can hear people talking but I can't respond", never had a grand mal, last was 05/2023--follows with Dr. Kinsey Betts--on lamictal Common migraine without aura Hypertension (Chronic) controlled, stable per pt Hypothyroidism Memory loss ongoing issue Neuropathy Tremor Vertigo Vitamin B12 deficiency GERD (gastroesophageal reflux disease) controlled, stable per pt COPD (chronic obstructive pulmonary disease) controlled Medical History Prolapse of female pelvic organs Stress incontinence Hx of migraines Memory loss Lumbosacral spondylosis IBS (irritable bowel syndrome) Hypertension Hypothyroidism Hx of colonic polyps GERD (gastroesophageal reflux disease) SOB (shortness of breath) on exertion Dysphagia Depression with anxiety COPD (chronic obstructive pulmonary disease) Complex partial seizure Chronic kidney disease, stage 3 BPPV (benign paroxysmal positional vertigo) Polyneuropathy History of COVID-19 Ambulatory dysfunction Sleep apnea Deafness in right ear Blindness of left eye Hiatal hernia Surgical History History of total left knee replacement History of Bridgette fundoplication History of loop recorder History of left breast biopsy History of total hysterectomy with bilateral salpingo-oophorectomy (BSO) History of bilateral tubal ligation History of dilatation and curettage History of bunionectomy of right great toe History of bunionectomy of left great toe History of total replacement of right hip History of bladder suspension procedure History of esophageal dilatation History of colonoscopy History of esophagogastroduodenoscopy (EGD) History of appendectomy History of intraocular lens implant History of bilateral cataract extraction Family History Father Myocardial infarction Sister Multiple sclerosis Mother Stroke Other No family history of adverse response to anesthesia Denies family history of Ovarian cancer Prostate cancer Breast cancer Colorectal cancer Social History Smoking Status: Former smoker Tobacco Type: Cigarettes Age Started Using Tobacco: 30; Age Quit Using Tobacco: 55; packs per day: 1.5; Second Hand Exposure: Yes (hx used to smoke); Do You Dip or Chew Tobacco: No; Hx Alcohol Use: Yes (none since 2019) Hx Substance Use: No Preferred Language: Gibralt[place] Communication Ability: Effective Visual Impairment: No Limitations Hearing Ability: Use of Hearing Aid Temperature Inspector Required: No Beliefs That Will Affect Care: None marital status: Current Living Situation: Spouse current occupational status: retired Feels Safe at Home: Yes Childhood Exposure to Second-Hand Smoke: Yes Diet: regular caffeine: Yes Dental Care, Regularly: No Physical Activity Frequency: Does not Exercise Seatbelt Use: always Sunscreen Use: No Assistive Devices: Cane and Denture - Upper Allergies Allergies Allergy/AdvReac Type Severity Reaction Status Date / Time sumatriptan [From Imitrex] Allergy Severe itching Verified 01/05/24 01:45 gabapentin Allergy Intermediate BURNING OF Verified 01/05/24 01:45 FEET AND ANKLES lisinopril AdvReac Intermediate COUGH Verified 01/05/24 01:45 prochlorperazine AdvReac Intermediate "jaw lock" Verified 01/05/24 01:45 [From Compazine] Home Meds Home Medications Medication Instructions Recorded Confirmed peg 159-[id number] 1 1 drp ophthalmic (eye) BID PRN Dry 10/15/22 01/05/24 %-0.2 %-0.2 % eye drops (Dry Eye Eyes Relief) linaclotide 145 mcg capsule 145 mcg PO DAILY PRN Abdominal 06/22/23 01/05/24 (Linzess) Discomfort nystatin 100,000 unit/gram topical 1 applic topical BID PRN Rash 06/22/23 01/05/24 powder vitamins A,C,U-fgac-sgmicz 2,148 1 tab PO BID 06/22/23 01/05/24 mcg-113 mg-45 mg-17.4 mg tablet (PreserVision AREDS) cholecalciferol (vitamin D3) 50 25 mcg PO BID 01/05/24 01/05/24 mcg (2,000 unit) capsule Previous Rx's Medication Instructions Recorded ipratropium 0.5 mg-albuterol 3 mg 3 ml inhalation Q6H PRN Shortness 03/30/21 (2.5 mg base)/3 mL nebulization Of Breath Or Wheezing #360 mL soln Wheeled Walker #1 ea 07/23/21 lorazepam 0.5 mg tablet 0.5 mg PO DAILY PRN Anxiety #30 12/03/22 tabs diaper,brief,adult,disposable #180 ea 05/10/23 losartan 25 mg tablet 25 mg PO QAM #90 tabs 06/17/23 aripiprazole 2 mg tablet 2 mg PO QAM #90 tabs 07/27/23 lamotrigine 200 mg tablet 200 mg PO BID #180 tabs 08/18/23 gfqujtkokf-entsybtbwzsos-kdtiqfxt 1 tab PO DAILY PRN pain #20 tabs 09/05/23 50 mg-325 mg-40 mg tablet citalopram 10 mg tablet 10 mg PO HS #90 tabs 10/13/23 citalopram 20 mg tablet 20 mg PO HS #90 tabs 10/13/23 atorvastatin 40 mg tablet 40 mg PO HS #90 tabs 10/24/23 lamotrigine 25 mg tablet 25 mg PO BID #60 tabs 11/29/23 omeprazole 40 mg capsule,delayed 40 mg PO QAM #90 caps 12/06/23 release levothyroxine 112 mcg tablet 112 mcg PO QAM #90 tabs 12/13/23 ondansetron 4 mg disintegrating 4 mg PO Q6H PRN Nausea #30 tabs 12/19/23 tablet metoprolol succinate 25 mg 25 mg PO QAM #90 tabs 12/20/23 tablet,extended release 24 hr Results & Data (ED) Vital Signs Vital Signs - 24 hr 01/04/24 21:20 01/04/24 21:22 01/04/24 21:29 Temperature 37.0 C 37.0 C Temperature Source Oral Oral Pulse Rate 61 62 Pulse Rate [Apical] Respiratory Rate 22 16 Respiratory Effort / Characteristics Non-Labored Non-Labored Respiratory Pattern Regular Regular Blood Pressure 152/73 H Blood Pressure [Right Arm] 152/73 H Blood Pressure Mean 99 Blood Pressure Mean [Right Arm] 99 Pulse Oximetry 96 94 Oxygen Delivery Method Room Air Room Air Oxygen Flow Rate Sepsis Recent Fever Within 48 Hours No Sepsis New/Unexplained Change in Mental Status No Sepsis Action Taken by Nursing No Action Required 01/04/24 22:55 01/05/24 00:00 01/05/24 01:14 Temperature Temperature Source Pulse Rate 71 Pulse Rate [Apical] 65 84 Respiratory Rate 18 18 Respiratory Effort / Characteristics Respiratory Pattern Blood Pressure Blood Pressure [Right Arm] 153/77 H 150/75 H Blood Pressure Mean Blood Pressure Mean [Right Arm] 102 100 Pulse Oximetry 92 94 Oxygen Delivery Method Room Air Nasal Cannula Oxygen Flow Rate 2 Sepsis Recent Fever Within 48 Hours Sepsis New/Unexplained Change in Mental Status Sepsis Action Taken by Nursing Laboratory Data 01/04/24 21:32 01/04/24 21:32 Lab Results 01/04/24 01/05/24 Range/Units 21:32 01:50 WBC 9.70 (4.8-10.8) K/ul RBC 4.23 (4.20-5.40) M/uL Hgb 13.0 (12.0-16.0) g/dl Hct 39.4 (37.0-47.0) % MCV 93.1 (80.0-100.0) fL MCH 30.7 (25.0-34.0) pg MCHC 33.0 (32.0-36.0) g/dL RDW Std Deviation 45.9 (36.4-46.3) fL RDW Coeff of Taisha 13.6 (11.5-14.5) % Plt Count 160 (130-400) K/uL MPV 10.1 (9.4-12.4) fL Immature Gran % (Auto) 0.7 % Neut % (Auto) 71.6 % Lymph % (Auto) 16.1 % [place] % (Auto) 10.6 % Eos % (Auto) 0.7 % Baso % (Auto) 0.3 % Neut # (Auto) 6.94 H (1.40-6.50) K/uL Lymph # (Auto) 1.56 (1.20-3.40) K/uL [place] # (Auto) 1.03 H (0.11-0.59) K/uL Eos # (Auto) 0.07 (0.00-0.50) K/uL Baso # (Auto) 0.03 (0.00-0.20) K/uL Immature Gran # (Auto) 0.07 (0.01-0.20) K/uL PT 10.6 (9.0-12.0) Seconds INR 1.0 (0.9-1.1) APTT 25 (21-31) Seconds PTT Ratio 0.9 Sodium 139 (136-145) mmol/L Potassium 3.8 (3.5-5.1) mmol/L Chloride 104 (98-107) mmol/L Carbon Dioxide 26 (21-32) mmol/L Anion Gap 9 (3-11) BUN 22 (6-23) mg/dl Creatinine 1.42 H (0.6-1.2) mg/dl Est Cr Clr Drug Dosing 44.5 ml/min eGFR 38.57 BUN/Creatinine Ratio 15.5 (10-20) Glucose 83 (70-99(Fasting)) mg/dl Calcium 8.9 (8.6-10.3) mg/dl Total Bilirubin 0.5 (0.2-1.0) mg/dl AST 13 (13-39) U/L ALT 10 (7-52) U/L Alkaline Phosphatase 101 (34-104) U/L Total Protein 6.2 (6.0-8.3) gm/dl Albumin 3.9 (3.4-5.0) gm/dl Globulin 2.3 L (2.5-4.0) gm/dl Albumin/Globulin Ratio 1.7 (0.9-2) Urine Color Yellow Urine Appearance Clear (Clear) Urine pH 6.0 (4.5-7.5) Ur Specific [place] 1.019 (1.000-1.030) Urine Protein Trace H (Negative) Urine Glucose (UA) Negative (Negative) Urine Ketones Negative (Negative) Urine Blood Negative (Negative) Urine Nitrite Negative (Negative) Urine Bilirubin Negative (Negative) Urine Urobilinogen Negative (Negative) Ur Leukocyte Esterase Negative (Negative) Urine WBC (Auto) 0-5 (0-5) /hpf Urine RBC (Auto) 0-2 (0-2) /hpf U Hyaline Cast (Auto) 0-2 (0-2) /lpf U Epithel Cells (Auto) 0-2 (0-2) /hpf Urine Bacteria (Auto) None Seen (None Seen) Administered Medications Hydromorphone HCl (Hydromorphone Inj 0.5 Mg/0.5 Ml Syr) 0.5 mg IV Q15M PRN PRN Reason: Pain Stop: 01/18/24 22:16 Last Admin: 01/04/24 22:23 Dose: 0.5 mg Documented By: AN Sodium Chloride (Nss) 1,000 mls @ 75 mls/hr IV .[id number] Stop: 01/05/24 11:04 Last Admin: 01/04/24 22:24 Dose: 75 mls/hr Documented By: AN Discontinued Medications Acetaminophen (Acetaminophen 500 Mg Tab) 1,000 mg PO NOW STA Stop: 01/05/24 00:28 Last Admin: 01/05/24 00:35 Dose: 1,000 mg Documented By: CDM Metoclopramide HCl (Metoclopramide Hcl Inj 5 Mg/Ml 2 Ml Vial) 5 mg IV ONE ONE Stop: 01/05/24 00:20 Last Admin: 01/05/24 00:29 Dose: 5 mg Documented By: CDJames Ondansetron HCl (Ondansetron Inj 2 Mg/Ml 2 Ml Vial) 4 mg IV NOW STA Stop: 01/04/24 22:18 Last Admin: 01/04/24 22:22 Dose: 4 mg Documented By: AN Discharge Plan Visit Data Chief Complaint: Hip Pain Stated Complaint: FALL, HIP PAIN ED Provider: Ramu Montoya Discharge Problem: Acute hip pain, Acute pain of left knee, Fall, Ambulatory dysfunction Forms Stand Alone Forms: [facility] Prescriptions Prescriptions: No Action ipratropium-albuterol 0.5 mg-3 mg(2.5 mg base)/3 mL solution for nebulization 3 ml Inhalation Q6H PRN (Reason: Shortness Of Breath Or Wheezing) Qty: 360 5RF lorazepam 0.5 mg tablet 0.5 mg PO DAILY PRN (Reason: Anxiety) Qty: 30 0RF (DME) diaper,brief,adult,disposable Misc See Rx Instructions .Route Qty: 180 11RF Rx Instructions: Pullups Size M - 2 per day aripiprazole 2 mg tablet 2 mg PO QAM Qty: 90 3RF lamotrigine 200 mg tablet 200 mg PO BID Qty: 180 3RF bllrshgefe-baujiacpyxfpx-iizv 50-325-40 mg tablet 1 tab PO DAILY PRN (Reason: pain) Qty: 20 3RF citalopram 20 mg tablet 20 mg PO HS Qty: 90 3RF Patient Comments: with 10mg to equal 30mg Rx Instructions: TOTAL DOSE 30 MG--TAKE WITH 10 MG TAB citalopram 10 mg tablet 10 mg PO HS Qty: 90 3RF Rx Instructions: TOTAL DOSE 30 MG--TAKES WITH 20 MG TAB. atorvastatin 40 mg tablet 40 mg PO HS Qty: 90 1RF omeprazole 40 mg capsule,delayed release(DR/EC) 40 mg PO QAM Qty: 90 3RF Rx Instructions: TAKE 1 CAPSULE BY MOUTH ONCE DAILY levothyroxine 112 mcg tablet 112 mcg PO QAM Qty: 90 3RF ondansetron 4 mg tablet,disintegrating 4 mg PO Q6H PRN (Reason: Nausea) Qty: 30 0RF metoprolol succinate 25 mg tablet extended release 24 hr 25 mg PO QAM Qty: 90 3RF (DME) Wheeled Walker Misc See Rx Instructions .MEDSUPPLY Qty: 1 0RF Rx Instructions: As directed lamotrigine 25 mg tablet 25 mg PO BID Qty: 60 2RF Rx Instructions: take with the 100 mg tablet for total dose of 225 mg bid losartan 25 mg tablet 25 mg PO QAM Qty: 90 3RF Dry Eye Relief 1-0.2-0.2 % Drops 1 drp OPHTHALMIC (EYE) BID PRN (Reason: Dry Eyes) PreserVision AREDS 2,148 mcg-113 mg-45 mg-17.4mg Tablet 1 tab PO BID Rx Instructions: administer with AM and PM meals nystatin 100,000 unit/gram powder 1 applic topical BID PRN (Reason: Rash) Linzess 145 mcg capsule 145 mcg PO DAILY PRN (Reason: Abdominal Discomfort) Rx Instructions: TAKE 1 CAPSULE BY MOUTH ONCE DAILY cholecalciferol (vitamin D3) 50 mcg (2,000 unit) capsule 25 mcg PO BID Referrals Referrals: Krysta Donald MD [Primary Care Provider] -
[2024-01-05] MEDS ORDERED: ACETAMINOPHEN 325 MG TAB PO PRN (02:27)
[2024-01-05] MEDS: BUTALBITAL/ACETAMIN/CAFFEINE TAB PO STA (04:09)
[2024-01-05] MEDS ORDERED: ALBUT/IPRATROP 3MG/0.5MG NEB 3 ML VIAL INH PRN (05:26)
[2024-01-05] MEDS ORDERED: LINACLOTIDE 145 MCG CAPSULE PO PRN (05:26)
--- NOTE | 2024-01-05 05:29 | History & Physical Report ---
Date of Service January 05, 2024 Assessment & Plan (1) Ambulatory dysfunction: Plan: Patient with fall at home. Reports she is unable to get up and walk - is not comfortable taking her home -Observation to medical -PT/OT evaluation -Tylenol PRN pain -Patient was able to ambulate more easily later in the evening Plan Chronic Medical Conditions: Seizure disorder -Continue Lamictal Depression/Anxiety -Continue Celexa -Continue Abilify -Ativan as needed Hypothyroidism -Continue Synthroid Hypertension -Continue Losartan and Metoprolol Admission and Anticipated Discharge Date Admission Date: January 05, 2024 History of Present Illness Chief Complaint: patient fell and couldn't get up Primary Care Provider: Krysta Donald MD Shi Govea is a 73yo female with history of COPD, HTN, Hypothyroidism, CKD and BARBARA presenting after a fall at home. Patient was sitting at her computer desk and fell to the floor. Unable to get up secondary to pain. Reports difficulty with ambulation. No additional complaints - patient denies fever, chills, cough, CP, abdominal pain, SOB, nausea, vomiting, diarrhea In the ER she is afebrile, HD stable. Episodes of hypoxia with sleep - patient with known BARBARA, is to use a CPAP qHS but reports that she doesn't. Workup as below with largely normal labs. No obvious fractures on x-ray Patient reports she is unable to ambulate and states that he is unable to care for her at home. They are requesting admission to the hospital for an overnight stay. ER Course: Tylenol Dilaudid Reglan Zofran NSS Allergies Allergy/AdvReac Type Severity Reaction Status Date / Time sumatriptan [From Imitrex] Allergy Severe itching Verified 01/05/24 01:45 gabapentin Allergy Intermediate BURNING OF Verified 01/05/24 01:45 FEET AND ANKLES lisinopril AdvReac Intermediate COUGH Verified 01/05/24 01:45 prochlorperazine AdvReac Intermediate "jaw lock" Verified 01/05/24 01:45 [From Compazine] Home Medications Medication Instructions Recorded Confirmed Type ipratropium 0.5 mg-albuterol 3 mg 3 ml inhalation Q6H PRN Shortness 03/30/21 01/05/24 Rx (2.5 mg base)/3 mL nebulization Of Breath Or Wheezing #360 mL soln Wheeled Walker #1 ea 07/23/21 01/05/24 Rx peg 133-ywbqpulafdxv-nwaprcuq 1 1 drp ophthalmic (eye) BID PRN Dry 10/15/22 01/05/24 History %-0.2 %-0.2 % eye drops (Dry Eye Eyes Relief) lorazepam 0.5 mg tablet 0.5 mg PO DAILY PRN Anxiety #30 12/03/22 01/05/24 Rx tabs diaper,brief,adult,disposable #180 ea 05/10/23 01/05/24 Rx losartan 25 mg tablet 25 mg PO QAM #90 tabs 06/17/23 01/05/24 Rx linaclotide 145 mcg capsule 145 mcg PO DAILY PRN Abdominal 06/22/23 01/05/24 History (Linzess) Discomfort nystatin 100,000 unit/gram topical 1 applic topical BID PRN Rash 06/22/23 01/05/24 History powder vitamins A,C,E-twzf-apcayn 2,148 1 tab PO BID 06/22/23 01/05/24 History mcg-113 mg-45 mg-17.4 mg tablet (PreserVision AREDS) aripiprazole 2 mg tablet 2 mg PO QAM #90 tabs 07/27/23 01/05/24 Rx lamotrigine 200 mg tablet 200 mg PO BID #180 tabs 08/18/23 01/05/24 Rx lvgcyhtsol-nhxfrylellclq-yryajohn 1 tab PO DAILY PRN pain #20 tabs 09/05/23 01/05/24 Rx 50 mg-325 mg-40 mg tablet citalopram 10 mg tablet 10 mg PO HS #90 tabs 10/13/23 01/05/24 Rx citalopram 20 mg tablet 20 mg PO HS #90 tabs 10/13/23 01/05/24 Rx atorvastatin 40 mg tablet 40 mg PO HS #90 tabs 10/24/23 01/05/24 Rx lamotrigine 25 mg tablet 25 mg PO BID #60 tabs 11/29/23 01/05/24 Rx omeprazole 40 mg capsule,delayed 40 mg PO QAM #90 caps 12/06/23 01/05/24 Rx release levothyroxine 112 mcg tablet 112 mcg PO QAM #90 tabs 12/13/23 01/05/24 Rx ondansetron 4 mg disintegrating 4 mg PO Q6H PRN Nausea #30 tabs 12/19/23 01/05/24 Rx tablet metoprolol succinate 25 mg 25 mg PO QAM #90 tabs 12/20/23 01/05/24 Rx tablet,extended release 24 hr cholecalciferol (vitamin D3) 50 25 mcg PO BID 01/05/24 01/05/24 History mcg (2,000 unit) capsule Past Med/Surg History Problem List Ambulatory dysfunction (Acute) Fall (Acute) Acute pain of left knee (Acute) Acute hip pain (Acute) Vitamin D deficiency Epigastric pain Left knee pain History of colon polyps Urinary incontinence, mixed Prolapse of female pelvic organs Overflow stress incontinence of urine in female Impacted cerumen of both ears Generalized anxiety disorder with panic attacks Status post left knee replacement Hypovitaminosis D History of stress fracture (~07/09/21) left knee Intertrigo Irritable bowel syndrome with predominant constipation BPPV (benign paroxysmal positional vertigo) Low back pain Lumbosacral spondylosis Cardiomyopathy (Acute) EF 50-55% on 03/2022 echo Seizure (Chronic) Arthritis of both knees Effusion, left knee Left knee DJD Urinary incontinence CKD (chronic kidney disease) stage 3, GFR 30-59 ml/min (Chronic) no specialist Lumbar spondylosis Obesity (BMI 30.0-34.9) Recurrent major depression resistant to treatment Impacted cerumen, right ear Chronic rhinitis Acquired deviated nasal septum Dyspnea Dysphagia Rectal pain Lesion of female perineum Nasal vestibulitis Lumbosacral radiculopathy at S1 Idiopathic polyneuropathy Gait disorder Migraine Seizure disorder 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 Esophageal dysphagia Anxiety Insomnia Fatigue Arthralgia of multiple sites Balance problems (Acute) Depression with anxiety Focal epilepsy with impairment of consciousness Irritable bowel syndrome Obstructive sleep apnea Panic disorder without agoraphobia Renal insufficiency (Unknown) Schatzki's ring Status post laparoscopic Bridgette fundoplication Dyssynergic defecation Delayed gastric emptying Esophageal dysphagia Chronic diarrhea Hypercholesteremia Complex partial seizure per pt gets "mini seizure" lasts for approx 30 seconds --"stand and stare, can hear people talking but I can't respond", never had a grand mal, last was 05/2023--follows with Dr. Kinsey Betts--on lamictal Common migraine without aura Hypertension (Chronic) controlled, stable per pt Hypothyroidism Memory loss ongoing issue Neuropathy Tremor Vertigo Vitamin B12 deficiency GERD (gastroesophageal reflux disease) controlled, stable per pt COPD (chronic obstructive pulmonary disease) controlled Medical History Prolapse of female pelvic organs Stress incontinence Hx of migraines 4 in a row last week (week of 09/19/23), given prednisone and "had relief" Memory loss ongoing issue Lumbosacral spondylosis IBS (irritable bowel syndrome) Hypertension Hypothyroidism Hx of colonic polyps GERD (gastroesophageal reflux disease) controlled, stable per pt SOB (shortness of breath) on exertion "happens sometimes" Dysphagia "every once in awhile" Depression with anxiety COPD (chronic obstructive pulmonary disease) well controlled Complex partial seizure per pt gets "mini seizure" lasts for approx 30 seconds --"stand and stare, can hear people talking but I can't respond", never had a grand mal, last was early 09/2023--follows with Dr. 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 R/t cliff (1999) Hiatal hernia s/p Bridgette fundoplication Surgical History History of total left knee replacement History of Bridgette fundoplication laparoscopic History of loop recorder Placed 03/2022 History of left breast biopsy benign History of total hysterectomy with bilateral salpingo-oophorectomy (BSO) History of bilateral tubal ligation History of dilatation and curettage History of bunionectomy of right great toe History of bunionectomy of left great toe History of total replacement of right hip History of bladder suspension procedure History of esophageal dilatation History of colonoscopy History of esophagogastroduodenoscopy (EGD) History of appendectomy History of intraocular lens implant right eye History of bilateral cataract extraction Family History Father Myocardial infarction Sister Multiple sclerosis Mother Stroke Other No family history of adverse response to anesthesia Denies family history of Ovarian cancer Prostate cancer Breast cancer Colorectal cancer Social History Smoking Status: Former smoker Tobacco Type: Cigarettes Age Started Using Tobacco: 30; Age Quit Using Tobacco: 55; packs per day: 1.5; Second Hand Exposure: Yes (hx used to smoke); Do You Dip or Chew Tobacco: No; Hx Alcohol Use: Yes Hx Substance Use: No Preferred Language: Thai Communication Ability: Effective Visual Impairment: No Limitations Hearing Ability: Use of Hearing Aid Lap Cutter Required: No Beliefs That Will Affect Care: None marital status: Current Living Situation: Spouse current occupational status: retired Other Information That Helps Us Care for You: No Feels Safe at Home: Yes Safety Concerns: Feels Safe At This Time Childhood Exposure to Second-Hand Smoke: Yes Diet: regular caffeine: Yes Dental Care, Regularly: No Physical Activity Frequency: Does not Exercise Seatbelt Use: always Sunscreen Use: No Assistive Devices: CPAP and Denture - Upper Assistive Devices Comment: Does not use CPAP at home Review of Systems Review of Systems: All systems reviewed & are unremarkable except as noted in HPI & below Physical Exam Physical Exam: General: patient resting comfortably, NAD, non-toxic in appearance, AA&O x 4 Skin: warm, dry, intact, no rashes or lesions HEENT: NC/AT, PERRL, EOMI, anicteric sclera, conjunctiva without injection, external ear normal to inspection and nontender, nares patent, moist mucus membranes, dentition intact, no oropharyngeal lesions, neck supple, trachea midline, no LAD, no thyromegaly, no JVD Heart: +S1/S2, regular, no m/r/g Lungs: equal air entry bilaterally, no rales/rhonchi/wheezes Abd: +BS, soft, NT/ND, no masses/organomegaly/ascites Ext: warm, 2+ pulses in UE/LE bilaterally, no clubbing/cyanosis or edema Neuro: nonfocal, patient AA&O x 4, speech intact, no facial droop, moving all extremities on command with equal strength 5/5 Results & Data Results & Data Vital Signs (Past 12 Hours) Vital Signs Temp Pulse Pulse Resp BP BP Pulse Ox 01/05/24 04:35 87 L 01/05/24 04:06 58 L 15 92 01/05/24 03:23 122/64 01/05/24 03:00 58 L 18 94 01/05/24 02:58 144/75 H 01/05/24 02:58 144/75 H 01/05/24 02:58 144/75 H 01/05/24 02:26 125/87 01/05/24 02:25 36.9 C 64 21 125/87 93 01/05/24 02:18 64 16 91 01/05/24 02:06 66 14 91 01/05/24 02:00 132/73 01/05/24 02:00 64 125/74 91 01/05/24 01:51 62 25 H 93 01/05/24 01:14 71 01/05/24 01:00 127/72 01/05/24 00:54 61 14 94 01/05/24 00:00 64 14 94 01/05/24 00:00 150/75 H 01/05/24 00:00 150/75 H 01/05/24 00:00 84 18 150/75 H 94 01/04/24 23:00 136/75 01/04/24 23:00 136/75 01/04/24 23:00 136/75 01/04/24 22:57 63 16 95 01/04/24 22:56 153/77 H 01/04/24 22:56 153/77 H 01/04/24 22:55 174/83 H 01/04/24 22:55 65 18 153/77 H 92 01/04/24 22:36 60 14 95 01/04/24 22:00 126/70 01/04/24 22:00 59 L 17 92 01/04/24 21:33 58 L 17 91 01/04/24 21:29 37.0 C 16 152/73 H 94 01/04/24 21:28 152/73 H 01/04/24 21:28 152/73 H 01/04/24 21:28 152/73 H 01/04/24 21:22 62 01/04/24 21:20 37.0 C 61 22 152/73 H 96 O2 Del Method O2 Flow Rate 01/05/24 04:35 Room Air 01/05/24 04:06 01/05/24 03:23 01/05/24 03:00 01/05/24 02:58 01/05/24 02:58 01/05/24 02:58 01/05/24 02:26 01/05/24 02:25 Room Air 01/05/24 02:18 01/05/24 02:06 01/05/24 02:00 01/05/24 02:00 Room Air 01/05/24 01:51 01/05/24 01:14 01/05/24 01:00 01/05/24 00:54 01/05/24 00:00 01/05/24 00:00 01/05/24 00:00 01/05/24 00:00 Nasal Cannula 2 01/04/24 23:00 01/04/24 23:00 01/04/24 23:00 01/04/24 22:57 01/04/24 22:56 01/04/24 22:56 01/04/24 22:55 01/04/24 22:55 Room Air 01/04/24 22:36 01/04/24 22:00 01/04/24 22:00 01/04/24 21:33 01/04/24 21:29 Room Air 01/04/24 21:28 01/04/24 21:28 01/04/24 21:28 01/04/24 21:22 01/04/24 21:20 Room Air Laboratory Results Laboratory Results WBC 9.70 K/ul (4.8-10.8) 01/04/24 21:32 RBC 4.23 M/uL (4.20-5.40) 01/04/24 21:32 Hgb 13.0 g/dl (12.0-16.0) 01/04/24 21:32 Hct 39.4 % (37.0-47.0) 01/04/24 21:32 MCV 93.1 fL (80.0-100.0) 01/04/24 21:32 MCH 30.7 pg (25.0-34.0) 01/04/24 21:32 MCHC 33.0 g/dL (32.0-36.0) 01/04/24 21:32 RDW Std Deviation 45.9 fL (36.4-46.3) 01/04/24 21:32 RDW Coeff of Taisha 13.6 % (11.5-14.5) 01/04/24 21:32 Plt Count 160 K/uL (130-400) 01/04/24 21: MPV 10.1 fL (9.4-12.4) 01/04/24 21:32 Immature Gran % (Auto) 0.7 % 01/04/24 21:32 Neut % (Auto) 71.6 % 01/04/24: Lymph % (Auto) 16.1 % 01/04/24 21:32 [place] % (Auto) 10.6 % 01/04/24 21:32 Eos % (Auto) 0.7 % 01/04/24: Baso % (Auto) 0.3 % 01/04/24: Neut # (Auto) 6.94 K/uL (1.40-6.50) H 01/04/24 21:32 Lymph # (Auto) 1.56 K/uL (1.20-3.40) 01/04/24 21:32 [place] # (Auto) 1.03 K/uL (0.11-0.59) H 01/04/24 21:32 Eos # (Auto) 0.07 K/uL (0.00-0.50) 01/04/24 21:32 Baso # (Auto) 0.03 K/uL (0.00-0.20) 01/04/24 21: Immature Gran # (Auto) 0.07 K/uL (0.01-0.20) 01/04/24 21:32 PT 10.6 Seconds (9.0-12.0) 01/04/24 21:32 INR 1.0 (0.9-1.1) 01/04/24:32 APTT 25 Seconds (21-31) 01/04/24 21:32 PTT Ratio 0.9 01/04/24 21:32 Sodium 139 mmol/L (136-145) 01/04/24 21:32 Potassium 3.8 mmol/L (3.5-5.1) 01/04/24 21:32 Chloride 104 mmol/L (98-107) 01/04/24 21:32 Carbon Dioxide 26 mmol/L (21-32) 01/04/24 21:32 Anion Gap 9 (3-11) 01/04/24 21:32 BUN 22 mg/dl (6-23) 01/04/24 21:32 Creatinine 1.42 mg/dl (0.6-1.2) H 01/04/24 21:32 Est Cr Clr Drug Dosing 44.5 ml/min 01/04/24 21:32 eGFR 38.57 01/04/24 21:32 BUN/Creatinine Ratio 15.5 (10-20) 01/04/24 21:32 Glucose 83 mg/dl (70-99(Fasting)) 01/04/24 21:32 Calcium 8.9 mg/dl (8.6-10.3) 01/04/24 21: Total Bilirubin 0.5 mg/dl (0.2-1.0) 01/04/24 21: AST 13 U/L (13-39) 01/04/24 21:32 ALT 10 U/L (7-52) 01/04/24 21:32 Alkaline Phosphatase 101 U/L (34-104) 01/04/24 21:32 Total Protein 6.2 gm/dl (6.0-8.3) 01/04/24 21:32 Albumin 3.9 gm/dl (3.4-5.0) 01/04/24 21: Globulin 2.3 gm/dl (2.5-4.0) L 01/04/24 21: Albumin/Globulin Ratio 1.7 (0.9-2) 01/04/24 21:32 Urine Color Yellow 01/05/24 01:50 Urine Appearance Clear (Clear) 01/05/24 01:50 Urine pH 6.0 (4.5-7.5) 01/05/24 01:50 Ur Specific [place] 1.019 (1.000-1.030) 01/05/24 01:50 Urine Protein Trace (Negative) H 01/05/24 01:50 Urine Glucose (UA) Negative (Negative) 01/05/24 01:50 Urine Ketones Negative (Negative) 01/05/24 01:50 Urine Blood Negative (Negative) 01/05/24 01:50 Urine Nitrite Negative (Negative) 01/05/24 01:50 Urine Bilirubin Negative (Negative) 01/05/24 01:50 Urine Urobilinogen Negative (Negative) 01/05/24 01:50 Ur Leukocyte Esterase Negative (Negative) 01/05/24 01:50 Urine WBC (Auto) 0-5 /hpf (0-5) 01/05/24 01:50 Urine RBC (Auto) 0-2 /hpf (0-2) 01/05/24 01:50 U Hyaline Cast (Auto) 0-2 /lpf (0-2) 01/05/24 01:50 U Epithel Cells (Auto) 0-2 /hpf (0-2) 01/05/24 01:50 Urine Bacteria (Auto) None Seen (None Seen) 01/05/24 01:50 PG Care Time/CCT Total # of Minutes Spent Total Time Spent with Patient: Total time spent is greater than 50% in coordination of care (as documented) at patient's floor/unit and/or counseling patient: Coding Level of Care Code 68567 INT INP/OBS CARE 2/55MIN Diagnoses Ambulatory dysfunction R26.2
--- NOTE | 2024-01-05 06:50 | XRay Report ---
XR knee LT 1 or 2V routine HISTORY: 73 years-old Female trauma acute left knee pain status post trauma COMPARISON: 10/26/2022, 07/18/2023 TECHNIQUE: 2 views of the left knee FINDINGS: Arterial calcifications. Small joint effusion. No acute fracture, dislocation or osseous erosion. Unr emarkable appearance of the total joint arthroplasty. IMPRESSION: No acute fracture or dislocation. ACT 112: Negative or not required by law. The above report was generated using voice recognition software. It may contain grammatical, syntax o r spelling errors. Electronically signed by: Rohan Ramey M.D. 01/05/2024 6:49 AM
--- NOTE | 2024-01-05 07:50 | XRay Report ---
SINGLE VIEW PELVIS; 2 VIEWS LEFT HIP CLINICAL HISTORY: Trauma. FINDINGS: An AP view of the pelvis with AP and frog leg views of the left hip are compared to study d ated 03/17/2022. The skeletal structures are osteopenic. There is no radiographic evidence of acute f racture involving the hips or bony pelvis. A bipolar right hip arthroplasty is in near anatomic align ment. Mild arthritic change and joint space narrowing is seen in the left hip. There is degenerative sclerosis of the sacroiliac joints and pubic symphysis. Lumbosacral spondylosis is partially visualiz ed. The overlying soft tissues are within normal limits. There are numerous pelvic phleboliths. Ather osclerotic calcification is seen in the femoral arteries. IMPRESSION: No acute bony abnormality is identified. Electronically signed by: Toan Conway M.D. 01/05/2024 7:48 AM
[2024-01-05] MEDS: LEVOTHYROXINE SODIUM 112 MCG TABLET PO SCH (07:53)
[2024-01-05] MEDS: ARIPIprazole 1 MG/ML ORAL SOLN 150 ML BTL PO SCH (08:57)
[2024-01-05] MEDS: lamoTRIgine 25 MG TAB PO SCH (08:57)
[2024-01-05] MEDS: METOPROLOL SUCC 25MG EXT REL TAB PO SCH (08:58)
[2024-01-05] MEDS: LOSARTAN POTASSIUM 25 MG TAB PO SCH (08:58)
[2024-01-05] MEDS: lamoTRIgine 100 MG TAB PO SCH (08:58)
[2024-01-05] MEDS: PANTOprazole 40 MG TAB PO SCH (08:58)
[2024-01-05 09:42] LABS: Hematocrit (blood only) 41.6 % (37.0-47.0); Mean Corpuscular Hemoglobin 30.1 pg (25.0-34.0); Mean Corpuscular Hgb Conc 31.3 g/dL (32.0-36.0); Mean Corpuscular Volume 96.3 fL (80.0-100.0); Mean Platelet Volume 10.2 fL (9.4-12.4); Platelet Count 160 K/uL (130-400); RDW Coefficient of Variation 13.6 % (11.5-14.5); RDW Standard Deviation 48.3 fL (36.4-46.3); Red Blood Count 4.32 M/uL (4.20-5.40); White Blood Count 8.43 K/ul (4.8-10.8)
[2024-01-05 10:04] LABS: BUN Creatinine Ratio 16.7 (10-20); Calcium 8.8 mg/dl (8.6-10.3); Creatinine Clr Calc Pharmacy 52.7 ml/min; Potassium 4.1 mmol/L (3.5-5.1)
--- NOTE | 2024-01-05 12:43 | Hospitalist Progress Note ---
Date of Service January 05, 2024 Assessment & Plan (1) Ambulatory dysfunction: Plan Patient is a 73 y/o F w/ PMHx of HTN, COPD (no home oxygen), Hypothyroid, CKD, BARBARA (recc for home CPAP but prefers not to use it), Cardiomyopathy (last TTE on 08/2023 w/ EF of 50-55%), Migraines, and Complex Partial Seizures who was admitted due to fall secondary to physical deconditioning. # Ambulatory Dysfunction // Deconditioning -Patient does not ambulate much at home due to concern she may have a seizure and fall, which has lead to progressive weakness and ambulatory dysfunction -Patient describes having an unsteady gait at home at which time she sits to try and prevent falling. -PT/OT evaluation -Tylenol PRN pain -Discussed possibility of eventual discharge to rehab and patient agreeable. # Seizure disorder - State she gets frequent episodes, and had 2 episodes yesterday unrelated to her fall -Continue Lamictal # Migraines - Patient w/ history of migraines - Will add Ibuprofen prn # Depression/Anxiety -Continue Celexa -Continue Abilify -Ativan as needed # Hypothyroidism -Continue Synthroid # Hypertension -Continue Losartan and Metoprolol Admission and Anticipated Discharge Date Admission Date: January 05, 2024 Supervising Physician Co-Signing Physician Notes Attending attestation Pt seen and examined in concert with Dr. Koehler. In agreement with the documented findings as noted in the resident documentation with any exceptions or additions as noted here. No acute complaints other than difficulty with balance with PT and transition to bathroom at time of evaluation. S1/S2 nl RRR no MCG. CTAB. Abd NT/ND BS+ve Ambulatory dysfunction & deconditioning - PT/OT consult Else see resident documentation as noted. Subjective Patient evaluated at bedside and found to be alone, AAOx3, afebrile, comfortable, and in NAD. She states that she has been feeling progressively more weak due to deconditioning. Patient states she has been limiting the times she walks due to concern of having a seizure and falling as a cause. She has been having seizures frequently, and states she had 2 episodes yesterday. She did not have weakness, chest pain, palpitations, SOB, vision changes, diaphoresis, or any other sxs preceding her fall. No head trauma or LOC. No recent illnesses and the only med change she had was an increase in her Lamotrigine dose from 200 to 225 mg around 2 weeks ago. Review of Systems Review of Systems: As per HPI. Physical Exam Physical Exam: General: patient resting comfortably, NAD, AA&O x 4 Heart: +S1/S2, regular, no m/r/g Lungs: equal air entry bilaterally, no rales/rhonchi/wheezes Abd: soft, NT/ND Ext: warm, 2+ pulses in UE/LE bilaterally, no clubbing/cyanosis or edema, tenderness in b/l calves R>L Neuro: nonfocal, patient AA&O x 4, speech intact, no facial droop, moving all extremities on command with equal strength 5/5 Results & Data Results & Data Vital Signs (Past 12 Hours) Vital Signs Temp Pulse Pulse Resp BP BP Pulse Ox 01/05/24 08:56 60 19 148/79 H 92 01/05/24 07:11 52 L 95 01/05/24 06:52 54 L 01/05/24 06:03 54 L 16 93 01/05/24 06:00 124/69 01/05/24 05:30 55 L 15 94 01/05/24 05:00 109/65 01/05/24 04:36 59 L 15 96 01/05/24 04:35 87 L 01/05/24 04:06 58 L 15 92 01/05/24 03:23 122/64 01/05/24 03:00 58 L 18 94 01/05/24 02:58 144/75 H 01/05/24 02:58 144/75 H 01/05/24 02:58 144/75 H 01/05/24 02:26 125/87 01/05/24 02:25 36.9 C 64 21 125/87 93 01/05/24 02:18 64 16 91 01/05/24 02:06 66 14 91 01/05/24 02:00 132/73 01/05/24 02:00 64 125/74 91 01/05/24 01:51 62 25 H 93 01/05/24 01:14 71 01/05/24 01:00 127/72 01/05/24 00:54 61 14 94 O2 Del Method O2 Flow Rate 01/05/24 08:56 Room Air 01/05/24 07:11 Nasal Cannula 2 01/05/24 06:52 01/05/24 06:03 Nasal Cannula 2 01/05/24 06:00 01/05/24 05:30 01/05/24 05:00 01/05/24 04:36 01/05/24 04:35 Room Air 01/05/24 04:06 01/05/24 03:23 01/05/24 03:00 01/05/24 02:58 01/05/24 02:58 01/05/24 02:58 01/05/24 02:26 01/05/24 02:25 Room Air 01/05/24 02:18 01/05/24 02:06 01/05/24 02:00 01/05/24 02:00 Room Air 01/05/24 01:51 01/05/24 01:14 01/05/24 01:00 01/05/24 00:54 Resident Activity Tracking Resident Involvement: Resident Care Provided Care Provided: Adult Hospital Medicine
--- NOTE | 2024-01-05 16:31 | Electrocardiogram Report ---
Test Reason : Blood Pressure : */* mmHG Vent. Rate : 60 BPM Atrial Rate : 60 BPM P-R Int : 134 ms QRS Dur : 90 ms QT Int : 450 ms P-R-T Axes : 30 25 54 degrees QTcB Int : 450 ms Normal sinus rhythm Low voltage QRS Borderline ECG When compared with ECG of 17-Mar-2022 14:33, No significant change was found Confirmed by Oracio Lorenzo ([id number]) on 01/05/2024 4:31:04 PM Referred By: REFERRED SELF Confirmed By: Oracio Lorenzo
[2024-01-05] MEDS: BUTALBITAL/ACETAMIN/CAFFEINE TAB PO PRN (17:31)
[2024-01-05] MEDS: CITALOPRAM 20 MG TAB PO SCH (20:13)
[2024-01-05] MEDS: ATORVASTATIN 40 MG TAB PO SCH (20:14)
[2024-01-05] MEDS ORDERED: NON-FORMULARY MEDICATION (Citalopram 10 mg tablet) PO SCH (21:00)
[2024-01-06] MEDS: IBUPROFEN 600 MG TAB PO PRN (06:04)
[2024-01-06 07:41] LABS: BUN Creatinine Ratio 13.6 (10-20); Calcium 8.9 mg/dl (8.6-10.3); Creatinine Clr Calc Pharmacy 50.6 ml/min; Potassium 4.3 mmol/L (3.5-5.1)
--- NOTE | 2024-01-06 12:07 | Hospitalist Progress Note ---
Date of Service January 06, 2024 Assessment & Plan (1) Ambulatory dysfunction: Plan Patient is a 73 y/o F w/ PMHx of HTN, COPD (no home oxygen), Hypothyroid, CKD, BARBARA (recc for home CPAP but prefers not to use it), Cardiomyopathy (last TTE on 08/2023 w/ EF of 50-55%), Migraines, and Complex Partial Seizures who was admitted due to fall secondary to physical deconditioning. # Ambulatory Dysfunction // Deconditioning -Patient does not ambulate much at home due to concern she may have a seizure and fall, which has lead to progressive weakness and ambulatory dysfunction -Patient describes having an unsteady gait at home at which time she sits to try and prevent falling. -PT/OT evaluation state she would be okay for outpatient PT -Tylenol PRN pain -Referral for placed # Seizure disorder - State she gets frequent episodes, and had 2 episodes the day of but unrelated to her fall -Continue Lamictal # Migraines - Patient w/ history of migraines - Continue Ibuprofen prn - Will increase fioricet to 2 tabs q4h prn # Depression/Anxiety -Continue Celexa -Continue Abilify -Ativan as needed # Hypothyroidism -Continue Synthroid # Hypertension -Continue Losartan and Metoprolol Admission and Anticipated Discharge Date Admission Date: January 05, 2024 Supervising Physician Co-Signing Physician Notes ATTESTATION I also saw the patient and confirmed murphy portions of the history and exam. I agree with the impression and plan in the resident documentation, and as summarized below. At the time of our p.m. exam, the patient was complaining of a migraine headache. This was refractory to a single Fioricet about 2 hours ago. EXAM 128/77, 55, 16, 16, 30 she is awake and oriented. Afebrile. No distress appreciated. She does complain of a headache. CV regular Respirations non labored DATA Labs Cr 1.25 IMPRESSION & PLAN Ambulatory dysfunction/deconditioning PT/OT evaluation Acute migraine headache with history of migraines One-time dose of naproxen now some to be okay given her renal function If this is ineffective, 2 Fioricet tabs at the 4-hour nicko since her previous Additional per resident documentation Subjective Patient evaluated at bedside and found to be AAOx3, afebrile, and uncomfortable. Patient states she has had a migraine headaches since earlier in the morning and 1 tab of Fioricet has not helped control her symptoms. No chest pain, SOB, fevers/chills, N/V/D, seizures, or any other sxs. Review of Systems Review of Systems: As per HPI. Physical Exam Physical Exam: General: patient resting with sheet over her head, NAD, AA&O x 4 Heart: +S1/S2, regular, no m/r/g Lungs: equal air entry bilaterally, no rales/rhonchi/wheezes Abd: soft, NT/ND Ext: warm, 2+ pulses in UE/LE bilaterally, no clubbing/cyanosis or edema, tenderness in b/l calves R>L Neuro: nonfocal, patient AA&O x 4, speech intact, no facial droop, moving all extremities on command with equal strength 5/5 Results & Data Results & Data Vital Signs (Past 12 Hours) Vital Signs Temp Pulse Resp BP Pulse Ox O2 Del Method O2 Flow Rate 01/06/24 07:14 36.6 C 53 L 15 137/73 100 Nasal Cannula 3.5 Resident Activity Tracking Resident Involvement: Resident Care Provided Care Provided: Adult Hospital Medicine
[2024-01-06] MEDS: IBUPROFEN 600 MG TAB PO ONE (15:17)
[2024-01-06] MEDS: BUTALBITAL/ACETAMIN/CAFFEINE TAB PO PRN (20:07)
[2024-01-07 09:04] LABS: BUN Creatinine Ratio 14.2 (10-20); Calcium 9.1 mg/dl (8.6-10.3); Creatinine Clr Calc Pharmacy 44.8 ml/min; Potassium 4.4 mmol/L (3.5-5.1)
--- NOTE | 2024-01-07 09:36 | Discharge Summary ---
Date of Service January 07, 2024 Admission HPI Per Admitting Provider Shi Govea is a 73yo female with history of COPD, HTN, Hypothyroidism, CKD and BARBARA presenting after a fall at home. Patient was sitting at her computer desk and fell to the floor. Unable to get up secondary to pain. Reports difficulty with ambulation. No additional complaints - patient denies fever, chills, cough, CP, abdominal pain, SOB, nausea, vomiting, diarrhea In the ER she is afebrile, HD stable. Episodes of hypoxia with sleep - patient with known BARBARA, is to use a CPAP qHS but reports that she doesn't. Workup as below with largely normal labs. No obvious fractures on x-ray Patient reports she is unable to ambulate and states that he is unable to care for her at home. They are requesting admission to the hospital for an overnight stay. ER Course: Tylenol Dilaudid Reglan Zofran NSS Admission Exam Per Admitting Provider General: patient resting comfortably, NAD, non-toxic in appearance, AA&O x 4 Skin: warm, dry, intact, no rashes or lesions HEENT: NC/AT, PERRL, EOMI, anicteric sclera, conjunctiva without injection, external ear normal to inspection and nontender, nares patent, moist mucus membranes, dentition intact, no oropharyngeal lesions, neck supple, trachea midline, no LAD, no thyromegaly, no JVD Heart: +S1/S2, regular, no m/r/g Lungs: equal air entry bilaterally, no rales/rhonchi/wheezes Abd: +BS, soft, NT/ND, no masses/organomegaly/ascites Ext: warm, 2+ pulses in UE/LE bilaterally, no clubbing/cyanosis or edema Neuro: nonfocal, patient AA&O x 4, speech intact, no facial droop, moving all extremities on command with equal strength 5/5 Principal Diagnosis Weakness secondary to physical deconditioning Discharge Exam General: sitting on the side of the bed, NAD, AA&O x 4 Heart: +S1/S2, regular, no m/r/g Lungs: equal air entry bilaterally, no rales/rhonchi/wheezes Abd: soft, NT/ND Ext: warm, 2+ pulses in UE/LE bilaterally, no clubbing/cyanosis or edema, tenderness in b/l calves R>L Neuro: nonfocal, patient AA&O x 4, speech intact, no facial droop, moving all extremities on command with equal strength 08/06 Discharge Data Allergies Allergy/AdvReac Type Severity Reaction Status Date / Time sumatriptan [From Imitrex] Allergy Severe itching Verified 01/05/24 01:45 gabapentin Allergy Intermediate BURNING OF Verified 01/05/24 01:45 FEET AND ANKLES lisinopril AdvReac Intermediate COUGH Verified 01/05/24 01:45 prochlorperazine AdvReac Intermediate "jaw lock" Verified 01/05/24 01:45 [From Compazine] Hospital Course (1) Ambulatory dysfunction: Plan Patient is a 73 y/o F w/ PMHx of HTN, COPD (no home oxygen), Hypothyroid, CKD, BARBARA (recc for home CPAP but prefers not to use it), Cardiomyopathy (last TTE on 08/2023 w/ EF of 50-55%), Migraines, and Complex Partial Seizures who was admitted due to fall secondary to physical deconditioning. #Fall - Was reaching for her phone central sterile tech over the bed (did not stand) and fell over the side of her bed - Has pain on her left hip in a similar spot as she had when she fell at home prior to admission - Will x-ray left hip negative for fractures - Pain control with Tylenol - Continue PT with HH after discharge - Encouraged to use walker with ambulation # Ambulatory Dysfunction // Deconditioning -Patient does not ambulate much at home due to concern she may have a seizure and fall, which has lead to progressive weakness and ambulatory dysfunction -Patient describes having an unsteady gait at home at which time she sits to try and prevent falling. -PT evaluated and stated patient would be stable for home PT with home use of walker -HH coordinated; will discharge today # Migraines - Patient w/ history of migraines - Better control with increase in Fioricet to 2 tabs q4h, but getting pain nearing her next dose steen possibly worse due to current URI w/ congestion - Continue home meds and neuro f/u after discharge #URI - Patient with new flu-like symptoms (i.e. congestion, headache, fatigue, decreased appetite) - No SOB, chest pain, focal deficits, fevers, chills, N/V/D, or any other symptoms - COVID swab negative - Symptomatic management # Seizure disorder -Continue Lamictal - Continue neuro f/u # Depression/Anxiety -Continue Celexa -Continue Abilify # Hypothyroidism -Continue Synthroid # Hypertension -Continue Losartan and Metoprolol Will discharge today with HH. Total Time Total Time Spent Total Time Spent (In Minutes): As per attending attestation. Discharge Plan Discharge Items Patient Disposition: Home - Home Health Services Reason For Visit: AMBULATORY DYSFUNCTION Discharge Diagnosis: Physical deconditioning Activity: Per Instructions section Non-emergency contact: Primary Care Provider Call non-emergency contact if: your symptoms worsen and your temperature is above 101 Follow-up/Referrals: Krysta Donald MD [Primary Care Provider] - 01/17/24 1:30 pm Diet: Heart Healthy Addtl Attending Provider Instructions: You were admitted after you sustained a fall in your home which we believe is related to physical deconditioning from limited physical exercise/exertion. We had our physical therapists evaluate you to make sure you did not need to have dedicated physical therapy in a facility. After they evaluated you, they stated that you would be safe to go back home with home physical therapy. Therefore, our director case management helped coordinate home health to help you with this, which should start today (01/08/24). Therefore, we will be discharging you today. We advise you use a walker at home when ambulating to limit the risk of falls. For your new flu-like symptoms, we encourage you to use over the counter medications for "cold and flu" since these may help with symptom control until the illness clears. If you were to have shortness of breath, chest pain, worsening fevers, weakness, or confusion, please let your primary care provider know or go to the Emergency Department for evaluation. A discharge summary will be sent to your primary care physician to ensure continuity of care. Please bring this discharge summary with you to your next office appointment so that your provider can review it at that time. Follow-up appointments: Keep all your follow-up appointments as already scheduled. If you cannot make an appointment, notify your provider. Medications: Your medication list has been reviewed and reconciled upon discharge to ensure accuracy and continuity of care. An updated list of all your medications is included with your hospital discharge paperwork. Please review this list closely, and make note of any changes. Take your medications as instructed; do not skip a dose of your medicines. Make sure all of your doctors know every medicine you are taking (including [id number]-ioqifsr medicines, vitamins, and supplements). Call your primary care provider before taking any new medicines (including over- the-counter medicines, vitamins, and supplements), because some of these may interact with your current medications, or may make your symptoms worse. Tell your primary care provider if you cannot afford your medications. CONTACT YOUR PRIMARY CARE PROVIDER if you experience any of the following: Worsening of symptoms Fever, chills, or fatigue Difficulty following your treatment plan, or difficulty taking medications CALL 911 OR GO TO THE EMERGENCY DEPARTMENT if you experience any of the following: Sudden, severe abdominal pain or nausea/vomiting Severe chest pain, or chest pain that radiates (moves) to your jaw or arm Sudden, severe shortness of breath or difficulty breathing Thank you for allowing us to participate in your care. Pending Studies at Discharge: No Stand-Alone Forms: My [facility] [employer], Smoking Cessation Medications and DC Order Prescriptions: New fluticasone propionate 50 mcg/actuation [place],Suspension 2 spray NA BID Qty: 16 0RF Continued ipratropium-albuterol 0.5 mg-3 mg(2.5 mg base)/3 mL solution for nebulization 3 ml Inhalation Q6H PRN (Reason: Shortness Of Breath Or Wheezing) Qty: 360 5RF lorazepam 0.5 mg tablet 0.5 mg PO DAILY PRN (Reason: Anxiety) Qty: 30 0RF (DME) diaper,brief,adult,disposable Misc See Rx Instructions .Route Qty: 180 11RF Rx Instructions: Pullups Size M - 2 per day aripiprazole 2 mg tablet 2 mg PO QAM Qty: 90 3RF lamotrigine 200 mg tablet 200 mg PO BID Qty: 180 3RF itrxhkxuze-eumifaeahsnba-nylu 50-325-40 mg tablet 1 tab PO DAILY PRN (Reason: pain) Qty: 20 3RF citalopram 20 mg tablet 20 mg PO HS Qty: 90 3RF Patient Comments: with 10mg to equal 30mg Rx Instructions: TOTAL DOSE 30 MG--TAKE WITH 10 MG TAB citalopram 10 mg tablet 10 mg PO HS Qty: 90 3RF Rx Instructions: TOTAL DOSE 30 MG--TAKES WITH 20 MG TAB. atorvastatin 40 mg tablet 40 mg PO HS Qty: 90 1RF omeprazole 40 mg capsule,delayed release(DR/EC) 40 mg PO QAM Qty: 90 3RF Rx Instructions: TAKE 1 CAPSULE BY MOUTH ONCE DAILY levothyroxine 112 mcg tablet 112 mcg PO QAM Qty: 90 3RF ondansetron 4 mg tablet,disintegrating 4 mg PO Q6H PRN (Reason: Nausea) Qty: 30 0RF metoprolol succinate 25 mg tablet extended release 24 hr 25 mg PO QAM Qty: 90 3RF (DME) Wheeled Walker [facility] [place] See Rx Instructions .MEDSUPPLY Qty: 1 0RF Rx Instructions: As directed lamotrigine 25 mg tablet 25 mg PO BID Qty: 60 2RF Rx Instructions: take with the 100 mg tablet for total dose of 225 mg bid losartan 25 mg tablet 25 mg PO QAM Qty: 90 3RF Dry Eye Relief 1-0.2-0.2 % Drops 1 drp OPHTHALMIC (EYE) BID PRN (Reason: Dry Eyes) PreserVision AREDS 2,148 mcg-113 mg-45 mg-17.4mg Tablet 1 tab PO BID Rx Instructions: administer with AM and PM meals nystatin 100,000 unit/gram powder 1 applic topical BID PRN (Reason: Rash) Linzess 145 mcg capsule 145 mcg PO DAILY PRN (Reason: Abdominal Discomfort) Rx Instructions: TAKE 1 CAPSULE BY MOUTH ONCE DAILY cholecalciferol (vitamin D3) 50 mcg (2,000 unit) capsule 25 mcg PO BID Discharge Orders: Discharge Order (Routine); Ordered 01/08/24 Ordered By: Jessa Sierra/Other Patient Handouts: Fall Prevention Assessing Risk Admission Data Admit Date/Time: 01/07/24 17:53 Attending Provider: Anthony Vallejo Admit Provider: Leonora Gamboa Primary Care Provider: Krysta Donald Other Providers: Leonora Gamboa Other Interventions: Discharge Summary Assessment (RN) Last Done: 01/08/24 11:50 Supervising Physician Co-Signing Physician Notes ATTESTATION I also saw the patient and confirmed murphy portions of the history and exam. I agree with the impression and plan in the resident documentation, and as summarized below. Patient dressed and seated on edge of bed. Feels better. Ready to go home. to pick her up later today. EXAM 128/79, 55, 16, 36.4 Afebrile. No distress appreciated. CV regular Respirations non labored IMPRESSION & PLAN Ambulatory dysfunction/deconditioning Fall yesterday was more of a sliding out of bed as she reached for something that had fallen She feels better today; ambulating with walker PT recommended home with services, and this has been arranged Additional per resident documentation Resident Activity Tracking Resident Involvement: Resident Care Provided Care Provided: Adult Hospital Medicine
[2024-01-07] MEDS: FLUTICASONE PROPIONATE NA SPR 16 GM BTL SCH (10:10)
[2024-01-07] MEDS: ACETAMINOPHEN 325 MG TAB PO SCH (14:09)
[2024-01-07] MEDS: LORazepam 0.5 MG TAB PO PRN (14:56)
--- NOTE | 2024-01-07 15:21 | Hospitalist Progress Note ---
Date of Service January 07, 2024 Assessment & Plan (1) Ambulatory dysfunction: Plan Patient is a 73 y/o F w/ PMHx of HTN, COPD (no home oxygen), Hypothyroid, CKD, BARBARA (recc for home CPAP but prefers not to use it), Cardiomyopathy (last TTE on 08/2023 w/ EF of 50-55%), Migraines, and Complex Partial Seizures who was admitted due to fall secondary to physical deconditioning. #Fall - Was reaching for her phone battery charger tester over the bed (did not stand) and fell over the side of her bed - Has pain on her left hip in a similar spot as she had when she fell at home prior to admission - Will x-ray left hip - Pain control with Tylenol # Migraines - Patient w/ history of migraines - Better control with increase in Fioricet to 2 tabs q4h, but getting pain nearing her next dose steen possibly worse due to current URI w/ congestion #URI - Patient with new flu-like symptoms (i.e. congestion, headache, fatigue, decreased appetite) - No SOB, chest pain, focal deficits, fevers, chills, N/V/D, or any other symptoms - COVID swab negative - Symptomatic management # Ambulatory Dysfunction // Deconditioning -Patient does not ambulate much at home due to concern she may have a seizure and fall, which has lead to progressive weakness and ambulatory dysfunction -Patient describes having an unsteady gait at home at which time she sits to try and prevent falling. -PT evaluated and stated patient would be stable for home PT with home use of walker - coordinated # Seizure disorder -Continue Lamictal # Depression/Anxiety -Continue Celexa -Continue Abilify # Hypothyroidism -Continue Synthroid # Hypertension -Continue Losartan and Metoprolol Admission and Anticipated Discharge Date Admission Date: January 05, 2024 Supervising Physician Co-Signing Physician Notes ATTESTATION I also saw the patient and confirmed murphy portions of the history and exam. I agree with the impression and plan in the resident documentation, and as summarized below. Feeling "stuffy" with new URI symptoms this morning. EXAM 153/78, 60, 16, 36.4, 97 send room air Afebrile. No distress appreciated. She does complain of a headache. CV regular Respirations non labored DATA Labs Cr 1.41 COVID swab negative IMPRESSION & PLAN Ambulatory dysfunction/deconditioning plan was to revisit her in the afternoon to see if she was ready for discharge, however, probably had a fall in her room x-ray of knee and hip are negative PT/OT evaluation Acute migraine headache with history of migraines Migraine resolved yesterday; low-grade headache today, may be related to dev eloping URI Additional per resident documentation Subjective Patient evaluted at bedside and AAOx3,, afebrile, and NAD. She states that she began to have congestion, decreased appetiter and fatigue this am, as well as a headache. No fevers or chills, no SOB, chest pain, N/V/D, or any other assovciated sxs. Review of Systems Review of Systems: As per HPI. Physical Exam Physical Exam: General: sitting on the side of the bed, NAD, AA&O x 4 Heart: +S1/S2, regular, no m/r/g Lungs: equal air entry bilaterally, no rales/rhonchi/wheezes Abd: soft, NT/ND Ext: warm, 2+ pulses in UE/LE bilaterally, no clubbing/cyanosis or edema, tenderness in b/l calves R>L Neuro: nonfocal, patient AA&O x 4, speech intact, no facial droop, moving all extremities on command with equal strength 5/5 Results & Data Results & Data Vital Signs (Past 12 Hours) Vital Signs Temp Pulse Resp BP Pulse Ox O2 Del Method 01/07/24 14:51 36.4 C L 60 16 153/78 H 97 Room Air 01/07/24 08:44 73 113/60 96 Room Air 01/07/24 07:44 36.3 C L 59 L 14 127/78 97 Room Air Resident Activity Tracking Resident Involvement: Resident Care Provided Care Provided: Adult Hospital Medicine
--- NOTE | 2024-01-07 19:13 | XRay Report ---
XR hip LT 2V w pelvis CLINICAL HISTORY: fall COMPARISON: Pelvis and left hip radiographs January 04, 2024. FINDINGS: Visualized portions of the right hip arthroplasty are intact. Sacroiliac joints and symphy sis pubis are intact. There are no fractures within the pelvis or hips. There is mild joint space kendy rowing and moderate osteophytosis of the left hip. IMPRESSION: 1. No fractures within the pelvis or hips. 2. Mild to moderate left hip osteoarthritis. 3. Visualized portions of the right hip arthroplasty intact. ACT 112: Negative or not required by law. Electronically signed by: Yossi Chao M.D. 01/07/2024 7:12 PM
[2024-01-07] MEDS: guaiFENesin 600 MG TABCR PO SCH (20:04)
[2024-01-08 07:54] VITALS: BP 128/79; PULSE 55; RESP 16; TEMP 97.5; O2SAT 97
== END 2024-01-08 12:46 | disposition home health service (06) | DRG 948 ==
LOC: EDINP 21:12 → ED 21:12 → SUATTDRO 01-05 01:50 → 3W 01-05 02:27 → SUATTDRO 01-07 17:53

== ENCOUNTER 2024-06-09 15:32 | Observation (INO) ==
[2024-06-09 16:36] LABS: Basophils # (auto) 0.04 K/uL (0.00-0.20); Basophils % (auto) 0.5 %; Eosinophils # (auto) 0.11 K/uL (0.00-0.50); Eosinophils % (auto) 1.5 %; Hematocrit (blood only) 42.6 % (37.0-47.0); Hemoglobin 13.8 g/dl (12.0-16.0); Immature Granulocytes # (auto) 0.07 K/uL (0.01-0.20); Immature Granulocytes % (auto) 0.9 %; Lymphocytes # (auto) 1.26 K/uL (1.20-3.40); Lymphocytes % (auto) 16.8 %; Mean Corpuscular Hemoglobin 29.7 pg (25.0-34.0); Mean Corpuscular Hgb Conc 32.4 g/dL (32.0-36.0); Mean Corpuscular Volume 91.8 fL (80.0-100.0); Mean Platelet Volume 9.8 fL (9.4-12.4); Monocytes # (auto) 0.67 K/uL (0.11-0.59); Monocytes % (auto) 8.9 %; Neutrophils # (auto) 5.35 K/uL (1.40-6.50); Neutrophils % (auto) 71.4 %; Platelet Count 161 K/uL (130-400); RDW Coefficient of Variation 12.6 % (11.5-14.5); RDW Standard Deviation 41.9 fL (36.4-46.3); Red Blood Count 4.64 M/uL (4.20-5.40)
--- NOTE | 2024-06-09 16:48 | Emergency Department Note ---
ED Provider Note History of Present Illness Chief Complaint: Fall Time Seen by Provider: 06/09/24 16:03 Source: patient Mode of arrival: EMS Limitations: no limitations Patient is a 73-year-old female who presents to the emergency department via EMS with complaints of a ground-level fall after an episode of "staring off". Patient reports that she has had a history over the last couple months of episodes where she gets "stuck" and will stare off at the wall and essentially freeze unable to talk to anyone however she does hear things around her. Patient notes that those episodes last for several seconds and then things go back to normal. Patient states that she has been followed by neurology for these symptoms and has had EEGs and plenty of CT scans and states that she has been told that they are focal seizures and potentially signs of Parkinson's. Patient was recently diagnosed with Parkinson's and started on new medications. Patient reports the episode that she had today resulted in a ground-level fall which she has not experienced before. Patient notes that she is having some pain in her lumbar spine left hip and her head. Patient denies any blood thinners. Home Medications Medication Instructions Recorded Confirmed Type ipratropium 0.5 mg-albuterol 3 mg 3 ml inhalation Q6H PRN Shortness 03/30/21 06/09/24 Rx (2.5 mg base)/3 mL nebulization Of Breath Or Wheezing #360 mL soln Wheeled Walker #1 ea 07/23/21 05/08/24 Rx peg [id number] 1 1 drp ophthalmic (eye) BID PRN Dry 10/15/22 06/09/24 History %-0.2 %-0.2 % eye drops (Dry Eye Eyes Relief) diaper,brief,adult,disposable #180 ea 05/10/23 05/08/24 Rx linaclotide 145 mcg capsule 145 mcg PO DAILY PRN Abdominal 06/22/23 06/09/24 History (Linzess) Discomfort vitamins A,C,S-frls-hkhxgw 2,148 1 tab PO BID 06/22/23 06/09/24 History mcg-113 mg-45 mg-17.4 mg tablet (PreserVision AREDS) citalopram 10 mg tablet 10 mg PO HS #90 tabs 10/13/23 06/09/24 Rx citalopram 20 mg tablet 20 mg PO HS #90 tabs 10/13/23 06/09/24 Rx omeprazole 40 mg capsule,delayed 40 mg PO QAM #90 caps 12/06/23 06/09/24 Rx release levothyroxine 112 mcg tablet 112 mcg PO QAM #90 tabs 12/13/23 06/09/24 Rx cholecalciferol (vitamin D3) 50 25 mcg PO BID 01/05/24 06/09/24 History mcg (2,000 unit) capsule aripiprazole 2 mg tablet 2 mg PO QAM #90 tabs 01/17/24 06/09/24 Rx nystatin 100,000 unit/gram topical 1 applic topical BID PRN groin 03/21/24 06/09/24 Rx powder rash/irritation #60 grams gmozikqicz-lwbfytuaicriu-kkahdifo 1 tab PO DAILY PRN pain #20 tabs 03/26/24 06/09/24 Rx 50 mg-325 mg-40 mg tablet telmisartan 20 mg tablet 20 mg PO QAM 03/31/24 06/09/24 History atorvastatin 40 mg tablet 40 mg PO HS #90 tabs 04/16/24 06/09/24 Rx metoprolol succinate 25 mg 25 mg PO QAM #90 tabs 04/17/24 06/09/24 Rx tablet,extended release 24 hr eptinezumab-jjmr 100 mg/mL 100 mg IV Q3MO 04/26/24 06/09/24 History intravenous solution (Vyepti) ubrogepant 100 mg tablet (Ubrelvy) 100 mg PO ONCE PRN migraine #10 04/27/24 06/09/24 Rx tabs lamotrigine 200 mg tablet 200 mg PO BID #60 tabs 05/28/24 06/09/24 Rx lamotrigine 25 mg tablet 25 mg PO BID #60 tabs 05/28/24 06/09/24 Rx carbidopa 25 mg-levodopa 100 mg 1 tab PO BID #60 tabs 06/05/24 06/09/24 Rx tablet lorazepam 0.5 mg tablet 0.5 mg PO DAILY PRN Anxiety #30 06/05/24 06/09/24 Rx tabs ondansetron 4 mg disintegrating 4 mg PO Q6H PRN Nausea #30 tabs 06/05/24 06/09/24 Rx tablet Allergies Allergy/AdvReac Type Severity Reaction Status Date / Time sumatriptan [From Imitrex] Allergy Severe itching Verified 06/09/24 20:47 gabapentin Allergy Intermediate BURNING OF Verified 06/09/24 20:47 FEET AND ANKLES lisinopril AdvReac Intermediate COUGH Verified 06/09/24 20:47 prochlorperazine AdvReac Intermediate "jaw lock" Verified 06/09/24 20:47 [From Compazine] Past Med/Surg History Problem List (Updated 06/09/24 @ 20:47 by HAJA Evangelista) Unsteady gait (Acute) Fall (Acute) Seizure-like activity (Acute) Abnormal CT of the abdomen Anxiety Neurologic gait disorder RUQ abdominal pain Abnormal CT scan, colon Vitamin D deficiency Chronic kidney disease, stage 3 pt unsure about this Overflow stress incontinence of urine in female Generalized anxiety disorder with panic attacks Intertrigo Irritable bowel syndrome with predominant constipation CKD (chronic kidney disease) stage 3, GFR 30-59 ml/min (Chronic) no specialist Obesity (BMI 30.0-34.9) Recurrent major depression resistant to treatment Idiopathic polyneuropathy Migraine (Acute) Focal epilepsy with impairment of consciousness Obstructive sleep apnea Dyssynergic defecation Hypercholesteremia Complex partial seizure per pt gets "mini seizure" lasts for approx 30 seconds --"stand and stare, can hear people talking but I can't respond", never had a grand mal, last was 05/2023--follows with Dr. Kinsey Betts--on lamictal Common migraine without aura Hypertension (Chronic) controlled, stable per pt Hypothyroidism Vitamin B12 deficiency GERD (gastroesophageal reflux disease) controlled, stable per pt COPD (chronic obstructive pulmonary disease) controlled Medical History Recurrent major depression Hx of migraines HTN (hypertension) Hypercholesterolemia GERD (gastroesophageal reflux disease) Generalized anxiety disorder Focal epilepsy with impairment of consciousness per pt gets "mini seizure" lasts for approx 30 seconds --"stand and stare, can hear people talking but I can't respond", never had a grand mal, last was 04/16/24- follows with Dr. Kinsey Betts-lamictal was increased to 225 mg recently and no seizure since then COPD (chronic obstructive pulmonary disease) per hx, pt. denies, no pulm UTI (urinary tract infection) currrently on macrobid, not working, pt. will call pcp today to get new abx Obstructive sleep apnea cpap Irritable bowel syndrome with constipation CHI (closed head injury) (04/08/24) due to fall Absence seizure per pt gets "mini seizure" lasts for approx 30 seconds --"stand and stare, can hear people talking but I can't respond", never had a grand mal, last was 04/16/24- follows with Dr. Kinsey Betts-lamictal was increased to 225 mg recently and no seizure since then Deafness wears hearing aids CKD (chronic kidney disease), stage III Hx of fall (04/2024) ~ 2 weeks ago, fell and hit head due to balance issues, seen at [facility] ed also fell in Jan- admit to [facility] Peripheral neuropathy History of colon polyps History of stress fracture (~07/09/21) left knee BPPV (benign paroxysmal positional vertigo) occasional, falls Lumbosacral spondylosis Arthritis of both knees Acquired deviated nasal septum Lumbosacral radiculopathy at S1 Arthralgia of multiple sites Depression with anxiety Schatzki's ring Delayed gastric emptying Esophageal dysphagia Tremor "not too often" both hands Cardiomyopathy EF 50-55% on 03/2022 echo Prolapse of female pelvic organs Stress incontinence Memory loss ongoing issue Polyneuropathy per pt, just on left side Blindness of left eye R/t cliff (1999) Hiatal hernia s/p Bridgette fundoplication Surgical History Status post left knee replacement Status post laparoscopic Bridgette fundoplication History of loop recorder Placed 03/2022 History of left breast biopsy benign History of total hysterectomy with bilateral salpingo-oophorectomy (BSO) History of bilateral tubal ligation History of dilatation and curettage History of bunionectomy of right great toe History of bunionectomy of left great toe History of total replacement of right hip History of bladder suspension procedure History of esophageal dilatation History of colonoscopy History of esophagogastroduodenoscopy (EGD) History of appendectomy History of intraocular lens implant right eye History of bilateral cataract extraction Family History Father Myocardial infarction Sister Multiple sclerosis Mother Stroke Other No family history of adverse response to anesthesia Denies family history of Ovarian cancer Prostate cancer Breast cancer Colorectal cancer Social History Smoking Status: Unknown if ever smoked Tobacco Type: Cigarettes Age Started Using Tobacco: 30; Age Quit Using Tobacco: 55; packs per day: 1.5; Second Hand Exposure: No; Do You Dip or Chew Tobacco: No; Hx Alcohol Use: Yes Hx Substance Use: No Preferred Language: Cypriot Communication Ability: Effective Visual Impairment: No Limitations Hearing Ability: Use of Hearing Aid Reimbursement Representative Required: No Beliefs That Will Affect Care: Congregational Congregational Beliefs: mandaen marital status: Current Living Situation: Spouse current occupational status: retired Feels Safe at Home: Yes Childhood Exposure to Second-Hand Smoke: Yes Diet: regular caffeine: Yes Dental Care, Regularly: No Physical Activity Frequency: Does not Exercise Seatbelt Use: always Sunscreen Use: No Assistive Devices: CPAP, Denture - Upper and Hearing Aid - Bilateral Physical Exam Vital Signs Vital Signs - 24 hr 06/09/24 15:41 06/09/24 15:44 06/09/24 15:57 Pulse Rate 58 L 66 61 Respiratory Rate 22 Blood Pressure 151/89 H Blood Pressure Mean 109 Pulse Oximetry 98 97 Oxygen Delivery Method Room Air Room Air Sepsis Recent Fever Within 48 Hours No Sepsis New/Unexplained Change in Mental Status No Sepsis Action Taken by Nursing No Action Required 06/09/24 19:59 Pulse Rate 57 L Respiratory Rate Blood Pressure Blood Pressure Mean Pulse Oximetry Oxygen Delivery Method Sepsis Recent Fever Within 48 Hours Sepsis New/Unexplained Change in Mental Status Sepsis Action Taken by Nursing VITAL SIGNS - Vital signs and nursing notes were reviewed. GENERAL -73-year-old female appearing their stated age, who is in no acute distress. Communicates well with provider and answers questions appropriately. Patient's is at bedside. HEAD - Normocephalic, Atraumatic. No Alvarez's Sign or Raccoon's Eyes. No depressed skull fractures palpable. EYES - PERRL with EOMI bilaterally. Sclera anicteric. Conjunctiva pink and moist with no injection. EARS - No deformities of external structures noted on gross examination bilaterally. NOSE - Midline and without cyanosis. No epistaxis or purulent drainage noted. NECK - Neck with FROM. Supple to palpation. No lymphadenopathy noted. LUNGS - Chest wall symmetric without accessory muscle use, intercostals retractions, or central cyanosis. Normal vesicular breath sounds CTA B/L. No wheezes, rales, or rhonchi appreciated. CARDIAC - RRR with S1/S2. No murmur, rubs, or gallops appreciated. EXTREMITIES - No edema present. +5/5 strength noted in UE/LE bilaterally. NEUROLOGIC -Sensory intact to light touch throughout. PSYCH - A&Ox3 and cooperates fully with examiner. Pt is very pleasant and interacts well with examiner Course Administered Medications Lactated Ringer's (Lr) 1,000 mls @ 80 mls/hr IV .[id number] GEORGINA Stop: 06/10/24 08:44 Last Admin: 06/09/24 20:41 Dose: 80 mls/hr Documented By: QGV Discontinued Medications Acetaminophen (Acetaminophen 325 Mg Tab) 650 mg PO NOW STA Stop: 06/09/24 20:11 Last Admin: 06/09/24 21:00 Dose: 650 mg Documented By: QGV Acetaminophen/Butalbital/Caffeine (Butalbital/Acetamin/Caffeine Tab) 1 tab PO NOW STA Stop: 06/09/24 20:42 Last Admin: 06/09/24 21:00 Dose: 1 tab Documented By: QGV Acetaminophen (Ofirmev) 1,000 mg in 100 mls @ 400 mls/hr IV NOW STA Stop: 06/09/24 18:17 Last Infusion: 06/09/24 19:05 Dose: Infused Documented By: Admin: 06/09/24 18:26 Dose: 400 mls/hr Documented By: QGV Medical Decision Making Differential Diagnosis Hip fracture, hip dislocation, intracranial hemorrhage, subdural hematoma, cervical spine subluxation, fracture or subluxation of the thoracic or lumbar spine, seizure activity, focal epilepsy, Parkinson's tremors, among others Medical Records Attestation: I reviewed the patient's medical records. Home Medications was personally reviewed by me Laboratory Data Attestation: I reviewed the patient's lab results. 06/09/24 15:51 06/09/24 15:51 Lab Results 06/09/24 Range/Units 15:51 WBC 7.50 (4.8-10.8) K/ul RBC 4.64 (4.20-5.40) M/uL Hgb 13.8 (12.0-16.0) g/dl Hct 42.6 (37.0-47.0) % MCV 91.8 (80.0-100.0) fL MCH 29.7 (25.0-34.0) pg MCHC 32.4 (32.0-36.0) g/dL RDW Std Deviation 41.9 (36.4-46.3) fL RDW Coeff of Taisha 12.6 (11.5-14.5) % Plt Count 161 (130-400) K/uL MPV 9.8 (9.4-12.4) fL Immature Gran % (Auto) 0.9 % Neut % (Auto) 71.4 % Lymph % (Auto) 16.8 % Dorado % (Auto) 8.9 % Eos % (Auto) 1.5 % Baso % (Auto) 0.5 % Neut # (Auto) 5.35 (1.40-6.50) K/uL Lymph # (Auto) 1.26 (1.20-3.40) K/uL Dorado # (Auto) 0.67 H (0.11-0.59) K/uL Eos # (Auto) 0.11 (0.00-0.50) K/uL Baso # (Auto) 0.04 (0.00-0.20) K/uL Immature Gran # (Auto) 0.07 (0.01-0.20) K/uL Sodium 139 (136-145) mmol/L Potassium 3.8 (3.5-5.1) mmol/L Chloride 103 (98-107) mmol/L Carbon Dioxide 30 (21-32) mmol/L Anion Gap 6 (3-11) BUN 19 (6-23) mg/dl Creatinine 1.27 H (0.6-1.2) mg/dl Est Cr Clr Drug Dosing 43.7 ml/min eGFR 44.10 BUN/Creatinine Ratio 15.0 (10-20) Glucose 83 (70-99(Fasting)) mg/dl Calcium 9.6 (8.6-10.3) mg/dl Total Bilirubin 0.6 (0.2-1.0) mg/dl AST 14 (13-39) U/L ALT 3 L (7-52) U/L Alkaline Phosphatase 113 H (34-104) U/L Total Protein 6.6 (6.0-8.3) gm/dl Albumin 4.1 (3.4-5.0) gm/dl Globulin 2.5 (2.5-4.0) gm/dl Albumin/Globulin Ratio 1.6 (0.9-2) Imaging Data Radiologist's Impression: Cervical Spine CT 06/09/24 16:10 HISTORY: Trauma due to ground-level fall. TECHNIQUE: Helical CT imaging of the cervical spine was performed without the use of IV contrast. Images are presented in axial, sagittal, and coronal reformats. COMPARISON: None FINDINGS: Incomplete fusion of the posterior elements is seen at C5 and C6. Cervical spine alignment is maintained. The vertebral body heights are preserved without compression deformity. mild to moderate multilevel degenerative disc disease. Multilevel uncovertebral and facet arthrosis. No high-grade osseous central canal stenosis. There is severe multilevel neuroforaminal stenosis. No prevertebral edema or hematoma. Atherosclerotic calcification of the carotid bifurcations. Intramuscular lipoma extending along the left longus coli muscle. The lung apices are clear. IMPRESSION: 1. No evidence of acute cervical spine fracture or traumatic malalignment. 2. Moderate multilevel degenerative spondylosis of the cervical spine resulting in severe multilevel neural foraminal stenosis. 3. 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 Electronically signed by Ramu Damon 06-09-2024 5:[address] 06/09/24 16:10 HISTORY: Trauma due to ground-level fall. Headache. TECHNIQUE: Head CT without contrast. Axial, sagittal, and coronal reformats are provided. COMPARISON: None. FINDINGS: No evidence of acute intracranial hemorrhage, abnormal extra-axial fluid collection, mass effect, or midline shift. Mild presumed chronic microvascular ischemic changes. Ventricular caliber is appropriate. The fourth ventricle is midline. Jenkins-white differentiation appears grossly maintained. The soft tissues about the skull base and scalp are unremarkable. The globes and orbits are unremarkable. The paranasal sinuses and mastoid air cells are well aerated. No acute calvarial fracture. IMPRESSION: No acute intracranial findings. Electronically signed by Ramu Damon 06-09-2024 5:48 PM Hip/Pelvis X-Ray 06/09/24 16:10 HISTORY: Left hip pain. TECHNIQUE: Pelvis and right hip, 3 views. COMPARISON: None. FINDINGS: The left femoral head and proximal femur appear intact.Left hip alignment is maintained. The pelvic and obturator rings appear intact. No widening of the pubic symphysis or sacroiliac joints. Partially included right hip arthroplasty. Degenerative changes of the spine. Enthesophyte formation about the iliac crest. IMPRESSION: No acute osseous abnormality. Electronically signed by Ramu Damon 06-09-2024 5:[address] 06/09/24 16:10 HISTORY: Ground-level fall. Left back and hip pain. TECHNIQUE: Helical CT imaging of the lumbar spine was performedWithout the use of IV contrast. Images are presented in axial, sagittal, and coronal reformats. COMPARISON: None. FINDINGS: Lumbar spine alignment is maintained. The vertebral body heights are preserved without compression deformity. No acute lumbar spine fracture is identified. Moderate to severe multilevel degenerative disc disease. Multilevel facet arthrosis is severe in the lower lumbar spine. Posterior disc bulges and disc osteophyte complex resulting in multilevel central canal stenosis. This is most pronounced and at least moderate at L3-4. Multilevel bilateral neural foraminal stenosis is mild to moderate. Moderate osteoarthritis of the sacroiliac joints. Moderate atherosclerotic vascular disease. Bilateral extrarenal pelvis. 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 IMPRESSION: 1. No evidence of acute lumbar spine fracture. 2. Moderate to severe multilevel degenerative disc disease. Multilevel facet arthrosis is severe in the lower lumbar spine. Multilevel central canal and neuroforaminal stenosis. MRI could be considered for more sensitive evaluation of the degree of canal or foraminal stenosis. 3. 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 Electronically signed by Ramu Damon 06-09-2024 5:[address] 06/09/24 16:10 HISTORY: Trauma due to ground-level fall. TECHNIQUE: CT imaging of the thoracic spine was performed without the use of IV contrast. Images are presented in axial, sagittal, and coronal reformats. COMPARISON: None FINDINGS: Thoracic spine alignment is maintained. The vertebral body heights are preserved without compression deformity.No evidence of acute thoracic spine fracture. Moderate multilevel degenerative disc disease. The included lungs are unremarkable. Calcified right hilar lymph nodes.Distal splenic artery aneurysm measuring 1 cm. Small hiatal hernia. Coronary artery calcifications. Calcified mediastinal lymph nodes consistent with remote granulomatous infection. IMPRESSION: 1. No evidence of acute thoracic spine fracture. 2. Moderate degenerative spondylosis of the thoracic spine. 3. 1 cm distal splenic artery rim calcified aneurysm. 4. Additional chronic and/or incidental findings as above. Electronically signed by Ramu Damon 06-09-2024 5:57 PM Chest X-Ray 06/09/24 16:35 HISTORY: Trauma due to fall. TECHNIQUE: Portable AP radiograph of the chest COMPARISON: Chest radiograph dated 04/09/2022. FINDINGS: Evaluation is limited by rotation. monitor worker leads overlie the chest. No focal consolidation, pneumothorax, or pleural effusion. Mild cardiomegaly. Left-sided aortic arch. No acute osseous abnormality. Included upper abdomen is unremarkable. IMPRESSION: 1. No acute cardiopulmonary findings within the limitations of rotation and portable technique. 2. Mild cardiomegaly. Electronically signed by Ramu Damon 06-09-2024 5:10 PM MDM Narrative Patient is a 73-year-old female who presents to the emergency department via EMS with complaints of a ground-level fall after an episode of "staring off". Patient reports that she has had a history over the last couple months of episodes where she gets "stuck" and will stare off at the wall and essentially freeze unable to talk to anyone however she does hear things around her. Patient notes that those episodes last for several seconds and then things go back to normal. Patient states that she has been followed by neurology for these symptoms and has had EEGs and plenty of CT scans and states that she has been told that they are focal seizures and potentially signs of Parkinson's. Patient was recently diagnosed with Parkinson's and started on new medications. Patient reports the episode that she had today resulted in a ground-level fall which she has not experienced before. Patient notes that she is having some pain in her lumbar spine left hip and her head. Patient denies any blood thinners. Patient was evaluated by myself and findings were noted in the physical exam above. Patient was ordered IV placement, lab work, EKG, cardiac monitoring, CT of the head and CT of the cervical spine, x-ray of the left hip and pelvis as well as a CT of the thoracic and lumbar spine. Patient's lab work resulted and was unremarkable. Patient had a normal white blood cell count of 7.50 and no indication of anemia with a hemoglobin of 13.8 and hematocrit 42.6. Patient had no electrolyte imbalance. Patient had a CT of the cervical spine that was completed to show no acute cervical spine fracture or traumatic malalignment. There was some degenerative changes noted. Patient also had a head CT that was interpreted by radiology to show no acute intracranial findings. Patient's x- ray of the left hip and pelvis showed no acute bony abnormalities. Had a lumbar spine CT that showed no evidence of acute lumbar spine fracture. There was some moderate to severe multilevel degenerative disc disease noted. Polyp patient also had a small distal splenic artery aneurysm measuring 1 cm in diameter noted on the thoracic spine CT. Finally the patient had a chest x-ray which was completed interpreted by radiology to show mild cardiomegaly but no other acute cardiopulmonary findings. I discussed all of these findings with the patient who verbalized understanding. I discussed with the patient that though her lab work and imaging resulted normal the episode that she experienced earlier was concerning for seizure activity. Patient's stated that he agrees that he does not feel comfortable with the patient going home as she may have another episode like this again. Patient states that she agrees that she would stay in the hospital to be monitored as she has never had a fall with any of these episodes in the past and is concerned to have subsequent falls. Patient was agreeable to talk to hospitalist group about admission to the hospital. I spoke with one of the PAs with [facility] hospitalist group, Toney, and gave her a full report on the patient's chief complaint, current status and results of her imaging and lab work. She verbalized understanding and was agreeable to accept the patient under their service for further evaluation and monitoring. Please refer to [facility] hospitalist group's documentation for further evaluation and management of this patient. Impression Seizure-like activity, Fall, Unsteady gait Discharge Plan Visit Data Chief Complaint: Fall ED Provider: Inga Juarez ED Midlevel Provider: Roxanna Allen Discharge Problem: Seizure-like activity, Fall, Unsteady gait Patient Disposition: Admitted As Inpatient Discharge Instructions Interventions: ED Discharge Assessment Last Done: 06/09/24 22:15 Discharge Problem: Fall Qualifiers: Encounter type: initial encounter Qualified Code(s): W19.XXXA - Unspecified fall, initial encounter
[2024-06-09 17:03] LABS: Albumin Globulin Ratio 1.6 (0.9-2); Albumin Level 4.1 gm/dl (3.4-5.0); Bilirubin,Total 0.6 mg/dl (0.2-1.0); Calcium 9.6 mg/dl (8.6-10.3); Creatinine Clr Calc Pharmacy 43.7 ml/min; Globulin 2.5 gm/dl (2.5-4.0); Potassium 3.8 mmol/L (3.5-5.1); Total Protein 6.6 gm/dl (6.0-8.3)
--- NOTE | 2024-06-09 17:10 | Emergency Department Note ---
ED Visit Note I was consulted by the Advanced Practice Provider, HAJA Thomason. I performed a substantive portion of the visit. This includes aspects of: History: Patient is a 73-year-old female presenting after a ground-level fall. Patient struck her head and the left side of her body when she fell. She denies any loss of consciousness. Denies striking her head. Reports she was holding the wall, when she felt like she was going to pass out and fell. Complaining of pain in left hip and low back. MDM: - Laboratory workup interpreted by myself showed normal WBC; stable electrolytes; normal troponin - CXR image reviewed by myself negative for pneumonia, per my interpretation - CT head wo contrast for acute intracranial abnormality - CT cervical spine wo contrast negative for acute injury - CT thoracic spine wo contrast negative for acute injury - CT lumbar spine wo contrast negative for acute injury - Xray pelvis negative for acute fracture. - Patient given 1g IV tylenol in ER with improvement in pain. Did discuss concerning the story with the patient, but she reports that these episodes are typical for her. She has a history of focal epilepsy and Parkinson's disease. She is feeling improved and presented for pain control. She initially went to be discharged home, but did discuss with the patient that her story is concerning and should require further workup. After discussion with her and her , the patient was agreeable to admission for further evaluation. She wi ll be admitted to the hospitalist service. .
--- NOTE | 2024-06-09 17:12 | XRay Report ---
HISTORY: Trauma due to fall. TECHNIQUE: Portable AP radiograph of the chest COMPARISON: Chest radiograph dated 04/09/2022. FINDINGS: Evaluation is limited by rotation. quality assurance monitor leads overlie the chest. No focal consolidation, pneumothorax, or pleural effusion. Mild cardiomegaly. Left-sided aortic arch. No acute osseous abnormality. Included upper abdomen is unremarkable. IMPRESSION: 1. No acute cardiopulmonary findings within the limitations of rotation and portable technique. 2. Mild cardiomegaly. Electronically signed by Ramu Damon 06-09-2024 5:10 PM
--- NOTE | 2024-06-09 17:12 | XRay Report ---
HISTORY: Left hip pain. TECHNIQUE: Pelvis and right hip, 3 views. COMPARISON: None. FINDINGS: The left femoral head and proximal femur appear intact.Left hip alignment is maintained. The pelvic and obturator rings appear intact. No widening of the pubic symphysis or sacroiliac joints. Partially included right hip arthroplasty. Degenerative changes of the spine. Enthesophyte formation about the iliac crest. IMPRESSION: No acute osseous abnormality. Electronically signed by Ramu Damon 06-09-2024 5:11 PM
--- NOTE | 2024-06-09 17:45 | CT Scan Report ---
HISTORY: Ground-level fall. Left back and hip pain. TECHNIQUE: Helical CT imaging of the lumbar spine was performedWithout the use of IV contrast. Images are presented in axial, sagittal, and coronal reformats. COMPARISON: None. FINDINGS: Lumbar spine alignment is maintained. The vertebral body heights are preserved without compression deformity. No acute lumbar spine fracture is identified. Moderate to severe multilevel degenerative disc disease. Multilevel facet arthrosis is severe in the lower lumbar spine. Posterior disc bulges and disc osteophyte complex resulting in multilevel central canal stenosis. This is most pronounced and at least moderate at L3-4. Multilevel bilateral neural foraminal stenosis is mild to moderate. Moderate osteoarthritis of the sacroiliac joints. Moderate atherosclerotic vascular disease. Bilateral extrarenal pelvis. 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 IMPRESSION: 1. No evidence of acute lumbar spine fracture. 2. Moderate to severe multilevel degenerative disc disease. Multilevel facet arthrosis is severe in the lower lumbar spine. Multilevel central canal and neuroforaminal stenosis. MRI could be considered for more sensitive evaluation of the degree of canal or foraminal stenosis. 3. 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 Electronically signed by Ramu Damon 06-09-2024 5:45 PM
--- NOTE | 2024-06-09 17:56 | CT Scan Report ---
HISTORY: Trauma due to ground-level fall. Headache. TECHNIQUE: Head CT without contrast. Axial, sagittal, and coronal reformats are provided. COMPARISON: None. FINDINGS: No evidence of acute intracranial hemorrhage, abnormal extra-axial fluid collection, mass effect, or midline shift. Mild presumed chronic microvascular ischemic changes. Ventricular caliber is appropriate. The fourth ventricle is midline. Jenkins-white differentiation appears grossly maintained. The soft tissues about the skull base and scalp are unremarkable. The globes and orbits are unremarkable. The paranasal sinuses and mastoid air cells are well aerated. No acute calvarial fracture. IMPRESSION: No acute intracranial findings. Electronically signed by Ramu Damon 06-09-2024 5:48 PM
--- NOTE | 2024-06-09 17:56 | CT Scan Report ---
HISTORY: Trauma due to ground-level fall. TECHNIQUE: Helical CT imaging of the cervical spine was performed without the use of IV contrast. Images are presented in axial, sagittal, and coronal reformats. COMPARISON: None FINDINGS: Incomplete fusion of the posterior elements is seen at C5 and C6. Cervical spine alignment is maintained. The vertebral body heights are preserved without compression deformity. mild to moderate multilevel degenerative disc disease. Multilevel uncovertebral and facet arthrosis. No high-grade osseous central canal stenosis. There is severe multilevel neuroforaminal stenosis. No prevertebral edema or hematoma. Atherosclerotic calcification of the carotid bifurcations. Intramuscular lipoma extending along the left longus coli muscle. The lung apices are clear. IMPRESSION: 1. No evidence of acute cervical spine fracture or traumatic malalignment. 2. Moderate multilevel degenerative spondylosis of the cervical spine resulting in severe multilevel neural foraminal stenosis. 3. 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 Electronically signed by Ramu Damon 06-09-2024 5:52 PM
--- NOTE | 2024-06-09 17:58 | CT Scan Report ---
HISTORY: Trauma due to ground-level fall. TECHNIQUE: CT imaging of the thoracic spine was performed without the use of IV contrast. Images are presented in axial, sagittal, and coronal reformats. COMPARISON: None FINDINGS: Thoracic spine alignment is maintained. The vertebral body heights are preserved without compression deformity.No evidence of acute thoracic spine fracture. Moderate multilevel degenerative disc disease. The included lungs are unremarkable. Calcified right hilar lymph nodes.Distal splenic artery aneurysm measuring 1 cm. Small hiatal hernia. Coronary artery calcifications. Calcified mediastinal lymph nodes consistent with remote granulomatous infection. IMPRESSION: 1. No evidence of acute thoracic spine fracture. 2. Moderate degenerative spondylosis of the thoracic spine. 3. 1 cm distal splenic artery rim calcified aneurysm. 4. Additional chronic and/or incidental findings as above. Electronically signed by Ramu Damon 06-09-2024 5:57 PM
[2024-06-09] MEDS: ACETAMINOPHEN 1,000 MG/100 ML VIAL IV STA (18:26)
--- NOTE | 2024-06-09 19:42 | History & Physical Report ---
Date of Service June 09, 2024 Assessment & Plan (1) Fall: (2) Chronic kidney disease, stage 3: (3) Migraine: Plan 73-year-old female PMHx CKD stage III, hypothyroidism, GERD, KWAME with panic, HTN, COPD, possible complex partial seizures, hypercholesterolemia, BARBARA, and migraines presenting via EMS after having ground-level fall on the day of arrival. ED evaluation reveals no leukocytosis, normal H&H, grossly WNL CMP with exception of creatinine 1.27 which appears to be at patient's baseline, slightly elevated alkaline phosphatase at 113, troponin pending; UA pending; cervical spine CT, head CT, hip/pelvis x-ray, lumbar spine CT, thoracic spine CT, and CXR all without acute findings; EKG NSR at rate of 62 bpm. Provided with acetaminophen 1 g IV in ED. #Fall/History of ? seizure GLF at independent living facility after describing episode of inability to move body or speak then resulting in her falling to the ground. History of seizure- like episodes with possible partial complex seizures as noted by neurology visit 04/26/2024. Has had multiple episodes approximately once a month since beginning of 2024 described as a sudden onset of staring and then inability to keep her balance resulting in falls, with total duration lasting less than 60 seconds. Takes lamotrigine. Suspect fall secondary to these previously described episodes which sound more orthostatic in nature, but given that patient is concerned about her wellbeing at home because of the recurrence of episodes, agreeable to admission. - CBC and CMP grossly WNL (exception Cr)- BMP am - Previously thought to be cardiac related and loop recorder placed; EKG normal sinus with controlled rate (62)- monitor on tele - Pending loop interrogation - CT head/C-spine/lumbar spine/thoracic spine without acute findings; hip/pelvis XR and CXR WNL - Orthostatic vitals pending - LR @ 80 mL/h - Continue outpatient neurology meds at time of admission- discretion of neurologist if ongoing use necessary- lamotrigine, carbidopa levodopa - Neurology consult placed- discretion of neurologist whether or not MRI/EEG necessary as capabilities are limited for diagnostic testing; appreciate input and recs - PT/OT consulted, appreciate assistance #CKD H/o stage III, baseline Cr appears to be 1.2-1.3 - No evidence of CRESCENCIO on admission; Cr 1.27- repeat AM - UA pending #Hypothyroidism- Levothyroxine #GERD- Omeprazole #KWAME with panic/Depression- Aripiprazole, citalopram, lorazepam #HTN- Metoprolol succ, telmisartan - Did not hold BP meds at admission given elevated readings but consider dose adjustments as appropriate/pending complete workup #COPD- Nebs prn #Hypercholesterolemia- Atrovastatin #Migraine- Butalbital/Acet./Caffeine outpatient, may utilize inpatient prn for acute REINOSO; Ubrogepant prn Dispo: Admit, med/telemetry VTE prophylaxis: SCDs This document was dictated utilizing [employer]. Please excuse any grammatical errors that may be secondary to use of this software. Admission and Anticipated Discharge Date Admission Date: 06/09/2024 History of Present Illness Chief Complaint: Fall Primary Care Provider: Krysta Hernandez MD 73-year-old female PMHx CKD stage III, hypothyroidism, GERD, KWAME with panic, HTN, COPD, possible complex partial seizures, hypercholesterolemia, BARBARA, and migraines presenting via EMS after having ground-level fall on the day of arrival. Patient struck the side of her head and left side of her body, but did not have LOC. Patient was walking and "went into a blank stare" then fell over. Patient reports that this has been happening monthly since beginning of 2024 1 episode in April and 1 in May. Currently being followed by neurology with recent diagnosis of neurological gait disorder and started on carbidopa levodopa. Patient reports that these episodes only occur when she is sitting for a long time and then changes into standing. Reports that she does not slowly go from sitting to standing and as soon as she is in a sitting position she starts to walk. Does not report that she feels dizzy during this time, but reports that every time an episode like this does happen it has been directly after she goes from a sitting to standing position. Describes the episodes as a sudden staring/blank episode in which she is fully aware of what is going on around her but she is unable to respond. States that she hears people around her asking if she is okay but she just feels as though she cannot respond or move her body. Every episode has lasted approximately 1 minute in duration. On the day of arrival, this was the first time that she fell. Patient states that normally she has to hold onto something because she is afraid she will lose her balance and on the day of arrival was the first time that she had fallen from 1 of these episodes. 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 States that she has been told she has absent seizures in the past, however reiterated that the patient is fully aware during these episodes of "staring" and does not report postictal status. Has never had one limb or part of her body with abnormal movements. Does feel as though she shakes sometimes following episodes of staring. Does have a headache at the front of her head which is typical for her migraines. Some pain posterior head because she states that she did during the fall. Denies chest pain, palpitations, shortness of breath, abdominal pain, N/V/D/C, numbness/tingling, weakness, LOC, syncopal episodes, presyncope, fever/chills, URI, or LUTS. ED evaluation reveals no leukocytosis, normal H&H, grossly WNL CMP with exception of creatinine 1.27 which appears to be at patient's baseline, slightly elevated alkaline phosphatase at 113, troponin pending; UA pending; cervical spine CT, head CT, hip/pelvis x-ray, lumbar spine CT, thoracic spine CT, and CXR all without acute findings; EKG NSR at rate of 62 bpm. Provided with acetaminophen 1 g IV in ED. Please see Dr. Mejia's attestation for adjustments/additions to treatment plan. Allergies Allergy/AdvReac Type Severity Reaction Status Date / Time sumatriptan [From Imitrex] Allergy Severe itching Verified 06/09/24 20:47 gabapentin Allergy Intermediate BURNING OF Verified 06/09/24 20:47 FEET AND ANKLES lisinopril AdvReac Intermediate COUGH Verified 06/09/24 20:47 prochlorperazine AdvReac Intermediate "jaw lock" Verified 06/09/24 20:47 [From Compazine] Home Medications Medication Instructions Recorded Confirmed Type ipratropium 0.5 mg-albuterol 3 mg 3 ml inhalation Q6H PRN Shortness 03/30/21 06/09/24 Rx (2.5 mg base)/3 mL nebulization Of Breath Or Wheezing #360 mL soln Wheeled Walker #1 ea 07/23/21 05/08/24 Rx peg 203-pmuhukceydto-alxmxcni 1 1 drp ophthalmic (eye) BID PRN Dry 10/15/22 06/09/24 History %-0.2 %-0.2 % eye drops (Dry Eye Eyes Relief) diaper,brief,adult,disposable #180 ea 05/10/23 05/08/24 Rx linaclotide 145 mcg capsule 145 mcg PO DAILY PRN Abdominal 06/22/23 06/09/24 History (Linzess) Discomfort vitamins A,C,H-fads-yuomfw 2,148 1 tab PO BID 06/22/23 06/09/24 History mcg-113 mg-45 mg-17.4 mg tablet (PreserVision AREDS) citalopram 10 mg tablet 10 mg PO HS #90 tabs 10/13/23 06/09/24 Rx citalopram 20 mg tablet 20 mg PO HS #90 tabs 10/13/23 06/09/24 Rx omeprazole 40 mg capsule,delayed 40 mg PO QAM #90 caps 12/06/23 06/09/24 Rx release levothyroxine 112 mcg tablet 112 mcg PO QAM #90 tabs 12/13/23 06/09/24 Rx cholecalciferol (vitamin D3) 50 25 mcg PO BID 01/05/24 06/09/24 History mcg (2,000 unit) capsule aripiprazole 2 mg tablet 2 mg PO QAM #90 tabs 01/17/24 06/09/24 Rx nystatin 100,000 unit/gram topical 1 applic topical BID PRN groin 03/21/24 06/09/24 Rx powder rash/irritation #60 grams avrlnzexmu-sicpqsoaagmnp-uxuennba 1 tab PO DAILY PRN pain #20 tabs 03/26/24 06/09/24 Rx 50 mg-325 mg-40 mg tablet telmisartan 20 mg tablet 20 mg PO QAM 03/31/24 06/09/24 History atorvastatin 40 mg tablet 40 mg PO HS #90 tabs 04/16/24 06/09/24 Rx metoprolol succinate 25 mg 25 mg PO QAM #90 tabs 04/17/24 06/09/24 Rx tablet,extended release 24 hr eptinezumab-jjmr 100 mg/mL 100 mg IV Q3MO 04/26/24 06/09/24 History intravenous solution (Vyepti) ubrogepant 100 mg tablet (Ubrelvy) 100 mg PO ONCE PRN migraine #10 04/27/24 06/09/24 Rx tabs lamotrigine 200 mg tablet 200 mg PO BID #60 tabs 05/28/24 06/09/24 Rx lamotrigine 25 mg tablet 25 mg PO BID #60 tabs 05/28/24 06/09/24 Rx carbidopa 25 mg-levodopa 100 mg 1 tab PO BID #60 tabs 06/05/24 06/09/24 Rx tablet lorazepam 0.5 mg tablet 0.5 mg PO DAILY PRN Anxiety #30 06/05/24 06/09/24 Rx tabs ondansetron 4 mg disintegrating 4 mg PO Q6H PRN Nausea #30 tabs 06/05/24 06/09/24 Rx tablet Past Med/Surg History Problem List (Updated 06/09/24 @ 20:47 by HAJA Evangelista) Unsteady gait (Acute) Fall (Acute) Seizure-like activity (Acute) Abnormal CT of the abdomen Anxiety Neurologic gait disorder RUQ abdominal pain Abnormal CT scan, colon Vitamin D deficiency Chronic kidney disease, stage 3 pt unsure about this Overflow stress incontinence of urine in female Generalized anxiety disorder with panic attacks Intertrigo Irritable bowel syndrome with predominant constipation CKD (chronic kidney disease) stage 3, GFR 30-59 ml/min (Chronic) no specialist Obesity (BMI 30.0-34.9) Recurrent major depression resistant to treatment Idiopathic polyneuropathy Migraine (Acute) Focal epilepsy with impairment of consciousness Obstructive sleep apnea Dyssynergic defecation Hypercholesteremia Complex partial seizure per pt gets "mini seizure" lasts for approx 30 seconds --"stand and stare, can hear people talking but I can't respond", never had a grand mal, last was 05/2023--follows with Dr. Kinsey Betts--on lamictal Common migraine without aura Hypertension (Chronic) controlled, stable per pt Hypothyroidism Vitamin B12 deficiency GERD (gastroesophageal reflux disease) controlled, stable per pt COPD (chronic obstructive pulmonary disease) controlled Medical History Recurrent major depression Hx of migraines HTN (hypertension) Hypercholesterolemia GERD (gastroesophageal reflux disease) Generalized anxiety disorder Focal epilepsy with impairment of consciousness per pt gets "mini seizure" lasts for approx 30 seconds --"stand and stare, can hear people talking but I can't respond", never had a grand mal, last was 04/16/24- follows with Dr. Kinsey Betts-lamictal was increased to 225 mg recently and no seizure since then COPD (chronic obstructive pulmonary disease) per hx, pt. denies, no pulm UTI (urinary tract infection) currrently on macrobid, not working, pt. will call pcp today to get new abx Obstructive sleep apnea cpap Irritable bowel syndrome with constipation CHI (closed head injury) (04/08/24) due to fall Absence seizure per pt gets "mini seizure" lasts for approx 30 seconds --"stand and stare, can hear people talking but I can't respond", never had a grand mal, last was 04/16/24- follows with Dr. Kinsey Betts-lamictal was increased to 225 mg recently and no seizure since then Deafness wears hearing aids CKD (chronic kidney disease), stage III Hx of fall (04/2024) ~ 2 weeks ago, fell and hit head due to balance issues, seen at [facility] ed also fell in Oct- admit to [facility] Peripheral neuropathy History of colon polyps History of stress fracture (~07/09/21) left knee BPPV (benign paroxysmal positional vertigo) occasional, falls Lumbosacral spondylosis Arthritis of both knees Acquired deviated nasal septum Lumbosacral radiculopathy at S1 Arthralgia of multiple sites Depression with anxiety Schatzki's ring Delayed gastric emptying Esophageal dysphagia Tremor "not too often" both hands Cardiomyopathy EF 50-55% on 03/2022 echo Prolapse of female pelvic organs Stress incontinence Memory loss ongoing issue Polyneuropathy per pt, just on left side Blindness of left eye R/t cliff (2000) Hiatal hernia s/p Bridgette fundoplication Surgical History Status post left knee replacement Status post laparoscopic Bridgette fundoplication History of loop recorder Placed 03/2022 History of left breast biopsy benign History of total hysterectomy with bilateral salpingo-oophorectomy (BSO) History of bilateral tubal ligation History of dilatation and curettage History of bunionectomy of right great toe History of bunionectomy of left great toe History of total replacement of right hip History of bladder suspension procedure History of esophageal dilatation History of colonoscopy History of esophagogastroduodenoscopy (EGD) History of appendectomy History of intraocular lens implant right eye History of bilateral cataract extraction Family History Father Myocardial infarction Sister Multiple sclerosis Mother Stroke Other No family history of adverse response to anesthesia Denies family history of Ovarian cancer Prostate cancer Breast cancer Colorectal cancer Social History Smoking Status: Former smoker Tobacco Type: Cigarettes Age Started Using Tobacco: 30; Age Quit Using Tobacco: 55; packs per day: 1.5; Second Hand Exposure: No; Do You Dip or Chew Tobacco: No; Tobacco Cessation Education Requested by Patient: No Hx Alcohol Use: No Hx Substance Use: No Preferred Language: Korean Communication Ability: Effective Visual Impairment: No Limitations Hearing Ability: Use of Hearing Aid Film Reproducer Required: No Beliefs That Will Affect Care: None marital status: Current Living Situation: Spouse Current Living Situation Comment: indep living current occupational status: retired Other Information That Helps Us Care for You: No Feels Safe at Home: Yes Safety Concerns: Feels Safe At This Time Childhood Exposure to Second-Hand Smoke: Yes Diet: regular caffeine: Yes Dental Care, Regularly: No Physical Activity Frequency: Does not Exercise Seatbelt Use: always Sunscreen Use: No Assistive Devices: Glasses and Walker Review of Systems Review of Systems: All systems reviewed & are unremarkable except as noted in Subjective Physical Exam Physical Exam: General: No acute distress, well developed. Skin: Warm and dry, without rashes or lesions. No cyanosis or clubbing Head: Normocephalic, atraumatic Eyes: PERRL, conjunctivae clear, sclera non-icteric; EOM intact ENT: External ear and ear canal without swelling; nose atraumatic; good dentition, tongue normal appearance, pharynx normal without tonsillar swelling or exudate Neck: Supple, no LAD; no JVD Cardio: RRR, no M/G/R, S1 and S2 normal Resp: Chest wall symmetric, normal respiratory effort; No respiratory distress, Lungs CTA in all lobes bilaterally, no wheezes, rales, or rhonchi Abdomen: Soft, symmetric, nontender; No visible lesions or scars; no distention; No masses or hepatosplenomegaly; Bowel sounds normoactive MSK: No deformities, full ROM throughout; pulses palpable and equal; no edema. Neuro: Awake, alert; Muscle strength 5/5 bilaterally in UE/LE; Sensation intact bilaterally; CN intact Psych: Appropriate mood and affect; good judgement and insight. Results & Data Results & Data Vital Signs (Past 12 Hours) Vital Signs Pulse Resp BP Pulse Ox O2 Del Method 06/09/24 15:57 61 06/09/24 15:44 66 22 151/89 H 97 Room Air 06/09/24 15:41 58 L 98 Room Air Laboratory Results 06/09/24 15:51 WBC 7.50 RBC 4.64 Hgb 13.8 Hct 42.6 MCV 91.8 MCH 29.7 MCHC 32.4 RDW Std Deviation 41.9 RDW Coeff of Taisha 12.6 Plt Count 161 MPV 9.8 Immature Gran % (Auto) 0.9 Neut % (Auto) 71.4 Lymph % (Auto) 16.8 Bryan % (Auto) 8.9 Eos % (Auto) 1.5 Baso % (Auto) 0.5 Neut # (Auto) 5.35 Lymph # (Auto) 1.26 Bryan # (Auto) 0.67 H Eos # (Auto) 0.11 Baso # (Auto) 0.04 Immature Gran # (Auto) 0.07 Sodium 139 Potassium 3.8 Chloride 103 Carbon Dioxide 30 Anion Gap 6 BUN 19 Creatinine 1.27 H Est Cr Clr Drug Dosing 43.7 eGFR 44.10 BUN/Creatinine Ratio 15.0 Glucose 83 Calcium 9.6 Total Bilirubin 0.6 AST 14 ALT 3 L Alkaline Phosphatase 113 H Total Protein 6.6 Albumin 4.1 Globulin 2.5 Albumin/Globulin Ratio 1.6 Diagnostic Findings Cervical Spine CT 06/09/24 16:10 HISTORY: Trauma due to ground-level fall. TECHNIQUE: Helical CT imaging of the cervical spine was performed without the use of IV contrast. Images are presented in axial, sagittal, and coronal reformats. COMPARISON: None FINDINGS: Incomplete fusion of the posterior elements is seen at C5 and C6. Cervical spine alignment is maintained. The vertebral body heights are preserved without compression deformity. mild to moderate multilevel degenerative disc disease. Multilevel uncovertebral and facet arthrosis. No high-grade osseous central canal stenosis. There is severe multilevel neuroforaminal stenosis. No prevertebral edema or hematoma. Atherosclerotic calcification of the carotid bifurcations. Intramuscular lipoma extending along the left longus coli muscle. The lung apices are clear. IMPRESSION: 1. No evidence of acute cervical spine fracture or traumatic malalignment. 2. Moderate multilevel degenerative spondylosis of the cervical spine resulting in severe multilevel neural foraminal stenosis. 3. 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 Electronically signed by Rmau Damon 06-09-2024 5:[address] 06/09/24 16:10 HISTORY: Trauma due to ground-level fall. Headache. TECHNIQUE: Head CT without contrast. Axial, sagittal, and coronal reformats are provided. COMPARISON: None. FINDINGS: No evidence of acute intracranial hemorrhage, abnormal extra-axial fluid collection, mass effect, or midline shift. Mild presumed chronic microvascular ischemic changes. Ventricular caliber is appropriate. The fourth ventricle is midline. Jenkins-white differentiation appears grossly maintained. The soft tissues about the skull base and scalp are unremarkable. The globes and orbits are unremarkable. The paranasal sinuses and mastoid air cells are well aerated. No acute calvarial fracture. IMPRESSION: No acute intracranial findings. Electronically signed by Ramu Damon 06-09-2024 5:48 PM Hip/Pelvis X-Ray 06/09/24 16:10 HISTORY: Left hip pain. TECHNIQUE: Pelvis and right hip, 3 views. COMPARISON: None. FINDINGS: The left femoral head and proximal femur appear intact.Left hip alignment is maintained. The pelvic and obturator rings appear intact. No widening of the pubic symphysis or sacroiliac joints. Partially included right hip arthroplasty. Degenerative changes of the spine. Enthesophyte formation about the iliac crest. IMPRESSION: No acute osseous abnormality. Electronically signed by Ramu Damon 06-09-2024 5:[address] 06/09/24 16:10 HISTORY: Ground-level fall. Left back and hip pain. TECHNIQUE: Helical CT imaging of the lumbar spine was performedWithout the use of IV contrast. Images are presented in axial, sagittal, and coronal reformats. COMPARISON: None. FINDINGS: Lumbar spine alignment is maintained. The vertebral body heights are preserved without compression deformity. No acute lumbar spine fracture is identified. Moderate to severe multilevel degenerative disc disease. Multilevel facet arthrosis is severe in the lower lumbar spine. Posterior disc bulges and disc osteophyte complex resulting in multilevel central canal stenosis. This is most pronounced and at least moderate at L3-4. Multilevel bilateral neural foraminal stenosis is mild to moderate. Moderate osteoarthritis of the sacroiliac joints. Moderate atherosclerotic vascular disease. Bilateral extrarenal pelvis. 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 IMPRESSION: 1. No evidence of acute lumbar spine fracture. 2. Moderate to severe multilevel degenerative disc disease. Multilevel facet arthrosis is severe in the lower lumbar spine. Multilevel central canal and neuroforaminal stenosis. MRI could be considered for more sensitive evaluation of the degree of canal or foraminal stenosis. 3. 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 Electronically signed by Ramu Damon 06-09-2024 5:[address] 06/09/24 16:10 HISTORY: Trauma due to ground-level fall. TECHNIQUE: CT imaging of the thoracic spine was performed without the use of IV contrast. Images are presented in axial, sagittal, and coronal reformats. COMPARISON: None FINDINGS: Thoracic spine alignment is maintained. The vertebral body heights are preserved without compression deformity.No evidence of acute thoracic spine fracture. Moderate multilevel degenerative disc disease. The included lungs are unremarkable. Calcified right hilar lymph nodes.Distal splenic artery aneurysm measuring 1 cm. Small hiatal hernia. Coronary artery calcifications. Calcified mediastinal lymph nodes consistent with remote granulomatous infection. IMPRESSION: 1. No evidence of acute thoracic spine fracture. 2. Moderate degenerative spondylosis of the thoracic spine. 3. 1 cm distal splenic artery rim calcified aneurysm. 4. Additional chronic and/or incidental findings as above. Electronically signed by Ramu Damon 06-09-2024 5:57 PM Chest X-Ray 06/09/24 16:35 HISTORY: Trauma due to fall. TECHNIQUE: Portable AP radiograph of the chest COMPARISON: Chest radiograph dated 04/09/2022. FINDINGS: Evaluation is limited by rotation. manager developmental leads overlie the chest. No focal consolidation, pneumothorax, or pleural effusion. Mild cardiomegaly. Left-sided aortic arch. No acute osseous abnormality. Included upper abdomen is unremarkable. IMPRESSION: 1. No acute cardiopulmonary findings within the limitations of rotation and portable technique. 2. Mild cardiomegaly. Electronically signed by Ramu Damon 06-09-2024 5:10 PM Medications Administered Acetaminophen 1 g IV ECG Additional Comments: NSR, low voltage QRS 62 bpm, GA 168, QRS 68, QT/QTc 448/454, PRT 35/18/43 Supervising Physician Co-Signing Physician Notes Attending addendum: I have physically seen this patient, have supervised the JAIME's activities, and agree with the H&P unless as otherwise noted. Assessment and Plan: The patient is a 73-year-old female with a past medical history including CKD stage III, hypothyroidism, GERD, KWAME with panic disorder, hypertension, COPD, possible complex partial seizures, hypercholesterolemia, BARBARA, and migraines, who presents to the emergency department after a ground-level fall earlier in the day. #Status post ground-level fall- The patient was brought into the emergency department after a ground-level fall at her independent living facility, where she was described to have an inability to move her body or speak, and then fell to the ground. Patient has a known history of seizure-like episodes, with possible partial complex seizures as noted by neurology on 04/26/2024. There have been multiple episodes averaging once monthly, since beginning of 2024, where she had approximately 60 second- duration episodes of sudden onset of staring and then inability to keep her balance resulting in falls. [facility]. Workup in the emergency department included no acute findings on CT scan of head, CT scan cervical spine, lumbar spine and thoracic spine. There are previous changes of multilevel cervical neuroforaminal stenosis, multilevel lumbar degenerative disc disease, and there is a small 1 cm distal splenic artery aneurysm noted. Placed on LR at 80 mL/h x 1 L Patient will be admitted to a monitored bed, to monitor for possible arrhythmia She has been on the lamotrigine, and had a recent addition of carbidopa-levodopa in the outpatient setting Monitor orthostatic vital signs Consult neurology, and will leave possible MRI and EEG to their discretion and continuance of medications Consult PT/OT Chronic medical conditions: Hyperlipidemia-continue atorvastatin GERD-continue omeprazole/pantoprazole Hypothyroidism-continue levothyroxine Hypertension-continue metoprolol succinate and telmisartan KWAME with panic disorder/depression-continue aripiprazole, citalopram and lorazepam 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- Can be followed in the outpatient setting Remaining orders and notations as noted PG Care Time/CCT Total # of Minutes Spent Total Time Spent with Patient: Total time spent is greater than 50% in coordination of care (as documented) at patient's floor/unit and/or counseling patient: Coding Level of Care Code 76624 INT INP/OBS CARE MIN Diagnoses Fall W19.XXXA Encounter type: initial encounter Chronic kidney disease, stage 3 N18.30 Migraine without aura and without status migrainosus, not intractable G43.909 (1) Fall Encounter type: initial encounter Qualified Code(s): W19.XXXA - Unspecified fall, initial encounter
[2024-06-09] MEDS: LACTATED RINGER'S 1,000 ML IV SCH (20:41)
[2024-06-09] MEDS: ACETAMINOPHEN 325 MG TAB PO STA (21:00)
[2024-06-09] MEDS: BUTALBITAL/ACETAMIN/CAFFEINE TAB PO STA (21:00)
[2024-06-09] MEDS ORDERED: ALBUT/IPRATROP 3MG/0.5MG NEB 3 ML VIAL INH PRN (22:51)
[2024-06-09] MEDS ORDERED: ACETAMINOPHEN 325 MG TAB PO PRN (22:51)
[2024-06-09] MEDS ORDERED: MAGNESIUM HYDROXIDE SUSP 30 ML UDC PO PRN (22:51)
[2024-06-09] MEDS ORDERED: ONDANSETRON INJ 2 MG/ML 2 ML VIAL IV PRN (22:51)
[2024-06-09] MEDS ORDERED: POLYETHYLENE (MIRALAX) 17 GM PACK PO PRN (22:51)
[2024-06-09] MEDS ORDERED: ARTIFICIAL TEARS OP PRN (22:57)
[2024-06-09] MEDS: CARBIDOPA/LEVODOPA 25/100MG TAB PO SCH (23:18)
[2024-06-09] MEDS: lamoTRIgine 100 MG TAB PO SCH (23:19)
[2024-06-09] MEDS: lamoTRIgine 25 MG TAB PO SCH (23:20)
[2024-06-10] MEDS: KETOROLAC TROMETHAMINE 15 MG/ML VIAL IV ONE (00:51)
[2024-06-10] MEDS: diphenhydrAMINE 50 MG/ML VIAL IV STA (00:53)
[2024-06-10] MEDS: MAGNESIUM SULFATE / D5W 1 GM/100 ML BAG IV SCH (01:07)
[2024-06-10] MEDS: LEVOTHYROXINE SODIUM 112 MCG TABLET PO SCH (05:53)
[2024-06-10 06:14] LABS: BUN Creatinine Ratio 12.8 (10-20); Calcium 8.8 mg/dl (8.6-10.3); Creatinine Clr Calc Pharmacy 42.4 ml/min; Magnesium 2.8 mg/dl (1.7-2.4); Potassium 3.7 mmol/L (3.5-5.1)
--- NOTE | 2024-06-10 06:53 | Hospitalist Progress Note ---
Date of Service June 10, 2024 Assessment & Plan (1) Fall: (2) Chronic kidney disease, stage 3: (3) Migraine: Plan 73-year-old female PMHx CKD stage III, hypothyroidism, GERD, KWAME with panic, HTN, COPD, possible complex partial seizures, hypercholesterolemia, BARBARA, and migraines presenting via EMS after having ground-level fall on the day of arrival. ED evaluation reveals no leukocytosis, normal H&H, grossly WNL CMP with exception of creatinine 1.27 which appears to be at patient's baseline, slightly elevated alkaline phosphatase at 113.Troponin was normal. Imaging in ED included: cervical spine CT, head CT, hip/pelvis x-ray, lumbar spine CT, thoracic spine CT, and CXR-all without acute findings; EKG NSR at rate of 62 bpm. She was given acetaminophen 1 g IV in ED. No new symptoms this morning. #Fall GLF at independent living facility after describing episode of inability to move body or speak then resulting in her falling to the ground. Has had multiple episodes approximately once a month since beginning of 2024 described as a sudden onset of staring and then inability to keep her balance resulting in falls, with total duration lasting less than 60 seconds. Suspect falls maybe orthostatic in nature - Previously thought to be cardiac related and loop recorder placed; EKG normal sinus with controlled rate (62)- monitor on tele - Pending loop interrogation reports no new events - Orthostatic vitals from 06/09 show elevated systolic BP in supine and standing, normal BP in sitting. HR remains 75-78 in all 3 positions Repeat orthostatics ordered - Discontinue IVF - Neurology consult placed- discretion of neurologist whether or not MRI/EEG necessary -no need for mri or EEG -she likely will need rehab for conditioning and walking.anxiety may also contribute. - avoid sudden position changes (as she does stand up quickly most of the times). - no change in meds needed from neurology - continue evaluation by Dr. Hernandez as outpt for PSP - avoid hypotension and dehydration. - fall precautions. - Physical therapy consult. - PT/OT consulted, appreciate assistance #History of seizure -History of seizure-like episodes with possible partial complex seizures as noted by neurology visit 04/26/2024 - Continue outpatient neurology meds: lamotrigine, carbidopa levodopa #HTN - Stopped Losartan due to hypotension - Consider tappering Metoprolol succinate starting 06/11 #CKD H/o stage III, baseline Cr appears to be 1.2-1.3 - No evidence of CRESCENCIO on admission; Cr 1.27 - Cr is 1.41 this am #Hypothyroidism- Levothyroxine #GERD- Omeprazole #KWAME with panic/Depression- Aripiprazole, citalopram, lorazepam #COPD- Nebs prn #Hypercholesterolemia- Atrovastatin #Migraine- Butalbital/Acet./Caffeine outpatient, may utilize inpatient prn for acute REINOSO; Ubrogepant prn Dispo: Admit, med/telemetry VTE prophylaxis: SCDs Diet:Regular Code status: Full Admission and Anticipated Discharge Date Admission Date: June 09, 2024 Supervising Physician Co-Signing Physician Notes Attending addendum: I have physically seen this patient, have DISCUSSED PLAN WITH Dr. BYERS PGY-1, and agree with the H&P unless as otherwise noted. Assessment and Plan: The patient is a 73-year-old female with a past medical history including CKD stage III, hypothyroidism, GERD, KWAME with panic disorder, hypertension, COPD, possible complex partial seizures, hypercholesterolemia, BARBARA, and migraines, who presents to the emergency department after a ground-level fall earlier in the day. #Status post ground-level fall- The patient was brought into the emergency department after a ground-level fall at her independent living facility, where she was described to have an inability to move her body or speak, and then fell to the ground. Patient has a known history of seizure-like episodes, with possible partial complex seizures as noted by neurology on 04/26/2024. There have been multiple episodes averaging once monthly, since beginning of 2024, where she had approximately 60 second-duration episodes of sudden onset of staring and then inability to keep her balance resulting in falls. She is referred for evaluation for admission to the [facility] for further neurologic/metabolic assessment. Workup in the emergency department included no acute findings on CT scan of head, CT scan cervical spine, lumbar spine and thoracic spine. There are previous changes of multilevel cervical neuroforaminal stenosis, multilevel lumbar degenerative disc disease, and there is a small 1 cm distal splenic artery aneurysm noted. Patient will be admitted to a monitored bed, to monitor for possible arrhythmia She has been on the lamotrigine, and had a recent addition of carbidopa-levodopa in the outpatient setting Monitor orthostatic vital signs Patient ambulated with me however, she quickly felt weak and was unable to walk in the halls with a walker. Consult neurology, appreciate input. Consult PT/OT Chronic medical conditions: Hyperlipidemia-continue atorvastatin GERD-continue omeprazole/pantoprazole Hypothyroidism-continue levothyroxine Hypertension-continue metoprolol succinate and telmisartan KWAME with panic disorder/depression-continue aripiprazole, citalopram and lorazepam 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- Can be followed in the outpatient setting Remaining orders and notations as noted Subjective Pt is a 73 yo female with PMH of CKD stage III, hypothyroidism, GERD, KWAME with panic, HTN, COPD, possible complex partial seizures, hypercholesterolemia, BARBARA, and migraines who was admitted for fall occurring 06/09. This morning, pt reports she is feeling fine. She denies REINOSO, dizziness, CP, SOB, abdominal pain, nausea, cough, congestion, dysuria, numbness/tingling, or rashes Pt does reports some confusion about recent past events and slower processing of new information. She is A&O x 3. Review of Systems Review of Systems: As per HPI Physical Exam Physical Exam: General: No acute distress, well developed. Skin: Warm and dry, without rashes or lesions. No cyanosis or clubbing HENT: Normocephalic, atraumatic, PERRL, conjunctivae clear, External ear and ear canal without swelling; nose atraumatic Neck: Supple, no LAD; no JVD Cardio: RRR, no M/G/R, S1 and S2 normal Resp: Normal respiratory effort; No respiratory distress, Lungs CTA in all lobes bilaterally, no wheezes, rales, or rhonchi Abdomen: Soft, symmetric, nontender, no distention; No masses or hepatosplenomegaly; Bowel sounds normoactive MSK: No deformities, full ROM throughout; pulses palpable and equal; no edema. Neuro: Awake, alert; Muscle strength 5/5 bilaterally in UE/LE; Sensation intact bilaterally; CN intact Psych: Appropriate mood and affect; good judgement and insight. Results & Data Results & Data Vital Signs (Past 12 Hours) Vital Signs Temp Pulse Pulse Pulse Resp BP BP 06/10/24 05:59 36.4 C L 62 126/64 06/10/24 04:22 36.3 C L 56 L 16 93/57 L 06/09/24 22:55 36.5 C 61 18 149/84 H 06/09/24 22:44 61 06/09/24 22:11 62 20 119/73 06/09/24 19:59 57 L Pulse Ox O2 Del Method 06/10/24 05:59 06/10/24 04:22 94 Room Air 06/09/24 22:55 96 Room Air 06/09/24 22:44 06/09/24 22:11 97 Room Air 06/09/24 19:59 Resident Activity Tracking Resident Involvement: Resident Care Provided Care Provided: Adult Hospital Medicine (1) Fall Encounter type: initial encounter Qualified Code(s): W19.XXXA - Unspecified fall, initial encounter
[2024-06-10] MEDS: METOPROLOL SUCC 25MG EXT REL TAB PO SCH (08:16)
[2024-06-10] MEDS: ARIPIprazole 1 MG/ML ORAL SOLN 150 ML BTL PO SCH (08:19)
[2024-06-10] MEDS: PANTOprazole 40 MG TAB PO SCH (08:19)
[2024-06-10] MEDS: LOSARTAN POTASSIUM 25 MG TAB PO SCH (08:19)
--- NOTE | 2024-06-10 11:10 | Neurology Consultation ---
Date of Consultation June 10, 2024 Assessment & Plan (1) Fall: History of Present Illness Attending Physician: Brant Valenzuela History of Present Illness S: pt overall doing well. no seizures. not in distress. she again states she suddenly fell while standing. she has been followed by Dr. Hernandez extensively for similar issues including seizure like spells and falling. chart reviewed. no focal weakness. CT head and CTA negative. pt does have hx of anxiety and panic attacks in the past. admission HPI: 73-year-old female PMHx CKD stage III, hypothyroidism, GERD, KWAME with panic, HTN, COPD, possible complex partial seizures, hypercholesterolemia, BARBARA, and migraines presenting via EMS after having ground-level fall on the day of arrival. Patient struck the side of her head and left side of her body, but did not have LOC. Patient was walking and "went into a blank stare" then fell over. Patient reports that this has been happening monthly since beginning of 2024 1 episode in April and 1 in May. Currently being followed by neurology with recent diagnosis of neurological gait disorder and started on carbidopa levodopa. Patient reports that these episodes only occur when she is sitting for a long time and then changes into standing. Reports that she does not slowly go from sitting to standing and as soon as she is in a sitting position she starts to walk. Does not report that she feels dizzy during this time, but reports that every time an episode like this does happen it has been directly after she goes from a sitting to standing position. Describes the episodes as a sudden staring/blank episode in which she is fully aware of what is going on around her but she is unable to respond. States that she hears people around her asking if she is okay but she just feels as though she cannot respond or move her body. Every episode has lasted approximately 1 minute in duration. On the day of arrival, this was the first time that she fell. Patient states that normally she has to hold onto something because she is afraid she will lose her balance and on the day of arrival was the first time that she had fallen from 1 of these episodes. 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 States that she has been told she has absent seizures in the past, however reiterated that the patient is fully aware during these episodes of "staring" and does not report postictal status. Has never had one limb or part of her body with abnormal movements. Does feel as though she shakes sometimes following episodes of staring. Does have a headache at the front of her head which is typical for her migraines. Some pain posterior head because she states that she did during the fall. Denies chest pain, palpitations, shortness of breath, abdominal pain, N/V/D/C, numbness/tingling, weakness, LOC, syncopal episodes, presyncope, fever/chills, URI, or LUTS. ED evaluation reveals no leukocytosis, normal H&H, grossly WNL CMP with exception of creatinine 1.27 which appears to be at patient's baseline, slightly elevated alkaline phosphatase at 113, troponin pending; UA pending; cervical spine CT, head CT, hip/pelvis x-ray, lumbar spine CT, thoracic spine CT, and CXR all without acute findings; EKG NSR at rate of 62 bpm. Provided with acetaminophen 1 g IV in ED. Allergies Allergy/AdvReac Type Severity Reaction Status Date / Time sumatriptan [From Imitrex] Allergy Severe itching Verified 06/09/24 20:47 gabapentin Allergy Intermediate BURNING OF Verified 06/09/24 20:47 FEET AND ANKLES lisinopril AdvReac Intermediate COUGH Verified 06/09/24 20:47 prochlorperazine AdvReac Intermediate "jaw lock" Verified 06/09/24 20:47 [From Compazine] Home Medications Medication Instructions Recorded Confirmed Type ipratropium 0.5 mg-albuterol 3 mg 3 ml inhalation Q6H PRN Shortness 03/30/21 06/09/24 Rx (2.5 mg base)/3 mL nebulization Of Breath Or Wheezing #360 mL soln Wheeled Walker #1 ea 07/23/21 05/08/24 Rx peg 478-uqsyfeqvhwrx-xgtuppoz 1 1 drp ophthalmic (eye) BID PRN Dry 10/15/22 06/09/24 History %-0.2 %-0.2 % eye drops (Dry Eye Eyes Relief) diaper,brief,adult,disposable #180 ea 05/10/23 05/08/24 Rx linaclotide 145 mcg capsule 145 mcg PO DAILY PRN Abdominal 06/22/23 06/09/24 History (Linzess) Discomfort vitamins A,C,T-ieao-xtjgob 2,148 1 tab PO BID 06/22/23 06/09/24 History mcg-113 mg-45 mg-17.4 mg tablet (PreserVision AREDS) citalopram 10 mg tablet 10 mg PO HS #90 tabs 10/13/23 06/09/24 Rx citalopram 20 mg tablet 20 mg PO HS #90 tabs 10/13/23 06/09/24 Rx omeprazole 40 mg capsule,delayed 40 mg PO QAM #90 caps 12/06/23 06/09/24 Rx release levothyroxine 112 mcg tablet 112 mcg PO QAM #90 tabs 12/13/23 06/09/24 Rx cholecalciferol (vitamin D3) 50 25 mcg PO BID 01/05/24 06/09/24 History mcg (2,000 unit) capsule aripiprazole 2 mg tablet 2 mg PO QAM #90 tabs 01/17/24 06/09/24 Rx nystatin 100,000 unit/gram topical 1 applic topical BID PRN groin 03/21/24 06/09/24 Rx powder rash/irritation #60 grams snlkycixfv-jvddvjbqttodg-ywarsjhk 1 tab PO DAILY PRN pain #20 tabs 03/26/24 06/09/24 Rx 50 mg-325 mg-40 mg tablet telmisartan 20 mg tablet 20 mg PO QAM 03/31/24 06/09/24 History atorvastatin 40 mg tablet 40 mg PO HS #90 tabs 04/16/24 06/09/24 Rx metoprolol succinate 25 mg 25 mg PO QAM #90 tabs 04/17/24 06/09/24 Rx tablet,extended release 24 hr eptinezumab-jjmr 100 mg/mL 100 mg IV Q3MO 04/26/24 06/09/24 History intravenous solution (Vyepti) ubrogepant 100 mg tablet (Ubrelvy) 100 mg PO ONCE PRN migraine #10 04/27/24 06/09/24 Rx tabs lamotrigine 200 mg tablet 200 mg PO BID #60 tabs 05/28/24 06/09/24 Rx lamotrigine 25 mg tablet 25 mg PO BID #60 tabs 05/28/24 06/09/24 Rx carbidopa 25 mg-levodopa 100 mg 1 tab PO BID #60 tabs 06/05/24 06/09/24 Rx tablet lorazepam 0.5 mg tablet 0.5 mg PO DAILY PRN Anxiety #30 06/05/24 06/09/24 Rx tabs ondansetron 4 mg disintegrating 4 mg PO Q6H PRN Nausea #30 tabs 06/05/24 06/09/24 Rx tablet Patient History Medical History Recurrent major depression Hx of migraines HTN (hypertension) Hypercholesterolemia GERD (gastroesophageal reflux disease) Generalized anxiety disorder Focal epilepsy with impairment of consciousness per pt gets "mini seizure" lasts for approx 30 seconds --"stand and stare, can hear people talking but I can't respond", never had a grand mal, last was 04/16/24- follows with Dr. Kinsey Betts-lamictal was increased to 225 mg recently and no seizure since then COPD (chronic obstructive pulmonary disease) per hx, pt. denies, no pulm UTI (urinary tract infection) currrently on macrobid, not working, pt. will call pcp today to get new abx Obstructive sleep apnea cpap Irritable bowel syndrome with constipation CHI (closed head injury) (04/08/24) due to fall Absence seizure per pt gets "mini seizure" lasts for approx 30 seconds --"stand and stare, can hear people talking but I can't respond", never had a grand mal, last was 04/16/24- follows with Dr. Kinsey Betts-lamictal was increased to 225 mg recently and no seizure since then Deafness wears hearing aids CKD (chronic kidney disease), stage III Hx of fall (04/2024) ~ 2 weeks ago, fell and hit head due to balance issues, seen at [facility] ed also fell in Oct- admit to [facility] Peripheral neuropathy History of colon polyps History of stress fracture (~07/09/21) left knee BPPV (benign paroxysmal positional vertigo) occasional, falls Lumbosacral spondylosis Arthritis of both knees Acquired deviated nasal septum Lumbosacral radiculopathy at S1 Arthralgia of multiple sites Depression with anxiety Schatzki's ring Delayed gastric emptying Esophageal dysphagia Tremor "not too often" both hands Cardiomyopathy EF 50-55% on 03/2022 echo Prolapse of female pelvic organs Stress incontinence Memory loss ongoing issue Polyneuropathy per pt, just on left side Blindness of left eye R/t shingles (1999) Hiatal hernia s/p Bridgette fundoplication Surgical History Status post left knee replacement Status post laparoscopic Bridgette fundoplication History of loop recorder Placed 03/2022 History of left breast biopsy benign History of total hysterectomy with bilateral salpingo-oophorectomy (BSO) History of bilateral tubal ligation History of dilatation and curettage History of bunionectomy of right great toe History of bunionectomy of left great toe History of total replacement of right hip History of bladder suspension procedure History of esophageal dilatation History of colonoscopy History of esophagogastroduodenoscopy (EGD) History of appendectomy History of intraocular lens implant right eye History of bilateral cataract extraction Family History Father Myocardial infarction Sister Multiple sclerosis Mother Stroke Other No family history of adverse response to anesthesia Denies family history of Ovarian cancer Prostate cancer Breast cancer Colorectal cancer Social History Smoking Status: Former smoker Tobacco Type: Cigarettes Age Started Using Tobacco: 30; Age Quit Using Tobacco: 55; packs per day: 1.5; Second Hand Exposure: No; Do You Dip or Chew Tobacco: No; Tobacco Cessation Education Requested by Patient: No Hx Alcohol Use: No Hx Substance Use: No Preferred Language: Hungarian Communication Ability: Effective Visual Impairment: No Limitations Hearing Ability: Use of Hearing Aid Granulator Operator Required: No Beliefs That Will Affect Care: None marital status: Current Living Situation: Spouse Current Living Situation Comment: indep living current occupational status: retired Other Information That Helps Us Care for You: No Feels Safe at Home: Yes Safety Concerns: Feels Safe At This Time Childhood Exposure to Second-Hand Smoke: Yes Diet: regular caffeine: Yes Dental Care, Regularly: No Physical Activity Frequency: Does not Exercise Seatbelt Use: always Sunscreen Use: No Assistive Devices: Glasses and Walker Exam (Neuro) Physical Exam: HEENT: normocephalic grossly Neuro: Mental: AOx4, fluent speech, normal comprehension, no apraxia, no L/R confusion, no neglect CN: PERRL, Full EOM, symmetric face Motor: No abnormal movements, normal tone, 5/5 t/o bilaterally Coord: intact FNT b/l DTR: 2+ sym b/l Impression: 73 yo female with recurrent falls in setting of prior chronic hx of falls, seizure like events. Pt has had extensive work up in the past from Dr. 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 pt currently stable. Recommendations: -no need for mri or EEG -she likely will need rehab for conditio nigel and walking. anxiety may also contribute. avoid sudden position changes (as she does stand up quickly most of the times). no change in meds needed from neurology continue evaluation by Dr. Hernandez as outpt for PSP avoid hypotension and dehydration. fall precautions. not much to add at this point from inpt stay. Physical therapy consult. call again if new question. Chart reviewed I have spent more than 50% educating patient about potential diagnosis and neurological evaluation and coordinating care with patient's treatment team. Total time spent (including chart review and coordination of care): 55 min (this includes chart review). Results & Data Vital Signs (Past 12 Hours) Vital Signs Temp Pulse Pulse Pulse Resp BP BP 06/10/24 07:44 36.4 C L 55 L 18 121/77 06/10/24 07:09 63 06/10/24 05:59 36.4 C L 62 126/64 06/10/24 04:22 36.3 C L 56 L 16 93/57 L 06/09/24 22:55 36.5 C 61 18 149/84 H 06/09/24 22:44 61 06/09/24 22:11 62 20 119/73 Pulse Ox O2 Del Method 06/10/24 07:44 95 Room Air 06/10/24 07:09 06/10/24 05:59 06/10/24 04:22 94 Room Air 06/09/24 22:55 96 Room Air 06/09/24 22:44 06/09/24 22:11 97 Room Air PG Care Time/CCT Total # of Minutes Spent Total Time Spent with Patient: Total time spent is greater than 50% in coordination of care (as documented) at patient's floor/unit and/or counseling patient: Coding Level of Care Code 49323 IN/OBS CONSULT LVL 4,60M Diagnoses Fall W19.XXXA Encounter type: initial encounter (1) Fall Encounter type: initial encounter Qualified Code(s): W19.XXXA - Unspecified fall, initial encounter
[2024-06-10] MEDS: BUTALBITAL/ACETAMIN/CAFFEINE TAB PO PRN (11:13)
[2024-06-10] MEDS: CITALOPRAM 20 MG TAB PO SCH ×2 (19:50→19:52)
[2024-06-10] MEDS: ATORVASTATIN 40 MG TAB PO SCH (19:52)
[2024-06-10] MEDS: LORazepam 0.5 MG TAB PO PRN (19:54)
[2024-06-10] MEDS: predniSONE 20 MG TAB PO ONE (21:29)
--- NOTE | 2024-06-11 05:50 | Electrocardiogram Report ---
Test Reason : Blood Pressure : */* mmHG Vent. Rate : 62 BPM Atrial Rate : 62 BPM P-R Int : 168 ms QRS Dur : 68 ms QT Int : 448 ms P-R-T Axes : 35 18 43 degrees QTcB Int : 454 ms Normal sinus rhythm Low voltage QRS Abnormal ECG When compared with ECG of 04-Jan-2024 21:24, No significant change Confirmed by Jeremie Banuelos ([id number]) on 06/11/2024 5:49:36 AM Referred By: REFERRED SELF Confirmed By: Jeremie Banuelos
[2024-06-11] MEDS: LINACLOTIDE 145 MCG CAPSULE PO PRN (07:57)
[2024-06-11 08:11] LABS: BUN Creatinine Ratio 12.3 (10-20); Calcium 9.3 mg/dl (8.6-10.3); Potassium 4.5 mmol/L (3.5-5.1)
--- NOTE | 2024-06-11 08:26 | Billing Data ---
Date of Service June 10, 2024 Coding Level of Care Code 81327 SUB INP/OBS CARE MIN
[2024-06-11 21:31] LABS: Adenovirus PCR Not Detected (NotDetected); Bordetella parapertussis PCR Not Detected (NotDetected); Bordetella pertussis PCR Not Detected (NotDetected); Chlamydia pneumoniae PCR Not Detected (NotDetected); Coronavirus 229E PCR Not Detected (NotDetected); Coronavirus CoV-2 (COVID19)PCR Not Detected (NotDetected); Coronavirus HKU1 PCR Not Detected (NotDetected); Coronavirus NL63 PCR Not Detected (NotDetected); Coronavirus OC43PCR Not Detected (NotDetected); Human Metapneumovirus PCR Not Detected (NotDetected); Influenza A PCR Not Detected (NotDetected); Influenza B PCR Not Detected (NotDetected); Mycoplasma pneumoniae PCR Not Detected (NotDetected); Parainfluenza Virus 1 PCR Not Detected (NotDetected); Parainfluenza Virus 2 PCR Not Detected (NotDetected); Parainfluenza Virus 3 PCR Not Detected (NotDetected); Parainfluenza Virus 4 PCR Not Detected (NotDetected); Respiratory Syncytial VirusPCR Not Detected (NotDetected); Rhinovirus/Enterovirus PCR Not Detected (NotDetected)
[2024-06-11 22:12] LABS: Adenovirus F 40/41 PCR Not Detected (NotDetected); Astrovirus PCR Not Detected (NotDetected); Campylobacter PCR Not Detected (NotDetected); Cryptosporidium PCR Not Detected (NotDetected); Cyclospora cayetanensis PCR Not Detected (NotDetected); Entamoeba histolytica PCR Not Detected (NotDetected); Enteroaggregative E.coli(EAEC) Not Detected (NotDetected); Enteropathogenic E.coli (EPEC) Not Detected (NotDetected); Enterotoxigenic E.coli (ETEC) Not Detected (NotDetected); Giardia lamblia PCR Not Detected (NotDetected); Norovirus GI/GII PCR Not Detected (NotDetected); Plesiomonas shigelloides PCR Not Detected (NotDetected); Rotavirus A PCR Not Detected (NotDetected); Salmonella PCR Not Detected (NotDetected); Sapovirus PCR Not Detected (NotDetected); Shiga-like Toxin E.coli (STEC) Not Detected (NotDetected); Shigella/Enteroinvasive E.coli Not Detected (NotDetected); Vibrio cholerae PCR Not Detected (NotDetected); Vibrio species PCR Not Detected (NotDetected); Yersinia enterocolitica PCR Not Detected (NotDetected)
[2024-06-11] MEDS: LOPERAMIDE HCL 2 MG CAP PO PRN (22:57)
--- NOTE | 2024-06-11 23:05 | Hospitalist Progress Note ---
Date of Service June 11, 2024 Assessment & Plan (1) Fall: (2) Chronic kidney disease, stage 3: (3) Migraine: Plan 73-year-old female PMHx CKD stage III, hypothyroidism, GERD, KWAME with panic, HTN, COPD, possible complex partial seizures, hypercholesterolemia, BARBARA, and migraines presenting via EMS after having ground-level fall on the day of arrival. ED evaluation reveals no leukocytosis, normal H&H, grossly WNL CMP with exception of creatinine 1.27 which appears to be at patient's baseline, slightly elevated alkaline phosphatase at 113.Troponin was normal. Imaging in ED included: cervical spine CT, head CT, hip/pelvis x-ray, lumbar spine CT, thoracic spine CT, and CXR-all without acute findings; EKG NSR at rate of 62 bpm. She was given acetaminophen 1 g IV in ED. No new symptoms this morning. #Fall GLF at independent living facility after describing episode of inability to move body or speak then resulting in her falling to the ground. Has had multiple episodes approximately once a month since beginning of 2024 described as a sudden onset of staring and then inability to keep her balance resulting in falls, with total duration lasting less than 60 seconds. Suspect falls maybe orthostatic in nature - Previously thought to be cardiac related and loop recorder placed; EKG normal sinus with controlled rate (62)- monitor on tele - Pending loop interrogation reports no new events - Orthostatic vitals from 06/09 show elevated systolic BP in supine and standing, normal BP in sitting. HR remains 75-78 in all 3 positions Repeat orthostatics ordered - Discontinue IVF - Neurology consult placed- discretion of neurologist whether or not MRI/EEG necessary -no need for mri or EEG -she likely will need rehab for conditioning and walking.anxiety may also contribute. - avoid sudden position changes (as she does stand up quickly most of the times). - no change in meds needed from neurology - continue evaluation by Dr. Hernandez as outpt for PSP - avoid hypotension and dehydration. - fall precautions. - Physical therapy consult: will require rehab - PT/OT consulted, appreciate assistance due to diarrhea, sore throat, ordered biofire stool, upper resp, and throat culture #History of seizure -History of seizure-like episodes with possible partial complex seizures as noted by neurology visit 04/26/2024 - Continue outpatient neurology meds: lamotrigine, carbidopa levodopa #HTN - Stopped Losartan due to hypotension - Consider tappering Metoprolol succinate starting 06/11 #CKD H/o stage III, baseline Cr appears to be 1.2-1.3 - No evidence of CRESCENCIO on admission; Cr 1.27 - Cr is 1.41 this am #Hypothyroidism- Levothyroxine #GERD- Omeprazole #KWAME with panic/Depression- Aripiprazole, citalopram, lorazepam #COPD- Nebs prn #Hypercholesterolemia- Atrovastatin #Migraine- Butalbital/Acet./Caffeine outpatient, may utilize inpatient prn for acute REINOSO; Ubrogepant prn Dispo: Admit, med/telemetry VTE prophylaxis: SCDs Diet:Regular Code status: Full Admission and Anticipated Discharge Date Admission Date: June 09, 2024 Subjective 73 yo female reports no new symptoms. Now with sore throat. Physical Exam Physical Exam: General: No acute distress, well developed. Skin: Warm and dry, without rashes or lesions. No cyanosis or clubbing HENT: Normocephalic, atraumatic, PERRL, conjunctivae clear, External ear and ear canal without swelling; nose atraumatic Neck: Supple, no LAD; no JVD Cardio: RRR, no M/G/R, S1 and S2 normal Resp: Normal respiratory effort; No respiratory distress, Lungs CTA in all lobes bilaterally, no wheezes, rales, or rhonchi Abdomen: Soft, symmetric, nontender, no distention; No masses or hepatosplenomegaly; Bowel sounds normoactive Results & Data Results & Data Vital Signs (Past 12 Hours) Vital Signs Temp Pulse Pulse Resp BP BP Pulse Ox 06/11/24 19:30 36.7 C 68 18 151/90 H 96 06/11/24 17:49 75 06/11/24 15:22 36.7 C 65 18 147/78 H 98 06/11/24 11:19 36.7 C 67 16 138/83 91 O2 Del Method 06/11/24 19:30 Room Air 06/11/24 17:49 06/11/24 15:22 Nasal Cannula 06/11/24 11:19 Room Air PG Care Time/CCT Total # of Minutes Spent Total Time Spent with Patient: Total time spent is greater than 50% in coordination of care (as documented) at patient's floor/unit and/or counseling patient: Coding Level of Care Code 37617 SUB INP/OBS CARE MIN Diagnoses Fall W19.XXXA Encounter type: initial encounter Chronic kidney disease, stage 3 N18.30 Migraine without aura and without status migrainosus, not intractable G43.909 (1) Fall Encounter type: initial encounter Qualified Code(s): W19.XXXA - Unspecified fall, initial encounter
[2024-06-11] MEDS: diphenhydrAMINE 50 MG/ML VIAL IV STA (23:36)
[2024-06-11] MEDS: methylPREDNISolone 125 MG/2 ML VIAL IV STA (23:36)
[2024-06-11] MEDS: METOCLOPRAMIDE HCL INJ 5 MG/ML 2 ML VIAL IV STA (23:38)
[2024-06-12] MEDS ORDERED: FIRST - Mouthwash BLM 5 ML UDP PO PRN (07:16)
[2024-06-12 09:44] LABS: Hematocrit (blood only) 42.5 % (37.0-47.0); Hemoglobin 13.4 g/dl (12.0-16.0); Mean Corpuscular Hemoglobin 29.3 pg (25.0-34.0); Mean Corpuscular Hgb Conc 31.5 g/dL (32.0-36.0); Mean Platelet Volume 9.9 fL (9.4-12.4); Platelet Count 174 K/uL (130-400); RDW Coefficient of Variation 12.6 % (11.5-14.5); RDW Standard Deviation 42.8 fL (36.4-46.3); Red Blood Count 4.57 M/uL (4.20-5.40); White Blood Count 10.64 K/ul (4.8-10.8)
[2024-06-12 10:12] LABS: Anion Gap 9 (3-11); BUN Creatinine Ratio 15.3 (10-20); Blood Urea Nitrogen 20 mg/dl (6-23); C Reactive Protein < 0.50 mg/dl (0-0.5); Calcium 9.4 mg/dl (8.6-10.3); Carbon Dioxide 26 mmol/L (21-32); Chloride 105 mmol/L (98-107); Creatinine Clr Calc Pharmacy 45.5 ml/min; Glucose 203 mg/dl (70-99(Fasting)); Potassium 4.2 mmol/L (3.5-5.1); Sodium 140 mmol/L (136-145)
[2024-06-12] MEDS ORDERED: methylPREDNISolone 125 MG/2 ML VIAL IV STA (17:08)
[2024-06-12] MEDS: METOCLOPRAMIDE HCL INJ 5 MG/ML 2 ML VIAL IV STA (17:37)
[2024-06-12] MEDS: diphenhydrAMINE 50 MG/ML VIAL IV STA (17:37)
[2024-06-12] MEDS: methylPREDNISolone 20 MG in SYRINGE 0 ML IV STA (17:38)
--- NOTE | 2024-06-12 23:15 | Hospitalist Progress Note ---
Date of Service June 12, 2024 Assessment & Plan (1) Fall: (2) Chronic kidney disease, stage 3: (3) Migraine: Plan 73-year-old female PMHx CKD stage III, hypothyroidism, GERD, KWAME with panic, HTN, COPD, possible complex partial seizures, hypercholesterolemia, BARABRA, and migraines presenting via EMS after having ground-level fall on the day of arrival. ED evaluation reveals no leukocytosis, normal H&H, grossly WNL CMP with exception of creatinine 1.27 which appears to be at patient's baseline, slightly elevated alkaline phosphatase at 113.Troponin was normal. Imaging in ED included: cervical spine CT, head CT, hip/pelvis x-ray, lumbar spine CT, thoracic spine CT, and CXR-all without acute findings; EKG NSR at rate of 62 bpm. She was given acetaminophen 1 g IV in ED. No new symptoms this morning. #Fall GLF at independent living facility after describing episode of inability to move body or speak then resulting in her falling to the ground. Has had multiple episodes approximately once a month since beginning of 2024 described as a sudden onset of staring and then inability to keep her balance resulting in falls, with total duration lasting less than 60 seconds. Suspect falls maybe orthostatic in nature - Previously thought to be cardiac related and loop recorder placed; EKG normal sinus with controlled rate (62)- monitor on tele - Pending loop interrogation reports no new events - Orthostatic vitals from 06/09 show elevated systolic BP in supine and standing, normal BP in sitting. HR remains 75-78 in all 3 positions Repeat orthostatics ordered - Discontinue IVF - Neurology consult placed- discretion of neurologist whether or not MRI/EEG necessary -no need for mri or EEG -she likely will need rehab for conditioning and walking.anxiety may also contribute. - avoid sudden position changes (as she does stand up quickly most of the times). - no change in meds needed from neurology - continue evaluation by Dr. Hernandez as outpt for PSP - avoid hypotension and dehydration. - fall precautions. - Physical therapy consult: will require rehab - PT/OT consulted, appreciate assistance due to diarrhea, sore throat, workup noted below Upper respiratory biofire and stool biofire are negative. ordering c diff stool throat culture is pending #History of seizure -History of seizure-like episodes with possible partial complex seizures as noted by neurology visit 04/26/2024 - Continue outpatient neurology meds: lamotrigine, carbidopa levodopa #HTN - Stopped Losartan due to hypotension - Consider tappering Metoprolol succinate starting 06/11 #CKD H/o stage III, baseline Cr appears to be 1.2-1.3 - No evidence of CRESCENCIO on admission; Cr 1.27 - Cr is 1.41 this am #Hypothyroidism- Levothyroxine #GERD- Omeprazole #KWAME with panic/Depression- Aripiprazole, citalopram, lorazepam #COPD- Nebs prn #Hypercholesterolemia- Atrovastatin #Migraine- Butalbital/Acet./Caffeine outpatient, may utilize inpatient prn for acute REINOSO; Ubrogepant prn ordered migrain cocktail: corticosteroids, reglan and benadryl Dispo: Admit, med/telemetry VTE prophylaxis: SCDs Diet:Regular Code status: Full Admission and Anticipated Discharge Date Admission Date: June 09, 2024 Subjective Patient with migraines. Physical Exam Physical Exam: General: No acute distress, well developed. Skin: Warm and dry, without rashes or lesions. No cyanosis or clubbing HENT: Normocephalic, atraumatic, PERRL, conjunctivae clear, External ear and ear canal without swelling; nose atraumatic Neck: Supple, no LAD; no JVD Cardio: RRR, no M/G/R, S1 and S2 normal Resp: Normal respiratory effort; No respiratory distress, Lungs CTA in all lobes bilaterally, no wheezes, rales, or rhonchi Abdomen: Soft, symmetric, nontender, no distention; No masses or hepatosplenomegaly; Bowel sounds normoactive Results & Data Results & Data Vital Signs (Past 12 Hours) Vital Signs Temp Pulse Pulse Resp BP Pulse Ox O2 Del Method 06/12/24 19:58 64 18 133/81 93 Room Air 06/12/24 15:52 36.4 C L 61 18 164/92 H 93 Room Air 06/12/24 15:51 72 PG Care Time/CCT Total # of Minutes Spent Total Time Spent with Patient: Total time spent is greater than 50% in coordination of care (as documented) at patient's floor/unit and/or counseling patient: Coding Level of Care Code 40697 SUB INP/OBS CARE 3/50MIN Diagnoses Fall W19.XXXA Encounter type: initial encounter Chronic kidney disease, stage 3 N18.30 Migraine without aura and without status migrainosus, not intractable G43.909 (1) Fall Encounter type: initial encounter Qualified Code(s): W19.XXXA - Unspecified fall, initial encounter
[2024-06-13] MEDS: LORazepam 0.5 MG TAB PO STA (14:15)
--- NOTE | 2024-06-13 19:09 | Hospitalist Progress Note ---
Date of Service June 13, 2024 Assessment & Plan (1) Fall: (2) Chronic kidney disease, stage 3: (3) Migraine: Plan 73-year-old female PMHx CKD stage III, hypothyroidism, GERD, KWAME with panic, HTN, COPD, possible complex partial seizures, hypercholesterolemia, BARBARA, and migraines presenting via EMS after having ground-level fall on the day of arrival. ED evaluation reveals no leukocytosis, normal H&H, grossly WNL CMP with exception of creatinine 1.27 which appears to be at patient's baseline, slightly elevated alkaline phosphatase at 113.Troponin was normal. Imaging in ED included: cervical spine CT, head CT, hip/pelvis x-ray, lumbar spine CT, thoracic spine CT, and CXR-all without acute findings; EKG NSR at rate of 62 bpm. She was given acetaminophen 1 g IV in ED. No new symptoms this morning. #Fall GLF at independent living facility after describing episode of inability to move body or speak then resulting in her falling to the ground. Has had multiple episodes approximately once a month since beginning of 2024 described as a sudden onset of staring and then inability to keep her balance resulting in falls, with total duration lasting less than 60 seconds. Suspect falls maybe orthostatic in nature - Previously thought to be cardiac related and loop recorder placed; EKG normal sinus with controlled rate (62)- monitor on tele - Pending loop interrogation reports no new events - Orthostatic vitals from 06/09 show elevated systolic BP in supine and standing, normal BP in sitting. HR remains 75-78 in all 3 positions Repeat orthostatics ordered - Discontinue IVF - Neurology consult placed- discretion of neurologist whether or not MRI/EEG necessary -no need for mri or EEG -she likely will need rehab for conditioning and walking.anxiety may also contribute. - avoid sudden position changes (as she does stand up quickly most of the times). - no change in meds needed from neurology - continue evaluation by Dr. Hernandez as outpt for PSP - avoid hypotension and dehydration. - fall precautions. - Physical therapy consult: will require rehab - PT/OT consulted, appreciate assistance due to diarrhea, sore throat, workup noted below Upper respiratory biofire and stool biofire are negative. ordering c diff stool throat culture is pending diarrhea likely secondary to linzess: patient taking as needed but was started here scheduled. improving #History of seizure -History of seizure-like episodes with possible partial complex seizures as noted by neurology visit 04/26/2024 - Continue outpatient neurology meds: lamotrigine, carbidopa levodopa #HTN - Stopped Losartan due to hypotension - Consider tappering Metoprolol succinate starting 06/11 #CKD H/o stage III, baseline Cr appears to be 1.2-1.3 - No evidence of CRESCENCIO on admission; Cr 1.27 - Cr is 1.41 this am #Hypothyroidism- Levothyroxine #GERD- Omeprazole #KWAME with panic/Depression- Aripiprazole, citalopram, lorazepam #COPD- Nebs prn #Hypercholesterolemia- Atrovastatin #Migraine- Butalbital/Acet./Caffeine outpatient, may utilize inpatient prn for acute REINOSO; Ubrogepant prn ordered migrain cocktail on 06/12: corticosteroids, reglan and benadryl improved on 06/13 Dispo: Admit, med/telemetry VTE prophylaxis: SCDs Diet:Regular Code status: Full denied peer to peer for rehab will discharge on 06/14 Admission and Anticipated Discharge Date Admission Date: June 09, 2024 Subjective Patient remains with diarrhea but improving. Still somewhat unsteady on feet. Physical Exam Physical Exam: General: No acute distress, well developed. Skin: Warm and dry, without rashes or lesions. No cyanosis or clubbing HENT: Normocephalic, atraumatic, PERRL, conjunctivae clear, External ear and ear canal without swelling; nose atraumatic Neck: Supple, no LAD; no JVD Cardio: RRR, no M/G/R, S1 and S2 normal Resp: Normal respiratory effort; No respiratory distress, Lungs CTA in all lobes bilaterally, no wheezes, rales, or rhonchi Abdomen: Soft, symmetric, nontender, no distention; No masses or hepatosplenomegaly; Bowel sounds normoactive Results & Data Results & Data Vital Signs (Past 12 Hours) Vital Signs Temp Pulse Pulse Pulse Resp BP BP 06/13/24 14:42 36.4 C L 62 16 162/73 H 06/13/24 13:33 36.3 C L 65 16 134/72 06/13/24 13:02 65 06/13/24 08:46 66 06/13/24 07:59 36.4 C L 58 L 16 176/82 H 06/13/24 07:30 Pulse Ox O2 Del Method 06/13/24 14:42 93 Room Air 06/13/24 13:33 95 Room Air 06/13/24 13:02 06/13/24 08:46 06/13/24 07:59 96 Room Air 06/13/24 07:30 Room Air PG Care Time/CCT Total # of Minutes Spent Total Time Spent with Patient: Total time spent is greater than 50% in coordination of care (as documented) at patient's floor/unit and/or counseling patient: Coding Level of Care Code 41769 SUB INP/OBS CARE 350MIN Diagnoses Fall W19.XXXA Encounter type: initial encounter Chronic kidney disease, stage 3 N18.30 Migraine without aura and without status migrainosus, not intractable G43.909 (1) Fall Encounter type: initial encounter Qualified Code(s): W19.XXXA - Unspecified fall, initial encounter
[2024-06-14 07:13] VITALS: RESP 18
[2024-06-14 07:17] LABS: Hemoglobin 13.7 g/dl (12.0-16.0); Mean Corpuscular Hemoglobin 29.3 pg (25.0-34.0); Mean Corpuscular Hgb Conc 31.1 g/dL (32.0-36.0); Mean Platelet Volume 9.9 fL (9.4-12.4); Platelet Count 160 K/uL (130-400); RDW Coefficient of Variation 12.9 % (11.5-14.5); RDW Standard Deviation 44.4 fL (36.4-46.3); Red Blood Count 4.68 M/uL (4.20-5.40)
[2024-06-14 07:37] LABS: Potassium 3.6 mmol/L (3.5-5.1)
[2024-06-14 07:43] LABS: BUN Creatinine Ratio 15.7 (10-20); Creatinine Clr Calc Pharmacy 44.3 ml/min
[2024-06-14] MEDS ORDERED: BISMUTH SUBSALICYLATE 262 MG CHEW PO PRN (11:45)
[2024-06-14] MEDS: PSYLLIUM or GUAR GUM FIBER 4GM PACKET PO SCH (12:56)
--- NOTE | 2024-06-14 13:20 | Hospitalist Progress Note ---
Date of Service June 14, 2024 Assessment & Plan (1) Fall: Plan: Continue OT and PT while hospitalized. Supportive care (2) Chronic kidney disease, stage 3: Plan: Stable. Monitor intake and output. Serial labs (3) Migraine: Plan: Intermittent. Supportive care. (4) Diarrhea: Plan: The patient has chronic loose stools. No melena or hematochezia. She takes Kaopectate at home and states this is the only thing that seems to work. This has been ordered. Will also add Metamucil twice daily scheduled dosing to add bulk to the stool. Plan Hopeful discharge to home tomorrow, June 15, with home health services Admission and Anticipated Discharge Date Admission Date: June 09, 2024 Subjective Alert and oriented. No distress. Her primary concern is her chronic diarrhea. She states her will bring in her Kaopectate from home which is the only thing that seems to work. Will add Metamucil twice daily scheduled dosing to add bulk to her stools. Hopefully she can go home tomorrow, June 15, with home health services Review of Systems 2 Review of Systems: Constitutionalno fever or chills ENTno blurred vision, no double vision, no epistaxis, no sore throat Respiratoryno cough, no wheezing, no shortness of breath Cardiacno palpitations, no chest pain, no syncope Jackson nausea, vomiting, melena, hematochezia. She has chronic watery diarrhea GUno urinary retention, no urinary incontinence, no dysuria, no hematuria Musculoskeletalno joint pain, no muscle tenderness Skinno bruising, no rashes, no pruritus Neurono isolated weakness, no paresthesia, no weakness Psychno depression, no anxiety Physical Exam 2 Physical Exam: General-alert and oriented x3, no fever, no chills HEENT-head atraumatic and normocephalic, pupils equal and reactive to light, extraocular muscles intact Neck-no lymphadenopathy or thyromegaly, trachea midline Chest-clear to auscultation. No rales, wheezing or rhonchi Cardiac-regular rate and rhythm, normal S1 and S2 Abdomen-normal bowel sounds, no hepatosplenomegaly Extremities-no cyanosis, clubbing, or edema Neuro-cranial nerves II through XII intact, motor and sensory function within normal limits, strength symmetrical, no focal deficits Psych-normal affect, normal mood Results & Data Results & Data Vital Signs (Past 12 Hours) Vital Signs Temp Pulse Pulse Resp BP BP Pulse Ox 06/14/24 11:18 36.4 C L 63 18 143/86 H 92 06/14/24 07:13 36.5 C 69 18 158/97 H 96 06/14/24 06:16 63 06/14/24 03:29 36.4 C L 59 L 16 120/59 L 95 O2 Del Method 06/14/24 11:18 Room Air 06/14/24 07:13 Room Air 06/14/24 06:16 06/14/24 03:29 Room Air Laboratory Results 06/14/24 06:09 06/14/24 06:09 PG Care Time/CCT Total # of Minutes Spent Total Time Spent with Patient: Total time spent is greater than 50% in coordination of care (as documented) at patient's floor/unit and/or counseling patient: Coding Level of Care Code 16561 SUB INP/OBS CARE 3/50MIN Diagnoses Fall W19.XXXA Encounter type: initial encounter Chronic kidney disease, stage 3 N18.30 Migraine without aura and without status migrainosus, not intractable G43.909 Diarrhea R19.7 (1) Fall Encounter type: initial encounter Qualified Code(s): W19.XXXA - Unspecified fall, initial encounter
[2024-06-14] MEDS: BISMUTH SUBSALICYLATE 262 MG CHEW PO PRN (14:07)
[2024-06-15] MEDS: LOPERAMIDE HCL 2 MG CAP PO STA ×2 (00:36→00:38)
[2024-06-15] MEDS: DIPHENOXYLATE/ATROPINE 2.5/0.025MG TAB PO ONE (09:08)
[2024-06-15] MEDS: BISMUTH SUBSALICYLATE 262 MG CHEW PO SCH (09:08)
[2024-06-15] MEDS: LOSARTAN POTASSIUM 25 MG TAB PO SCH (10:38)
[2024-06-15 11:39] VITALS: PULSE 71; TEMP 97.9; O2SAT 94
--- NOTE | 2024-06-15 11:48 | Discharge Summary ---
Discharge Summary Date of Service June 15, 2024 Principal Dx & Hospital Course #1 = Principal Diagnosis (1) Fall: Continue OT and PT while hospitalized. Supportive care (2) Chronic kidney disease, stage 3: Stable. Monitor intake and output. Serial labs (3) Migraine: Intermittent. Supportive care. (4) Diarrhea: The patient has chronic loose stools. No melena or hematochezia. She takes Kaopectate at home and states this is the only thing that seems to work. This has been ordered. Also added Metamucil twice daily scheduled dosing to add bulk to the stool. Plan Home today, June 15 with home health services Admission HPI Per Admitting Provider 73-year-old female PMHx CKD stage III, hypothyroidism, GERD, KWAME with panic, HTN, COPD, possible complex partial seizures, hypercholesterolemia, BARBARA, and migraines presenting via EMS after having ground-level fall on the day of arrival. Patient struck the side of her head and left side of her body, but did not have LOC. Patient was walking and "went into a blank stare" then fell over. Patient reports that this has been happening monthly since beginning of 2024 1 episode in April and 1 in May. Currently being followed by neurology with recent diagnosis of neurological gait disorder and started on carbidopa levodopa. Patient reports that these episodes only occur when she is sitting for a long time and then changes into standing. Reports that she does not slowly go from sitting to standing and as soon as she is in a sitting position she starts to walk. Does not report that she feels dizzy during this time, but reports that every time an episode like this does happen it has been directly after she goes from a sitting to standing position. Describes the episodes as a sudden staring/blank episode in which she is fully aware of what is going on around her but she is unable to respond. States that she hears people around her asking if she is okay but she just feels as though she cannot respond or move her body. Every episode has lasted approximately 1 minute in duration. On the day of arrival, this was the first time that she fell. Patient states that normally she has to hold onto something because she is afraid she will lose her balance and on the day of arrival was the first time that she had fallen from 1 of these episodes. 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 States that she has been told she has absent seizures in the past, however reiterated that the patient is fully aware during these episodes of "staring" and does not report postictal status. Has never had one limb or part of her body with abnormal movements. Does feel as though she shakes sometimes following episodes of staring. Does have a headache at the front of her head which is typical for her migraines. Some pain posterior head because she states that she did during the fall. Denies chest pain, palpitations, shortness of breath, abdominal pain, N/V/D/C, numbness/tingling, weakness, LOC, syncopal episodes, presyncope, fever/chills, URI, or LUTS. ED evaluation reveals no leukocytosis, normal H&H, grossly WNL CMP with exception of creatinine 1.27 which appears to be at patient's baseline, slightly elevated alkaline phosphatas e at 113, troponin pending; UA pending; cervical spine CT, head CT, hip/pelvis x-ray, lumbar spine CT, thoracic spine CT, and CXR all without acute findings; EKG NSR at rate of 62 bpm. Provided with acetaminophen 1 g IV in ED. Please see Dr. Mejia's attestation for adjustments/additions to treatment plan. Discharge Exam General-alert and oriented x3, no fever, no chills HEENT-head atraumatic and normocephalic, pupils equal and reactive to light, extraocular muscles intact Neck-no lymphadenopathy or thyromegaly, trachea midline Chest-clear to auscultation. No rales, wheezing or rhonchi Cardiac-regular rate and rhythm, normal S1 and S2 Abdomen-normal bowel sounds, no hepatosplenomegaly Extremities-no cyanosis, clubbing, or edema Neuro-cranial nerves II through XII intact, motor and sensory function within normal limits, strength symmetrical, no focal deficits Psych-normal affect, normal mood Discharge Plan Discharge Items Patient Disposition: Home - Self-Care Reason For Visit: FALL,?SEIZURE Discharge Diagnosis: Mechanical fall, chronic diarrhea Activity: Resume your previous activity Non-emergency contact: Primary Care Provider Call non-emergency contact if: you have any medication questions and your symptoms worsen Follow-up/Referrals: Krysta Hernandez MD [Primary Care Provider] - Diet: Regular Addtl Attending Provider Instructions: Take Metamucil twice daily on a scheduled basis. All other medications remain the same. Pending Studies at Discharge: No Stand-Alone Forms: [facility] Sm[facility] Cess[facility] Medications and DC Order Prescriptions: New Psyllium Or Guar Gum Fiber Sup [Metamucil Or Nutrisource Fiber Supplement] 4 g PO BID Qty: 0 0RF Continued ipratropium-albuterol 0.5 mg-3 mg(2.5 mg base)/3 mL solution for nebulization 3 ml Inhalation Q6H PRN (Reason: Shortness Of Breath Or Wheezing) Qty: 360 5RF (DME) diaper,brief,adult,disposable Misc See Rx Instructions .Route Qty: 180 11RF Rx Instructions: Pullups Size M - 2 per day citalopram 20 mg tablet 20 mg PO HS Qty: 90 3RF Patient Comments: with 10mg to equal 30mg Rx Instructions: TOTAL DOSE 30 MG--TAKE WITH 10 MG TAB = 30MG @ HS citalopram 10 mg tablet 10 mg PO HS Qty: 90 3RF Rx Instructions: TOTAL DOSE 30 MG--TAKE WITH 20 MG TAB = 30MG@ BEDTIME omeprazole 40 mg capsule,delayed release(DR/EC) 40 mg PO QAM Qty: 90 3RF Rx Instructions: TAKE 1 CAPSULE BY MOUTH ONCE DAILY levothyroxine 112 mcg tablet 112 mcg PO QAM Qty: 90 3RF lvjcxcamfg-vuwmkyhayffof-rfqq 50-325-40 mg tablet 1 tab PO DAILY PRN (Reason: pain) Qty: 20 3RF atorvastatin 40 mg tablet 40 mg PO HS Qty: 90 3RF metoprolol succinate 25 mg tablet extended release 24 hr 25 mg PO QAM Qty: 90 3RF Ubrelvy 100 mg tablet 100 mg PO ONCE PRN (Reason: migraine) Qty: 10 5RF lamotrigine 200 mg tablet 200 mg PO BID Qty: 60 4RF Rx Instructions: TAKE WITH 25MG = 225MG TWICE DAILY lamotrigine 25 mg tablet 25 mg PO BID Qty: 60 4RF Rx Instructions: TAKE WITH 200MG = 225MG TWICE DAILY. lorazepam 0.5 mg tablet 0.5 mg PO DAILY PRN (Reason: Anxiety) Qty: 30 0RF ondansetron 4 mg tablet,disintegrating 4 mg PO Q6H PRN (Reason: Nausea) Qty: 30 2RF carbidopa-levodopa 25-100 mg tablet 1 tab PO BID Qty: 60 5RF (DME) Wheeled Walker Misc See Rx Instructions .MEDSUPPLY Qty: 1 0RF Rx Instructions: As directed aripiprazole 2 mg tablet 2 mg PO QAM Qty: 90 3RF Vyepti 100 mg/mL solution 100 mg IV Q3MO nystatin 100,000 unit/gram powder 1 applic topical BID PRN (Reason: groin rash/irritation) Qty: 60 3RF Dry Eye Relief 1-0.2-0.2 % Drops 1 drp OPHTHALMIC (EYE) BID PRN (Reason: Dry Eyes) PreserVision AREDS 2,148 mcg-113 mg-45 mg-17.4mg Tablet 1 tab PO BID Rx Instructions: administer with AM and PM meals Linzess 145 mcg capsule 145 mcg PO DAILY PRN (Reason: Abdominal Discomfort) Rx Instructions: TAKE 1 CAPSULE BY MOUTH ONCE DAILY cholecalciferol (vitamin D3) 50 mcg (2,000 unit) capsule 25 mcg PO BID telmisartan 20 mg tablet 20 mg PO QAM Discharge Orders: Discharge Order (Routine); Ordered 06/15/24 Ordered By: Dharmesh Oscar Admission Data Admit Date/Time: 06/09/24 20:10 Attending Provider: Dharmesh Oscar Admit Provider: Adalid Mejia Primary Care Provider: Krysta Hernandez Other Providers: Adalid Mejia; Ramu Caceres; [facility]; [facility] Stay Data Consultations 06/09/24 19:34 ED Decision to Admit Stat 06/09/24 22:51 Consult Neurology Routine Diagnostic Imagining Performed 06/09/24 16:10 CT cervical spine wo con Stat CT head/brain wo con Stat CT lumbar spine wo con Stat CT thoracic spine wo con Stat Pending Results Patient Have Any Pending Studies at Discharge: No Discharge Instructions Given to Patient (Per Discharging Provider) Take Metamucil twice daily on a scheduled basis. All other medications remain the same. Total Time Total Time Spent Total Time Spent (In Minutes): 45 minutes Coding Level of Care Code 04742 INP/OBS DISCH >30 MIN Diagnoses Fall W19.XXXA Encounter type: initial encounter Chronic kidney disease, stage 3 N18.30 Migraine without aura and without status migrainosus, not intractable G43.909 Diarrhea R19.7
[2024-06-15 11:54] VITALS: BP 135/68
== END 2024-06-15 14:00 | disposition home health service (06) | DRG 101 ==
LOC: ED 15:32 → SUATTDRO 20:10 → 2N 20:10 → INTOOBSV 20:10 → 2N 22:15